=== PATIENT | female | born 1955 | race Caucasian/White ===

== ENCOUNTER → 2017-12-22 12:20 | Outpatient (CLI) | payer BC, SELFPAY ==
--- NOTE | 2017-12-22 12:43 | CT_ITS ---
STUDY: CT BRAIN WITHOUT CONTRAST REASON FOR EXAM: Female, 62 years old. Dizziness. Unsteady gait. RADIATION DOSAGE (If Supplied By Facility): CTDIvol = ( 60.81 ) mGy, DLP = ( 1158.30 ) mGycm TECHNIQUE: Transaxial CT imaging of the brain was performed without administration of intravenous contrast material. Individualized dose optimization techniques were used for this CT. COMPARISON: None. FINDINGS: Normal soft tissue structures. Normal calvarium. Normal size ventricles and extra-axial spaces for the patient's age. There are areas of decreased attenuation within the white matter tracts of the supratentorial brain, consistent with microvascular disease changes. Normal basal ganglia and thalami. Normal brainstem. Normal cerebellum. There is no intracranial hemorrhage. There are no findings of an acute ischemic infarction. Normal visualized paranasal sinuses. CT/Brain/Head without Contrast IMPRESSION: Chronic involutional changes of the brain. Electronically Signed: Nathaniel Bo MD at 13:19 EDT Tel [phone], Service support ,
[2017-12-22 13:57] LABS: Absolute Lymphocyte Count 1.09 X10^3/ul (0.83-4.51); Absolute Neutrophil Count 3.6 X10^3/uL (2.0-7.7); Basophil# 0.02 X10^3/uL; Basophil% 0.4 % (0-1); Eosinophil# 0.08 X10^3/uL; Eosinophils% 1.5 % (0-5); Hematocrit 38.6 % (37-47); Lymphocyte # 1.09 X10^3/ul (4.0); Lymphocyte % 20.8 % (19-41); Mean Corp Hgb Conc 31.1 g/gl (32-36); Mean Corpuscular Hgb 24.7 pg (27.0-32.0); Mean Corpuscular Volume 79.6 fL (81-99); Mean Platelet Vol. 10.3 fl (6.2-12.0); Monocyte# 0.46 X10^3/uL; Monocyte% 8.8 % (0-10); Neutrophil # 3.59 X10^3/uL (2.7-7.7); Neutrophil % 68.5 % (47-70); Platelet Count 356 K/mm3 (150-450); RBC Distribution Width CV 16.8 % (11.6-14.6); RBC Distribution Width SD 48.4 fl (35.1-43.9); Red Blood Count 4.85 M/mm3 (4.2-5.4); White Blood Count 5.2 K/mm3 (4.4-11.0)
[2017-12-22 14:12] LABS: POSITIVE COUNT NO; POSITIVE DIFFERENTIAL NO; POSITIVE MORPHOLOGY NO
[2017-12-22 14:15] LABS: Anion Gap 9 (5-15); BUN 17 mg/dL (7-18); BUN/Creat Ratio 28.9 RATIO (10-20); Calcium,Total 9.7 mg/dL (8.5-10.1); Chloride 102 mmol/L (98-107); Creatinine, Serum 0.59 mg/dL (0.55-1.02); EST Glomerular Filtration Rate 110 mL/min (>60); Est Glom Filt Rate - Afr Amer 133 mL/min (>60); Glucose 90 mg/dL (74-106); Potassium 3.5 mmol/L (3.5-5.1); Sodium Level 139 mmol/L (136-145)
== END ==
PROVIDERS: Family Provider Family Medicine; PCP Family Medicine; Visit Provider Family Medicine
DX: I10 Essential (primary) hypertension (principal); R42 Dizziness and giddiness; R41.82 Altered mental status, unspecified
CPT/HCPCS: 36415; 70450; 80048; 84443; 85025

== ENCOUNTER → 2020-04-06 14:30 | Outpatient (CLI) | payer BC, SELFPAY ==
[2016-03-09 10:44] VITALS: BMI 42.3
[2020-04-06 18:06] LABS: Anion Gap 7 (5-15); BUN 16 mg/dL (7-18); Calcium,Total 9.4 mg/dL (8.5-10.1); Chloride 103 mmol/L (98-107); Creatinine, Serum 0.62 mg/dL (0.55-1.02); EST Glomerular Filtration Rate 104 mL/min (>60); Est Glom Filt Rate - Afr Amer 126 mL/min (>60); Free T3 2.6 pg/mL (2.18-3.98); Glucose 77 mg/dL (74-106); Potassium 4.1 mmol/L (3.5-5.1); Sodium Level 136 mmol/L (136-145); T4 Total, Thyroxin 8.7 ug/dL (4.8-13.9); Thyroid Stim Hormone (TSH) 5.16 uIU/mL (0.358-3.74)
== END ==
PROVIDERS: PCP Family Medicine; Referring Provider Family Medicine; Visit Provider Family Medicine
DX: I10 Essential (primary) hypertension (principal); E03.9 Hypothyroidism, unspecified
CPT/HCPCS: 36415; 80048; 84436; 84443; 84481

== ENCOUNTER → 2020-08-17 07:50 | Outpatient (CLI) | payer BC, SELFPAY ==
[2020-08-17 10:33] LABS: ALB/GLOB Ratio 0.9 RATIO (0.9-2.4); AST(SGOT) 16 U/L (15-37); Alanine Aminotransfer ALT/SGPT 29 U/L (13-56); Albumin, Serum 3.9 g/dL (3.2-5.0); Alkaline Phosphatase 87 U/L (45-117); Anion Gap 8 (5-15); BUN 18 mg/dL (7-18); BUN/Creat Ratio 24.3 RATIO (10-20); Calcium,Total 9.8 mg/dL (8.5-10.1); Chloride 102 mmol/L (98-107); Cholesterol 223 mg/dL (200); Creatinine, Serum 0.74 mg/dL (0.55-1.02); EST Glomerular Filtration Rate 84 mL/min (>60); Est Glom Filt Rate - Afr Amer 101 mL/min (>60); Free T3 2.5 pg/mL (2.18-3.98); Globulin 4.2 g/dL (2.2-4.2); Glucose 102 mg/dL (74-106); High Density Lipoprotein 39 mg/dL; Potassium 3.8 mmol/L (3.5-5.1); Protein, Total 8.1 g/dL (6.4-8.2); Sodium Level 138 mmol/L (136-145); T4 Free Direct 0.97 ng/dL (0.76-1.46); Thyroid Stim Hormone (TSH) 6.27 uIU/mL (0.358-3.74); Triglycerides 156 mg/dL; Very Low Density Lipoprotein 31 mg/dL (5-40)
== END ==
PROVIDERS: PCP Family Medicine; Referring Provider Family Medicine; Visit Provider Family Medicine
DX: E03.9 Hypothyroidism, unspecified (principal); E78.5 Hyperlipidemia, unspecified
CPT/HCPCS: 36415; 80053; 80061; 84439; 84443; 84481

== ENCOUNTER 2020-11-14 14:30 | Outpatient (RCR) | payer BC, SELFPAY ==
[2020-08-17 08:56] VITALS: BMI 47.2
--- NOTE | 2020-08-21 18:43 | HP.PTEVAL ---
Patient's Visit Information TULIO VALERA is a 65 year old F referred to Physical Therapy by Dr. Nolberto Fuentes DO with a diagnosis of L knee DJD and bursitis. Date of Evaluation: 08/21/20 Physical Therapist: Jer Stratton, DPT, OCS, CSCS - Visit Plan Frequency: 3x /Week Duration: 4-6 Weeks Plan: 3x/week for 3-6 weeks starting with aquatic therapy for L knee ext ROm, quad stretchin, itb stretching, L knee adn hip strength adn calorie burning/full body strength. - Subjective Has seen [facility] for R knee f/u(TKA in 2013). Stopped crossfit and never got back to it. Still working for [employer] (29 years) and lifting and servicing 125 meals. Now doesn't trust self lifting at work. Haard to carry even small meals. Can carry grocery in but L knee may act up. 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 L knee hurt and got shot and it really helped last , easeir to sleep adn less intense pain. Still feels pulling pain in L anterior knee. Has to stop speaking for a second at [employer] if tweaks it. Has an instability in L knee and it will give out and caused her to fall once. Is bone on bone in L knee. Feels like this L knee is holding her hostage and keeping her from doing things. Walking 300 feet is often painful. it has been hurting and gradually increasing over the last 9 months and pain for 3 years. Tatment injection and sent for PT. Doctor also wants weigh watchers. Lost 29 # in last 3 months. Sleep is OK if she finds a good position and takes tylenol. - Pain L knee pain. Pain Intensity (Out of 10): 2 Pain Intensity Range: 0, 9 Comment: 7 /10 at rest. - Objective L antalgia in gait avoiding full extension of L knee with every step adn causing slight L trendelenberg. Labored and slow walking today. Trasnfers I with UE. steps reciprocal with railing without increased pain. Patient unable to lie supine with L leg flat due to severe pain in full extension. quads mod tight B, ITB min tight. AROM R knee 0-120, L knee -2 to 120. Strength L knee ext 3+ and pain, flexion 4- R knee 4/5 HS and quad. Hip strength 3+ abd and ext B, flexion 4- B. Ankle strength 4+ B without pain. reflexes 2.3 patella and achilles. Sensation LE WN to gross light touch. unable to patellar grind, unable to bounce home as patient very apinful and will nto relax. - varus, - valgus, - ant drawer. Pt feels OK with knee bent adn mostly painful with end range extension. - Balance Scores Functional Gait Assessment Score: 22 % Disability: 26.6700 - Goals Goal 1:: Patient ambulate without gait deviation and 2/10 pain or better after 500 feet. Goal Time Frame: 4-6 Weeks Goal 2:: I approp management of condition with pool and or land based ex Goal Time Frame: 4-6 Weeks Goal 3:: Pt feel 75% better overall Goal Time Frame: 4-6 Weeks Goal 4:: <10 oswestry pain index Goal Time Frame: 4-6 Weeks Goal 5:: Patient work withou hesitation due to L knee Goal Time Frame: 4-6 Weeks - Rehabilitation Potential Physical Therapy Diagnosis: L knee pain DJD effecting walking. Rehabilitation Potential: Questionable - Anticipated Interventions Patient/Client Instruction: Educate patient on: Condition, Plan of Care For the Purpose of:: To decrease pain, To increase ROM, To improve muscle performance and motor function, To increase tolerance to activity/condition/position, To improve ability of physical actions for home/community/work/leisure, To improve gait and locomotor functions Therapeutic Exercise to Include: Strength training, Flexibilty training, Gait and locomotor training, In an aquatic setting, Passive ROM, Active ROM For the Purpose of:: To decrease pain, To increase ROM, To improve muscle performance and motor function, To increase tolerance to activity/condition/position, To improve ability of physical actions for home/community/work/leisure Thank you for the opportunity to evaluate your patient. For Medicare and Medicare HMO plans, please review the plan of care and approve it. It will need to be FAXED BACK to us at [phone] for Medicare purposes. For Medicare only, by signing this I certify the plan of care. Please let me know if there are questions or concerns regarding this plan of care. Physician Signature: Date:
--- NOTE | 2020-10-10 15:35 | HP.PTREVAL_ITS ---
Dr. Nolberto Fuentes, DO, It has been my pleasure to treat TULIO VALERA over the last 10 visits for L knee DJD and bursitis. Please see the progress note below for an update on the physical therapy plan of care! Subjective: Love the pool therapy. [place] alot about lessening the pressure on the knee. Bending knee better. Walking better adn daughter agrees. Still feels a wobble and can struggle with balance. Wroking and walking with [employer] a little bit for exercise. Stretching more at home. Stationary bike makes her knees hurt especially later in the day. Pain this week in the knee to 5/10 being on feet for full day or sitting too much. o f/u yet with doctor. not been wearing brace. Lost 28# since first of year doing [employer]. Objective/Function: -1 to 133 L knee AROM and R is 0-118. Hop strength 3+ abd and ext adn 4- flexion. walks with B trendelenberg but no antalgia. Hesitant and fearful with balance challenges. Improved gait and appropriate to cotninue to wrok toward land based ex also with fair prognosis to I. Pt motivated to wrok out in gym also but no idea what to do. Plan Plan: 2x/week for 4 weeks to wrok toward I gym program to supplement pool program for gneeral strength, hip abd and ext strength and calorie burning ensuring that knees and hips tolerate adn then give list for I. Pt to work out in pool 2x/week on own now as member here or elsewhere. Goals Goal 1:: Patient ambulate without gait deviation and 2/10 pain or better after 500 feet. Goal Time Frame: 4-6 Weeks Goal Progress: Progressing, 5/10 Goal 2:: I approp management of condition with pool and or land based ex Goal Time Frame: 4-6 Weeks Goal Progress: Goal Met Goal 3:: Pt feel 75% better overall Goal Time Frame: 4-6 Weeks Goal 4:: <10 oswestry pain index Goal Time Frame: 4-6 Weeks Goal Progress: 21(-1) Goal 5:: Patient work withou hesitation due to L knee Goal Time Frame: 4-6 Weeks Goal Progress: Progressing Anticipated Interventions Patient/Client Instruction: Educate patient on: Condition, Plan of Care For the Purpose of:: To decrease pain, To increase ROM, To improve muscle performance and motor function, To increase tolerance to activity/condition/position, To improve ability of physical actions for home/community/work/leisure, To improve gait and locomotor functions Therapeutic Exercise to Include: Strength training, Flexibilty training, Gait and locomotor training, In an aquatic setting, Passive ROM, Active ROM For the Purpose of:: To decrease pain, To increase ROM, To improve muscle performance and motor function, To increase tolerance to activity/conditi on/position, To improve ability of physical actions for home/community/work/leisure Please do not hesitate to contact me at [phone] by phone or if you have questions or concerns regarding this new plan of care! Sincerely, Jer Stratton, DPT, OCS, CSCS
--- NOTE | 2020-11-14 15:29 | HP.PTDCSUM ---
It has been my pleasure to treat TULIO VALERA referred by Dr. Nolberto Fuentes DO, with the diagnosis of L knee DJD and bursitis for a total of 17 visit(s). Discharge Date: 11/14/20 Please see the following information for a summary of their discharge status. Subjective: Doing well! Doing better, lost 8#, joined here at . Leg is more activated. Feels like walking better with legs not as stiff. Pain is still just asintense at times when she is on it alot. Still up to 8/10 but did not stop her from her ex. Still scary that she might pop in an social situation and hurt or casue fall. Feels less fearful overall. Feels better about self overall, knee pain intenisty is slightly better. Has not been in poo for last number of weeks but feels like she could. Feels good about work ot seeing Dr. Joy anytime soon. L knee pain. Pain Intensity (Out of 10): 4 % Improvement: 75 Objective/Function: walks with L knee pain and antalgia and and still trendelenberg. I though and feeling better overall. Pt to continue in gym and water as membership 2-4x/week. Goal 1:: Patient ambulate without gait deviation and 2/10 pain or better after 500 feet. Goal Progress: Progressing, 5/10 Goal 2:: I approp management of condition with pool and or land based ex Goal Progress: Goal Met Goal 3:: Pt feel 75% better overall Goal Progress: Goal Met Goal 4:: <10 oswestry pain index Goal Progress: 15 Goal 5:: Patient work withou hesitation due to L knee Goal Progress: still limited lifting. Plan: d/c to gym program Discharge Comments: Pt to continue via [facility] in gyma dn pool and contact doctor if problems for f/u. If there are questions or concerns regarding this patient's physical therapy, please feel free to call me at [phone]. Thank you for the referral of this patient. Sincerely, Jer Stratton, DPT, OCS, CSCS
== END 2020-11-14 19:00 | disposition home or self-care (01) ==
LOC: PT 14:30
PROVIDERS: PCP Family Medicine; Referring Provider Orthopaedic Surgery; Visit Provider Orthopaedic Surgery
DX: M71.9 Bursopathy, unspecified (principal); M19.90 Unspecified osteoarthritis, unspecified site
CPT/HCPCS: 97110; 97113; 97162; 97164

== ENCOUNTER → 2021-03-01 | Outpatient (CLI) | payer BC, SELFPAY | END | disposition home or self-care (01) | LOC: LABSPEC 03-12 16:36 | PROVIDERS: PCP Family Medicine; Referring Provider Family Medicine; Visit Provider Family Medicine | DX: Z20.822 Contact with and (suspected) exposure to COVID-19 (principal) | CPT/HCPCS: 87635; U0005; U0003 ==

== ENCOUNTER → 2021-05-13 06:32 | Outpatient (CLI) | payer BC, SELFPAY ==
--- NOTE | 2021-05-13 12:42 | STRESSREP ---
Stress Test Report Pharmacologic myocardial perfusion stress test. 65-year-old lady with a history of right chest discomfort. Resting EKG demonstrates normal sinus rhythm with a rate of 81 bpm and a right bundle branch block. Resting blood pressure is 160/96 mmHg. 0.4 mg of regadenoson was infused per usual protocol followed by rapid venous saline flush injection in his EKG monitoring was performed. The maximum heart rate attained was 139 bpm which was 89% of max impact at heart rate the maximum workload was 1 metabolic equivalent. At rest there were no ST or T wave changes noted to suggest abnormal flow reserve and at peak infusion nonspecific ST changes were noted with did not meet the criteria for ischemia. No clinical angina was noted. Myocardial perfusion protocol. 14.8 mCi of technetium 99m sestamibi was injected at rest. 0.4 mg of regadenoson was infused per usual protocol. At peak infusion 44.1 mCi of technetium 99m sestamibi was injected stress images were obtained stress and rest images were reconstructed and compared in the short axis vertical long and horizontal long axis. Gated images were also obtained for Perfusion SPECT analysis: Review of the stress images demonstrate mildly reduced uptake noted in the anterior wall on the stress and resting images to a similar extent the rest of the pascual appear to be well perfused. The above is possibly suggestive of a previous anterior infarct. No obvious reversibility is noted suggest ischemia. Gated SPECT analysis: The gated ejection fraction is 57%. Conclusion: Pharmacologic myocardial perfusion stress test with no obvious ischemia noted. Previous anterior infarct cannot be completely excluded.
== END ==
PROVIDERS: PCP Family Medicine; Referring Provider Family Medicine; Visit Provider Family Medicine
DX: R07.9 Chest pain, unspecified (principal)
CPT/HCPCS: 78452; 93017; A9500; A4216; J2785

== ENCOUNTER → 2021-12-06 | Outpatient (CLI) | payer BC, SELFPAY ==
--- NOTE | 2021-12-06 08:41 | CT_ITS ---
STUDY: CT LEFT LOWER EXTREMITY WITHOUT CONTRAST REASON FOR EXAM: Left knee osteoarthritis, surgical planning. TECHNIQUE: Transaxial CT imaging of the lower extremity was performed. Coronal and sagittal images were reformatted. Individualized dose optimization techniques were used for this CT. COMPARISON: Radiographs 08/17/2020. FINDINGS: Knee: There are marginal osteophytes, mild subchondral eburnation and subchondral cystic change and joint space narrowing of the medial femorotibial compartment (coronal reconstruction 40). There are marginal osteophytes of the lateral femorotibial compartment with preservation of joint space. There are marginal osteophytes of the patellofemoral articulation with joint space narrowing (axial image 316). Hip: There is preservation of joint space of the left hip. Ankle: Normal tibiotalar, posterior subtalar talonavicular and calcaneocuboid articulations. There is an os trigonum. There is a plantar calcaneal enthesophyte. CT/Extremity Lower without Contra IMPRESSION: Left knee osteoarthritis. Electronically Signed: Ralph Foley MD at 14:59 EDT ,
== END | disposition home or self-care (01) ==
PROVIDERS: PCP Family Medicine; Referring Provider Orthopaedic Surgery; Visit Provider Orthopaedic Surgery
DX: M17.12 Unilateral primary osteoarthritis, left knee (principal)
CPT/HCPCS: 73700

== ENCOUNTER 2021-12-30 05:13 | Day surgery (SDC) | payer BC, SELFPAY ==
--- NOTE | 2021-12-03 13:34 | PCM.HP.BLA ---
History and Physical History and Physical [facility] Patient Name: Olena Henderson : 1955 From:? TETO PUCKETT PA-C? DATE OF SURGERY:? 12/30/2021 SCHEDULED PROCEDURE:? left total knee arthroplasty HISTORY OF PRESENT ILLNESS: Preoperative history and physical exam was performed on December 02, 2021.? This is a 66-year-old female who presents today with her with continued pain and progression of pain in the past 3 months.? She has had ongoing pain for several years.? Her pain is sharp and stabbing.? She has increased pain with going up and down steps and walking.? She presents today in a wheelchair.? She normally uses a walker throughout the day.? She does complain of instability in the knee.? She has difficulty with activities of daily living including housework and shopping.? She has fallen and tripped/stumble due to the knee pain.? Patient states she does not feel safe carrying anything while walking.? She has tried rest, ice, heat, elevation with minimal relief.? She has been through physical therapy and home exercises in the past.? Patient has been involved in aquatic therapy.? She has tried previous corticosteroid injections.? She denies previous surgery on the left knee.? However she has had previous right total knee arthroplasty by Dr. Rodrigo Robledo on October 25, 2013.? Patient does have medical history of hypertension, hypercholesterolemia, and thyroid disease.? She currently denies any chest pain, shortness of breath, fevers chills or recent infections.? After failing conservative measures and discussing treatment options with Dr. Donavan Young, the patient does wish to proceed with a left total knee arthroplasty.? We will undergo preoperative lab work.? Patient does report having an? EKG and Stress Test in April 2021. REVIEW OF SYSTEMS: ROS: Const: Reports weight change, but denies anorexia, change in appetite, fever, hard of hearing and vision problems. CV: Denies chest pain, heart murmur, irregular heartbeat and peripheral vascular disease. Resp: Denies asthma, cough, pneumonia, sleep apnea, SOB, tuberculosis and wheezing. GI: Denies constipation, diarrhea, difficulty swallowing, heartburn, nausea, bloody stools and vomiting. : Denies female genital problems. Urinary: denies incontinence. Musculo: Reports leg swelling, limp, trouble walking and weakness. Skin: Denies Raynaud's, history of shingles and tattoo. Neuro: Denies ambulatory dysfunction, dizziness, numbness/tingling and tremor. Psych: Reports depression, but denies anxiety, insomnia, mental illness and stress. Bijan/Lymph: Denies anemia, bleeding/bruising tendency and past transfusion. Reviewed, no changes. PAST MEDICAL HISTORY: PMH: Medical Problems: High Blood Pressure Covid- 19 - (06/19/2021) Hypercholesterolemia, Thyroid Disease Accidents: None Surgical Hx: RT TKR - (10/25/2013) GURPREET @ [facility] Anesthesia Complications: None Assistive Devices: Glasses, Cane Reviewed and updated. SOCIAL HISTORY: SH: Marital: .Occupation: Retired [employer].Work Status: Retired.Hand Dominance: Right-handed. Personal Habits:? Cigarette Use: Never Smoked Cigarettes.Alcohol: Has consumed alcohol in the past.Drug Use: Denies Use.Enjoy Exercising: Never Exercises. Reviewed and updated. VITALS: Ht: 64 Wt: 293lb Wt k.905 BMI: 50.3 BP: 130/82 Pulse: 92 Resp: 16 T: 97.2 T: 36.2C Pain Level: 8 O2SatR: 98 ALLERGIES: No Known Drug Allergy? MEDICATIONS: Oxycodone HCL 5 mg 1-2 by mouth every 4 hours, Zofran 4 mg one by mouth every 8 as needed nausea, Chlorthalidone 25 mg qd, Benazepril HCL 10 mg 1po qday, Levothyroxine Sodium 75 mcg, Atorvastatin Calcium 20 mg, Venlafaxine HCL ER 75 mg, Advil 200 mg 4 tablets 1-2x daily as needed, Aleve 220 mg 2 tablets by mouth 2x/day., Acetaminophen 8 Hour 650 mg prn PRE-OP EXAM:? General appearance:NORMAL? ? ? Other: Eyes: Conjunctivae and lids: NORMAL? Pupils: ERR Ears, Nose, Mouth, and Throat: NORMAL? Other: Inspection of lips, teeth and gums: NORMAL? ?Other: Neck: Examination of neck: no masses noted. Respiratory: Assessment of respiratory effort: NORMAL? ?Other: ?Auscultation of lungs: clear to auscultation no wheezes, rhonchi or rales. Cardiovascular:? Auscultation of heart: regular rate and rhythm, no murmurs, gallops or rubs. PHYSICAL EXAMINATION: On exam patient does present today in a wheelchair.? She reports she normally uses a walker for ambulatory assistance.? Patient's left knee is cool to touch without erythema.? She does have effusion.? She has tenderness to palpation along the medial joint line and lateral joint line.? Range of motion: 0 extension to approximately 100 flexion.? She does get crepitus with range of motion.? Varus alignment with the left knee.? Sensation intact to light touch. IMAGING STUDIES: Previous x-rays of the left knee reveal varus alignment with medial joint space narrowing, subchondral sclerosis, osteophyte formation consistent with severe stage IV osteoarthritis. IMPRESSION: 1.? Severe stage IV left knee osteoarthritis 2.? Morbid obesity with BMI 50.3 3.? Hypertension 4.? Hypercholesterolemia 5.? Thyroid disease PLAN: Dr. Donavan Young did discuss and review with the patient all treatment options including surgical versus nonsurgical options.? Patient does wish to proceed with the above-stated procedure.? Potential risks, benefits, and complications of the procedure were discussed in detail including but not limited to , infection, nerve and blood vessel damage, persistent pain, numbness, tingling, paresthesias, blood clot, pulmonary embolism, and requirement for possible further surgery.? The patient expressed full understanding and has no further questions for the doctor.? Patient does agree to proceed with the above-stated procedure and has signed the surgery consent form. We discussed the current risks associated with COVID 19.? This does include the risk of exposure while in the hospital.? Patient was reassured local hospitals have low infection rates and are taking all necessary precautions to avoid exposure to patients.? In addition, we discussed strategies that can be used to help limit exposure including those that limit the patient's time in the hospital.? Also using strategies to limit the patient's need for continued inpatient services after being discharged from the hospital.? Patient was notified that we will need to comply with any screening or testing the hospital wishes to perform or that surgery may be delayed for any positive results. This dictation was created using voice recognition software. Phonetic and/or grammatical errors may exist. ___? I have re-examined the patient.? There are no clinical changes since date of exam. ___? See progress notes for changes. ___? Dictated on admission Date: ? ? ?Time: Signature:
--- NOTE | 2021-12-06 09:08 | EKG12_ITS ---
Test Reason : PREOP Blood Pressure : / mmHG Vent. Rate : 076 BPM Atrial Rate : 076 BPM P-R Int : 236 ms QRS Dur : 156 ms QT Int : 430 ms P-R-T Axes : 038 069 129 degrees QTc Int : 483 ms Sinus rhythm with 1st degree A-V block with occasional Premature ventricular complexes Right bundle branch block T wave abnormality, consider inferolateral ischemia Abnormal ECG Confirmed by JOSE LICONA, FAZAL ([id number]), associate entertainment editor NICHOLE RUTHERFORD ([id number]) on 12/09/2021 11:39:09 AM Referred By: Donavan Young Confirmed By:FAZAL GARCIA MD
[2021-12-06 09:49] LABS: Absolute Lymphocyte Count 1.27 X10^3/uL (0.83-4.51); Absolute Neutrophil Count 5.1 X10^3/uL (2.0-7.7); Basophil# 0.05 X10^3/uL; Basophil% 0.7 % (0-1); Eosinophil# 0.15 X10^3/uL; Hematocrit 39.7 % (37-47); Hemoglobin 12.3 g/dL (12.0-15.0); Lymphocyte # 1.27 X10^3/ul (0.83-4.51); Lymphocyte % 17.3 % (19-41); Mean Corpuscular Hgb 25.2 pg (27.0-32.0); Mean Corpuscular Volume 81.4 fL (81-99); Monocyte# 0.71 X10^3/uL; Monocyte% 9.7 % (0-10); NRBC Flagged by Analyzer 0 % (0-5); Neutrophil # 5.13 X10^3/uL (2.7-7.7); Platelet Count 391 K/mm3 (150-450); RBC Distribution Width CV 15.9 % (11.6-14.6); RBC Distribution Width SD 47.2 fl (35.1-43.9); Red Blood Count 4.88 M/mm3 (4.2-5.4); White Blood Count 7.3 K/mm3 (4.4-11.0)
[2021-12-06 10:12] LABS: Anion Gap 7 (5-15); BUN 17 mg/dL (7-18); BUN/Creat Ratio 26.6 RATIO (10-20); Calcium,Total 9.8 mg/dL (8.5-10.1); Chloride 103 mmol/L (98-107); Creatinine, Serum 0.64 mg/dL (0.55-1.02); EST Glomerular Filtration Rate 99 mL/min (>60); Est Glom Filt Rate - Afr Amer 120 mL/min (>60); Glucose 115 mg/dL (74-106); Potassium 3.8 mmol/L (3.5-5.1); Sodium Level 136 mmol/L (136-145)
[2021-12-06 10:23] LABS: Magnesium 1.9 mg/dL (1.6-2.6); Thyroid Stim Hormone (TSH) 1.31 uIU/mL (0.358-3.74)
[2021-12-30] VITALS (13 sets, daily range): BP systolic 107–155; BP diastolic 41–93; PULSE 60–76; RESP 14–18; TEMP 36.1–36.6; O2SAT 92–100; BMI 47.1
[2021-12-30] MEDS: Lactated Ringers 1,000 ML 999 ML IV (06:17)
[2021-12-30] MEDS: Celecoxib 200 MG Capsule 400 MG PO (06:18)
[2021-12-30] MEDS: Acetaminophen 500 MG Tablet 1000 MG PO (06:18)
[2021-12-30] MEDS: Gabapentin 600 MG Tablet PO (06:18)
[2021-12-30] MEDS: Magnesium 2 GM IV (06:20)
[2021-12-30] MEDS: Lactated Ringers 1,000 ML 15 ML IV (06:24)
[2021-12-30 07:30] LABS: Bedside Glucose 122 mg/dL (74-106)
--- NOTE | 2021-12-30 07:30 | KNEE_PTH ---
PATIENT: TULIO VALERA [place] [facility] [place][id number] AGE/SX: 66/F ROOM: RE12/30/[address]: Dr. Donavan Young DO : 1955 BED: DIS: 12/30/2021 SPEC #: [id number] RECD: 12/30/21 10:57 STATUS: HERI REQ #: [id number] SULMA: 12/30/21 07:[address]: Donavan Young DEPT: SURGICAL PATHOLOGY RECD BY: Alicia Aopdaca ENTERED: 12/30/21 13:10 SP TYPE: TOTAL KNEE OTHR DR: Dr. Hugo Noriega MD Tissues: Knee, NOS Procedures: Decalcification bone/plaque Surgery Specimen Level IV HEADER OPERATION: ERAS, total knee replacement robotic arm assist PRE-OP DIAGNOSIS: Severe stage IV left knee osteoarthritis TISSUE SUBMITTED: Bone and soft tissue left knee MICROSCOPIC DIAGNOSIS Bone and soft tissue, left knee, total knee replacement/resection: Pieces of bone with degenerative osteoarthritic changes. LIBERTY:rudi 01/02/2022 MICROSCOPIC DESCRIPTION Slides are reviewed. GROSS DESCRIPTION Received is one container designated bone and soft tissue left knee. The specimen consists of multiple fragments of sims-yellow bone measuring in aggregate 10 x 9 x 3 cm. No soft tissue is identified. A number of bony fragments contain articular surfaces consistent with tibial plateau and femoral condyle and displaying prominent osteophyte formation, eburnation, and bone erosion. Music Arranger sections are submitted in one cassette after decalcification. / LIBERTY:rudi 12/30/2021 TC:5 CPT: 65562, 25074
[2021-12-30] MEDS: TXA 1000mg in NS100 100ml (IVPB at Incision) 660 MG IV (07:50)
[2021-12-30] MEDS: dexAMETHasone 10 MG/ML Vial IV (08:20)
[2021-12-30] MEDS: TXA 1000mg in NS100 100ml (IVPB at Closure) 660 MG IV (09:04)
--- NOTE | 2021-12-30 09:10 | PCM.OPRPT ---
Report of Operation Date of Procedure: 12/30/21 Pre-Operative Diagnosis: OA left knee Post-Operative Diagnosis: same Surgery/Procedure Performed:: Left TKR Description of Surgical Findings:: Report of Operation Date of Procedure: 12/30/2021 Preoperative Diagnosis: [ left ] knee primary osteoarthritis Postoperative Diagnosis: [left ] knee primary osteoarthritis Operation: Robotic Assisted Knee Total Arthroplasty, [left ] knee Surgeon: Dr Donavan Young DO Computer Sciences Professor: Jordan Rodriguez PA-C Anesthesia: general Anesthesiologist: Jer Cohn M.D. Findings: Stable knee with good patella tracking Specimen(s): Bony cuts Complications: No intraoperative complications Estimated Blood Loss: 30 cc IV Fluids: 1000 cc crystalloid Implants Used: 1. [employer] press-fit CR size 4 femur 2. [place] [employer] size 5 tibia 3. 35 mm patella 4. 9 mm CS polyethylene Brief History Operative Indications: [ (66 y/o female) ] with history of [ left ] knee osteoarthrosis with radiographic findings with loss of joint space, osteophyte formation and subchondral sclerosis. Failed conservative measures as mentioned in the H&P. Discussion of total knee arthroplasty as well as risk and benefits were discussed with the patient including but not limited to blood loss, DVTs, PEs, neurovascular damage, general risk of anesthesia including loss of life, and stiffness or instability were also discussed with the patient. Patient demonstrated understanding and was able to sign informed consent. Procedure: On the date of procedure, patient's [ left ] lower extremity was marked in the preoperative area. The patient was then taken back to the operating room where that patient was placed on the table in the supine position. All bony prominences were identified and well-padded. Anesthesia assumed control of the C-spine and airway throughout the remainder of the procedure. A tourniquet was placed on the [left ] upper thigh and the leg was prepped in a sterile fashion. The surgeon then scrubbed at this time. Upon reentering the room, the [left ] lower extremity was draped in a standard orthopedic fashion. A timeout was then called and everyone agreed upon the side, the site, the procedure to be performed, patient's identity and antibiotics given. Esmarch bandage was used to exsanguinate the extremity and the tourniquet was placed up to 250 mmHg with the knee in flexion. A midline skin incision was made and a sharp dissection was taken down through skin, subcutaneous tissue and fat. The standard medial parapatellar incision was made and the patella was subluxed laterally. An appropriate deep MCL release was done and the fat pad was resected. Our attention was then directed to the patella. The patella was everted and a flat resection was made. The knee was then flexed up and 2 femoral pins were placed inside the incision and 2 tibial pins were placed outside the incision in the medial tibia bicortically. Once this was completed, the 2 checkpoints in the femur and tibia were placed. Knee was then flexed up and the bony landmarks were registered. Once the was completed, the knee taken through range of motion and manually stressed allowing us to plan for an appropriate tibial cut. The robotic arm was brought into the field sterilely and checkpoint and saw were registered. Based on the patient's deformity, the tibial cut was made in [1 degree varus ]. At this time, the tensioner was then placed in the joint and ligament tension was checked at 90 degrees and full extension. Based on the patient's ligamentous tension, appropriate adjustments were made to the operative plan and ligament releases were done. Once we were happy with our operative plan with balanced flexion and extension gaps, our attention was directed to the femur. The robot was brought into the field sterilely and registered. Posterior condylar cuts, anterior chamfer cuts and anterior cuts were appropriately made for a [size 4 ] femur. When these were completed, the saws were switched out in the distal femoral and posterior chamfer cuts were made. Protecting the soft tissue throughout this time. A [ size 5 ] base plate was selected. The knee was flexed to 90 degrees and soft tissues and posterior osteophytes were removed from the joint. 40 cc of the periarticular injection was injected into the posterior medial corner of the joint. The appropriate trials were then placed on the femur and tibia. A trial polyethylene was trialed to ensure proper balancing and stability of the knee. The appropriate tibial internal rotation was then marked with a bovie. Our attention was then directed to the patella. The lug holes were drilled and the patella trial was placed. Patellar tracking was checked and deemed appropriate. Once we were happy, lug holes were drilled for the femur and trial components were removed. The tibia was subluxed and pinned into place and the keel was punched and drilled appropriately. Final components were verified and opened. The wound was copiously irrigated with normal saline. The components were impacted into place with the tibia, femur and finally the patella. The trial poly component was placed and the knee was placed in full extension. The tracking, alignment and balance were verified and a [ 9 mm CS ] polyethylene component was placed. Once the final components were placed an Irrisept lavage was performed and the wound was copiously irrigated with normal saline solution and the periarticular injection was given. the wound was closed in a layer-lowery fashion using #1 vicryl interrupted sutures for the arthrotomy, 2-0 interrupted vicryl suture for the subcuticular layer and karla for final skin closure. A sterile compressive dressing was then placed. The patient was then awakened from anesthesia, transferred to the [facility] and transferred to the PACU for recovery. My physician assistant teacher was a vital part of this case. He was important in appropriate retraction during the case, and protection of soft tissues during bony cuts. His intimate knowledge of the case and my steps aided in safe and expedient completion of the procedure as well as appropriate position of the leg during the case. He was also vital in assisting with closure under my direct supervision. Due to the complexity of this case, robotic arm was used to assist in the surgery to improve accuracy and clinical outcomes. Post-op Plan: DVT ppx; ASA 81 mg BID, thigh high compression stockings Follow up: in office in 2 weeks for wound check PT: to start POD #0 at hospital, outpatient PT should be arranged. Preoperative antibiotic: Ancef 3 grams IV Donavan Young DO Surgeon: Donavan Young log raft worker: Jordan Rodriguez Type of Anesthesia: General Anesthesiologist: Jer Cohn Specimen's removed: bone Estimated Blood Loss (mL): 30 cc Fluids Replaced: 1000 cc crystalloid Admit VTE Documentation VTE Present on Admission: No VTE Mechan Device Prophylaxis: SCD's and Thigh High RAJESH Hose VTE Pharm Prophylaxis ordered?: Yes
[2021-12-30] MEDS: 0.9% Normal Saline 1,000 ML 125 ML IV (09:30)
--- NOTE | 2021-12-30 10:10 | RAD_ITS ---
STUDY: X-RAY - LEFT KNEE REASON FOR EXAM: Female, 66 years old. post op TKR -- in PACU TECHNIQUE: 2 view(s) of the knee. COMPARISON: 08/17/2020 FINDINGS: Normal visualized distal femur. Normal visualized proximal tibia and fibula. Normal proximal tibiofibular articulation. Interval recent total knee arthroplasty with subcutaneous emphysema and skin karla.. The soft tissue structures are unremarkable. RAD/Knee 1 or 2 Views IMPRESSION: Interval recent total knee arthroplasty. Electronically Signed: Alcides Pink MD at 17:32 EDT ,
== END 2021-12-30 14:56 | disposition home or self-care (01) ==
LOC: SDC 05:13 → AC 05:25
PROVIDERS: Anesthesiology; PCP Family Medicine; Referring Provider Orthopaedic Surgery; Visit Provider Orthopaedic Surgery
PROC: 0SRD0JZ Replacement of Left Knee Joint with Synthetic Substitute, Open Approach (ICD-10-PCS; CPT 27447; principal; 2021-12-30 07:00)
DX: M17.12 Unilateral primary osteoarthritis, left knee (principal); Z68.43 Body mass index [BMI] 50.0-59.9, adult; E66.01 Morbid (severe) obesity due to excess calories; E78.00 Pure hypercholesterolemia, unspecified; E07.9 Disorder of thyroid, unspecified; M25.362 Other instability, left knee; I10 Essential (primary) hypertension
CPT/HCPCS: 27447; S2900; 01402; 64450; 36415; 73560; 80048; 82962; 83735; 84443; 85025; 87077; 87081; 88305; 88311; 93005; 97162; C1776; J7030; J7120; J2405

== ENCOUNTER → 2022-01-17 | Outpatient (CLI) | payer BC, SELFPAY ==
--- NOTE | 2022-01-17 10:49 | VDLE_ITS ---
Reason For Study: Pain Procedure LEFT This is a venous duplex using B-mode, color GSV is normal. flow and spectral Doppler. CFV visualized with color only and appears Exam performed in department. patent. Normal venous flow noted. Pt unable to tolerate compression at the CFV FV prox is compressible with normal venous and FV. flow noted. A preliminary report was called and/or faxed FV mid-distal visualized with color only and to Hannah. appears patent. POP V is compressible, spontaneous, phasic, competent and demonstrates normal augmentation. T/P Trunk is compressible. PTV is compressible. LT PerV is compressible. VL/Venous Duplex US, Unilateral Interpretation Summary Deep veins of the left lower extremity appear patent. There is no evidence of l eft lower extremity deep vein thrombosis. The left great saphenous vein appears patent and compress ible segmentally. Ordering Physician: Donavan Young Referring Physician: Hugo Noriega Performed By: Ayla Mirza RVT
== END | disposition home or self-care (01) ==
LOC: CVS 10:47
PROVIDERS: PCP Family Medicine; Referring Provider Orthopaedic Surgery; Visit Provider Orthopaedic Surgery
DX: M79.605 Pain in left leg (principal)
CPT/HCPCS: 93971

== ENCOUNTER 2022-08-23 11:41 | Emergency (ER) | payer BC, SELFPAY ==
[2022-08-23 11:41] VITALS: BP 148/107; PULSE 134; RESP 16; TEMP 36.7; O2SAT 98; BMI 46.9
--- NOTE | 2022-08-23 11:55 | EDS_ITS ---
HPI <KAYLENE Valentin - Last Filed: 08/23/22 15:07> History of Present Illness Chief Complaint: General Illness Narrative Narrative: Presenting today with flulike symptoms that started yesterday. She has had a fever, headache, nausea, vomiting, body aches, and feels lightheaded. She states she has had several episodes of vomiting since last night but denies any hematemesis. She states that her grandson just tested positive for influenza B on Thursday and she has been around him this week. Reports she has also been around her nephew who tested positive for COVID. She states her is also sick with similar symptoms but is not as severe. She denies any shortness of breath, chest pain, abdominal pain, and diarrhea. PMH includes hypertension and hypothyroidism. PFSH <KAYLENE Valentin - Last Filed: 08/23/22 15:07> [facility] Medical History Anxiety Arthritis Former smoker High cholesterol History of edema History of pain when walking History of stress test Hypertension Leg cramps Thyroid disease Wears glasses Home Medications benazepril 10 mg tablet 10 mg PO DAILY BP 12/31/13 [History Last Taken 12/30/21 04:45] chlorthalidone 25 mg tablet 25 mg PO DAILY 12/31/13 [History Last Taken 12/30/21 04:45] venlafaxine 75 mg capsule,extended release 24 hr 75 mg PO DAILY HOT FLASHES 12/31/13 [History Last Taken 12/29/21] atorvastatin 10 mg tablet 20 mg PO QHS CHOLESTEROL 08/17/20 [History Last Taken 12/29/21] levothyroxine 50 mcg tablet 75 mcg PO DAILY THYROID 08/17/20 [History Last Taken 12/30/21 04:45] ascorbic acid (vitamin C) 500 mg chewable tablet (Vitamin C) 1,000 mg PO DAILY 12/03/21 [History Last Taken 12/29/21] multivitamin,kw-gpqy-[id number]-FA-min 1 tab PO DAILY 12/03/21 [History Last Taken 12/29/21] ondansetron 4 mg disintegrating tablet 4 mg PO Q8H PRN PRN Nausea #14 tabs 08/23/22 [Rx Last Taken Unknown] Allergy/AdvReac Type Severity Reaction Status Date / Time No Known Allergies Allergy Verified 08/23/22 11:43 Surgical History History of total right knee replacement Hx of colonoscopy Social History Smoking Status: Former smoker ROS <KAYLENE Valentin - Last Filed: 08/23/22 15:07> ROS ED Constitutional Constitutional ED: Reports chills and fever(s); Denies sweats Eyes Eyes: Denies blurry vision or diplopia Cardiovascular Cardiovascular: Denies chest pain or palpitations Respiratory/Chest Respiratory/Chest: Reports cough; Denies dyspnea or dyspnea on exertion Gastrointestinal Gastrointestinal: Reports nausea and vomiting; Denies abdominal pain, constipation or diarrhea Genitourinary Genitourinary ED: Denies dysuria or hematuria Musculoskeletal Musculoskeletal: Reports myalgias Integumentary Denies abscess, Abrasions or rash Neurologic Neurologic: Denies confusion, dizziness or paresthesias Psychiatric Psychiatric: Denies anxiety, depression, suicidal ideation or suicidal thoughts EXAM <KAYLENE Valentin - Last Filed: 08/23/22 15:07> Physical Exam Const Vital Signs: 08/23/22 11:41 08/23/22 13:57 Temperature 98.1 F Temperature Source Temporal Pulse Rate 134 H 87 Respiratory Rate 16 16 Blood Pressure 148/107 H Blood Pressure Mean 120 Pulse Ox 98 95 Oxygen Delivery Method Room Air Positive well nourished, well developed and no apparent distress General Appearance ED: well developed HEENT Reports normocephalic, head/scalp atraumatic and TM's clear HEENT Narrative: Posterior pharynx without erythema, no tonsillar exudates, uvula midline, no trismus, no drooling. Tympanic Membrane ED: Yes TM's clear Mouth ED: Yes moist mucous membranes normal Eyes PERRL and EOMs intact bilaterally Neck full ROM and supple Chest Wall inspection of chest normal Resp normal respiratory effort and clear to auscultation bilaterally Cardio regular rate and regular rhythm GI soft to palpation, non-tender, non-distended and no masses Back/Spine normal ROM and normal to inspection Extremity normal to inspection and full ROM Neuro oriented x3, CN's II-XII intact bilaterally, moves all extremities, no focal motor deficits and no sensory deficits noted Sensorium / Orientation: awake and alert Psych mental status grossly normal and thought process normal Skin no rashes or lesions noted and no wounds <Dr. Bharat Cid, - Last Filed: 08/23/22 16:16> Physical Exam Const Vital Signs: 08/23/22 11:41 08/23/22 13:57 Temperature 98.1 F Temperature Source Temporal Pulse Rate 134 H 87 Respiratory Rate 16 16 Blood Pressure 148/107 H Blood Pressure Mean 120 Pulse Ox 98 95 Oxygen Delivery Method Room Air [facility] <KAYLENE Valentin - Last Filed: 08/23/22 15:07> [facility] Narrative Medical decision making narrative: Patient presenting today for flu-like symptoms that started last night. She has had a flu exposure and her is sick with similar symptoms. She is a little tachycardic at 134 bpm, I will give her IV fluids and Zofran. Rapid flu and COVID swabs will be obtained. Patient remained above 95% on room air. She is not having any shortness of breath. She did test positive for COVID. On reexamination she is stating she feels better with the fluids and is no longer nauseous. She has been given supportive care measures. She has been given return precautions. She has been given a prescription for Zofran. She will be discharged home in stable condition and is comfortable with plan. <Dr. Bharat Cid, - Last Filed: 08/23/22 16:16> [facility] Narrative Medical decision making narrative: Patient presenting today for flu-like symptoms that started last night. She has had a flu exposure and her is sick with similar symptoms. She is a little tachycardic at 134 bpm, I will give her IV fluids and Zofran. Rapid flu and COVID swabs will be obtained. Patient remained above 95% on room air. She is not having any shortness of breath. She did test positive for COVID. On reexamination she is stating she feels better with the fluids and is no longer nauseous. She has been given supportive care measures. She has been given return precautions. She has been given a prescription for Zofran. She will be discharged home in stable condition and is comfortable with plan. This patient was seen with a PA/ENGINEERING TEACHER Individually assessed they patient including history and physical. I have reviewed everything on the chart that is available and agree with the documentation provided by the PA/ENGINEERING TEACHER including discussion about the assessment, treatment plan, discussion, and return precautions. Patient with viral symptoms. Otherwise well-appearing. She is tachycardic on arrival. Patient given a liter normal saline and 4 mg of Zofran. Rapid COVID came back positive. On reevaluation she feels better. Recommend Zofran for home. Precautions discussed. Discharge Plan Triage Chief Complaint: General Illness ED Midlevel Provider: Ruthie Doe ED Provider: Bharat Cid Dx/Rx/DC Orders Clinical Impression: COVID-19 Instructions: Coronavirus Disease 2019 (COVID-19): Caring for Yourself or Others Prescriptions: New ondansetron 4 mg tablet,disintegrating 4 mg PO Q8H PRN PRN (Reason: Nausea) Qty: 14 0RF No Action atorvastatin 10 mg tablet 20 mg PO QHS levothyroxine 50 mcg tablet 75 mcg PO DAILY venlafaxine 75 MG capsule,extended release 24hr 75 mg PO DAILY Label Comments: chlorthalidone 25 MG tablet 25 mg PO DAILY Label Comments: benazepril 10 MG tablet 10 mg PO DAILY Label Comments: ascorbic acid (vitamin C) [Vitamin C] 500 mg Tablet,Chewable 1,000 mg PO DAILY Multivitamin And Mineral Tablet 1 tab PO DAILY Primary Care Provider: Hugo Noriega Referrals: Hugo Noriega MD [Primary Care Provider] - 1 Week Activity Restrictions/Additional Instructions: Stay well-hydrated, plenty of rest, please return for any shortness of breath, chest pain or worsening of your symptoms. Disposition Disposition: Home, Self Care Discharge Date/Time: 08/23/22 14:08
[2022-08-23] MEDS: 0.9% Normal Saline 1,000 ML 999 ML IV (12:14)
[2022-08-23] MEDS: Ondansetron 4 MG/2 ML Vial IV (12:14)
[2022-08-23 13:57] VITALS: PULSE 87; RESP 16; O2SAT 95
== END 2022-08-23 14:08 | disposition home or self-care (01) ==
PROVIDERS: Emergency Provider Student in an Organized Health Care Education/Training Program; PCP Family Medicine; Visit Provider Student in an Organized Health Care Education/Training Program
DX: U07.1 COVID-19 (principal); I10 Essential (primary) hypertension; Z20.828 Contact with and (suspected) exposure to other viral communicable diseases; E78.00 Pure hypercholesterolemia, unspecified; Z87.891 Personal history of nicotine dependence; E03.9 Hypothyroidism, unspecified
CPT/HCPCS: 87428; 96361; 96374; 99283; J7030; A4216; J2405

== ENCOUNTER → 2023-10-01 | Outpatient (CLI) | payer MEDICARE, SELFPAY ==
[2023-10-01 18:26] LABS: Anion Gap 7 (5-15); BUN 18 mg/dL (7-18); BUN/Creat Ratio 25.8 RATIO (10-20); Calcium,Total 10.1 mg/dL (8.5-10.1); Chloride 101 mmol/L (98-107); Cholesterol 200 mg/dL (200); EST Glomerular Filtration Rate 89 mL/min (>60); Est Glom Filt Rate - Afr Amer 108 mL/min (>60); Free T3 2.7 pg/mL (2.18-3.98); Glucose 101 mg/dL (74-106); High Density Lipoprotein 39 mg/dL; Potassium 3.9 mmol/L (3.5-5.1); Sodium Level 133 mmol/L (136-145); T4 Free Direct 1.23 ng/dL (0.76-1.46); Thyroid Stim Hormone (TSH) 2.31 uIU/mL (0.358-3.74); Triglycerides 203 mg/dL; Very Low Density Lipoprotein 41 mg/dL (5-40)
== END | disposition home or self-care (01) ==
PROVIDERS: PCP Family Medicine; Visit Provider Family Medicine
DX: I10 Essential (primary) hypertension (principal); E03.9 Hypothyroidism, unspecified
CPT/HCPCS: 36415; 80048; 80061; 84439; 84443; 84481

== ENCOUNTER 2024-07-26 18:37 | Emergency (ER) | payer MEDICARE, SELFPAY ==
[2024-07-26] VITALS (7 sets, daily range): BP systolic 160–184; BP diastolic 85–114; PULSE 111–145; RESP 20–28; TEMP 36.2–37.1; O2SAT 94–100; BMI 53.0
--- NOTE | 2024-07-26 18:46 | EKG12_ITS ---
Test Reason : SOB/CP Blood Pressure : */* mmHG Vent. Rate : 119 BPM Atrial Rate : 119 BPM P-R Int : 170 ms QRS Dur : 146 ms QT Int : 440 ms P-R-T Axes : 43 87 34 degrees QTcB Int : 618 ms Sinus tachycardia with Premature atrial complexes Right bundle branch block Abnormal ECG Confirmed by Donavan Borjas ([id number]), editor sound FRANCISCO HARPER ([id number]) on 07/28/2024 6:55:07 AM Referred By: Confirmed By: Donavan Borjas
--- NOTE | 2024-07-26 18:55 | RAD_ITS ---
PROCEDURE: CHEST PA AND LATERAL REASON FOR EXAM: Chest pain TECHNIQUE: Frontal and lateral views of the chest. COMPARISON: None. FINDINGS: The heart size is normal. The mediastinal contour is unremarkable. The lungs are clear. The bones are unremarkable. RAD/Chest PA and Lateral IMPRESSION: No radiographic evidence of acute cardiopulmonary disease Reading Location: [place]
[2024-07-26 19:19] LABS: Absolute Lymphocyte Count 1.65 X10^3/uL (0.83-4.51); Absolute Neutrophil Count 6.4 X10^3/uL (2.0-7.7); Basophil# 0.05 X10^3/uL; Basophil% 0.6 % (0-1); Eosinophil# 0.14 X10^3/uL; Eosinophils% 1.6 % (0-5); Hematocrit 38.8 % (37-47); Hemoglobin 12.4 g/dL (12.0-15.0); Lymphocyte # 1.65 X10^3/ul (0.83-4.51); Lymphocyte % 18.3 % (19-41); Mean Corpuscular Hgb 25.7 pg (27.0-32.0); Mean Corpuscular Volume 80.5 fL (81-99); Mean Platelet Vol. 9.1 fl (6.2-12.0); Monocyte# 0.81 X10^3/uL; NRBC Flagged by Analyzer 0 % (0-5); Neutrophil # 6.35 X10^3/uL (2.7-7.7); Neutrophil % 70.3 % (47-70); Platelet Count 511 K/mm3 (150-450); RBC Distribution Width CV 16.5 % (11.6-14.6); RBC Distribution Width SD 46.5 fl (35.1-43.9); Red Blood Count 4.82 M/mm3 (4.2-5.4)
[2024-07-26 19:54] LABS: Anion Gap 17 (5-15); BUN 14 mg/dL (4-19); BUN/Creat Ratio 15.5 RATIO (10-20); Calcium,Total 10.2 mg/dL (7.6-11.0); Carbon Dioxide 19.6 mmol/L (21.0-32.0); Chloride 96 mmol/L (98-108); EST Glomerular Filtration Rate 70 (>60); Estimated Creatinine Clearance 88.13 ml/min (50-250); Glucose 125 mg/dL (70-99); Potassium 3.9 mmol/L (3.3-5.1); Sodium Level 133 mmol/L (133-145); Troponin T High Sensitivity 12 ng/L (<=14)
--- NOTE | 2024-07-26 20:30 | ED.VIS.DYS ---
HPI History of Present Illness Chief Complaint: Chest Pain Detail of Chief Complaint: Shortness of breath that started Thursday. Patient denies chest discomfort Informant: patient Onset/Context/Timing Onset: Days (Thursday, July 22) Context: sudden Timing: Continuous and Waxes and wanes Quality: Positive for Dyspnea on exertion; Negative for Orthopnea, PND or Wheezing Current Severity: Mild Maximum Severity: Severe Worsened by: Exertion; Not Worsened By Lying flat or Coughing Relieved by: Nothing Associated Symptoms Negative for cough, rhinorrhea, post nasal drip, ear pain, fever, sore throat, subjective, chills or sweats Chest Pain: Positive for None Narrative Narrative: Patient is a 68-year-old female. She presents with shortness of breath that started abruptly on Thursday. She has no history of VTE. Denies leg pain, swelling discoloration. She denies chest discomfort including pleuritic. She feels she cannot get a complete breath. She has had no recent surgery. She has had no recent immobilization. She has no history of cancer. There is family history of cancer. There is no family history of VTE. Patient denies headache, visual, ocular auditory symptoms. Patient has rhinorrhea, congestion postnasal drainage. Patient has slight coarse voice. She denies cough. She denies leg pain, swelling or discoloration. She denies abdominal pain, nausea, vomiting or diarrhea. She denies frequency, urgency or hematuria. Denies change in the color of her urine. She states she has been drinking a lot of fluids. She may have slight discomfort with urination. She did a COVID test because she feels fatigued because she is not able to walk without becoming short of breath. She states she had this similar symptom when she had COVID. Her home COVID test was negative. PE Risk Factors: Negative for Cancer, OCP + Smoking + > 35, Prior DVT or PE, Recent immobilization, Recent surgery or Recent travel Prior similar symptoms: No Recent Illness/Hospitalization: No PFSH PFSH Medical History Wears glasses Anxiety Thyroid disease Arthritis High cholesterol Former smoker Leg cramps History of pain when walking History of edema History of stress test Hypertension Home Medications ?Medication ?Instructions ?Recorded ?Last Taken ?Type benazepril 10 mg tablet 10 mg PO DAILY BP 12/31/13 12/30/21 04:45 History chlorthalidone 25 mg tablet 25 mg PO DAILY 12/31/13 12/30/21 04:45 History venlafaxine 75 mg capsule,extended 75 mg PO DAILY HOT FLASHES 12/31/13 12/29/21 History release 24 hr levothyroxine 50 mcg tablet 75 mcg PO DAILY THYROID 08/17/20 12/30/21 04:45 History ascorbic acid (vitamin C) 500 mg 1,000 mg PO DAILY 12/03/21 12/29/21 History chewable tablet (Vitamin C) atorvastatin 20 mg tablet 20 mg PO QHS 07/26/24 Unknown History Allergy/AdvReac Type Severity Reaction Status Date / Time No Known Allergies Allergy Verified 07/26/24 18:38 Surgical History Hx of colonoscopy History of total right knee replacement Social History (Updated 07/26/24 @ 20:[address] Miguel Waters MD) household members: spouse Smoking Status: Former smoker ROS ROS ED Constitutional Constitutional ED: Denies chills, fever(s), sweats or weight loss Eyes Eyes: Denies blurry vision or change in vision ENT ENT ED: Denies ear pain, rhinorrhea or sore throat Cardiovascular Cardiovascular: Denies chest pain, orthopnea, palpitations, paroxysmal nocturnal dyspnea or racing heartbeat Respiratory/Chest Respiratory/Chest: Reports dyspnea and dyspnea on exertion; Denies cough, orthopnea or paroxysmal nocturnal dyspnea Gastrointestinal Gastrointestinal: Denies abdominal pain, diarrhea, melena, nausea or vomiting Genitourinary Genitourinary ED: Reports dysuria; Denies hematuria or urinary frequency Musculoskeletal Musculoskeletal: Denies arthralgias, back pain or myalgias Integumentary Denies rash Neurologic Neurologic: Denies headache(s), paresthesias or weakness Psychiatric Psychiatric: Reports anxiety Endocrine Endocrinology: Denies cold intolerance or heat intolerance Hematologic/Lymphatic Hematologic/Lymphatic: Denies easy bleeding or easy bruising EXAM Physical Exam Const Vital Signs: 07/26/24 18:38 07/26/24 20:16 07/26/24 20:16 Temperature 97.2 F L Temperature Source Temporal Pulse Rate 145 H 113 H Respiratory Rate 28 H 20 H Respiratory Effort Respiratory Depth Respiratory Pattern Blood Pressure 184/114 H 184/90 H Blood Pressure Mean 137 121 Pulse Ox 100 95 95 Oxygen Delivery Method Room Air Room Air Room Air 07/26/24 20:16 07/26/24 20:16 07/26/24 20:16 Temperature Temperature Source Pulse Rate Respiratory Rate Respiratory Effort Short of Breath Labored Short of Breath Labored Short of Breath Labored Respiratory Depth Normal Respiratory Pattern Tachypnea Tachypnea Tachypnea Blood Pressure Blood Pressure Mean Pulse Ox Oxygen Delivery Method Room Air 07/26/24 21:00 07/26/24 22:00 07/26/24 23:00 Temperature Temperature Source Pulse Rate 118 H 114 H 116 H Respiratory Rate 20 H 20 H 22 H Respiratory Effort Respiratory Depth Respiratory Pattern Blood Pressure 161/92 H 160/95 H 170/85 H Blood Pressure Mean 115 116 113 Pulse Ox 94 94 96 Oxygen Delivery Method Room Air Room Air Room Air Vital signs are marked for elevated blood pressure, tachycardia, tachypnea. She is not hypoxic or febrile. Positive well nourished and well developed Constitutional Narrative: BMI is 53.0. General Appearance ED: well developed; Negative for pallor HEENT Reports moist mucous membranes HEENT Narrative: Head is atraumatic normocephalic. Ears normal. Nares patent. Posterior pharynx unremarkable. Voice is slightly hoarse. Eyes PERRL and EOMs intact bilaterally General Eye ED: Negative for pale conjunctiva or scleral icterus Neck no lymphadenopathy, supple, no meningeal signs and no JVD Neck Narrative: Trachea is midline. There is no stridor. Resp normal respiratory effort and clear to auscultation bilaterally Cardio regular rhythm, S1 normal heart sound, S2 normal heart sound and no murmurs Rate: tachycardic GI non-tender, non-distended and no masses Palpation: soft Back/Spine no CVA tenderness Extremity normal to inspection Extremity Narrative: There is no asymmetry, swelling, discoloration, leg vein distention, palpable cords or tenderness along the distribution of the deep venous system. Neuro oriented x3 and CN's II-XII intact bilaterally Sensorium / Orientation: alert Speech: speech normal Psych mental status grossly normal Skin no wounds and skin turgor normal General Skin Exam: Negative for jaundice or pallor Rashes: no rashes MDM MDM MDM Narrative Medical decision making narrative: Differential diagnosis would include cardiac ischemia, pulmonary embolus, pneumonia, hypertrophic cardiomyopathy, congestive heart failure anemia. EKG, chest x-ray appropriate blood work was obtained which included CBC, BMP and troponin. D-dimer was added. D-dimer was added to because she is tachypneic tachycardic with clear lungs to auscultation. Furthermore chest x-ray was interpreted by me as negative. Lab Data Attestation: I reviewed the patient's lab results. Lab results narrative: White count and differential are unremarkable. D-dimer is elevated even after corrected for age. BMP reveals slight elevation in glucose with a low CO2 and high anion gap. Troponin is normal. Since D-dimer is elevated with tachycardia tachypnea normal chest x-ray and no abnormalityin the lungs will obtain CTA to rule out PE. Labs: Laboratory Results - last 24 hr 07/26/24 07/26/24 07/26/24 18:50 20:28 21:19 WBC 9.0 RBC 4.82 Hgb 12.4 Hct 38.8 MCV 80.5 L MCH 25.7 L MCHC 32.0 RDW Std Deviation 46.5 H RDW Coeff of Mykel 16.5 H Plt Count 511 H MPV 9.1 Immature Gran % (Auto) 0.200 Neut % (Auto) 70.3 H Lymph % (Auto) 18.3 L [place] % (Auto) 9.0 Eos % (Auto) 1.6 Baso % (Auto) 0.6 Absolute Neuts (auto) 6.4 Absolute Lymphs (auto) 1.65 Nucleated RBC % 0 D-Dimer Quant (PE/DVT) 0.86 H* Sodium 133 Potassium 3.9 Chloride 96 L Carbon Dioxide 19.6 L Anion Gap 17 H BUN 14 Creatinine 0.90 Estim Creat Clear Calc 88.13 Est GFR (MDRD) Non-Af 70 BUN/Creatinine Ratio 15.5 Glucose 125 H Calcium 10.2 Troponin T High Sens 12 Troponin T Hi Sens 2 Hr 14 Troponin T Hi Sens 2Hr Delta 2 Second troponin normal with a delta of 2 which is normal. The CTA was interpreted as negative. Since patient is tachycardic still tachypneic but does not desaturate with walking she will be discharged to home with outpatient follow-up with cardiology for possible echo to evaluate cardiac etiology of her dyspnea. Radiography Chest X-Ray - ED: 2 View and Read by ED Physician (Cardiac silhouette and size normal. Lung parenchyma normal. There is no effusion. Hilum is normal. Osseous structures reveal no acute process. There are some degenerative changes noted in the dorsal spine.) Diagnostic Testing: Clinical Impression(s) from Imaging Studies Chest X-Ray 07/26/24 18:55 IMPRESSION: No radiographic evidence of acute cardiopulmonary disease [facility] Chest CTA 07/26/24 22:01 IMPRESSION: NORMAL CHEST CTA. NO EVIDENCE OF ACUTE PULMONARY EMBOLISM. One or more dose reduction techniques were used (e.g., Automated exposure control, adjustment of the mA and/or kV according to patient size, use of iterative reconstruction technique). [facility] the chest reveals no obvious pulmonary embolus, infiltrate or acute pulmonary pathology. Need to consider cardiac etiology. Will have patient ambulate and await formal read by radiologist. Discharge Plan Triage Chief Complaint: Chest Pain Other Complaint: Hypertension Shortness of Breath ED Provider: Miguel Waters Dx/Rx/DC Orders Clinical Impression: Acute dyspnea, Sinus tachycardia, Elevated blood-pressure reading without diagnosis of hypertension, History of hypercholesterolemia Instructions: ED Dyspnea, ED Hypertension, To Be Confirmed Prescriptions: No Action levothyroxine 50 mcg tablet 75 mcg PO DAILY venlafaxine 75 MG capsule,extended release 24hr 75 mg PO DAILY Patient Comments: chlorthalidone 25 MG tablet 25 mg PO DAILY Patient Comments: benazepril 10 MG tablet 10 mg PO DAILY Patient Comments: ascorbic acid (vitamin C) [Vitamin C] 500 mg Tablet,Chewable 1,000 mg PO DAILY atorvastatin 20 mg tablet 20 mg PO QHS Primary Care Provider: Hugo Noriega Referrals: Donavan Borjas MD [Med Staff - Active Staff] - 5-7 Days (Patient presented with tachycardia, tachypnea and acute dyspnea. PE ruled out. Troponin normal. Patient does become winded with walking. This is new since July 22. Probably will need an echo.) Hugo Noriega MD [Primary Care Provider] - 1-2 Weeks (Elevated blood pressure without history of elevated blood pressure. Needs reassessed and probably started on medication) Activity Restrictions/Additional Instructions: 1. Your blood pressure is elevated. This will need to be reassessed. If it remains elevated Dr. Hugo Noriega can start you on antihypertensive meds. 2. Contact Dr. Borjas office for workup. Print Language: Martiniquais Disposition Disposition: Home, Self Care
[2024-07-26 21:04] LABS: D-Dimer Quantitative (DVT/PE) 0.86 FEU/ug/m (0.27-0.49)
[2024-07-26 21:58] LABS: TROPONIN VARIANCE 2 HR 2; Troponin T High Sens 2 HR 14 ng/L (<=14)
--- NOTE | 2024-07-26 22:01 | CT_ITS ---
PROCEDURE: CTA CHEST W/WO CONTRAST REASON FOR EXAM: Tachycardia TECHNIQUE: CTA imaging of the chest with intravenous contrast. 3D reconstructions. CONTRAST: COMPARISON: None. FINDINGS: Hardware: None. Lymph nodes: No mediastinal hilar or axillary lymphadenopathy. Heart: Normal heart size. No pericardial effusion. RV/LV Diameter Ratio: N/A Thoracic Aorta: No thoracic aortic aneurysm or dissection. Pulmonary Vessels: No evidence of acute pulmonary emboli through the major subsegmental branches. Most Proximal Level of Embolus (if embolus present): N/A Lungs and Airways: The lungs are normally expanded and clear. Pleura: No pleural effusion. No pneumothorax. Upper Abdomen: Visualized portions of the upper abdominal viscera are unremarkable. Bones: Degenerative changes of the thoracic spine. CT/CTA Chest W/WO Contrast IMPRESSION: NORMAL CHEST CTA. NO EVIDENCE OF ACUTE PULMONARY EMBOLISM. One or more dose reduction techniques were used (e.g., Automated exposure contr ol, adjustment of the mA and/or kV according to patient size, use of iterative reconstruction technique). Reading Location: [facility]
--- NOTE | 2024-07-26 23:14 | NURSING ---
Per Dr. Jt MD the 4HR troponin does not need to be drawn.
== END 2024-07-26 23:39 | disposition home or self-care (01) ==
PROVIDERS: Emergency Provider Emergency Medicine; PCP Family Medicine; Visit Provider Emergency Medicine
DX: R06.02 Shortness of breath (principal); R00.0 Tachycardia, unspecified; I10 Essential (primary) hypertension; R09.81 Nasal congestion; Z87.891 Personal history of nicotine dependence; E78.00 Pure hypercholesterolemia, unspecified; Z79.899 Other long term (current) drug therapy; Z79.890 Hormone replacement therapy; E03.9 Hypothyroidism, unspecified; R07.89 Other chest pain
CPT/HCPCS: 99285; 71046; 71275; 80048; 84484; 85025; 85379; 93005; Q9967; A4216

== ENCOUNTER 2024-07-28 16:07 | Inpatient (IN) | payer MEDICARE, SELFPAY ==
[2024-07-28] VITALS (10 sets, daily range): BP systolic 158–197; BP diastolic 50–106; PULSE 96–145; RESP 12–26; TEMP 36.6–36.8; O2SAT 93–100; BMI 52.3; BMI 51.4
[2024-07-28 16:49] LABS: Absolute Lymphocyte Count 1.72 X10^3/uL (0.83-4.51); Absolute Neutrophil Count 8.4 X10^3/uL (2.0-7.7); Basophil# 0.05 X10^3/uL; Basophil% 0.4 % (0-1); Eosinophil# 0.04 X10^3/uL; Eosinophils% 0.4 % (0-5); Hemoglobin 13.2 g/dL (12.0-15.0); Lymphocyte # 1.72 X10^3/ul (0.83-4.51); Lymphocyte % 15.5 % (19-41); Mean Corp Hgb Conc 32.2 g/dL (32-36); Mean Corpuscular Hgb 25.9 pg (27.0-32.0); Mean Corpuscular Volume 80.6 fL (81-99); Mean Platelet Vol. 9.2 fl (6.2-12.0); Monocyte# 0.86 X10^3/uL; Monocyte% 7.7 % (0-10); NRBC Flagged by Analyzer 0 % (0-5); Neutrophil # 8.41 X10^3/uL (2.7-7.7); Neutrophil % 75.6 % (47-70); Platelet Count 560 K/mm3 (150-450); RBC Distribution Width CV 16.8 % (11.6-14.6); RBC Distribution Width SD 46.7 fl (35.1-43.9); Red Blood Count 5.09 M/mm3 (4.2-5.4); White Blood Count 11.1 K/mm3 (4.4-11.0)
--- NOTE | 2024-07-28 16:50 | RAD_ITS ---
PROCEDURE: CHEST PA AND LATERAL REASON FOR EXAM: Palpitations TECHNIQUE: Frontal and lateral views of the chest. COMPARISON: 07/26/2024 FINDINGS: Borderline cardiomegaly. No focal consolidation, pleural effusion or sizable pneumothorax. RAD/Chest PA and Lateral IMPRESSION: No acute airspace abnormality. Reading Location: [facility]
[2024-07-28] MEDS: 0.9% Normal Saline (1000mL) 1,000 ML 999 ML IV ×3 (17:05→21:29)
[2024-07-28 17:07] LABS: AST(SGOT) 32 U/L (<=31); Alanine Aminotransfer ALT/SGPT 39 U/L (<=34); Albumin, Serum 4.5 g/dL (3.4-4.8); Alkaline Phosphatase 107 U/L (35-104); Anion Gap 18 (5-15); BUN 17 mg/dL (4-19); BUN/Creat Ratio 17.8 RATIO (10-20); Calcium,Total 10.3 mg/dL (7.6-11.0); Carbon Dioxide 18.5 mmol/L (21.0-32.0); Chloride 95 mmol/L (98-108); Creatinine, Serum 0.97 mg/dL (0.70-1.20); EST Glomerular Filtration Rate 64 (>60); Globulin 4.3 g/dL (2.2-4.2); Glucose 140 mg/dL (70-99); Potassium 3.9 mmol/L (3.3-5.1); Protein, Total 8.9 g/dL (5.9-8.4); Sodium Level 132 mmol/L (133-145); Total Bilirubin 0.46 mg/dL (0.00-1.30); Troponin T High Sensitivity 17 ng/L (<=14)
[2024-07-28 17:12] LABS: Prothrombin Time (Protime)PT. 13.6 SECONDS (11.7-14.9)
[2024-07-28 17:13] LABS: Partial Thromboplast Time 28.5 Seconds (24.1-36.2)
--- NOTE | 2024-07-28 17:16 | ED.VIS.CHEST ---
HPI History of Present Illness Chief Complaint: Palpitations Narrative Narrative: Patient is a 68-year-old female past medical history of hypothyroidism, hypercholesteremia, hypertension who presents to the emergency department the chief complaint of elevated heart rate from her primary care office. States that she was here in the emergency department recently had a full workup and was ultimately sent home. Patient states that for the past few days she has noted that she has had worsening shortness of breath with exertion. She states that she can barely walk any short amount of distance without becoming very short of breath. Patient states that she was following up with her primary care physician today from a follow-up visit here in the emergency department and they noted that her heart rate was in the 130s a obtain an EKG that read atrial fibrillation therefore they sent her here for the valuation management as she does not have a history of this. [facility] Medical History Wears glasses Anxiety Thyroid disease Arthritis High cholesterol Former smoker Leg cramps History of pain when walking History of edema History of stress test Hypertension Home Medications ?Medication ?Instructions ?Recorded ?Last Taken ?Type benazepril 10 mg tablet 10 mg PO DAILY BP 12/31/13 07/28/24 History chlorthalidone 25 mg tablet 25 mg PO DAILY 12/31/13 07/28/24 History venlafaxine 75 mg capsule,extended 75 mg PO DAILY HOT FLASHES 12/31/13 07/28/24 History release 24 hr atorvastatin 20 mg tablet 20 mg PO QHS 07/26/24 07/27/24 History levothyroxine 75 mcg tablet 75 mcg PO DAILY 07/28/24 07/28/24 History (Synthroid) Allergy/AdvReac Type Severity Reaction Status Date / Time No Known Allergies Allergy Verified 07/28/24 16:07 Surgical History Hx of colonoscopy History of total right knee replacement Social History household members: spouse Smoking Status: Former smoker ROS ROS ED ROS Narrative Constitutional: Denies fevers, chills, headaches Eyes: Denies change in vision double vision blurry vision Cardiovascular: Denies chest pain or palpitations Respiratory: Complains shortness of breath as noted above denies coughing wheezing Abdomen: Denies abdominal pain vomiting diarrhea : Denies any urinary symptoms Neurological: Denies numbness, weakness, tingling Musculoskeletal: Denies back pain Skin: Denies rashes or lesions EXAM Physical Exam Narrative Exam Narrative: General: Patient lying in bed rest comfortably did not appear to be in acute distress Head: Atraumatic, normocephalic Eyes: PERRL bilaterally, EOMI bilaterally, no conjunctival injection noted Neck: Soft, supple, trachea midline Cardiovascular: Patient tachycardic with a regular rhythm no murmurs gallops rubs noted Respiratory: Clear to auscultation bilaterally Abdomen: Soft, nondistended, nontender to palpation Extremities: +5/5 strength noted in the bilateral upper and lower extremities, radial pulses +2/4 in the bilateral extremities, no pedal edema on exam Neurological: Patient follow commands that she was at [facility] there is 2024 Skin: Warm, dry, intact no rashes or lesions noted Const Vital Signs: 07/28/24 16:08 07/28/24 16:09 07/28/24 16:35 Temperature 97.9 F Temperature Source Temporal Pulse Rate 135 H 145 H Respiratory Rate 26 H Respiratory Effort Blood Pressure 197/100 H Blood Pressure Mean 132 Pulse Ox 97 Oxygen Delivery Method Room Air Room Air 07/28/24 16:52 07/28/24 17:09 07/28/24 17:51 Temperature Temperature Source Pulse Rate 116 H Respiratory Rate 21 H Respiratory Effort Labored Blood Pressure 172/106 H Blood Pressure Mean 128 Pulse Ox 95 Oxygen Delivery Method Room Air 07/28/24 18:11 07/28/24 19:03 07/28/24 19:20 Temperature 98.2 F Temperature Source Pulse Rate 104 H 99 110 H Respiratory Rate 17 12 Respiratory Effort Blood Pressure 158/74 H 164/50 H Blood Pressure Mean 102 88 Pulse Ox 93 98 Oxygen Delivery Method 07/28/24 19:22 Temperature 98.2 F Temperature Source Temporal Pulse Rate 106 H Respiratory Rate 21 H Respiratory Effort Blood Pressure 164/90 H Blood Pressure Mean 114 Pulse Ox 98 Oxygen Delivery Method Room Air MDM MDM MDM Narrative Medical decision making narrative: Patient is a 68-year-old female who presents to the emerged part with a chief complaint of elevated heart rate while at her primary care physician concern for new onset atrial fibrillation with rapid ventricular response. On the differential diagnose includes but not limited to CHF, ACS, pneumonia, pneumothorax, upper respiratory infection secondary viral etiology. Once workup is obtained reviewed she will be reevaluated. Patient be given 30 cc/kg bolus of IV fluids which were ordered at 1650 and this is based on ideal body weight as she has a BMI of greater than 30 Patient CBC was reviewed and showed no evidence leukocytosis white blood count normal 11.1, hemoglobin 13.2, plate count was noted to be 560. Patient sodium normal 132, potassium normal 3.9, creatinine normal at 0.97. Patient lactic acid was elevated 2.2, AST and ALT were 32 and 39 respectively. Patient's troponin was noted to be 17. Patient's EKG was reviewed independently interpreted myself showed sinus tachycardia with a rate of 122 bpm. Patient's TSH was elevated at 7.34 however free T4 and T3 normal at 1.20 and 2.6 respectively. Patient's urinalysis showed negative nitrates 500 leukocyte esterase 50-100 white cells with 1+ bacteria this will be sent for culture she will be given a gram Rocephin. Patient's chest x-ray reviewed by myself and by radiology which showed no acute airspace abnormality. Patient CTA of her chest from 07/26/2024 was reviewed and showed no evidence of pulmonary embolism. Patient was ambulated here in the emergency department and her heart rate went to 128. We will discuss case with hospitalist for admission. Discussed case with hospitalist Dr. Tucker who accept patient for admission. Patient was notified is agreeable this plan as well as significant other bedside all question concerns answered. Lab Data Labs: Laboratory Results - last 24 hr 07/28/24 07/28/24 07/28/24 16:22 16:41 18:10 WBC 11.1 H RBC 5.09 Hgb 13.2 Hct 41.0 MCV 80.6 L MCH 25.9 L MCHC 32.2 RDW Std Deviation 46.7 H RDW Coeff of Mykel 16.8 H Plt Count 560 H MPV 9.2 Immature Gran % (Auto) 0.400 Neut % (Auto) 75.6 H Lymph % (Auto) 15.5 L [place] % (Auto) 7.7 Eos % (Auto) 0.4 Baso % (Auto) 0.4 Absolute Neuts (auto) 8.4 H Absolute Lymphs (auto) 1.72 Nucleated RBC % 0 PT 13.6 INR 1.0 APTT 28.5 Sodium 132 L Potassium 3.9 Chloride 95 L Carbon Dioxide 18.5 L Anion Gap 18 H BUN 17 Creatinine 0.97 Estim Creat Clear Calc 81.10 Est GFR (MDRD) Non-Af 64 BUN/Creatinine Ratio 17.8 Glucose 140 H Lactic Acid 2.2 H* Calcium 10.3 Total Bilirubin 0.46 AST 32 ALT 39 H Alkaline Phosphatase 107 H Troponin T High Sens 17 H D Troponin T Hi Sens 2 Hr NT pro BNP II 93 Total Protein 8.9 H Albumin 4.5 Globulin 4.3 H Albumin/Globulin Ratio 1.0 TSH 7.340 H Free T4 1.20 Free T3 pg/dL 2.6 Urine Color Yellow Urine Clarity Sl. Cloudy Urine pH 6.0 Ur Specific [place] 1.020 Urine Protein 30 H Urine Glucose (UA) Normal Urine Ketones 5 H Urine Occult Blood 25 H Urine Nitrite Negative Urine Bilirubin Negative Urine Urobilinogen Normal Ur Leukocyte Esterase 500 H Urine RBC 5-10 SEEN Urine WBC 50-100 SEEN Ur Squamous Epith Cells 0-5 SEEN Amorphous Sediment 2+ URATE Urine Bacteria 1+ Urine Mucus 0 SEEN 07/28/24 18:27 WBC RBC Hgb Hct MCV MCH MCHC RDW Std Deviation RDW Coeff of Mykel Plt Count MPV Immature Gran % (Auto) Neut % (Auto) Lymph % (Auto) Ogle % (Auto) Eos % (Auto) Baso % (Auto) Absolute Neuts (auto) Absolute Lymphs (auto) Nucleated RBC % PT INR APTT Sodium Potassium Chloride Carbon Dioxide Anion Gap BUN Creatinine Estim Creat Clear Calc Est GFR (MDRD) Non-Af BUN/Creatinine Ratio Glucose Lactic Acid Calcium Total Bilirubin AST ALT Alkaline Phosphatase Troponin T High Sens Troponin T Hi Sens 2 Hr 17 H NT pro BNP II Total Protein Albumin Globulin Albumin/Globulin Ratio TSH Free T4 Free T3 pg/dL Urine Color Urine Clarity Urine pH Ur Specific Clements Urine Protein Urine Glucose (UA) Urine Ketones Urine Occult Blood Urine Nitrite Urine Bilirubin Urine Urobilinogen Ur Leukocyte Esterase Urine RBC Urine WBC Ur Squamous Epith Cells Amorphous Sediment Urine Bacteria Urine Mucus Radiography Diagnostic Testing: Clinical Impression(s) from Imaging Studies Chest X-Ray 07/28/24 16:50 IMPRESSION: No acute airspace abnormality. Reading [facility] Discharge Plan Triage Chief Complaint: Palpitations ED Provider: Lion Valentin Dx/Rx/DC Orders Clinical Impression: Sinus tachycardia, Palpitations, Urinary tract infection Prescriptions: No Action venlafaxine 75 MG capsule,extended release 24hr 75 mg PO DAILY Patient Comments: chlorthalidone 25 MG tablet 25 mg PO DAILY Patient Comments: benazepril 10 MG tablet 10 mg PO DAILY Patient Comments: atorvastatin 20 mg tablet 20 mg PO QHS levothyroxine [Synthroid] 75 mcg tablet 75 mcg PO DAILY Primary Care Provider: Hugo Noriega Referrals: Hugo Noriega MD [Primary Care Provider] - Print Language: Japanese Disposition Disposition: Acute Care Hospital [facility]
[2024-07-28 17:32] LABS: Lactic Acid 2.2 mmol/L (0.0-2.0)
[2024-07-28 18:00] LABS: Pro- Brain NATRIURETIC PEPTIDE 93 pg/mL (<=900)
[2024-07-28 18:19] LABS: Mucous, Urine 0 SEEN /hpf (<or=2+)
[2024-07-28 18:21] LABS: Color, Urine Yellow (Yellow); Glucose, Dipstick Normal (Normal); Ketone-Dipstick 5 mg/dl (Negative); Leukocyte Esterase-Dipstick 500 /ul (Negative); Nitrite-Dipstick Negative (Negative); Occult Blood-Urine 25 /ul (Negative); Protein-Dipstick 30 mg/dl (Negative); Urine Bilirubin Dipstick Negative (Negative); Urine Clarity Sl. Cloudy (Clear); Urine Urobilinogen Normal (Normal)
[2024-07-28 18:31] LABS: Bacteria 1+ /hpf (None Seen); Red Blood Cells-Urine 5-10 SEEN /hpf (0-5); Squamous Epithelial Cells - UA 0-5 SEEN /hpf (5-10); White Blood Cells 50-100 SEEN /hpf (0-5)
[2024-07-28 18:32] LABS: Free T3 2.6 pg/mL (2.18-3.98)
[2024-07-28 18:32] LABS: Amorphous Sediment 2+ URATE
[2024-07-28] MEDS: Ceftriaxone 1 GM/50 ML BAG IV (19:00)
[2024-07-28 19:09] LABS: Troponin T High Sens 2 HR 17 ng/L (<=14)
--- NOTE | 2024-07-28 19:23 | PCM.HP.STD ---
HPI - General General Date of Admission: 07/28/24 Date of Service: 07/28/24 Chief Complaint: Palpitations, fatigue, malaise, nausea. HPI Narrative The patient is a 68 y/o F w/ PMHx: Morbid obesity, Anxiety and Depression, HTN, HLD, Hypothyroidism, Former tobacco use who presents to the [facility] ED on 07/28/24 with persistent racing heart sensation, dyspnea, sternal nonradiating chest pressure, fatigue, nausea and diaphoresis with history of recent diagnosis of new onset atrial fibrillation per EKG in the office with concern for recurrence referred to the ED to be cautious per PCP. Patient does report several day history of significant urinary frequency which is abnormal for her. Workup in the ED included T97.9, heart rate 135, BP 197/100, respiratory rate 26, 97% on room air with most recent repeat vitals heart rate 99, BP 158/74, respiratory rate 17, 93% room air, CBC with WBC 11.1, human 13.2, platelet 560 with left shift, unremarkable coags, CMP with sodium 132, chloride 95, carbon oxide 18.5, anion gap 18, BUN/creatinine 17/0.97, GFR 64, glucose 140, lactic acid mildly elevated 2.2, hepatic profile with AST/ALT 32/39, alk phos 107, troponin 17 with repeat delta 17, BNP 93, TSH 7.340 however free T41.20 And free T32.6 For subclinical, urinalysis with cloudy appearing urine with spec gravity 1.020, protein 30, ketone 5, occult blood 25, negative nitrite, leukocyte esterase 500 with urine RBCs 5-10, urine WBCs 50-100 with 1+ urine bacteria, urine culture pending per ED, blood culture x 2 pending per ED, rapid SARS COVID/influenza/RSV PCR negative, chest x-ray with no acute cardiopulmonary findings, EKG more consistent with ST whereas EKG in the office with concern new onset PAF. In the ED patient ministered Rocephin 1 g IV x 1. Upon evaluation of strips some concern for irregularity possibly sinus arrhythmia but wanted to be certain no block therefore reviewed with noise abatement engineer on-call Dr. Sexton who felt that this was more consistent with sinus arrhythmia with frequent PAC. He recommended that patient have at least echocardiogram and follow-up Holter monitor assessment at discharge. No formal consult request was placed. [facility] Medical History Morbid obesity Anxiety and depression Wears glasses Arthritis High cholesterol Former smoker History of stress test Hypertension Home Medications ?Medication ?Instructions ?Recorded ?Last Taken ?Type benazepril 10 mg tablet 10 mg PO DAILY BP 12/31/13 07/28/24 09:30 History 10 mg chlorthalidone 25 mg tablet 25 mg PO DAILY high BP 12/31/13 07/28/24 09:30 History 25 mg venlafaxine 75 mg capsule,extended 75 mg PO DAILY HOT FLASHES 12/31/13 07/28/24 09:30 History release 24 hr 75 mg atorvastatin 20 mg tablet 20 mg PO QHS high cholesterol 07/26/24 07/27/24 21:00 History 20 mg levothyroxine 75 mcg tablet 75 mcg PO DAILY hypothyroid 07/28/24 07/28/24 08:00 History (Synthroid) 75 mcg Allergy/AdvReac Type Severity Reaction Status Date / Time No Known Allergies Allergy Verified 07/28/24 16:07 Family History (Updated 07/28/24 @ 21:[address] Yolanda Tucker MD) Mother Heart disease Hypertension Father , from massive CO at 76 y/o. Heart disease CAD (coronary artery disease) Hypertension Myocardial infarction Sudden cardiac Surgical History Hx of colonoscopy History of total right knee replacement Social History (Updated 07/28/24 @ 21:[address] Yolanda Tucker MD) household members: spouse Smoking Status: Former smoker how long ago did patient quit smoking: Quit 30-35 yrs prior, light smoking only. alcohol intake: never substance use type: does not use ROS ROS Narrative Admission Review of Systems: CONSTITUTIONAL: No weight loss, fever, chills, + weakness or fatigue. HEENT: Eyes: No visual loss, blurred vision, double vision or yellow sclerae. Ears, Nose, Throat: No hearing loss, sneezing, congestion, runny nose or sore throat. SKIN: No rash or itching, lesions, wounds. CARDIOVASCULAR: + Chest pressure, palpitations/racing heart, chronic edema. No orthopnea, syncopal events. RESPIRATORY: + Dyspnea. No cough or sputum, wheezing, hemoptysis. GASTROINTESTINAL: + Decreased appetite, nausea. No vomiting or diarrhea, abdominal pain, melena, BRBPR. GENITOURINARY: + Notable increased urinary frequency. No dysuria, urgency or retention. NEUROLOGICAL: No headache, dizziness, syncope, paralysis, ataxia, numbness or tingling in the extremities, focal weakness, change in bowel or bladder control, seizure. MUSCULOSKELETAL: + muscle, back pain, joint pain or stiffness. HEMATOLOGIC: No anemia. + Easy bleeding/bruising. LYMPHATICS: No enlarged nodes. No history of splenectomy. PSYCHIATRIC: + History of anxiety depression, primarily situational anxiety. ENDOCRINOLOGIC: + Diaphoresis. No cold or heat intolerance. No polyuria or polydipsia. ALLERGIES: No history of asthma, hives, eczema or rhinitis. Vital Signs Vital Signs Vital Signs: 07/28/24 16:08 07/28/24 16:09 07/28/24 16:35 Temperature 97.9 F Temperature Source Temporal Pulse Rate 135 H 145 H Respiratory Rate 26 H Respiratory Effort Blood Pressure 197/100 H Blood Pressure Mean 132 Pulse Ox 97 Oxygen Delivery Method Room Air Room Air 07/28/24 16:52 07/28/24 17:09 07/28/24 17:51 Temperature Temperature Source Pulse Rate 116 H Respiratory Rate 21 H Respiratory Effort Labored Blood Pressure 172/106 H Blood Pressure Mean 128 Pulse Ox 95 Oxygen Delivery Method Room Air 07/28/24 18:11 07/28/24 19:03 07/28/24 19:20 Temperature 98.2 F Temperature Source Pulse Rate 104 H 99 110 H Respiratory Rate 17 12 Respiratory Effort Blood Pressure 158/74 H 164/50 H Blood Pressure Mean 102 88 Pulse Ox 93 98 Oxygen Delivery Method Weight Weight: 314 lb 9.594 oz Body Mass Index (BMI) 52.3 Physical Exam Narrative Physical Examination: General: Awake, alert, oriented x 3 and cooperative, seated upright in ED bed, anxious appearing, no current chest pressure. Skin: Normal color, normal turgor, no icterus, no cyanosis. HEENT: AT/NC, EOMI, PERRLA, mildly dry MM, no carotid bruits, difficult to discern JVD given thickened neck. Lungs: Diminished, greater bases, mildly increased respiratory rate but no distress, no rales, ronchi or wheezing. Heart: Mildly tachycardic with regular rhythm; no gallop, rub audible. Abdomen: Soft, morbidly obese, NTTP, distant BS, difficult to discern distention HSM given habitus. Extremities: No cyanosis, no clubbing, no marked distal edema but does have intermittent edema chronically per her report. Neurological: Patient awake, alert, oriented as noted cognitive function intact; pupils equally reactive to light and accommodation, cranial nerves gross normal, moving all 4 extremities, no focal deficits, strength moderately globally decreased. Psychiatric: Affect appears anxious, does have underlying anxiety/depressive history, situational anxiety. Results Lab / Micro Data 07/28/24 16:22 07/28/24 16:22 Labs: Laboratory Results - last 24 hr 07/28/24 16:22: WBC 11.1 H, RBC 5.09, Hgb 13.2, Hct 41.0, MCV 80.6 L, MCH 25.9 L, MCHC 32.2, RDW Std Deviation 46.7 H, RDW Coeff of Mykel 16.8 H, Plt Count 560 H, MPV 9.2, Immature Gran % (Auto) 0.400, Neut % (Auto) 75.6 H, Lymph % (Auto) 15.5 L, [place] % (Auto) 7.7, Eos % (Auto) 0.4, Baso % (Auto) 0.4, Absolute Neuts (auto) 8.4 H, Absolute Lymphs (auto) 1.72, Nucleated RBC % 0, PT 13.6, INR 1.0, APTT 28.5, Sodium 132 L, Potassium 3.9, Chloride 95 L, Carbon Dioxide 18.5 L, Anion Gap 18 H, BUN 17, Creatinine 0.97, Estim Creat Clear Calc 81.10, Est GFR (MDRD) Non-Af 64, BUN/Creatinine Ratio 17.8, Glucose 140 H, Calcium 10.3, Total Bilirubin 0.46, AST 32, ALT 39 H, Alkaline Phosphatase 107 H, Troponin T High Sens 17 H D, NT pro BNP II 93, Total Protein 8.9 H, Albumin 4.5, Globulin 4.3 H, Albumin/Globulin Ratio 1.0, TSH 7.340 H, Free T4 1.20, Free T3 pg/dL 2.6 07/28/24 16:41: Lactic Acid 2.2 H* 07/28/24 18:10: Urine Color Yellow, Urine Clarity Sl. Cloudy, Urine pH 6.0, Ur Specific [place] 1.020, Urine Protein 30 H, Urine Glucose (UA) Normal, Urine Ketones 5 H, Urine Occult Blood 25 H, Urine Nitrite Negative, Urine Bilirubin Negative, Urine Urobilinogen Normal, Ur Leukocyte Esterase 500 H, Urine RBC 5-10 SEEN, Urine WBC 50-100 SEEN, Ur Squamous Epith Cells 0-5 SEEN, Amorphous Sediment 2+ URATE, Urine Bacteria 1+, Urine Mucus 0 SEEN 07/28/24 18:27: Troponin T Hi Sens 2 Hr 17 H Micro: Microbiology 07/28/24 16:35 Mucosa - Nose SARS-CoV-2, Influenza & RSV (PCR) - Final Imaging Radiology Impression Chest X-Ray 07/28/24 16:50 IMPRESSION: No acute airspace abnormality. Reading Location: [facility] Assessment & Plan Assessment/Plan (1) Urinary tract infection: (2) Palpitations: PLAN: Plan The patient is a 68 y/o F w/ PMHx: Morbid obesity, Anxiety and Depression, HTN, HLD, Hypothyroidism, Former tobacco use who presents to the [facility] ED on 07/28/24 with persistent racing heart sensation, dyspnea, sternal nonradiating chest pressure, fatigue, nausea and diaphoresis with history of recent diagnosis of new onset atrial fibrillation per EKG in the office with concern for recurrence referred to the ED to be cautious per PCP. #1. Acute Complicated Urinary Tract Infection: Will admit to PCU, UA upon ED evaluation remarkable, pending UCx, continue IVFs, monitor I/Os, continue IV Rocephin w/ transition as able pending sensitivities and speciation. Bld cx x 2 obtained in the ED. #2. Possible New Onset PAF with associated chest pressure, diaphoresis: EKG and telemetry in the ED with ST with PAC without acute evidence of ischemia but per PCP office new onset PAF on EKG in their office. Admission presentation in the ED with workup notable for acute complicated urinary tract infection, will continue hydration and treatment of UTI as noted, continue to maintain on telemetry monitoring, TSH mildly elevated with free T4 and T3 normal thus subclinical with recommended follow-up outpatient, magnesium level requested, will continue to cycle cardiac enzymes, will request echocardiogram to be cautious, will initiate on metoprolol therapy in addition to Eliquis. In addition will request cardiac stress testing as still uncertain if new onset PAF of note. Discussed case with Cardiology (no formal consult placed but reviewed telemetry also) with recommendation also at discharge for 24-48 HM to be set-up. #3. Hyperglycemia, possibly stress response: Admission glucose 140, no diabetic history, given other comorbidities and habitus will obtain hemoglobin A1c be cautious. #4. Indeterminate cardiac enzyme: Admission troponin 17, repeat 17, significantly low, to be cautious will maintain on telemetry and cycle cardiac enzymes to be cautious, magnesium level requested. #5. Abnormal TSH with history of hypothyroidism: TSH 7.340, free T4 and free T3 normal range however thus subclinical, will continue levothyroxine and repeat levels recommend outpatient at follow-up's following resolution of acute presentation. #6. Acute hyponatremia, hypochloremia, suspected hypovolemic etiology secondary to acute presentation of the 1: Admission sodium 132, chloride 95, will continue judicious hydration repeat CMP in AM. #7. Hypertension: Continue home regimen including benazepril however will hold diuretic, adding also metoprolol as noted, PRN hydralazine. #8. Hyperlipidemia: We will continue patient on statin therapy. #9. Anxiety and depression: We will continue patient home venlafaxine regimen. #10. Morbid Obesity: Weight loss and lifestyle changes encouraged. #11. Former tobacco use: Encourage continued tobacco cessation. #12. DVT prophylaxis: Given recent PAF diagnosis will initiate on Eliquis therapy. #13. CODE status: Patient HCPOA and living will are not in place but has been would you medical decision-maker if necessary she notes. Discussed CODE status at length including difference between FULL code, DNR-CCA and DNR-CC status. Following discussions about the differences in these status, requested Full Code status. Advanced Care Planning Face to Face Time: 16 minutes. Charges/Coding Visit Charges Inpatient E&M: 19150 Init Hosp L3 Procedures Hospitalists Procedures: 88919 Advncd Care Plan 30 Min
[2024-07-28] MEDS: Metoprolol Tartrate 25 MG Tablet PO (21:24)
[2024-07-28] MEDS: APIXABAN 5 MG TABLET PO (21:24)
[2024-07-28 21:41] LABS: Magnesium 1.9 mg/dL (1.5-2.2); Troponin T High Sens 4 HR 15 ng/L (<=14)
[2024-07-29] VITALS (14 sets, daily range): BP systolic 100–152; BP diastolic 49–81; PULSE 61–87; RESP 16–19; TEMP 36.6–36.8; O2SAT 93–96
[2024-07-29] MEDS: 0.9% Normal Saline (500mL Bag) 500 ML 999 ML IV (03:02)
[2024-07-29 05:21] LABS: Absolute Neutrophil Count 4.5 X10^3/uL (2.0-7.7); Basophil# 0.03 X10^3/uL; Basophil% 0.4 % (0-1); Eosinophil# 0.19 X10^3/uL; Eosinophils% 2.8 % (0-5); Hematocrit 33.3 % (37-47); Hemoglobin 10.9 g/dL (12.0-15.0); Lymphocyte % 21.8 % (19-41); Mean Corp Hgb Conc 32.7 g/dL (32-36); Mean Corpuscular Hgb 26.7 pg (27.0-32.0); Mean Corpuscular Volume 81.6 fL (81-99); Mean Platelet Vol. 9.2 fl (6.2-12.0); Monocyte# 0.65 X10^3/uL; Monocyte% 9.5 % (0-10); NRBC Flagged by Analyzer 0 % (0-5); Neutrophil # 4.47 X10^3/uL (2.7-7.7); Neutrophil % 65.1 % (47-70); Platelet Count 393 K/mm3 (150-450); RBC Distribution Width CV 16.5 % (11.6-14.6); RBC Distribution Width SD 48.2 fl (35.1-43.9); Red Blood Count 4.08 M/mm3 (4.2-5.4); White Blood Count 6.9 K/mm3 (4.4-11.0)
--- NOTE | 2024-07-29 05:55 | ECHOCS_ITS ---
Reason For Study Reason For Study: PAF, SOB Procedure This was a 2D Doppler, Color Flow transthoracic echocardiogram. The study was technically difficult. Exam performed in department. Left Ventricle Normal LV size. Mild concentric left ventricular hypertrophy. Mild posterior and inferior basal hypokinesis. Estimated LVEF 50%. Grade 1 diastolic dysfunction. Right Ventricle Normal right ventricle. Atria The left atrium is severely enlarged. Mitral Valve Trivial mitral valve insufficiency. Tricuspid Valve Normal tricuspid valve. Aortic Valve Trisinus/trileaflet aortic valve. Pulmonic Valve The pulmonic valve is not well visualized. Great Vessels Normal sized aortic root. Pericardium/Pleural No pericardial effusion. Medication Diluted definity 2.5ml given slow IV push to enhance endocardial definition. MMode/2D Measurements & Calculations LVIDd: 5.3 cm IVSd: 1.3 cm Ao root diam: 3.0 cm LVIDs: 3.7 cm LVPWd: 1.4 cm LA dimension: 5.3 cm RVDd: 3.8 cm FS: 30.0 % LAV(MOD-bp): 77.1 ml LVAd ap4: 36.0 cm2 LVAd ap2: 41.5 cm2 LAV(MOD-bp) Indexed: 32.6 ml/m2 LVLd ap4: 8.3 cm LVLd ap2: 8.7 cm LAV(MOD-sp2): 59.3 ml EDV(MOD-sp4): 131.3 ml EDV(MOD-sp2): 163.4 ml LAV(MOD-sp4): 95.2 ml EDV(sp4-el): 133.6 ml EDV(sp2-el): 167.5 ml LVAs ap4: 24.2 cm2 LVAs ap2: 26.5 cm2 LVLs ap4: 7.1 cm LVLs ap2: 7.2 cm ESV(MOD-sp4): 68.6 ml ESV(MOD-sp2): 83.7 ml ESV(sp4-el): 70.3 ml ESV(sp2-el): 82.9 ml EF(MOD-sp4): 47.7 % EF(MOD-sp2): 48.8 % EF(sp4-el): 47.3 % SV(MOD-sp4): 62.6 ml SV(MOD-sp2): 79.7 ml SV(sp4-el): 63.2 ml SI(MOD-sp4): 26.5 ml/m2 SI(MOD-sp2): 33.7 ml/m2 LA A4 area: 27.5 cm2 LA dimension(2D): 4.9 cm RA A4 area: 17.3 cm2 TAPSE: 2.4 cm Doppler Measurements & Calculations MV E max flip: 106.3 cm/sec Lat Peak E' Flip: 8.9 cm/sec Med Peak E' Flip: 5.9 cm/sec MV A max flip: 122.5 cm/sec E/E' lat: 12.0 E/E' med: 18.1 MV E/A: 0.87 Ao V2 max: 166.5 cm/sec LV V1 max: 127.8 cm/sec PA V2 max: 108.8 cm/sec Ao max P.1 mmHg LV V1 max P.5 mmHg Ao V2 mean: 105.5 cm/sec LV V1 mean P.3 mmHg Ao mean P.3 mmHg LV V1 mean: 85.0 cm/sec Ao V2 VTI: 29.2 cm LV V1 VTI: 22.3 cm AV (velocity ratio): 0.76 ECHO/Echo Complete W/ Contrast Interpretation Summary Mild concentric left ventricular hypertrophy. Mild posterior and inferior basal hypokinesis. Estimated LVEF 50%. Grade 1 hernandez tolic dysfunction. The left atrium is severely enlarged. Ordering Physician: Yolanda Tucker Referring Physician: Lion Valentin Performed By: Ana Laura Andujar RDCS
[2024-07-29 05:58] LABS: ALB/GLOB Ratio 1.2 RATIO (0.9-2.4); AST(SGOT) 25 U/L (<=31); Alanine Aminotransfer ALT/SGPT 29 U/L (<=34); Albumin, Serum 3.8 g/dL (3.4-4.8); Alkaline Phosphatase 80 U/L (35-104); Anion Gap 12 (5-15); BUN 13 mg/dL (4-19); BUN/Creat Ratio 19.7 RATIO (10-20); Calcium,Total 9.1 mg/dL (7.6-11.0); Carbon Dioxide 21.5 mmol/L (21.0-32.0); Chloride 102 mmol/L (98-108); Cholesterol 177 mg/dL (<=200); Creatinine, Serum 0.66 mg/dL (0.70-1.20); EST Glomerular Filtration Rate 96 (>60); Estimated Creatinine Clearance 97.21 ml/min (50-250); Globulin 3.2 g/dL (2.2-4.2); Glucose 103 mg/dL (70-99); High Density Lipoprotein 31 mg/dL; Low Density Lipoprotein Calc. 114 mg/dL; Potassium 3.4 mmol/L (3.3-5.1); Sodium Level 135 mmol/L (133-145); Total Bilirubin 0.34 mg/dL (0.00-1.30); Triglycerides 160 mg/dL; Very Low Density Lipoprotein 32 mg/dL (5-40); cholesterol:hdl ratio screen 5.73
[2024-07-29 06:05] LABS: Hemoglobin A1c 6.2 % (<=5.6)
--- NOTE | 2024-07-29 08:04 | PCM.PN.HOSP ---
Reason for Visit Reason for Visit: Diagnoses Urinary tract infection, site not specified (07/28/24) Palpitations (07/28/24) Subjective Subjective Patient seen postprocedure, no pain, feeling grateful about the test. Notes that metoprolol helps her heart rate significantly. Objective Data Objective Data Vital Signs: Vital Signs Temp Pulse Resp BP Pulse Ox O2 Del Method 98.2 F 86 16 126/68 H 96 Room Air 07/29/24 06:00 07/29/24 06:00 07/29/24 06:00 07/29/24 06:00 07/29/24 06:00 07/29/24 06:00 Oxygen Delivery Method Room Air Weight: 308 lb 13.882 oz Body Mass Index (BMI) 51.4 Intake & Output: Intake and Output for Last 24 Hours 07/27/24 07/28/24 07/29/24 23:59 23:59 23:59 Intake Total 2049 1500 / 1500 Balance 2049 1500 / 1500 Lab / Micro Data Attestation: I reviewed the patient's lab results. 07/29/24 04:48 07/29/24 04:48 Labs: Laboratory Results - last 24 hr 07/28/24 16:22: WBC 11.1 H, RBC 5.09, Hgb 13.2, Hct 41.0, MCV 80.6 L, MCH 25.9 L, MCHC 32.2, RDW Std Deviation 46.7 H, RDW Coeff of Mykel 16.8 H, Plt Count 560 H, MPV 9.2, Immature Gran % (Auto) 0.400, Neut % (Auto) 75.6 H, Lymph % (Auto) 15.5 L, [place] % (Auto) 7.7, Eos % (Auto) 0.4, Baso % (Auto) 0.4, Absolute Neuts (auto) 8.4 H, Absolute Lymphs (auto) 1.72, Nucleated RBC % 0, PT 13.6, INR 1.0, APTT 28.5, Sodium 132 L, Potassium 3.9, Chloride 95 L, Carbon Dioxide 18.5 L, Anion Gap 18 H, BUN 17, Creatinine 0.97, Estim Creat Clear Calc 81.10, Est GFR (MDRD) Non-Af 64, BUN/Creatinine Ratio 17.8, Glucose 140 H, Calcium 10.3, Total Bilirubin 0.46, AST 32, ALT 39 H, Alkaline Phosphatase 107 H, Troponin T High Sens 17 H D, NT pro BNP II 93, Total Protein 8.9 H, Albumin 4.5, Globulin 4.3 H, Albumin/Globulin Ratio 1.0, TSH 7.340 H, Free T4 1.20, Free T3 pg/dL 2.6 07/28/24 16:41: Lactic Acid 2.2 H* 07/28/24 18:10: Urine Color Yellow, Urine Clarity Sl. Cloudy, Urine pH 6.0, Ur Specific [place] 1.020, Urine Protein 30 H, Urine Glucose (UA) Normal, Urine Ketones 5 H, Urine Occult Blood 25 H, Urine Nitrite Negative, Urine Bilirubin Negative, Urine Urobilinogen Normal, Ur Leukocyte Esterase 500 H, Urine RBC 5-10 SEEN, Urine WBC 50-100 SEEN, Ur Squamous Epith Cells 0-5 SEEN, Amorphous Sediment 2+ URATE, Urine Bacteria 1+, Urine Mucus 0 SEEN 07/28/24 18:27: Troponin T Hi Sens 2 Hr 17 H 07/28/24 20:49: Magnesium 1.9, Troponin T Hi Sens 4Hr 15 H 07/29/24 04:48: WBC 6.9, RBC 4.08 L, Hgb 10.9 L, Hct 33.3 L, MCV 81.6, MCH 26.7 L, MCHC 32.7, RDW Std Deviation 48.2 H, RDW Coeff of Mykel 16.5 H, Plt Count 393, MPV 9.2, Immature Gran % (Auto) 0.400, Neut % (Auto) 65.1, Lymph % (Auto) 21.8, [place] % (Auto) 9.5, Eos % (Auto) 2.8, Baso % (Auto) 0.4, Absolute Neuts (auto) 4.5, Absolute Lymphs (auto) 1.50, Nucleated RBC % 0, Sodium 135, Potassium 3.4, Chloride 102, Carbon Dioxide 21.5, Anion Gap 12, BUN 13, Creatinine 0.66 L, Estim Creat Clear Calc 97.21, Est GFR (MDRD) Non-Af 96, BUN/Creatinine Ratio 19.7, Glucose 103 H, Hemoglobin A1c 6.2, Calcium 9.1, Total Bilirubin 0.34, AST 25, ALT 29, Alkaline Phosphatase 80, Total Protein 7.0, Albumin 3.8, Globulin 3.2, Albumin/Globulin Ratio 1.2, Triglycerides 160, Cholesterol 177, LDL Cholesterol, Calc 114, VLDL Cholesterol 32, HDL Cholesterol 31 L, Cholesterol/HDL Ratio 5.73 Micro: Microbiology 07/28/24 23:55 Mucosa - Nasopharyngeal Respiratory Panel (PCR) - Final 07/28/24 16:35 Mucosa - Nose SARS-CoV-2, Influenza & RSV (PCR) - Final Radiography Diagnostic Testing: Radiology Impression Chest X-Ray 07/28/24 16:50 IMPRESSION: No acute airspace abnormality. Reading Location: [facility] Physical Exam Const alert, oriented x3 and no apparent distress HEENT head/scalp atraumatic Eyes PERRL Neck no lymphadenopathy Resp normal respiratory effort and no retractions Cardio regular rate and regular rhythm GI normal to inspection, nondistended, normoactive bowel sounds Extremity normal to inspection Neuro oriented x3 and CN's II-XII intact bilaterally Psych affect normal Assessment & Plan Assessment/Plan (1) Abnormal cardiovascular stress test: (2) Dyspnea on exertion: PLAN: Plan 68-year-old female with past medical history of diabetes, morbid obesity [BMI 51.4], recent diagnosis of paroxysmal atrial fibrillation, presented to the ED with concerns of dysuria and palpitations. Initial evaluation suggests uncomplicated urinary tract infection, sinus arrhythmia with multiple PACs. #Coronary artery disease #Dyspnea on exertion -Noted to have reversible ischemia on stress test -Cardiac catheterization showed moderate LAD, mild RCA involvement -Patient will be treated medically for coronary artery disease -Start aspirin 81 mg daily #UTI -Continue IV Rocephin -Follow-up on urine cultures -Hygiene precautions to prevent recurrent UTI were discussed #Paroxysmal atrial fibrillation #CHADVASC of 3 -Continue Eliquis -Will need Holter monitoring for at least 48 hours at the time of discharge -Continue metoprolol for now -Admitted to PCU for telemetry monitoring #Hypertensive urgency -Blood pressure was 197/100 at the time of initial presentation -On chlorthalidone and benazepril at home -Will continue benazepril inpatient and started on metoprolol #Hypothyroidism -Continue home Synthroid 75 mcg daily -Monitor TSH -Outpatient follow-up as free T3-T4 are normal #Hyperglycemia -A1c levels: 6.2% #Hyponatremia -Monitor CMP #Dyslipidemia: Continue statin therapy #Anxiety depression: Continue home venlafaxine therapy #Morbid obesity: Outpatient evaluation for weight loss therapies, lifestyle changes #Prior tobacco use #DVT prophylaxis: Already on Eliquis
[2024-07-29] MEDS: Metoprolol Tartrate 25 MG Tablet PO ×2 (10:27→22:05)
[2024-07-29] MEDS: Lisinopril 10 MG Tablet PO (10:28)
[2024-07-29] MEDS: Nystatin Powder 15gm Bottle 1 APPLIC TOPICAL ×2 (10:28→22:05)
--- NOTE | 2024-07-29 12:04 | CASEMGMT ---
[employer] Assessment: Face to Face with pt for initial transition planning/care coordination assessment. RN GARIMA introduced self and role at [facility], pt voices understanding and consents to assessment. Pt is A&O x4 and answers all questions appropriately at this time. Pt sitting up in bed in no distress, sitting at bedside. Pt agreeable to discussing DC plans with present. Care providers, pharmacy, and demographics verified/updated. Strata: 1 Admitting Dx: UTI PCP: Leann Specialists: KAS[facility] Preferred [facility]acy[facility] Insurance: Betsy YIN Prescription Benefit: yes LNOK: , [place]; son, Des Living Arrangements: Pt lives with in a 2 story home with a ramp to enter. ADLs: Pt I with ADLs and IADLs Transportation: Pt drives self and denies concerns with transportation. DME: Denies HHC/SNF: Denies Hx of. Pt states no concerns with going home at time of dc. Pt states no further concerns/needs. CM to follow. Advised pt to ask CM if any further question/concerns/needs arise, voices understanding. Pt Goal: Home Plan: Home, follow for safe DC. Aislinn HENDERSON CM
--- NOTE | 2024-07-29 12:30 | STRESSREP ---
Stress Test Report Date: 07/29/2024 Procedure: Pharmacologic stress nuclear imaging study Indications: Chest pain Consent: Per the patient Procedure: The patient underwent pharmacologic (Regadenoson 0.4mg ) evaluation with a peak heart rate of 114 beats per minute (74%predicted maximal heart rate) and a peak blood pressure of 124/78 mmHg. The baseline ECG demonstrated sinus rhythm with first-degree AV block and nonspecific intraventricular conduction delay. The peak pharmacologic ECG demonstrated no diagnostic ischemic changes. There were no cardiac dysrhythmias pretest, during pharmacologic infusion, or recovery. There was no complaint of chest discomfort during pharmacologic infusion or recovery. The patient was injected with 15.0 millicuries of technetium 99m Cardiolite and subsequently rest SPECT Cardiolite nuclear imaging was obtained in the horizontal long, vertical long, and short axis views. The patient underwent pharmacologic (Regadenoson) evaluation. The patient was injected with 45.0 millicuries of technetium 99m Cardiolite and subsequently stress SPECT Cardiolite nuclear imaging was obtained in the horizontal long, vertical long, and short axis views. A gated Cardiolite study at peak stress was obtained. The examination was stopped secondary to completion of protocol. Rest and stress SPECT Cardiolite nuclear imaging status post realignment, normalization, and attenuation correction demonstrate mildly reduced perfusion of the anterior wall post pharmacologic stress, this may denote mild ischemia. There is end systolic thickening and brightening. Gated images reveal mild inferior hypokinesis. The reported LVEF is 53%. Impression: 1. Pharmacologic (Regadenoson) evaluation 2. Peak pharmacologic ECG with no diagnostic ischemic changes. 3. There were no cardiac dysrhythmias pretest, during pharmacologic infusion, or recovery. 5. Mildly reduced perfusion of the anterior wall post pharmacological stress, denoting possible mild ischemia. 6. The gated Cardiolite study reports an LVEF of 53%. This note was generated with [employer] software. It may contain incorrect words, spelling, and punctuation that were not noted in checking the note before signing.
--- NOTE | 2024-07-29 12:47 | PCM.CONS.C ---
Assessment & Plan Assessment/Plan (1) Dyspnea on exertion: PLAN: New onset dyspnea on exertion. According to the patient, she gets short of breath on mild exertion. Abnormal Lexiscan stress Myoview with ischemia reported. Dyspnea on exertion possibly her anginal equivalent. Discussed options with the patient. Starting medical therapy versus coronary angiography with possible revascularization discussed. Risks benefits explained. She understand these and wishes to proceed with invasive workup. (2) Abnormal cardiovascular stress test: PLAN: See #1 above. (3) Hypertension: PLAN: Lisinopril and metoprolol. (4) Super obesity: PLAN: Lose weight. HPI Consult Data Date of Consult: 07/29/24 HPI Narrative Reason for Consultation: Dyspnea on exertion, abnormal stress test HPI Narrative: 68-year-old female with past medical history significant for obesity, hypertension and hypothyroidism. She has recently been diagnosed as having paroxysmal atrial fibrillation by her primary care physician. For the past few days, patient has been complaining of shortness of breath. According to the patient, this is a new complaint for her. She presented to the emergency room on 07/26/2024 with these complaints. She had a negative workup done and discharged home. However her dyspnea on exertion persists. She apparently had an ECG done in the primary care physician's office that showed atrial fibrillation with rapid ventricular response. Patient denies chest pains. Denies orthopnea or PND. No ankle edema. No previous history of heart disease. [facility] Medical History (Updated 07/29/24 @ 12:[address] Ralph Sexton MD) Morbid obesity Anxiety and depression Wears glasses Arthritis High cholesterol Former smoker History of stress test Hypertension Home Medications ?Medication ?Instructions ?Recorded ?Last Taken ?Type benazepril 10 mg tablet 10 mg PO DAILY BP 12/31/13 07/28/24 09:30 History 10 mg chlorthalidone 25 mg tablet 25 mg PO DAILY high BP 12/31/13 07/28/24 09:30 History 25 mg venlafaxine 75 mg capsule,extended 75 mg PO DAILY HOT FLASHES 12/31/13 07/28/24 09:30 History release 24 hr 75 mg atorvastatin 20 mg tablet 20 mg PO QHS high cholesterol 07/26/24 07/27/24 21:00 History 20 mg levothyroxine 75 mcg tablet 75 mcg PO DAILY hypothyroid 07/28/24 07/28/24 08:00 History (Synthroid) 75 mcg Allergy/AdvReac Type Severity Reaction Status Date / Time No Known Allergies Allergy Verified 07/28/24 16:07 Family History (Updated 07/28/24 @ 21:[address] Yolanda Tucker MD) Mother Heart disease Hypertension Father , from massive [place] at 76 y/o. Heart disease CAD (coronary artery disease) Hypertension Myocardial infarction Sudden cardiac Surgical History Hx of colonoscopy History of total right knee replacement Social History (Updated 07/28/24 @ 21:[address] Yolanda Tucker MD) household members: spouse Smoking Status: Former smoker how long ago did patient quit smoking: Quit 30-35 yrs prior, light smoking only. alcohol intake: never substance use type: does not use Physical Exam Narrative Morbidly obese. Heart sounds 1 and 2 noted. Chest clear to auscultation bilaterally. Alert oriented x 3. No ankle edema noted. Risk Stratification Risk Stratification Applicable: No Objective Data Vital Signs: Vital Signs Temp Pulse Resp BP Pulse Ox O2 Del Method 97.8 F 87 18 152/77 H 95 Room Air 07/29/24 10:21 07/29/24 10:27 07/29/24 10:21 07/29/24 10:21 07/29/24 10:21 07/29/24 10:40 Oxygen Delivery Method Room Air Weight: 308 lb 13.882 oz Body Mass Index (BMI) 51.4 Intake & Output: Intake and Output for Last 24 Hours 07/27/24 07/28/24 07/29/24 23:59 23:59 23:59 Intake Total 2049 1500 / 1500 Balance 2049 1500 / 1500 Lab / Micro Data 07/29/24 04:48 07/29/24 04:48 Labs: Laboratory Results - last 24 hr 07/28/24 16:22: WBC 11.1 H, RBC 5.09, Hgb 13.2, Hct 41.0, MCV 80.6 L, MCH 25.9 L, MCHC 32.2, RDW Std Deviation 46.7 H, RDW Coeff of [place]kel 16.8 H, Plt Count 560 H, MPV 9.2, Immature Gran % (Auto) 0.400, Neut % (Auto) 75.6 H, Lymph % (Auto) 15.5 L, [place] % (Auto) 7.7, Eos % (Auto) 0.4, Baso % (Auto) 0.4, Absolute Neuts (auto) 8.4 H, Absolute Lymphs (auto) 1.72, Nucleated RBC % 0, PT 13.6, INR 1.0, APTT 28.5, Sodium 132 L, Potassium 3.9, Chloride 95 L, Carbon Dioxide 18.5 L, Anion Gap 18 H, BUN 17, Creatinine 0.97, Estim Creat Clear Calc 81.10, Est GFR (MDRD) Non-Af 64, BUN/Creatinine Ratio 17.8, Glucose 140 H, Calcium 10.3, Total Bilirubin 0.46, AST 32, ALT 39 H, Alkaline Phosphatase 107 H, Troponin T High Sens 17 H D, NT pro BNP II 93, Total Protein 8.9 H, Albumin 4.5, Globulin 4.3 H, Albumin/Globulin Ratio 1.0, TSH 7.340 H, Free T4 1.20, Free T3 pg/dL 2.6 07/28/24 16:41: Lactic Acid 2.2 H* 07/28/24 18:10: Urine Color Yellow, Urine Clarity Sl. Cloudy, Urine pH 6.0, Ur Specific [place] 1.020, Urine Protein 30 H, Urine Glucose (UA) Normal, Urine Ketones 5 H, Urine Occult Blood 25 H, Urine Nitrite Negative, Urine Bilirubin Negative, Urine Urobilinogen Normal, Ur Leukocyte Esterase 500 H, Urine RBC 5-10 SEEN, Urine WBC 50-100 SEEN, Ur Squamous Epith Cells 0-5 SEEN, Amorphous Sediment 2+ URATE, Urine Bacteria 1+, Urine Mucus 0 SEEN 07/28/24 18:27: Troponin T Hi Sens 2 Hr 17 H 07/28/24 20:49: Magnesium 1.9, Troponin T Hi Sens 4Hr 15 H 07/29/24 04:48: WBC 6.9, RBC 4.08 L, Hgb 10.9 L, Hct 33.3 L, MCV 81.6, MCH 26.7 L, MCHC 32.7, RDW Std Deviation 48.2 H, RDW Coeff of [place]kel 16.5 H, Plt Count 393, MPV 9.2, Immature Gran % (Auto) 0.400, Neut % (Auto) 65.1, Lymph % (Auto) 21.8, [place] % (Auto) 9.5, Eos % (Auto) 2.8, Baso % (Auto) 0.4, Absolute Neuts (auto) 4.5, Absolute Lymphs (auto) 1.50, Nucleated RBC % 0, Sodium 135, Potassium 3.4, Chloride 102, Carbon Dioxide 21.5, Anion Gap 12, BUN 13, Creatinine 0.66 L, Estim Creat Clear Calc 97.21, Est GFR (MDRD) Non-Af 96, BUN/Creatinine Ratio 19.7, Glucose 103 H, Hemoglobin A1c 6.2, Calcium 9.1, Total Bilirubin 0.34, AST 25, ALT 29, Alkaline Phosphatase 80, Total Protein 7.0, Albumin 3.8, Globulin 3.2, Albumin/Globulin Ratio 1.2, Triglycerides 160, Cholesterol 177, LDL Cholesterol, Calc 114, VLDL Cholesterol 32, HDL Cholesterol 31 L, Cholesterol/HDL Ratio 5.73 Micro: Microbiology 07/28/24 18:10 Urine, Clean Catch Urine Culture - Preliminary Streptococcus agalactiae (B) 07/28/24 23:55 Mucosa - Nasopharyngeal Respiratory Panel (PCR) - Final 07/28/24 16:35 Mucosa - Nose SARS-CoV-2, Influenza & RSV (PCR) - Final Rhythm Strip Rhythm Strip: Sinus Rhythm Cardiology Labs/Tests 07/28/24 16:22: WBC 11.1 H, RBC 5.09, Hgb 13.2, Hct 41.0, MCV 80.6 L, MCH 25.9 L, MCHC 32.2, Plt Count 560 H, MPV 9.2, Immature Gran % (Auto) 0.400, Neut % (Auto) 75.6 H, Lymph % (Auto) 15.5 L, [place] % (Auto) 7.7, Eos % (Auto) 0.4, Baso % (Auto) 0.4, Absolute Neuts (auto) 8.4 H, Nucleated RBC % 0, PT 13.6, INR 1.0, APTT 28.5, Sodium 132 L, Potassium 3.9, Chloride 95 L, Carbon Dioxide 18.5 L, Anion Gap 18 H, BUN 17, Creatinine 0.97, Est GFR (MDRD) Non-Af 64, BUN/Creatinine Ratio 17.8, Glucose 140 H, Calcium 10.3, Total Bilirubin 0.46 07/28/24 16:41: Lactic Acid 2.2 H* 07/28/24 18:10: Urine Color Yellow, Urine Clarity Sl. Cloudy, Urine pH 6.0, Ur Specific [place] 1.020, Urine Protein 30 H, Urine Glucose (UA) Normal, Urine Ketones 5 H, Urine Occult Blood 25 H, Urine Nitrite Negative, Urine Bilirubin Negative, Urine Urobilinogen Normal, Ur Leukocyte Esterase 500 H, Urine RBC 5-10 SEEN, Urine WBC 50-100 SEEN 07/28/24 20:49: Magnesium 1.9 07/29/24 04:48: WBC 6.9, RBC 4.08 L, Hgb 10.9 L, Hct 33.3 L, MCV 81.6, MCH 26.7 L, MCHC 32.7, Plt Count 393, MPV 9.2, Immature Gran % (Auto) 0.400, Neut % (Auto) 65.1, Lymph % (Auto) 21.8, [place] % (Auto) 9.5, Eos % (Auto) 2.8, Baso % (Auto) 0.4, Absolute Neuts (auto) 4.5, Nucleated RBC % 0, Sodium 135, Potassium 3.4, Chloride 102, Carbon Dioxide 21.5, Anion Gap 12, BUN 13, Creatinine 0.66 L, Est GFR (MDRD) Non-Af 96, BUN/Creatinine Ratio 19.7, Glucose 103 H, Hemoglobin A1c 6.2, Calcium 9.1, Total Bilirubin 0.34, Triglycerides 160, Cholesterol 177, VLDL Cholesterol 32, HDL Cholesterol 31 L, Cholesterol/HDL Ratio 5.73 Rhythm: EKG: ECG shows sinus rhythm with right bundle branch block. First-degree AV block. ECHO: Stress Test: Ischemia reported in LAD territory. Cardiac Cath: PCI: CT Surgery: Holter monitor: EPS: PPM: CXR: Chest CT Scan: Radiography Diagnostic Testing: Radiology Impression Chest X-Ray 07/28/24 16:50 IMPRESSION: No acute airspace abnormality. [facility]
[2024-07-29 14:32] LABS: ACT Activated Clotting Time 187 sec (74-137)
--- NOTE | 2024-07-29 15:44 | CHAPLAIN ---
Type of Pastoral Visit _x__ Initial Visit ___ Follow-up Visit ___ On-call Visit ___ General Patient Visit ___ Spiritual Assessment ___ Family Conference ___ Bereavement ___ Rapid Response ___ Code Blue ___ Other (describe below) Pastoral Care Referral From _x__ Patient ___ Family ___ Nurse ___ Physician ___ Profiling Machine Operator ___ Freelance Makeup Artist ___ Other (describe below) Sacrament/Intervention _x__ Active listening ___ Anointing ___ Pentecostalism ___ Bereavement ___ Communion _x__ Anna exploration ___ ___ Life review _x__ Prayer ___ Reconciliation ___ Sacrament of Sick ___ Supportive presence ___ Wedding ___ Other (describe below) Pastoral Comments patient is welcoming and has two adult children in the room; pt speaks of being thankful because her situation will be treated by medications and not surgery; 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
--- NOTE | 2024-07-29 16:17 | CL.D_ITS ---
Patient Name: TULIO VALERA ISAB Study Date: 07/29/2024 Performing: Ralph Sexton MD Ht: 65 inches 165.1 cm : 1955 Wt: 309.3 lbs 140.1 kg Age: 68 Gender: female BSA: 2.38 PROCEDURE(S) PERFORMED DC02-(94343)LHC/COR IC10-([id number])FFR, CORONARY OR GRAFT, INITIAL VESSEL CLINICAL PROFILE AND INDICATIONS Indications: Suspected CAD Heart Failure: None Stress/Imaging Standard Exercise Stress Test: Yes Result: Positive Intermediate Risk CAD Presentations: Other: Dysnea on exterion CONCLUSIONS 60% Mid LAD (FFR 0.84) 50% Mid LCX 40-50% distal RCA RECOMMENDATIONS Medical therapy Risk factor modification DESCRIPTION OF PROCEDURE The patient arrived to the procedure lab. The risks and benefits of the procedure as well as a full description of our services here and current unavailability of surgical backup were fully explained to the patient and/or their significant other prior to the catheterization. The Timeout was completed, verifying the correct patient and procedure. The patient's procedural site was prepped and draped in the usual fashion. Local anesthetic was given subcutaneously to right radial region with Lidocaine 2%. Using a modified Seldinger technique, arterial access was obtained via the right radial artery, a 6Fr sheath was inserted. Right Coronary Artery selective angiography was then performed in multiple views using a 5 Fr. 4.0 [place] catheter. Left Coronary Artery selective angiography was performed in multiple views using a 5 Fr. JL3 catheter.The arterial sheath was pulled and a TR Band was applied for hemostasis. 18cc air CORONARY ANGIOGRAPHY DOMINANCE: Right Dominant LEFT MAIN: Angiographically normal LEFT ANTERIOR DESCENDING ARTERY: LAD: Tubular 30% Proximal lesion in LAD Tubular 60% Mid lesion in LAD Tubular 50% Distal lesion in LAD RIGHT CORONARY ARTERY: RCA: Tubular 20% Proximal lesion in RCA Tubular 50% Distal lesion in RCA COMPLICATIONS No Complications PROCEDURE MEDICATIONS Fentanyl 50 mcg IV Versed 1 mg IV Oxygen: 2 L/min via nasal cannula Aspirin (325mg) 1 Tabs PO 07/29/2024 13:41:01 Adenosine drip for FFR 32.8 ml IV @ 07/29/2024 14:27:40 Heparin given IA 07/29/2024 13:48:34 Heparin 94998 unit(s) IV 07/29/2024 14:00:19 Potassium Chloride 40 mEq PO 07/29/2024 13:41:11 Verapamil 2.5mg, Ntg 200mcgs, 2000 units of Heparin given IA 07/29/2024 13:48:34 SUMMARY OF HEMODYNAMIC DATA Time AIR REST ECG 13:37:22 AO 119/77 (94) SA 13:52:27 Signed By aRlph Sexton MD On 07/29/2024 16:16:48 Ralph Sexton MD
[2024-07-29] MEDS: 0.9% Normal Saline (1000mL) 1,000 ML 150 ML IV (16:38)
[2024-07-29] MEDS: Atorvastatin Calcium 20 MG Tablet PO (22:05)
[2024-07-29] MEDS: APIXABAN 5 MG TABLET PO (22:05)
[2024-07-30 03:20] VITALS: BP 129/66; PULSE 76; RESP 16; TEMP 36.8; O2SAT 95
[2024-07-30 03:30] VITALS: BMI 51.4
[2024-07-30] MEDS: Levothyroxine 75 MCG Tablet PO (06:05)
[2024-07-30] MEDS: Ceftriaxone 1 GM/50 ML BAG IV (06:54)
[2024-07-30 07:22] VITALS: O2SAT 94
[2024-07-30 09:14] VITALS: PULSE 87
[2024-07-30] MEDS: Metoprolol Tartrate 25 MG Tablet PO (09:14)
[2024-07-30] MEDS: Lisinopril 10 MG Tablet PO (09:14)
[2024-07-30 09:15] VITALS: BP 132/68; PULSE 70; RESP 14; TEMP 36.7; O2SAT 94
[2024-07-30] MEDS: Nystatin Powder 15gm Bottle 1 APPLIC TOPICAL (09:15)
[2024-07-30] MEDS: APIXABAN 5 MG TABLET PO (09:15)
--- NOTE | 2024-07-30 10:00 | DCINST_ITS ---
Discharge Instructions Diet Discharge Diet: 2000 mg Sodium Diet DC O2, CPAP, BIPAP needs Home O2 Discharge instructions: No Dressing / Incision Discharge Activity: Return to Normal Activity Weight Bearing Status: Weight bearing as tolerated Dressing / Incision Call your doctor if you observe: Fever of 101 or Higher, Coldness, Increased Pain, Numbness or Tingling, Change in Color, Inability to urinate, Inability to have a bowel movement, Shortness of breath, Dizziness, Fainting spells, Swelling in the ankles, Chest pain, Prolonged hiccupping, Increased palpitations (irregular heartbeat) and Calf discomfort Follow Up Care When: IN 2 WEEKS Test Results: Test results from this visit will be discussed in further detail at your follow- up appointment, if applicable. Discharge Plan Admission Admit Date/Time: 07/28/24 19:30 Attending Provider: Ernie Ross Primary Care Provider: Hugo Noriega Consulting Providers: Yolanda Tucker; Ralph Sexton; Mane Jhaveri Discharge Orders/Prescriptions Prescriptions: New Eliquis 5 mg Tablet 5 mg PO BID 30 Days Qty: 60 2RF amoxicillin 500 mg tablet 500 mg PO TID 5 Days Qty: 15 0RF metoprolol succinate 50 mg tablet extended release 24 hr 50 mg PO DAILY 30 Days Qty: 30 2RF Rx Instructions: Hold for heart less than 50 or systolic blood pressure less than 100 mmHg. nystatin 100,000 unit/gram ointment 1 applic topical BID 14 Days Qty: 30 1RF Rx Instructions: Under inframamillary fold of the skin Continued venlafaxine 75 MG capsule,extended release 24hr 75 mg PO DAILY Patient Comments: benazepril 10 MG tablet 10 mg PO DAILY Patient Comments: atorvastatin 20 mg tablet 20 mg PO QHS levothyroxine [Synthroid] 75 mcg tablet 75 mcg PO DAILY Held chlorthalidone 25 MG tablet 25 mg PO DAILY Hold Instructions: Hold for SBP less than 130 mmHg. If blood pressure goes high above 140 mmHg, can resume 12.5 mg daily. Patient Comments: Referrals / Follow Up: Donavan Borjas MD [Med Staff - Active Staff] - Within 1 Month Hugo Noriega MD [Primary Care Provider] - Disposition Disposition (needs filled in before D/C Order can be placed): Home, Self Care
--- NOTE | 2024-07-30 10:08 | PCM.DC.SUM ---
Providers Date of Admission: 07/28/24 Date of Discharge: 07/30/24 Primary Care Physician: Dr. Hugo Noriega MD Consultations 07/29/24 13:42 Consult: Cardiology Routine Consulting Provider: Ralph Sexton Reason for Consult: Positive stress test EMERGENT Consult: Yes MD Notified: Yes Date Notified: 07/29/24 Time Notified: 13:42 Method of Notification: Verbal Reason For Visit: UTI, NEW ONSET PAF Diagnosis Discharge Diagnosis (1) Abnormal cardiovascular stress test: Status: Acute Code(s): R94.39 - Abnormal result of other cardiovascular function study (2) Dyspnea on exertion: Status: Acute Code(s): R06.09 - Other forms of dyspnea Plan 68-year-old female with past medical history of diabetes, morbid obesity [BMI 51.4], recent diagnosis of paroxysmal atrial fibrillation, presented to the ED with concerns of dysuria and palpitations. Initial evaluation suggests uncomplicated urinary tract infection, sinus arrhythmia with multiple PACs. # Dyspnea on exertion/unstable angina due to coronary artery disease: -Noted to have reversible ischemia on stress test -Cardiac catheterization showed moderate LAD, mild RCA involvement -Patient will be treated medically for coronary artery disease -Was started aspirin 81 mg daily. 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 Patient had IV ceftriaxone while here. Discharged on 5 more days of amoxicillin to complete the course. -Hygiene precautions to prevent recurrent UTI were discussed #Paroxysmal atrial fibrillation #CHADVASC of 3 -Continue Eliquis -Will need Holter monitoring for at least 48 hours at the time of discharge -Continue metoprolol for now -Prescription given for Eliquis and metoprolol succinate and advised follow-up in [place] [facility] with Dr. Borjas #Hypertensive urgency -Blood pressure was 197/100 at the time of initial presentation -On chlorthalidone and benazepril at home 07/30: Blood pressure was controlled. Continue benazepril. Advised BP monitoring as blood pressure systolic 112 therefore hold chlorthalidone now but if SBP more than 140 mmHg, can resume lower dose 12.5 mg daily #Hypothyroidism -Continue home Synthroid 75 mcg daily -Monitor TSH -Outpatient follow-up as free T3-T4 are normal #Hyperglycemia -A1c levels: 6.2% #Hyponatremia -Monitor CMP #Dyslipidemia: Continue statin therapy #Anxiety depression: Continue home venlafaxine therapy #Morbid obesity: Outpatient evaluation for weight loss therapies, lifestyle changes #Prior tobacco use #DVT prophylaxis: Already on Eliquis. Prescription also given for nystatin for yeast infection in the inframammary region Discharge medication reconciliation done. Discharge follow-up instructions completed. Discharge process discussed with the patient and all questions were answered to patient's satisfaction. Follow with PCP in 1 to 2 weeks Total time spent, exact 35 minutes on discharge meds reconciliation, examination, coordination of care with nurses and ancillary staff, review of imaging and blood test and discussion with the patient on follow-up instructions. Medications at Discharge Home Medications benazepril 10 mg tablet 10 mg PO DAILY BP 12/31/13 chlorthalidone 25 mg tablet 25 mg PO DAILY high BP 12/31/13 Held on 07/30/24. Instructions: Hold for SBP less than 130 mmHg. If blood pressure goes high above 140 mmHg, can resume 12.5 mg daily. venlafaxine 75 mg capsule,extended release 24 hr 75 mg PO DAILY HOT FLASHES 12/31/13 atorvastatin 20 mg tablet 20 mg PO QHS high cholesterol 07/26/24 levothyroxine 75 mcg tablet (Synthroid) 75 mcg PO DAILY hypothyroid 07/28/24 amoxicillin 500 mg tablet 500 mg PO TID 5 days #15 tabs 07/30/24 apixaban 5 mg tablet (Eliquis) 5 mg PO BID 30 days #60 tabs 07/30/24 metoprolol succinate 50 mg tablet,extended release 24 hr 50 mg PO DAILY 1 month #30 tabs 07/30/24 nystatin 100,000 unit/gram topical ointment 1 applic topical BID 2 weeks #30 grams 07/30/24 Physical Exam Narrative Seen and examined. Patient feels much better. Denies chest pain or shortness of breath. Finding discussed with the patient and her and daughter near the bedside. Discharge medications also discussed. Heart rate and blood pressure in normal range. Physical exam General: Alert, Oriented x3, Cooperative. BMI 51.4 kg/m?, morbid obesity HEENT: Atraumatic, PERRLA, EOMI, Normocephalic Oral: No Gingival or Mucosal Lesions/ Ulcerations Neck: Supple, No JVD, Negative Carotid Bruits Chest wall/Lungs: Air entry diminished in bilateral lung bases. No crepitation/rhonchi Cardiovascular: Regular rate, Regular Rhythm, Normal S1, Normal S2, No M/G/R Abdomen: Bowel Sounds Present, Soft, Non Tender, Non-Distended : No dysuria. No renal angle tenderness. No suprapubic tenderness. Extremities: No edema, Capillary Refill Less than 3 Seconds Skin: No rashes, No breakdown Musculoskeletal: No Tenderness to Palpation of Joints or Extremities Neurological: Cranial nerves II-XII grossly intact, DTR 2+/4. No acute focal neurological deficit. Psych/Mental Status: Normal Affect, Appropriate. Weight / BMI Weight Weight: 309 lb 1.409 oz Body Mass Index (BMI) 51.4 ABG / Lab / Microbiology Data 07/29/24 04:48 07/29/24 04:48 Laboratory: Laboratory Results - last 24 hr 07/29/24 14:26: Activated Clotting Time 187 H Microbiology: Microbiology 07/28/24 18:10 Urine, Clean Catch Urine Culture - Final Streptococcus agalactiae (B) 07/28/24 23:55 Mucosa - Nasopharyngeal Respiratory Panel (PCR) - Final 07/28/24 16:35 Mucosa - Nose SARS-CoV-2, Influenza & RSV (PCR) - Final Radiography Diagnostic Testing: Radiology Impression Echocardiogram 07/29/24 05:55 Interpretation Summary Mild concentric left ventricular hypertrophy. Mild posterior and inferior basal hypokinesis. Estimated LVEF 50%. Grade 1 diastolic dysfunction. The left atrium is severely enlarged. Ordering Physician: Yolanda Tucker Referring Physician: Lion Valentin Performed By: Ana Laura Andujar RDCS D/C Instructions Discharge Diet: 2000 mg Sodium Diet Weight Bearing Status: Weight bearing as tolerated Call your doctor if you observe: Fever of 101 or Higher, Coldness, Increased Pain, Numbness or Tingling, Change in Color, Inability to urinate, Inability to have a bowel movement, Shortness of breath, Dizziness, Fainting spells, Swelling in the ankles, Chest pain, Prolonged hiccupping, Increased palpitations (irregular heartbeat) and Calf discomfort DC O2, CPAP, BIPAP Needs Home O2 Discharge instructions: No When: IN 2 WEEKS Meaningful Use Info Meaningful Use Meaningful Use Diagnoses (Choose all that apply): None applicable Ischemic Stroke Statin Dosing Therapy Reference: STATIN DOSE THERAPY REFERENCE: * Patients > 75 years receive moderate or high dose statin therapy. * Patients 75 years or YOUNGER should receive HIGH intensity statin dose unless contraindicated. You will be required to document reason for non-treatment if statin daily dose does not meet guidelines. HIGH DOSE STATIN THERAPY DAILY Atorvastatin > than or = to 40 mg Rosuvastatin > than or = to 20 mg Amlodipine + Atorvastatin > than or = to 2.5/40 mg Ezetimibe + Simvastatin 10/80 mg Simvastatin 80mg Discharge Plan Admission Admit Date/Time: 07/28/24 19:30 Attending Provider: Ernie Ross Primary Care Provider: Hugo Noriega Consulting Providers: Yolanda Tucker; Ralph Sexton; Mane Jhaveri Discharge Orders/Prescriptions Prescriptions: New Eliquis 5 mg Tablet 5 mg PO BID 30 Days Qty: 60 2RF amoxicillin 500 mg tablet 500 mg PO TID 5 Days Qty: 15 0RF metoprolol succinate 50 mg tablet extended release 24 hr 50 mg PO DAILY 30 Days Qty: 30 2RF Rx Instructions: Hold for heart less than 50 or systolic blood pressure less than 100 mmHg. nystatin 100,000 unit/gram ointment 1 applic topical BID 14 Days Qty: 30 1RF Rx Instructions: Under inframamillary fold of the skin Continued venlafaxine 75 MG capsule,extended release 24hr 75 mg PO DAILY Patient Comments: benazepril 10 MG tablet 10 mg PO DAILY Patient Comments: atorvastatin 20 mg tablet 20 mg PO QHS levothyroxine [Synthroid] 75 mcg tablet 75 mcg PO DAILY Held chlorthalidone 25 MG tablet 25 mg PO DAILY Hold Instructions: Hold for SBP less than 130 mmHg. If blood pressure goes high above 140 mmHg, can resume 12.5 mg daily. Patient Comments: Referrals / Follow Up: Donavan Borjas MD [Med Staff - Active Staff] - Within 1 Month Hugo Noriega MD [Primary Care Provider] - Disposition Disposition (needs filled in before D/C Order can be placed): Home, Self Care Charges/Coding Visit Charges Inpatient E&M: 59414 Disch Hosp >30min
--- NOTE | 2024-07-30 10:47 | PCM.PN.CARD ---
Subjective Subjective Sitting up in chair. Comfortable. Denies any complaints today. Reports feeling better. Objective Data Vital Signs: Vital Signs Temp Pulse Resp BP Pulse Ox O2 Del Method 98.0 F 70 14 132/68 H 94 Room Air 07/30/24 09:15 07/30/24 09:15 07/30/24 09:15 07/30/24 09:15 07/30/24 09:15 07/30/24 09:15 Oxygen Delivery Method Room Air Weight: 309 lb 1.409 oz Body Mass Index (BMI) 51.4 Intake & Output: Intake and Output for Last 24 Hours 07/28/24 07/29/24 07/30/24 23:59 23:59 23:59 Intake Total 2049 2500 / 2500 50 / 50 Balance 2049 2500 / 2500 50 / 50 Lab / Micro Data 07/29/24 04:48 07/29/24 04:48 Labs: Laboratory Results - last 24 hr 07/29/24 14:26: Activated Clotting Time 187 H Micro: Microbiology 07/28/24 18:10 Urine, Clean Catch Urine Culture - Final Streptococcus agalactiae (B) Rhythm Strip Rhythm Strip: Sinus Rhythm Cardiology Labs/Tests Rhythm: EKG: ECHO: Stress Test: Cardiac Cath: PCI: CT Surgery: Holter monitor: EPS: PPM: CXR: Chest CT Scan: Radiography Diagnostic Testing: Radiology Impression Echocardiogram 07/29/24 05:55 Interpretation Summary Mild concentric left ventricular hypertrophy. Mild posterior and inferior basal hypokinesis. Estimated LVEF 50%. Grade 1 diastolic dysfunction. The left atrium is severely enlarged. Ordering Physician: Yolanda Tucker Referring Physician: Lion Valentin Performed By: Ana Laura Andujar RDCS Physical Exam Narrative Morbidly obese. Heart sounds 1 and 2 noted. Chest clear to auscultation bilaterally. Alert oriented x 3. No ankle edema noted. Assessment & Plan Assessment/Plan (1) Dyspnea on exertion: PLAN: Resolved. Could have been because of paroxysms of atrial fibrillation with rapid ventricular response. Continue beta-blockers. (2) Coronary artery disease: PLAN: 60% mid LAD disease with FFR of 0.84. Continue to treat medically. On apixaban for atrial fibrillation. Beta-blockers. Atorvastatin. (3) Paroxysmal atrial fibrillation: PLAN: Patient apparently had atrial fibrillation diagnosed in her primary care physician's office. Started on apixaban. (4) Hypertension: PLAN: Lisinopril and metoprolol. (5) Super obesity: PLAN: Lose weight. PLAN: Plan May discharge home from a cardiology standpoint. Follow-up as outpatient.
== END 2024-07-30 11:47 | disposition home or self-care (01) | DRG 287 ==
LOC: ED 19:52 → PCU 20:09
PROVIDERS: Internal Medicine; Admitting Provider Family Medicine; Emergency Provider Emergency Medicine; PCP Family Medicine; Referring Provider Emergency Medicine; Visit Provider Internal Medicine
DX: I16.0 Hypertensive urgency (principal); E87.1 Hypo-osmolality and hyponatremia; Z68.43 Body mass index [BMI] 50.0-59.9, adult; N39.0 Urinary tract infection, site not specified; E03.9 Hypothyroidism, unspecified; F32.A Depression, unspecified; I10 Essential (primary) hypertension; I48.0 Paroxysmal atrial fibrillation; E66.01 Morbid (severe) obesity due to excess calories; E78.00 Pure hypercholesterolemia, unspecified; I25.10 Atherosclerotic heart disease of native coronary artery without angina pectoris; M17.11 Unilateral primary osteoarthritis, right knee; F41.9 Anxiety disorder, unspecified; R73.9 Hyperglycemia, unspecified; Z87.891 Personal history of nicotine dependence; Z79.890 Hormone replacement therapy; R06.09 Other forms of dyspnea; Z79.02 Long term (current) use of antithrombotics/antiplatelets; Z79.899 Other long term (current) drug therapy; B95.1 Streptococcus, group B, as the cause of diseases classified elsewhere; R94.39 Abnormal result of other cardiovascular function study
CPT/HCPCS: 36415; 71046; 71275; 78452; 80048; 80053; 80061; 81001; 83036; 83605; 83735; 83880; 84439; 84443; 84481; 84484; 85025; 85347; 85379; 85610; 85730; 87040; 87086; 87088; 87186; 87631; 87633; 93005; 93017; 93306; 93454; 93571; 94668; 97802; 99152; 99153; 99285; A9500; J0153; Q9957; Q9967; A4216; C1769; C1887; C1894; C8929; J2785

== ENCOUNTER → 2024-08-23 | Outpatient (CLI) | payer MEDICARE, SELFPAY ==
[2024-08-23 12:35] LABS: Hematocrit 39.6 % (37-47); Hemoglobin 12.8 g/dL (12.0-15.0); Mean Corp Hgb Conc 32.3 g/dL (32-36); Mean Corpuscular Hgb 25.9 pg (27.0-32.0); Mean Corpuscular Volume 80.2 fL (81-99); Mean Platelet Vol. 9.4 fl (6.2-12.0); Platelet Count 458 K/mm3 (150-450); RBC Distribution Width CV 16.1 % (11.6-14.6); RBC Distribution Width SD 46.8 fl (35.1-43.9); Red Blood Count 4.94 M/mm3 (4.2-5.4); White Blood Count 8.7 K/mm3 (4.4-11.0)
== END | disposition home or self-care (01) ==
LOC: LAB 12:08
PROVIDERS: PCP Family Medicine; Referring Provider Internal Medicine Cardiovascular Disease; Visit Provider Internal Medicine Cardiovascular Disease
DX: I48.0 Paroxysmal atrial fibrillation (principal)
CPT/HCPCS: 36415; 85027

== ENCOUNTER → 2024-10-06 | Outpatient (CLI) | payer MEDICARE, SELFPAY ==
--- NOTE | 2024-10-06 09:58 | BI_ITS ---
EXAM: SCRN MAMM (CAD)W/CRISTINA BILAT DATE: 10/06/2024 CLINICAL HISTORY: F, Age 69 y/o , ROUTINE SCREENING BREAST CANCER RISK ASSESSMENT: Has not been calculated. TECHNIQUE: Bilateral screening digital breast tomosynthesis with 2D and 3D images. Computer aided detection. COMPARISON: Prior exam(s) dated 03/19/2018. FINDINGS: TISSUE DENSITY: The breast tissue is almost entirely fatty. Bilateral Breast Mammographic Findings: RIGHT: Benign-appearing secretory type calcifications, macrocalcifications and round microcalcifications are seen in the right breast. Radiopaque clip is seen in the superior medial aspect of the right breast. The biopsy was benign. Post biopsy site is stable. There is a stable 4 mm density seen adjacent to the clip on the CC view. No suspicious masses, suspicious clustered microcalcifications, architectural distortion or secondary signs of malignancy is identified in the right breast. LEFT: Well-circumscribed stable isodense masses are seen in the superior outer aspect of the left breast. Benign-appearing secretory type calcifications, macrocalcifications and round microcalcifications are seen in the left breast. BI/SCRN MAMM (CAD)W/CRISTINA BILAT IMPRESSION: OVERALL FINAL ASSESSMENT: BIRADS 2 BENIGN FINDING RECOMMENDATION: Routine annual follow-up in 1 Year A letter with findings and recommendations will be mailed to the patient. Reading Location: [id number]
== END | disposition home or self-care (01) ==
LOC: OPBI 09:57
PROVIDERS: PCP Family Medicine; Referring Provider Family Medicine; Visit Provider Family Medicine
DX: Z12.31 Encounter for screening mammogram for malignant neoplasm of breast (principal)
CPT/HCPCS: 77063; 77067

== ENCOUNTER → 2024-10-24 | Outpatient (CLI) | payer MEDICARE, SELFPAY ==
[2024-10-24 12:30] LABS: Hemoglobin A1c 6.3 % (<=5.6)
[2024-10-24 12:53] LABS: ALB/GLOB Ratio 1.1 RATIO (0.9-2.4); AST(SGOT) 49 U/L (<=31); Alanine Aminotransfer ALT/SGPT 31 U/L (<=34); Albumin, Serum 4.4 g/dL (3.4-4.8); Alkaline Phosphatase 112 U/L (35-104); Anion Gap 15 (5-15); BUN 18 mg/dL (4-19); BUN/Creat Ratio 24.8 RATIO (10-20); Calcium,Total 10.7 mg/dL (7.6-11.0); Carbon Dioxide 21.7 mmol/L (21.0-32.0); Chloride 99 mmol/L (98-108); Cholesterol 169 mg/dL (<=200); Creatinine, Serum 0.73 mg/dL (0.70-1.20); EST Glomerular Filtration Rate 90 (>60); Free T3 3.2 pg/mL (2.18-3.98); Globulin 4.1 g/dL (2.2-4.2); Glucose 120 mg/dL (70-99); High Density Lipoprotein 35 mg/dL; Low Density Lipoprotein Calc. 87 mg/dL; Potassium 4.3 mmol/L (3.3-5.1); Protein, Total 8.5 g/dL (5.9-8.4); Sodium Level 135 mmol/L (133-145); Total Bilirubin 0.32 mg/dL (0.00-1.30); Triglycerides 240 mg/dL; Very Low Density Lipoprotein 48 mg/dL (5-40)
== END | disposition home or self-care (01) ==
LOC: MTLAB 09:54
PROVIDERS: PCP Family Medicine; Referring Provider Family Medicine; Visit Provider Family Medicine
DX: E03.9 Hypothyroidism, unspecified (principal); R73.9 Hyperglycemia, unspecified; I10 Essential (primary) hypertension
CPT/HCPCS: 36415; 80053; 80061; 83036; 84439; 84443; 84481

== ENCOUNTER → 2024-10-25 | Outpatient (CLI) | payer MEDICARE, SELFPAY | END | disposition home or self-care (01) | LOC: LABSPEC 10:57 | PROVIDERS: PCP Family Medicine; Referring Provider Family Medicine; Visit Provider Family Medicine | DX: R30.0 Dysuria (principal) | CPT/HCPCS: 87077; 87086; 87088; 87186 ==

== ENCOUNTER 2025-04-23 11:21 | Observation (INO) | payer MEDICARE, SELFPAY ==
[2025-04-23] VITALS (12 sets, daily range): BP systolic 124–211; BP diastolic 63–112; PULSE 78–133; RESP 17–24; TEMP 35.6–36.8; O2SAT 93–99; BMI 52.7; BMI 53.2
--- NOTE | 2025-04-23 12:00 | RAD_ITS ---
PROCEDURE: CHEST 1 VIEW (PORTABLE) 04/23/2025 REASON FOR EXAM: CHEST PAIN TECHNIQUE: Frontal view of the chest. COMPARISON: 07/28/2024 FINDINGS: Lungs are clear. Cardiomediastinal silhouette is unremarkable. Osseous structures are unremarkable. RAD/Chest 1 View (Portable) IMPRESSION: No acute findings. Reading [facility] [place]
--- NOTE | 2025-04-23 12:00 | EKG12_ITS ---
Test Reason : SYNCOPE Blood Pressure : */* mmHG Vent. Rate : 104 BPM Atrial Rate : * BPM P-R Int : * ms QRS Dur : 166 ms QT Int : 388 ms P-R-T Axes : * 86 8 degrees QTcB Int : 510 ms Sinus tachycardia with PAC's and PVC's Right bundle branch block Abnormal ECG Confirmed by Donavan Borjas ([id number]), assignment desk editor FRANCISCO HARPER ([id number]) on 04/24/2025 8:28:08 AM Referred By: Confirmed By: Donavan Borjas
--- OUTSIDE RECORDS SUMMARY | 2025-04-23 12:05 | XMS RPT_ITS | CCD ---
Author Organization [facility] Care Team Providers Care Citizen Participation Specialist Name Role Phone Dr. Hugo Mora Primary Care Provider Dr. Jeff Buck Attending Provider Dr. Donavan Young Referring Provider Leann LICONA, Hugo Krueger Primary Care Provider HUGO MORA Primary Care Unavailable Leann LICONA, Dr. Arias Primary Care Provider [phone] Dr. Miguel Waters MD Emergency Provider Dr. Lion Valentin DO Referring Provider Dr. Lion Valentin DO Emergency Provider Garrett LICONA, Dr. Yolanda Kiser Admit Provider Garrett LICONA, Dr. Yolanda Kiser Attending Provider Garrett LICONA, Dr. Yolanda Kiser Other Provider Darshan LICONA, Dr. Rosas Other Provider Dr. Ernie Ross MD Attending Provider Dr. Mane Jhaveri MD Other Provider Unavailab jory Jhaveri MD, Dr. Gilliam Attending Provider Amna Sexton MD, Dr. Rosas Attending Provider Dr. Ernie Ross MD Other Provider Dr. Hugo Mora MD Primary Care Provider [phone] Dr. Miguel Waters MD Attending Provider Dr. Miguel Waters MD Emergency Provider Valentin DO, Dr. Seymour Referring Provider Homero GILLIAM, Dr. Seymour Emergency Provider Garrett LICONA, Dr. Yolanda Kiser Admit Provider Garrett LICONA, Dr. Yolanda Kiser Other Provider Darshan LICONA, Dr. Rosas Other Provider Cody LICONA, Dr. Klein Attending Provider Emilio LICONA, Dr. Gilliam Other Provider Unavailab jory Jhaveri MD, Dr. Gilliam Attending Provider Amna Sexton MD, Dr. Rosas Attending Provider Cody LICONA, Dr. Klein Other Provider Leann LICONA, Dr. Arias Referring Provider Indio LICONA, Dr. Go Attending Provider Indio LICONA, Dr. Go Referring Provider Leann LICONA, Dr. Arias Attending Provider Miguel Waters Attending Unavailable Leann, Hugo Primary Care Unavailable Donavan Borjas Referring Unavailable Donavan Borjas Attending Unavailable Mora, Hugo Primary Care Unavailable Mora, Hugo Attending Unavailable Mora, Hugo Primary Care Unavailable Mora, Hugo Referring Unavailable Mora, Hugo Attending Unavailable Mora, Hugo Primary Care Unavailable Mora, Hugo Referring Unavailable Valentin, Lion Referring Unavailable Yolanda Tucker Admitting Unavailable Mora, Hugo Primary Care Unavailable Cody, Ernie Attending Unavailable Yolanda Tucker Consulting Unavailable Darshan, Ralph Consulting Unavailable Jhaveri, Achintya Consulting Unavailable Mora, Hugo Attending Unavailable Mora, Hugo Primary Care Unavailable Mora, Hugo Referring Unavailable Donavan Borjas Attending Unavailable Leann, Hugo Primary Care Unavailable Mora, Hugo Referring Unavailable White, Yolanda L Consulting Unavailable Valentin, Lion Referring Unavailable Mora, Hugo Primary Care Unavailable Cody, Ernie Attending Unavailable White, Yolanda L Admitting Unavailable Darshan, Ralph Consulting Unavailable Jhaveri, Achintya Consulting Unavailable Cody, Ernie Consulting Unavailable Darshan, Ralph Attending Unavailable Jhaveri, Achintya Attending Unavailable Yolanda Tucker Attending Unavailable DR. HUGO MCKAY Primary Care Physician GIORGIO HARVEY Attending Unavailable NELY, DR. HUGO AYOUB Primary Care DR. HUGO Murcia Primary Care GIORGIO Clarke Attending Unavailable Medications Current Medications Medication Drug Class(es) Dates Sig (Normalized) Sig (Original) apixaban 5 mg oral tablet (10 sources) Factor Xa Inhibitor Start: 11-18-2024 Eliquis 5 mg oral tablet 0 Refill(s) Start Date: 11/18/24 Status: Ordered Repeat number: 1 Start: 07-30-2024 End: 08-23-2024 take 1 tablet by mouth twice daily Apixaban (Eliquis) 5 mg tablet Active 5 mg PO TWICE A DAY 180 90 August 23, 2024 11:52am atorvastatin 20 mg oral tablet (17 sources) HMG-CoA Reductase Inhibitor Start: 11-18-2024 atorvastatin 20 mg oral tablet Dose : 20 mg = 1 tab(s), Oral, Daily, 0 Refill(s) Start Date: 11/18/24 Status: Ordered Repeat number: 1 Start: 07-26-2024 take 1 tablet by mannie th at bedtime Atorvastatin 20 mg tablet Active 20 mg PO AT BEDTIME July 26, 2024 1:00am Start: 08-17-2020 End: 07-26-2024 take 2 tablets by mouth at bedtime Atorvastatin 10 mg tablet Discontinued 20 mg PO AT BEDTIME August 17, 2020 12:00am July 26, 2024 9:13pm Start: 08-17-2020 take 20 mg by mouth at bedtime Atorvastatin Active 20 MG PO AT BEDTIME August 17, 2020 12:00am benazepril hydrochloride 10 mg oral tablet (12 sources) Angiotensin Converting Enzyme Inhibitor Start: 11-18-2024 benazepril 10 mg oral tablet Dose : 10 mg = 1 tab(s), Oral, qDay, # 90 tab(s), 0 Refill(s) Start Date: 11/18/24 Status: Ordered Quantity: 90.0 Unit: tab(s) Repeat number: 1 Start: 08-23-2008 take 1 tablet by mannie th once daily Benazepril 10 MG tablet Active 10 mg PO DAILY December 31, 2013 12:00am betamethasone 0.5 mg/ml / clotrimazole 10 mg/ml topical lotion (1 source) Azole Antifungal, Corticosteroid Start: 03-19-2018 clotrimazole-betamethasone (LOTRISONE) lotion Apply 1 application to affected area twice daily. 30 mL 1 03/19/2018 Active calcium carbonate 600 mg / cholecalciferol 125 unt oral tablet (1 source) Vitamin D Start: 12-31-2006 take 1 tablet by mouth twice daily Calcium-Cholecalciferol (D3) (CALCIUM 600 + D) 600-125 mg-unit ORAL Tab Take one(1) tablet twice daily. 0 12/31/2006 Active chlorthalidone 25 mg oral tablet (16 sources) Thiazide-like Diuretic Start: 11-18-2024 chlorthalidone 25 mg oral tablet Dose : 25 mg = 1 tab(s), Oral, qDay, # 30 tab(s), 0 Refill(s) Start Date: 11/18/24 Status: Ordered Quantity: 30.0 Unit: tab(s) Repeat number: 1 Start: 12-31-2013 End: 08-23-2024 Chlorthalidone 25 mg tablet Active 12.5 mg PO daily August 23, 2024 12:00am Start: 12-31-2013 take 1 tablet by mannie once daily Chlorthalidone 25 MG tablet Active 25 mg PO DAILY December 30, 2013 11:00pm clobetasol propionate 0.0005 mg/mg topical ointment (1 source) Corticosteroid Start: 08-13-2011 clobetasol 0.05 % TOPICAL ointment Apply 1 application to affected area twice daily. TO AFFECTED AREA. 15 g 6 08/13/2011 Active clopidogrel 75 mg oral tablet (1 source) P2Y12 Platelet Inhibitor take 1 tablet by mouth once daily clopidogrel (PLAVIX) 75 mg tablet Take 75 mg by mouth once daily. Active ERGOCALCIFEROL, VITAMIN D2, (VITAMIN D ORAL) (1 source) take 1 tablet by mouth once daily ERGOCALCIFEROL, VITAMIN D2, (VITAMIN D ORAL) Take 1 tablet by mouth once daily. Active levothyroxine sodium 0.075 mg oral tablet (18 sources) l-Thyroxine Start: 11-18-2024 Synthroid 75 mcg (0.075 mg) oral tablet Dose : 75 mcg = 1 tab(s), Oral, qDayAC, 0 Refill(s) Start Date: 11/18/24 Status: Ordered Repeat number: 1 Start: 07-28-2024 take 1 tablet by mannie th once daily Levothyroxine (Synthroid) 75 mcg tablet Active 75 ug PO DAILY July 28, 2024 1:00am Start: 08-17-2020 End: 07-28-2024 Levothyroxine 50 mcg tablet Discontinued 75 ug PO DAILY August 17, 2020 12:00am July 28, 2024 7:19pm Start: 08-17-2020 take 75 ug by mouth once daily Levothyroxine Active 75 MCG PO DAILY August 17, 2020 12:00am take 1 tablet by mannie once daily before breakfast levothyroxine (LEVOXYL) 50 mcg tablet Take 50 mcg by mouth daily before breakfast. Active metoprolol tartrate 50 mg oral tablet (10 sources) beta-Adrenergic Mani Start: 11-18-2024 Metopr olol Succinate ER 50 mg oral TABLET extended release Dose : 50 mg = 1 tab(s), Oral, qDay, # 30 tab(s), 0 Refill(s) Start Date: 11/18/24 Status: Ordered Quantity: 30.0 Unit: tab(s) Repeat number: 1 Start: 07-30-2024 End: 08-23-2024 Metoprolol Succinate 50 mg t ablet extended release 24 hr Active 50 mg PO DAILY August 23, 2024 11:55am Hold for heart less than 50 or systolic blood pressure less than 100 mmHg. nystatin 100 unt/mg topical ointment (5 sources) Polyene Antifungal Start: 07-30-2024 Nystatin 10 0,000 unit/gram ointment Active 1 NMA TOPICAL TWICE A DAY July 30, 2024 1:00am Under inframamillary fold of the skin 24 hr venlafaxine 75 mg extended release oral capsule (12 sources) Serotonin and Norepinephrine Reuptake Inhibitor Start: 11-18-2024 venlafaxine 75 mg or al capsule, extended release Dose : 75 mg = 1 cap(s), Oral, qDay, Take with food, 0 Refill(s) Start Date: 11/18/24 Status: Ordered Repeat number: 1 Start: 01-21-2013 take 1 capsule by mo [facility] once daily Venlafaxine 75 MG capsule,extended release 24hr Active 75 mg PO DAILY December 31, 2013 12:00am Completed/Discontinued Medications Medication Drug Class(es) Dates Sig (Normalized) Sig (Original) amoxicillin 500 mg oral tablet (5 sources) Penicillin-class Antibacterial Start: 07-30-2024 End: 08-23-2024 take 1 tablet by mouth three times daily Amoxicillin 500 mg tablet Discontinued 500 mg PO THREE TIMES A DAY 15 5 July 30, 2024 1:00am August 23, 2024 11:13am ascorbic acid 500 mg chewable tablet (10 sources) Vitamin C Start: 12-03-2021 End: 07-28-2024 take 2 tablets by mouth once daily Ascorbic Acid (Vitamin C) (Vitamin C) 500 mg Tablet,Chewable Discontinued 1000 mg PO DAILY December 03, 2021 12:00am July 28, 2024 6:07pm etodolac 200 mg oral capsule (10 sources) Nonsteroidal Anti-inflammatory Drug Start: 10-25-2013 End: 10-27-2013 take 1 capsule by mouth twice daily Etodolac 200 MG capsule Discontinued 400 mg PO TWICE A DAY October 25, 2013 12:00am October 27, 2013 3:13pm Start: 10-25-2013 End: 10-27-2013 take 400 mg by mouth twice daily Etodolac Discontinued 400 MG PO TWICE A DAY October 25, 2013 12:00am October 27, 2013 3:13pm Multivitamin,Fa-Vbip-Rb-Fa-M in (Multivitamin And Mineral) Tablet (10 sources) Start: 12-03-2021 End: 07-26-2024 Multivitamin,Nx-Cilf-Lu-Fa-M in (Multivitamin And Mineral) Tablet Discontinued 1 {tbl} PO DAILY December 03, 2021 12:00am July 26, 2024 9:14pm Start: 12-03-2021 End: 07-26-2024 Multivitamin,Lw-Joth-Xo-Fa-M in (Multivitamin And Mineral) Tablet Discontinued 1 {tbl} PO DAILY December 02, 2021 11:00pm July 26, 2024 8:14pm Start: 12-03-2021 take 1 tablet by mannie th once daily Multivitamin,Pe-Lkyk-Pt-Fa-Min (Multivit cruz And Mineral) Tablet Active 1 TABLET PO DAILY December 03, 2021 12:00am ondansetron 4 mg disintegrating oral tablet (7 sources) Serotonin-3 Receptor Antagonist Start: 08-23-2022 End: 07-26-2024 take 1 tablet by mouth every eight hours as needed for nausea Ondansetron 4 mg tablet,disintegrating Discontinued 4 mg PO EVERY 8 HOURS NEEDED as needed for Nausea August 23, 2022 12:00am July 26, 2024 9:14pm traMADol hydrochloride 50 mg oral tablet (10 sources) Opioid Agonist Start: 10-20-2013 End: 10-27-2013 take 2 tablets by mouth every four hours as needed for pain Tramadol 50 MG tablet Discontinued 100 mg PO EVERY 4 HOURS NEEDED as needed for Pain October 20, 2013 12:00am October 27, 2013 3:13pm Start: 10-20-2013 End: 10-27-2013 take 100 mg by mouth every four hours as needed Tramadol Discontinued 100 MG PO EVERY 4 HOURS NEEDED October 20, 2013 12:00am October 27, 2013 3:13pm Problems Active Problems Problem Classification Problem Date Documented Da te Episodic/Chronic Cardiac dysrhythmias (16 sources) Paroxysmal atrial fibrillation; Translations: [Paroxysmal atrial fibrillation] Onset: 08-09-2024 07-30-2024 Chronic Cardiac dysrhythmias (20 sources) Tachycardia; Translations: [Tachycardia, unspecified] Onset: 08-10-2024 07-26-2024 Episodic Coronary atherosclerosis and other heart disease (15 sources) Coronary arteriosclerosis; Translations: [Atherosclerotic heart disease of [place] coronary artery without angina pectoris] Onset: 08-09-2024 07-30-2024 Chronic Deficiency and other anemia (8 sources) Anemia; Translations: [Anemia, unspecified] 08-23-2024 Episodic Essential hypertension (16 sources) Hypertensive disorder; Translations: [Essential (primary) hypertension] Onset: 08-09-2024 08-13-2011 Chronic Genitourinary symptoms and ill-defined conditions (1 source) Dysuria; Translations: [Dysuria] Onset: 10-27-2024 Episodic Joint disorders and dislocations; trauma-related (10 sources) Dislocation of digit of hand; Translations: [Unspecified dislocation of unspecified finger, initial encounter] 01-01-2014 Episodic Menopausal disorders (1 source) Menopausal syndrome; Translations: [Menopausal and female climacteric states] Onset: 08-13-2011 08-13-2011 Chronic Nonspecific chest pain (1 source) Other chest pain; Translations: [Other chest pain] Onset: 08-05-2024 Episodic Osteoarthritis (10 sources) Arthritis of knee; Translations: [Unilateral primary osteoarthritis, left knee] 08-17-2020 Chronic Other circulatory disease (1 source) Elevated blood pressure; Translations: [Elevated blood-pressure reading, without diagnosis of hypertension] 07-26-2024 Episodic Other circulatory disease (6 sources) Elevated blood-pressure reading without diagnosis of hypertension; Translations: [Elevated blood-pressure reading, without diagnosis of hypertension] 07-26-2024 Episodic Other lower respiratory disease (7 sources) Dyspnea; Translations: [Shortness of breath] 07-26-2024 Episodic Other lower respiratory disease (14 sources) Dyspnea on exertion; Translations: [Other forms of dyspnea] 07-29-2024 Episodic Other lower respiratory disease (1 source) Other forms of dyspnea; Translations: [Other forms of dyspnea] Onset: 08-09-2024 Episodic Other nutritional; endocrine; and metabolic disorders (10 sources) Morbid obesity; Translations: [Obesity, unspecified] 07-29-2024 Chronic Other nutritional; endocrine; and metabolic disorders (1 source) Obesity, unspecified; Translations: [Obesity, unspecified] Onset: 08-09-2024 Chronic Other nutritional; endocrine; and metabolic disorders (6 sources) History of hypercholesterolemi a; Translations: [Personal history of other endocrine, nutritional and metabolic disease] 07-26-2024 Episodic Other screening for suspected conditions (not mental disorders or infectious disease) (13 sources) Mammography abnormal; Translations: [Other abnormal and inconclusive findings on diagnostic imaging of breast] Onset: 09-03-2010 Resolved: 08-13-2011 08-13-2011 Episodic Thyroid disorders (1 source) Hypothyroidism, unspecified; Translations: [Hypothyroidism, unspecified] Onset: 10-27-2024 Chronic Unclassified (6 sources) Patient presented with tachycardia, tachypnea and acute dyspnea. PE ruled out. Troponin normal. Patient does become winded with walking. This is new since July 22. Probably will need an echo. Unclassified (6 sources) Elevated blood pressure without history of elevated blood pressure. Needs reassessed and probably started on medication Urinary tract infections (12 sources) Urinary tract infectious disease; Translations: [Urinary tract infection, site not specified] Onset: 08-10-2024 07-28-2024 Episodic Viral infection (7 sources) Disease caused by 2019-nCoV; Translations: [COVID-19] 08-23-2022 Episodic Past or Other Problems Problem Classification Problem Date Documented Da te Episodic/Chronic Other female genital disorders (1 source) Leukoplakia of vulva; Translations: [Circumscribed scleroderma] Onset: 08-13-2011 08-13-2011 Episodic Ovarian cyst (1 source) Cyst of ovary; Translations: [Unspecified ovarian cyst, unspecified side] Onset: 01-06-2007 Resolved: 08-13-2011 08-13-2011 Episodic Results Test Name Value Interpretation Reference Range Facility Final Surgical Pathology Rep shashank 11-23-2024 Final Surgical Pathology Report . Pathology Reports Accession: Collected Date/Time: Received Date/Time: Pathologist: [id number] 11/21/2024 10:57 EDT 11/22/2024 09:13 EDT MD KAREN BARBER Final Surgical Pathology Report DIAGNOSIS: COLON, BIOPSY: - SLIGHTLY POLYPOID FRAGMENTS OF COLONIC MUC[place] WITH INCREASED INTRAEPITHELIAL LYMPHOCYTES SUGGESTIVE BUT NOT DIAGNOSTIC OF LYMPHOCYTIC COLITIS Comment: Case discussed with Dr. Harvey. CLINICAL INFORMATION: Procedure: COLONOSCOPY Preoperative diagnosis: SCREENING Postoperative diagnosis: SCREENING SPECIMEN: A COLON POLYP GROSS DESCRIPTION: All parts labelled with patient name and [id number] Received in formalin labeled colon polyp are 2 sims-brown tissue fragments measuring 0.3 x 0.2 and 0.5 x 0.3 cm greatest dimension. TS-1 Luz Elena Lazaro, Grossing Unit Manager/ Dr. Sukhdev Champagne, Pathologist Performed by Luz Elena Lazaro MICROSCOPIC DESCRIPTION: The microscopic examination is performed, except in the case of Gross Only. Verified by Pathology Report verified by [facility] KAREN BARBER MD Sign out Date: 11/23/2024 16:04 Performing Lab: [facility], [address] [place] [address] Pathology Dept Disclaimer If ancillary studies were utilized, the following Laboratory Developed Test (LDT) disclaimer will apply: Under CLIA requirements, [facility] is qualified to perform high complexity testing. For all ancillary stains, positive and negative controls stain appropriately. Performance characteristics of immunohistochemical and chromogenic in-situ hybridization tests have been determined by [facility]. These tests are used for clinical purposes, They should not be regarded as investigational or for research. Normal [facility] Urine Cultureon 10-27-2024 [facility] Escherichia coli [place] Count >100,000 Escherichia coli: REACTION Ampicillin Islt LUIS ALFREDO >=32 Ampicillin+Sulbac Islt LUIS ALFREDO 4 S Cefepime Islt LUIS ALFREDO <=0.12 S cefTRIAXone Islt LUIS ALFREDO <=0.25 S Ciprofloxacin Islt LUIS ALFREDO <=0.06 S B-Lactamase Extended Susc Islt NEG Gentamicin Islt LUIS ALFREDO <=1 S levoFLOXacin Islt LUIS ALFREDO <=0.12 S Meropenem Islt LUIS ALFREDO <=0.25 S Nitrofurantoin Islt LUIS ALFREDO <=16 S Pip+Tazo Islt LUIS ALFREDO <=4 S TMP SMX Islt LUIS ALFREDO <=20 S Normal [facility] Comment on above: Performed By: #### L [id number], L500.4050, L501.00902, L500.4100, L506.0400, L501.9985 #### [facility] [place], [address] Urine cultureOrdered By: Leesa Mora on 10-25-2024 Bacteria identified Cx Nom (U) Escherichia coli Abnormal [facility] Anion gap in Serum or Plasma Ordered By: Hugo Mora on 10-24-2024 Anion gap [Moles/Vol] 15 mmol/L 5-15 [facility] BUN/creatinine ratioOrdered By: Hugo Mora on 10-24-2024 Urea nitrogen/Creatinine [Mass ratio] 24.8 mg/mg High 10-20 [facility] Bilirubin, totalOrdered By: Hugo Mora on 10-24-2024 Bilirubin [Mass/Vol] 0.32 mg/dL 0.00-1.30 [facility] Calculated very low density lipoprotein (VLDL) cholesterol measurementOrdered By: Hugo Mora on 10-24-2024 Calculated very low density lipoprotein (VLDL) cholesterol measurement 48 mg/dL High 5-40 [facility] Carbon dioxide, total [Moles /volume] in Central venous bloodOrdered By: Hugo Mora on 10-24-2024 CO2 [Moles/Vol] 21.7 mmol/L 21.0-32.0 [facility] Chloride assayOrdered By: Kaleb Mora on 10-24-2024 Chloride [Moles/Vol] 99 mmol/L 98-108 [facility] Comprehensive Metabolic Prof ilon 10-24-2024 Albumin [Mass/Vol] 4.4 g/dL Normal 3.4-4.8 [facility] Comment on above: Performed By: #### L [id number], [id number], L501.36506, L500.4100, L506.0400, L501.9985 #### [facility] [address] [place], [address] Albumin/Globulin [Mass ratio] 1.1 {ratio} Normal 0.9-2.4 [facility] Comment on above: Performed By: #### L [id number], [id number], L501.74609, L500.4100, L506.0400, L501.9985 #### [facility] [address] [place], [address] ALK PHOS 112 U/L High 35-104 [facility] Comment on above: Performed By: #### L [id number], L500.4050, L501.46200, L500.4100, L506.0400, L501.9985 #### [facility] [address] [place], [address] ALT [Catalytic activity/Vol] 31 U/L Normal <=34 [facility] Comment on above: Performed By: #### L [id number], L500.4050, L501.17613, L500.4100, L506.0400, L501.9985 #### [facility] [address] [place], [address] AST [Catalytic activity/Vol] 49 U/L High <=31 [facility] Comment on above: Performed By: #### L [id number], L500.4050, L501.36979, L500.4100, L506.0400, L501.9985 #### [facility] [address] [place], [address] Bilirubin [Mass/Vol] 0.32 mg/dL Normal 0.00-1.30 [facility] Comment on above: Performed By: #### L [id number], [id number], L501.09447, L500.4100, L506.0400, L501.9985 #### [facility] [address] [place], [address] BUN/CRE 24.8 RATIO High 10-20 [facility] Comment on above: Performed By: #### L [id number], [id number], L501.63326, L500.4100, L506.0400, L501.9985 #### [facility] [address] [place], [address] Calcium [Mass/Vol] 10.7 mg/dL Normal 7.6-11.0 [facility] Comment on above: Performed By: #### L [id number], [id number], L501.45162, L500.4100, L506.0400, L501.9985 #### [facility] [address] [place], [address] Chloride [Moles/Vol] 99 mmol/L Normal 98-108 [facility] Comment on above: Performed By: #### L [id number], L500.4050, L501.90881, L500.4100, L506.0400, L501.9985 #### [facility] [address] [place], [address] CO2 [Moles/Vol] 21.7 mmol/L Normal 21.0-32.0 [facility] Comment on above: Performed By: #### L [id number], [id number], L501.24366, L500.4100, L506.0400, L501.9985 #### [facility] [address] [place], [address] Creatinine [Mass/Vol] 0.73 mg/dL Normal 0.70-1.20 [facility] Comment on above: Performed By: #### L [id number], [id number], L501.45992, L500.4100, L506.0400, L501.9985 #### [facility] [address] [place], [address] GAP 15 Normal 5-15 [facility] Comment on above: Performed By: #### L [id number], [id number], L501.81660, L500.4100, L506.0400, L501.9985 #### [facility] [address] [place], [address] GFR/1.73 sq M.predicted among non-blacks MDRD (S/P/Bld) [Vol rate/Area] 90 mL/min/{1.73_m2} Normal >60 [facility] Comment on above: Result Comment: mL/m in/1.73m2 CKD-EPI Creatinine Equation (2020) Performed By: #### L [id number], L500.4050, L501.99909, L500.4100, L506.0400, L501.9985 #### [facility] [address] [place], [address] Globulin (S) [Mass/Vol] 4.1 g/dL Normal 2.2-4.2 [facility] Comment on above: Performed By: #### L [id number], L500.4050, L501.68522, L500.4100, L506.0400, L501.9985 #### [facility] [address] [place], [address] Glucose [Mass/Vol] 120 mg/dL High 70-99 [facility] Comment on above: Performed By: #### L [id number], L500.4050, L501.93781, L500.4100, L506.0400, L501.9985 #### [facility] [address] [place], [address] Potassium [Moles/Vol] 4.3 mmol/L Normal 3.3-5.1 [facility] Comment on above: Performed By: #### L [id number], L500.4050, L501.48852, L500.4100, L506.0400, L501.9985 #### [facility] [address] [place], [address] Sodium [Moles/Vol] 135 mmol/L Normal 133-145 [facility] Comment on above: Performed By: #### L [id number], L500.4050, L501.93913, L500.4100, L506.0400, L501.9985 #### [facility] [address] [place], [address] T PROT 8.5 g/dL High 5.9-8.4 [facility] Comment on above: Performed By: #### L [id number], L500.4050, L501.34891, L500.4100, L506.0400, L501.9985 #### [facility] [address] [place], [address] Urea nitrogen [Mass/Vol] 18 mg/dL Normal 4-19 [facility] [facility] Comment on above: Performed By: #### L 501.9520, L500.4050, L501.70757, L500.4100, L506.0400, L501.9985 #### [facility] [address] [place], [address] Free T3on 10-24-2024 Free T3 [Mass/Vol] 3.2 pg/mL Normal 2.18-3.98 [facility] Comment on above: Performed By: #### L 501.9520, L500.4050, L501.67290, L500.4100, L506.0400, L501.9985 #### [facility] [address] [place], [place], [id number] Free [id number] By: Hugo núñez on 10-24-2024 Free T3 [Mass/Vol] 3.2 pg/mL 2.18-3.98 [facility] Glomerular filtration rate ( GFR) estimation/1.73 sq m using serum, plasma, or whole bOrdered By: Hugo Mora on 10-24-2024 GFR/1.73 sq M.predicted among non-blacks MDRD (S/P/Bld) [Vol rate/Area] 90 mL/min/{1.73_m2} >60 [facility] Comment on above: mL/min/1.73m2 CKD-EP I Creatinine Equation (2020) Hemoglobin A1con 10-24-2024 HbA1c (Bld) [Mass fraction] 6.3 % High <=5.6 [facility] Comment on above: Result Comment: Norm al < 5.7 % Prediabetic 5.7 - 6.4 % Diabetic >or= 6.5 % Please note range changes. Performed By: #### L 501.9520, L500.4050, L501.41382, L500.4100, L506.0400, L501.9985 #### [facility] [address] [place], [place], [id number] Hemoglobin A1c percentageOrd ered By: Hugo Mora on 10-24-2024 HbA1c (Bld) [Mass fraction] 6.3 % High <5.7 [facility] Comment on above: Normal < 5.7 % Predi abetic 5.7 - 6.4 % Diabetic >or= 6.5 % Please note range changes. LDL calc ser/plasOrdered By: Hugo Mora on 10-24-2024 Cholesterol in LDL [Mass/Vol] 87 mg/dL [facility] Comment on above: Oghbvgahmn=416-104 m g/dL & Higher Hnyc=457 mg/dL or greater Laboratory - Chemistry and C hemistry - challengeOrdered By: Hugo Mora on 10-24-2024 AST [Catalytic activity/Vol] 49 U/L High <32 [facility] Lipid Profileon 10-24-2024 CHOL:HDL 4.90 Normal [facility] Comment on above: Performed By: #### L 501.9520, L500.4050, L501.01581, L500.4100, L506.0400, L501.9985 #### [facility] [address] [place], [address] Cholesterol [Mass/Vol] 169 mg/dL Normal <=200 [facility] Comment on above: Result Comment: Chol esterol level, Desirable <200 mg/dL Borderline high cholesterol 200-239 mg/dL High cholesterol >=240 mg/dL Recommendations of the NCEP Adult Treatment Panel for the following risk-cutoff thresholds for the [place] population. Performed By: #### L 501.9520, L500.4050, L501.75986, L500.4100, L506.0400, L501.9985 #### [facility] [address] [place], [address] Cholesterol in HDL [Mass/Vol] 35 mg/dL Low [facility] Comment on above: Result Comment: Siomara onal Cholesterol Education Program (NCEP) guidelines: <40 mg/dL: Low HDL-cholesterol (major risk factor for CHD) >= 60 mg/dL: High HDL-cholesterol (negative risk factor for CHD) HDL-cholesterol is affected by a number of factors, e.g. smoking, exercise, hormones, sex and age. Performed By: #### L 501.9520, L500.4050, L501.46784, L500.4100, L506.0400, L501.9985 #### [facility] [address] [place], [address] Cholesterol in LDL [Mass/Vol] 87 mg/dL Normal [facility] Comment on above: Result Comment: Bord kdnyeo=702-895 mg/dL Higher Nfzs=596 mg/dL or greater Performed By: #### L 501.9520, L500.4050, L501.79450, L500.4100, L506.0400, L501.9985 #### [facility] [address] [place], [address] Cholesterol in VLDL [Mass/Vol] 48 mg/dL High 5-40 [facility] Comment on above: Performed By: #### L 501.9520, L500.4050, L501.69923, L500.4100, L506.0400, L501.9985 #### [facility] [address] [place], [address] Triglyceride [Mass/Vol] 240 mg/dL High [facility] Comment on above: Result Comment: The drugs N-Acetylcysteine and Metamizole may falsely depress this assay. Normal range: <150 mg/dL Borderline High: 150-199 mg/dL High: 200-499 mg/dL Very High: >500 mg/dL Performed By: #### L 501.9520, L500.4050, L501.31734, L500.4100, L506.0400, L501.9985 #### [facility] [address] [place], [address] Potassium measurement (mass/ volume)Ordered By: Hugo Mora on 10-24-2024 Potassium (Unsp spec) [Mass/Vol] 4.3 mmol/L 3.3-5.1 [facility] Screening total cholesterol/ high density lipoprotein (HDL) cholesterol ratioOrdered By: Hugo Mora on 10-24-2024 Cholesterol.total/Odalis sterol in HDL [Mass ratio] 4.90 {ratio} [facility] Serum creatinine measurement (mass/volume)Ordered By: Hugo Mora on 10-24-2024 Creatinine [Mass/Vol] 0.73 mg/dL 0.70-1.20 [facility] Serum globulin measurementOr dered By: Hugo Mora on 10-24-2024 Globulin (S) [Mass/Vol] 4.1 g/dL 2.2-4.2 [facility] Serum glucose measurement (m ass/volume)Ordered By: Hugo Mora on 10-24-2024 Glucose [Mass/Vol] 120 mg/dL High 70-99 [facility] Serum or plasma alanine cruz otransferase (ALT) measurementOrdered By: Hugo Mora on 10-24-2024 ALT [Catalytic activity/Vol] 31 U/L <35 [facility] Serum or plasma albumin nicole urement (mass/volume)Ordered By: Hugo Mora on 10-24-2024 Albumin [Mass/Vol] 4.4 g/dL 3.4-4.8 [facility] Serum or plasma albumin/glob ulin mass ratioOrdered By: Hugo Mora on 10-24-2024 Albumin/Globulin [Mass ratio] 1.1 {ratio} 0.9-2.4 [facility] Serum or plasma alkaline adrián sphatase measurementOrdered By: Hugo Mora on 10-24-2024 ALP [Catalytic activity/Vol] 112 U/L High 35-104 [facility] Serum or plasma calcium nicole urement (mass/volume)Ordered By: Hugo Mora on 10-24-2024 Calcium [Mass/Vol] 10.7 mg/dL 7.6-11.0 [facility] Serum or plasma cholesterol in HDL measurement (mass/volume)Ordered By: Hugo Mora on 10-24-2024 Cholesterol in HDL [Mass/Vol] 35 mg/dL Low >40 [facility] Comment on above: National Cholesterol Education Program (NCEP) guidelines:<40 mg/dL: Low HDL-cholesterol (major risk factor for CHD)>= 60 mg/dL: High HDL-cholesterol (negative risk factor for CHD)HDL-cholesterol is affected by a number of factors, e.g. smoking, exercise, hormones, sex and age. Serum or plasma cholesterol measurement (mass/volume)Ordered By: Hugo Mora on 10-24-2024 Cholesterol [Mass/Vol] 169 mg/dL <201 [facility] Comment on above: Cholesterol level, D esirable <200 mg/dLBorderline high cholesterol 200-239 mg/dLHigh cholesterol >=240 mg/dLRecommendations of the NCEP Adult Treatment Panel for the following risk-cutoff thresholds for the [place] population. Serum or plasma urea nitroge n measurement (mass/volume)Ordered By: Hugo Mora on 10-24-2024 Urea nitrogen [Mass/Vol] 18 mg/dL 4-19 [facility] Sodium levelOrdered By: Hugo Mora on 10-24-2024 Sodium [Moles/Vol] 135 mmol/L 133-145 [facility] T4 Free Directon 10-24-2024 T4 FREE DIRECT 1.10 ng/dL Normal 0.76-1.46 [facility] Comment on above: Performed By: #### L 501.9520, L500.4050, L501.91458, L500.4100, L506.0400, L501.9985 #### [facility] [address] [place], [address] T4 freeOrdered By: Hugo núñez on 10-24-2024 Free T4 [Mass/Vol] 1.10 ng/dL 0.76-1.46 [facility] TSH DL <= 0.005 mIU/L QnOrde red By: Hugo Mora on 10-24-2024 TSH Qn 3.930 uIU/mL 0.300-4.200 [facility] Thyroid Stim Hormone (TSH)on 10-24-2024 TSH 3.930 uIU/mL Normal 0.300-4.200 [facility] Comment on above: Performed By: #### L 501.9520, L500.4050, L501.13199, L500.4100, L506.0400, L501.9985 #### [facility] [address] [place], [address] Total proteinOrdered By: Leesa Mora on 10-24-2024 Protein [Mass/Vol] 8.5 g/dL High 5.9-8.4 [facility] Triglycerides measurementOrd ered By: Hugo Mora on 10-24-2024 Triglyceride [Mass/Vol] 240 mg/dL High <199 [facility] Comment on above: The drugs N-Acetylcy steine and Metamizole may falsely depress this assay. Normal range: <150 mg/dLBorderline High: 150-199 mg/dLHigh: 200-499 mg/dLVery High: >500 mg/dL SCRN MAMM (CAD)W/CRISTINA BILATo n 10-06-2024 SCRN MAMM (CAD)W/CRISTINA BILAT [facility] Imaging Services [address] [place], [place] [address] SCRN MAMM (CAD)W/CRISTINA BILAT MR#: [id number] Acct: [id number] Name: OLENA VALERA Rep #: [id number] : 1955 F 69 From: Neva Laura PCP: Dr. Hugo Mora MD Status: [facility] Study: SCRN MAMM (CAD)W/CRISTINA BILAT Date of Exam: 09/22 10/16 Exam# [id number] Ordering Dr: uHgo Mora MD EXAM: SCRN MAMM (CAD)W/CRISTINA BILAT DATE: 10/06/2024 CLINICAL HISTORY: F, Age 69 y/o , ROUTINE SCREENING BREAST CANCER RISK ASSESSMENT: Has not been calculated. TECHNIQUE: Bilateral screening digital breast tomosynthesis with 2D and 3D images. Computer aided detection. COMPARISON: Prior exam(s) dated 03/19/2018. FINDINGS: TISSUE DENSITY: The breast tissue is almost entirely fatty. Bilateral Breast Mammographic Findings: RIGHT: Benign-appearing secretory type calcifications, macrocalcifications and round microcalcifications are seen in the right breast. Radiopaque clip is seen in the superior medial aspect of the right breast. The biopsy was benign. Post biopsy site is stable. There is a stable 4 mm density seen adjacent to the clip on the CC view. No suspicious masses, suspicious clustered microcalcifications, architectural distortion or secondary signs of malignancy is identified in the right breast. LEFT: Well-circumscribed stable isodense masses are seen in the superior outer aspect of the left breast. Benign-appearing secretory type calcifications, macrocalcifications and round microcalcifications are seen in the left breast. BI/SCRN MAMM (CAD)W/CRISTINA BILAT IMPRESSION: OVERALL FINAL ASSESSMENT: BIRADS 2 BENIGN FINDING RECOMMENDATION: Routine annual follow-up in 1 Year A letter with findings and recommendations will be mailed to the patient. Reading Location: [id number] CC: Dr. Hugo Mora MD Brand Engineer: Signed Normal [facility] 12 Lead EKG performed by [facility] [place] 08-23-2024 12 Lead EKG performed by [facility] [address] [place] [address] 12 Lead EKG performed by [facility] 08/23/24 1528 MR#: [id number] Acct: [id number] Name: OLENA VALERA Rep #: [id number] : 1955 69 From: Donavan Borjas MD Attending Dr: Dr. Donavan Borjas MD Status: DE P AMB Ordering Dr: Donavan Borjas MD Date: 08/23/24 [place] [facility] Sex: F C Admitted: [facility]12 Lead EKG performed by [facility] ECG Report Interpretation ----Sinus Rhythm -First degree A-V block - frequent multiform ectopic ventricular beats -Right bundle branch block. ABNORMAL Electronically signed on 08/23/2024 at 12:[address] Donavan Borjas [employer] Version 8610 08/23/24 1216 Date Donavan Borjas MD CC: Dr. Hugo Mora MD Date Dictated: 08/23/24 1528 Date Transcribed: 08/23/241527 Brand Engineer: Signed Normal [facility] CBC-Complete Blood Cnt No Di ffon 08-23-2024 Erythrocyte distribution width (RBC) [Ratio] 16.1 % High 11.6-14.6 [facility] Comment on above: Performed By: #### L 501.9520, L500.4050, L501.29135, L500.4100, L506.0400, L501.9985 #### [facility] [address] [place], [address] Hematocrit (Bld) [Volume fraction] 39.6 % Normal 37-47 [facility] Comment on above: Performed By: #### L 501.9520, L500.4050, L501.81339, L500.4100, L506.0400, L501.9985 #### [facility] [address] [place], [address] Hemoglobin (Bld) [Mass/Vol] 12.8 g/dL Normal 12.0-15.0 [facility] Comment on above: Performed By: #### L 501.9520, L500.4050, L501.55673, L500.4100, L506.0400, L501.9985 #### [facility] [address] [place], [address] MCH (RBC) [Entitic mass] 25.9 pg Low 27.0-32.0 [facility] Comment on above: Performed By: #### L 501.9520, L500.4050, L501.62377, L500.4100, L506.0400, L501.9985 #### [facility] [address] [place], [address] MCHC (RBC) [Mass/Vol] 32.3 g/dL Normal 32-36 [facility] Comment on above: Performed By: #### L 501.9520, L500.4050, L501.98357, L500.4100, L506.0400, L501.9985 #### [facility] [address] [place], [address] MCV (RBC) [Entitic vol] 80.2 fL Low 81-99 [facility] Comment on above: Performed By: #### L 501.9520, L500.4050, L501.16777, L500.4100, L506.0400, L501.9985 #### [facility] [address] [place], [address] Platelet mean volume (Bld) [Entitic vol] 9.4 fL Normal 6.2-12.0 [facility] Comment on above: Performed By: #### L 501.9520, L500.4050, L501.80281, L500.4100, L506.0400, L501.9985 #### [facility] [address] [place], [address] Platelets (Bld) [#/Vol] 458 10*3/uL High 150-450 [facility] Comment on above: Performed By: #### L 501.9520, L500.4050, L501.05362, L500.4100, L506.0400, L501.9985 #### [facility] [address] [place], [address] RBC (Bld) [#/Vol] 4.94 10*6/uL Normal 4.2-5.4 [facility] Comment on above: Performed By: #### L 501.9520, L500.4050, L501.81941, L500.4100, L506.0400, L501.9985 #### [facility] [address] [place], [address] RDW SD 46.8 fl High 35.1-43.9 [facility] Comment on above: Performed By: #### L 501.9520, L500.4050, L501.61490, L500.4100, L506.0400, L501.9985 #### [facility] [address] [place], [address] WBC (Bld) [#/Vol] 8.7 10*3/uL Normal 4.4-11.0 [facility] Comment on above: Performed By: #### L 501.9520, L500.4050, L501.57959, L500.4100, L506.0400, L501.9985 #### [facility] [address] [place], [address] Cardiology Visit Reporton Cardiology Visit Report [facility] [address] [place] [address] OFFICE VISIT Date of Service: 08/23/24 MR#: [id number] Acct: [id number] Name: OLENA VALERA Rep #: [id number] : 1955 Provider: Dr. Donavan arrington MD Age/Sex: 69/F Location[place] [facility] Status: Signed HPI HPI History of Present Illness Details: Patient is a pleasant 69-year-old white female that comes in with her today for posthospital visit. Patient was hospitalized July 26 through July 30, 2024 due to dyspnea on exertion. She presented to the emergency department had a negative CTA and negative chest x-ray. She was in sinus tachycardia in the emergency department but did have paroxysmal atrial fibrillation during that hospitalization. She was simply placed on beta-mani therapy and the left heart catheterization was done July 29, 2024. That showed an LAD of 60% with a negative FFR 50% circumflex and right coronary artery and she was treated medically. This was done after she had an abnormal stress test on July 29, 2024 due to anterior ischemic changes that in retrospect were probably body habitus related. The patient does have morbid obesity she continues to have dyspnea on exertion but it is much improved. She also has a history of hyperlipidemia and hypertension. Blood pressure actually is low when she was hospitalized today in the office is 103/63. Patient was also anemic hemoglobin of 10.9 on July 29, 2024 she has been on Eliquis since that point in time and we will obtain a CBC today for monitoring due to her oral anticoagulation therapy. Patient was also instructed to be evaluated for sleep apnea while she was hospitalized she is to follow-up with the primary service. The patient is also noted to have a hemoglobin A1c of 6.2 and given her morbid obesity and heart failure with preserved ejection fraction of 50% this is a class I indication for Jardiance or SGLT2 inhibitors. I have asked her to follow-up with the primary service for long-term management she is not on any oral hypoglycemics at the time. Intake Vital Signs 07/29/24 12:30 08/23/24 11:11 Height 5 ft 5 in 5 ft 5 in Weight: 304 lb BMI 50.5 BP 103/63 Blood Pressure Location Lt brachial Position Sitting Respiration 18 Pulse 95 Pulse Source Monitor Pulse Oximetry (%) 95 Oxygen Delivery Method room air Intake Visit Reasons: S/P [facility] Cath 07/29 Mixer Helper Required: No Accompanied by: Is patient in pain?: No Allergies No Known Allergies Allergy (Verified 08/23/24 11:11) Medications ???Medication ???Instructions ???Recorded ???Confirmed ???Type benazepril 10 mg tablet 10 mg PO DAILY BP 12/31/13 5 History venlafaxine 75 mg capsule,extended 75 mg PO DAILY HOT FLASHES 12/3108/23/24 History release 24 hr atorvastatin 20 mg tablet 20 mg PO QHS high cholesterol 09/1608/23/24 History levothyroxine 75 mcg tablet 75 mcg PO DAILY hypothyroid 08/23/24 History (Synthroid) nystatin 100,000 unit/gram topical 1 applic topical BID 2 weeks #30 07/30/24 08/23/24 Rx ointment grams apixaban 5 mg tablet (Eliquis) 5 mg PO BID 90 days #180 tabs 06/1808/23/24 Rx chlorthalidone 25 mg tablet 12.5 mg (1/2 x 25 mg) PO QDAY #30 08/23/24 08/23/24 Rx tabs metoprolol succinate 50 mg 50 mg PO DAILY 3 months #90 tabs 0 08/23/24 08/23/24 Rx tablet,extended release 24 hr Ejection fraction %: 50 Have you fallen in the past year?: [facility] History Super obesity Urinary tract infection History of left heart catheterization Sinus tachycardia Palpitations Abnormal cardiovascular stress test Dyspnea on exertion Coronary artery disease Paroxysmal atrial fibrillation Morbid obesity Anxiety and depression Wears glasses Arthritis High cholesterol Former smoker History of stress test Hypertension Surgical History Hx of colonoscopy History of total right knee replacement Family History Mother Heart disease Hypertension Father , from massive [place] at 76 y/o. Heart disease CAD (coronary artery disease) Hypertension Myocardial infarction Sudden cardiac Social History household members: spouse Smoking Status: Former smoker how long ago did patient quit smoking: Quit 30-35 yrs prior, light smoking only. alcohol intake: never substance use type: does not use caffeine: Yes ROS Const Const: Positive for fatigue; Negative for weakness ENT ENT: Negative for dizziness or balance problems Cardio Chest Pain: No Palpit (more content not included)... Normal [facility] Erythrocyte distribution wid th (RBC) [Ratio]Ordered By: Donavan Borjas on 08-23-2024 Erythrocyte distribution width (RBC) [Entitic vol] 46.8 fL High 35.1-43.9 [facility] Erythrocyte distribution wid th ratioOrdered By: Donavan Borjas on 08-23-2024 Erythrocyte distribution width (RBC) [Ratio] 16.1 % High 11.6-14.6 [facility] Erythrocyte distribution wid th standard deviationOrdered By: Donavan Borjas on 08-23-2024 Erythrocyte distribution width (RBC) [Ratio] 46.8 fl High 35.1-43.9 [facility] Hematocrit Auto (Bld) [Volum e fraction]Ordered By: Donavan Borjas on 08-23-2024 Hematocrit (Bld) [Volume fraction] 39.6 % 37-47 [facility] Hemoglobin measurementOrdere d By: Donavan Borjas on 08-23-2024 Hemoglobin (Bld) [Mass/Vol] 12.8 g/dL 12.0-15.0 [facility] MCV (mean corpuscular volume ) determinationOrdered By: Donavan Borjas on 08-23-2024 MCV (RBC) [Entitic vol] 80.2 fL Low 81-99 [facility] Mean corpuscular hemoglobin (MCH) determinationOrdered By: Donavan Borjas on 08-23-2024 MCH (RBC) [Entitic mass] 25.9 pg Low 27.0-32.0 [facility] Mean corpuscular hemoglobin concentration (MCHC) determinationOrdered By: Donavan Borjas on 08-23-2024 MCHC (RBC) [Mass/Vol] 32.3 g/dL 32-36 [facility] Mean platelet volume determi nationOrdered By: Donavan Borjas on 08-23-2024 Platelet mean volume (Bld) [Entitic vol] 9.4 fL 6.2-12.0 [facility] Platelet countOrdered By: Kathy Borjas on 08-23-2024 Platelets (Bld) [#/Vol] 458 10*3/uL High 150-450 [facility] RBC Auto (Bld) [#/Vol]Ordere d By: Donavan Borjas on 08-23-2024 RBC (Bld) [#/Vol] 4.94 10*6/uL 4.2-5.4 [facility] White blood cell (WBC) count Ordered By: Donavan Borjas on 08-23-2024 WBC (Bld) [#/Vol] 8.7 10*3/uL 4.4-11.0 [facility] Culture, Blood (WB)on 2024 CUB Blood cultures x2, from two different sites No growth in 5 days. Normal [facility] Comment on above: Performed By: #### L 501.9520, L500.4050, L501.63526, L500.4100, L506.0400, L501.9985 #### [facility] [address] [place], [address] Discharge Instructionon Discharge Instruction [facility] Medical Records Department [address] [place] [address] Instructions for Home/Discharge Instructions 07/30/24 1000 MR#: [id number] Acct: [id number] Name: OLENA VALERA Rep #: [id number] : 1955 68 From: Ernie Ross MD PCP: Dr. Hugo Mora MD Status:ADM IN Discharge Instructions Diet Discharge Diet: 2000 mg Sodium Diet DC O2, CPAP, BIPAP needs Home O2 Discharge instructions: No Dressing / Incision Discharge Activity: Return to Normal Activity Weight Bearing Status: Weight bearing as tolerated Dressing / Incision Call your doctor if you observe: Fever of 101 or Higher, Coldness, Increased Pain, Numbness or Tingling, Change in Color, Inability to urinate, Inability to have a bowel movement, Shortness of b reath, Dizziness, Fainting spells, Swelling in the ankles, Chest pain, Prolonged hiccupping, Increased palpitations (irregular heartbeat) and Calf discomfort Follow Up Care When: IN 2 WEEKS Test Results: Test results from this visit will be discussed in further detail at your follow-up appointment, if applicable. Discharge Plan Admission Admit Date/Time: 07/28/24 19:30 Attending Provider: Ernie Ross Primary Care Provider: Hugo Mora Consulting Providers: Yolanda Tucker; Ralph Sexton; Mane Jhaveri Discharge Orders/Prescriptions Prescriptions: New Eliquis 5 mg Tablet 5 mg PO BID 30 Days Qty: 60 2RF amoxicillin 500 mg tablet 500 mg PO TID 5 Days Qty: 15 0RF metoprolol succinate 50 mg tablet extended release 24 hr 50 mg PO DAILY 30 Days Qty: 30 2RF Rx Instructions: Hold for heart less than 50 or systolic blood pressure less than 100 mmHg. nystatin 100,000 unit/gram ointment 1 applic topical BID 14 Days Qty: 30 1RF Rx Instructions: Under inframamillary fold of the skin Continued venlafaxine 75 MG capsule,extended release 24hr 75 mg PO DAILY Patient Comments: benazepril 10 MG tablet 10 mg PO DAILY Patient Comments: atorvastatin 20 mg tablet 20 mg PO QHS levothyroxine [Synthroid] 75 mcg tablet 75 mcg PO DAILY Held chlorthalidone 25 MG tablet 25 mg PO DAILY Hold Instructions: Hold for SBP less than 130 mmHg. If blood pressure goes high above 140 mmHg, can resume 12.5 mg daily. Patient Comments: Referrals / Follow Up: Donavan Borjas MD [Med Staff - Active Staff] - Within 1 Month Hugo Mora MD [Primary Care Provider] - Disposition Disposition (needs filled in before D/C Order can be placed): Home, Self Care 07/30/24 1033 Ernie Ross MD CC: Dr. Mane Jhaveri MD; Dr. Ralph Sexton MD; Dr. Yolanda Tucker MD; Dr. Hugo Mora MD Signed Normal [facility] Urine Cultureon 07-30-2024 URC Streptococcus agalactiae (B) [place] Count >100,000 Streptococcus agalactiae (B): REACTION Ampicillin Islt LUIS ALFREDO <=0.25 cefTRIAXone Islt LUIS ALFREDO 0.25 S Clindamycin.induced Susc Islt NEG Linezolid Islt LUIS ALFREDO <=2 S Vancomycin Islt LUIS ALFREDO 0.5 S Normal [facility] Comment on above: Performed By: #### L 501.9520, L500.4050, L501.10538, L500.4100, L506.0400, L501.9985 #### [facility] Laboratory [address] [place], [place], [address] ACT Activated Clotting Timeo n 07-29-2024 ACTk CLOT TIME 187 sec High 74-137 [facility] Comment on above: Performed By: #### L 501.9520, L500.4050, L501.27688, L500.4100, L506.0400, L501.9985 #### [facility] Laboratory [address] [place], [place], [address] Absolute lymphocyte countOrd ered By: Yolanda Tucker on 07-29-2024 Lymphocytes Auto (Unsp spec) [#/Vol] 1.50 10*3/uL 0.83-4.51 [facility] Absolute neutrophil countOrd ered By: Garrett on 07-29-2024 Neutrophils (Bld) [#/Vol] 4.5 10*3/uL 2.0-7.7 [facility] Activated clotting timeOrder ed By: Mane Jhaveri on 07-29-2024 Activated Clotting Time 187 sec High 74-137 [facility] Anion gap in Serum or Plasma Ordered By: Yolanda Tucker on 07-29-2024 Anion gap [Moles/Vol] 12 mmol/L 5-15 [facility] Automated lymphocyte count a s percentage of total leukocytesOrdered By: Yolanda Tucker on 07-29-2024 Lymphocytes/100 WBC Auto (Unsp spec) 21.8 % 19-41 [facility] BUN/creatinine ratioOrdered By: Yolanda Tucker on 07-29-2024 Urea nitrogen/Creatinine [Mass ratio] 19.7 mg/mg 10-20 [facility] Basophil percentageOrdered B y: Yolanda Tucker on 07-29-2024 Basophils/100 WBC (Bld) 0.4 % 0-1 [facility] Bilirubin, totalOrdered By: Yolanda Tucker on 07-29-2024 Bilirubin [Mass/Vol] 0.34 mg/dL 0.00-1.30 [facility] CBC W/Diff, Automatedon Absolute Lymph 1.50 X10 3/uL Normal 0.83-4.51 [facility] Comment on above: Performed By: #### L 501.9520, L500.4050, L501.25233, L500.4100, L506.0400, L501.9985 #### [facility] Laboratory [address] [place], [address] Absolute Neut 4.5 X10 3/uL Normal 2.0-7.7 [facility] Comment on above: Performed By: #### L 501.9520, L500.4050, L501.04346, L500.4100, L506.0400, L501.9985 #### [facility] Laboratory [address] [place], [address] Basophils/100 WBC (Bld) 0.4 % Normal 0-1 [facility] Comment on above: Performed By: #### L 501.9520, L500.4050, L501.61003, L500.4100, L506.0400, L501.9985 #### [facility] Laboratory [address] [place], [address] Eosinophils/100 WBC (Bld) 2.8 % Normal 0-5 [facility] Comment on above: Performed By: #### L 501.9520, L500.4050, L501.93516, L500.4100, L506.0400, L501.9985 #### [facility] Laboratory [address] [place], [address] Erythrocyte distribution width (RBC) [Ratio] 16.5 % High 11.6-14.6 [facility] Comment on above: Performed By: #### L 501.9520, L500.4050, L501.96789, L500.4100, L506.0400, L501.9985 #### [facility] Laboratory [address] [place], [address] Hematocrit (Bld) [Volume fraction] 33.3 % Low 37-47 [facility] Comment on above: Performed By: #### L 501.9520, L500.4050, L501.07959, L500.4100, L506.0400, L501.9985 #### [facility] Laboratory [address] [place], [address] Hemoglobin (Bld) [Mass/Vol] 10.9 g/dL Low 12.0-15.0 [facility] Comment on above: Performed By: #### L 501.9520, L500.4050, L501.90771, L500.4100, L506.0400, L501.9985 #### [facility] Laboratory [address] [place], [address] IG% 0.400 Normal 0.0-0.9 [facility] Comment on above: Result Comment: IG% - Immature Granulocytes (promyelocytes, myelocytes and metamyelocytes) > 1% indicates that a LEFT SHIFT is Present. Performed By: #### L 501.9520, L500.4050, L501.68600, L500.4100, L506.0400, L501.9985 #### [facility] Laboratory [address] [place], [address] Lymphocytes/100 WBC (Bld) 21.8 % Normal 19-41 [facility] Comment on above: Performed By: #### L 501.9520, L500.4050, L501.03678, L500.4100, L506.0400, L501.9985 #### [facility] Laboratory [address] [place], [address] MCH (RBC) [Entitic mass] 26.7 pg Low 27.0-32.0 [facility] Comment on above: Performed By: #### L 501.9520, L500.4050, L501.00413, L500.4100, L506.0400, L501.9985 #### [facility] Laboratory [address] [place], [address] MCHC (RBC) [Mass/Vol] 32.7 g/dL Normal 32-36 [facility] Comment on above: Performed By: #### L 501.9520, L500.4050, L501.10308, L500.4100, L506.0400, L501.9985 #### [facility] Laboratory [address] [place], [address] MCV (RBC) [Entitic vol] 81.6 fL Normal 81-99 [facility] Comment on above: Performed By: #### L 501.9520, L500.4050, L501.31961, L500.4100, L506.0400, L501.9985 #### [facility] Laboratory [address] [place], [address] Monocytes/100 WBC (Bld) 9.5 % Normal 0-10 [facility] Comment on above: Performed By: #### L 501.9520, L500.4050, L501.70147, L500.4100, L506.0400, L501.9985 #### [facility] Laboratory [address] [place], [address] Neutrophils/100 WBC (Bld) 65.1 % Normal 47-70 [facility] Comment on above: Performed By: #### L 501.9520, L500.4050, L501.23880, L500.4100, L506.0400, L501.9985 #### [facility] Laboratory [address] [place], [address] Nucleated RBC (Bld) [#/Vol] 0 10*3/uL Normal 0-5 [facility] Comment on above: Performed By: #### L 501.9520, L500.4050, L501.55115, L500.4100, L506.0400, L501.9985 #### [facility] Laboratory [address] [place], [address] Platelet mean volume (Bld) [Entitic vol] 9.2 fL Normal 6.2-12.0 [facility] Comment on above: Performed By: #### L 501.9520, L500.4050, L501.37407, L500.4100, L506.0400, L501.9985 #### [facility] Laboratory [address] [place], [address] Platelets (Bld) [#/Vol] 393 10*3/uL Normal 150-450 [facility] Comment on above: Performed By: #### L 501.9520, L500.4050, L501.26752, L500.4100, L506.0400, L501.9985 #### [facility] Laboratory [address] [place], [address] RBC (Bld) [#/Vol] 4.08 10*6/uL Low 4.2-5.4 [facility] Comment on above: Performed By: #### L 501.9520, L500.4050, L501.26537, L500.4100, L506.0400, L501.9985 #### [facility] Laboratory [address] [place], [address] RDW SD 48.2 fl High 35.1-43.9 [facility] Comment on above: Performed By: #### L 501.9520, L500.4050, L501.83968, L500.4100, L506.0400, L501.9985 #### [facility] Laboratory [address] [place], [address] WBC (Bld) [#/Vol] 6.9 10*3/uL Normal 4.4-11.0 [facility] Comment on above: Performed By: #### L 501.9520, L500.4050, L501.64638, L500.4100, L506.0400, L501.9985 #### [facility] Laboratory [address] [place], [address] Calculated very low density lipoprotein (VLDL) cholesterol measurementOrdered By: Yolanda Tucker on 07-29-2024 Calculated very low density lipoprotein (VLDL) cholesterol measurement 32 mg/dL 5-40 [facility] VLDL Cholesterol 32 mg/dL 5-40 [facility] Carbon dioxide, total [Moles /volume] in Central venous bloodOrdered By: Yolanda Tucker on 07-29-2024 CO2 [Moles/Vol] 21.5 mmol/L 21.0-32.0 [facility] Cardiac Cath Diagnosticon Cardiac Cath Diagnostic [facility] Imaging Services [address] [place] [address] Cardiac Cath Diagnostic MR#: [id number] Acct: [id number] Name: OLENA VALERA Rep #: [id number] : 1955 68 From: Ralph Sexton MD PCP: Dr. Hugo Mora MD Status:ADM IN Patient Name: OLENA VALERA Study Date: 07/29/2024 Performing: Ralph Sexton MD Ht: 65 inches 165.1 cm : 1955 Wt: 309.3 lbs 140.1 kg Age: 68 Gender: female BSA: 2.38 PROCEDURE(S) PERFORMED DC02-(18442)LHC/COR IC10-(26706)FFR, CORONARY OR GRAFT, INITIAL VESSEL CLINICAL PROFILE AND INDICATIONS Indications: Suspected CAD Heart Failure: None Stress/Imaging Standard Exercise Stress Test: Yes Result: Positive Intermediate Risk CAD Presentations: Other: Dysnea on exterion CONCLUSIONS 60% Mid LAD (FFR 0.84) 50% Mid LCX 40-50% distal RCA RECOMMENDATIONS Medical therapy Risk factor modification DESCRIPTION OF PROCEDURE The patient arrived to the procedure lab. The risks and benefits of the procedure as well as a full description of our services here and current unavailability of surgical backup were fully explained to the patient and/or their significant other prior to the catheterization. The Timeout was completed, verifying the correct patient and procedure. The patient's procedural site was prepped and draped in the usual fashion. Local anesthetic was given subcutaneously to right radial region with Lidocaine 2%. Using a modified Seldinger technique, arterial access was obtained via the right radial artery, a 6Fr sheath was inserted. Right Coronary Artery selective angiography was then performed in multiple views using a 5 Fr. 4.0 Stratford catheter. Left Coronary Artery selective angiography was performed in multiple views using a 5 Fr. JL3 catheter.The arterial sheath was pulled and a TR Band was applied for hemostasis. 18cc air CORONARY ANGIOGRAPHY DOMINANCE: Right Dominant LEFT MAIN: Angiographically normal LEFT ANTERIOR DESCENDING ARTERY: LAD: Tubular 30% Proximal lesion in LAD Tubular 60% Mid lesion in LAD Tubular 50% Distal lesion in LAD RIGHT CORONARY ARTERY: RCA: Tubular 20% Proximal lesion in RCA Tubular 50% Distal lesion in RCA COMPLICATIONS No Complications PROCEDURE MEDICATIONS Fentanyl 50 mcg IV Versed 1 mg IV Oxygen: 2 L/min via nasal cannula Aspirin (325mg) 1 Tabs PO 07/29/2024 13:41:01 Adenosine drip for FFR 32.8 ml IV @ 07/29/2024 14:27:40 Heparin given IA 07/29/2024 13:48:34 Heparin 56718 unit(s) IV 07/29/2024 14:00:19 Potassium Chloride 40 mEq PO 07/29/2024 13:41:11 Verapamil 2.5mg, Ntg 200mcgs, 2000 units of Heparin given IA 07/29/2024 13:48:34 SUMMARY OF HEMODYNAMIC DATA Time AIR REST ECG 13:37:22 AO 119/77 (94) SA 13:52:27 Signed By Ralph Sexton MD On 07/29/2024 16:16:48 Ralph Sexton MD 07/29/24 1617 Date Ralph Sexton MD Cosigner Signature: Date (if indicated) CC: Dr. Mane Jhaveri MD; Dr. Ralph Sexton MD; Dr. Hugo Mora MD; Dr. Lion Valentin DO Date Dictated: 07/29/24 1345 Date Transcribed: 07/29/24 1616 Brand Engineer: NAREN Cason [facility] Cardiac catheterization repo rtOrdered By: Ralph Sexton on 07-29-2024 Cardiac catheterization study [facility] Imaging Services [address] [place] [address] Cardiac Cath Diagnostic MR#: [id number] Acct: [id number] Name: OLENA VALERA Rep #:[id number] : 1955 68 From: Ralph Sexton MD PCP: Dr. Hugo Mora MD Status:ADM I N Patient Name: OLENA VALERA Study Date: 07/29/2024 Performing: Ralph Sexton MD Ht: 65 inches 165.1 cm : 1955 Wt: 309.3 lbs 140.1 kg Age: 68 Gender: female BSA: 2.38 PROCEDURE(S) PERFORMED DC02-(86817)LHC/COR IC10-(09466)FFR, CORONARY OR GRAFT, INITIAL VESSEL CLINICAL PROFILE AND INDICATIONS Indications: Suspected CAD Heart Failure: None Stress/Imaging Standard Exercise Stress Test: Yes Result: Positive Intermediate Risk CAD Presentations: Other: Dysnea on exterion CONCLUSIONS 60% Mid LAD (FFR 0.84) 50% Mid LCX 40-50% distal RCA RECOMMENDATIONS Medical therapy Risk factor modification DESCRIPTION OF PROCEDURE The patient arrived to the procedure lab. The risks and benefits of the procedure as well as a full description of our services here and current unavailability of surgical backup were fully explained to the patient and/or their significant other prior to the catheterization. The Timeout was completed, verifying the correct patient and procedure. The patient's procedural site was prepped and draped in the usual fashion. Local anesthetic was given subcutaneously to right radial region with Lidocaine 2%. Using a modified Seldinger technique, arterial access was obtained via the right radial artery, a 6Fr sheath was inserted. Right Coronary Artery selective angiography was then performed in multiple views using a 5 Fr. 4.0 Stratford catheter. Left Coronary Artery selective angiography was performed in multiple views using a 5 Fr. JL3 catheter.The arterial sheath was pulled and a TR Band was applied for hemostasis. 18cc air CORONARY ANGIOGRAPHY DOMINANCE: Right Dominant LEFT MAIN: Angiographically normal LEFT ANTERIOR DESCENDING ARTERY: LAD: Tubular 30% Proximal lesion in LAD Tubular 60% Mid lesion in LAD Tubular 50% Distal lesion in LAD RIGHT CORONARY ARTERY: RCA: Tubular 20% Proximal lesion in RCA Tubular 50% Distal lesion in RCA COMPLICATIONS No Complications PROCEDURE MEDICATIONS Fentanyl 50 mcg IV Versed 1 mg IV Oxygen: 2 L/min via nasal cannula Aspirin (325mg) 1 Tabs PO 07/29/2024 13:41:01 Adenosine drip for FFR 32.8 ml IV @ 07/29/2024 14:27:40 Heparin given IA 07/29/2024 13:48:34 Heparin 10684 unit(s) IV 07/29/2024 14:00:19 Potassium Chloride 40 mEq PO 07/29/2024 13:41:11 Verapamil 2.5mg, Ntg 200mcgs, 2000 units of Heparin given IA 07/29/2024 13:48:34 SUMMARY OF HEMODYNAMIC DATA Time AIR REST ECG 13:37:22 AO 119/77 (94) SA 13:52:27 Signed By Ralph Sexton MD On 07/29/2024 16:16:48 Ralph Sexton MD 07/29/24 1617 Date _ Ralph Sexton MD [facility] Signature: Date (if indicated) CC: Dr. Mane Jhaveri MD; Dr. Ralph Sexton MD; Dr. Hugo Mora MD; Dr. Lion Valentin DO ~ Date Dictated: 07/29/24 1345 Date Transcribed: 07/29/24 1616 Brand Engineer: NAREN Goldsmith [facility] Work Phone: Cardiovascular stress test r eportOrdered By: Ralph Sexton on 07-29-2024 Study report [facility] Cardiovascular Services [address] [place] [address] MR#: [id number] Acct: [id number] Name: OLENA VALERA Rep #: [id number] : 1955 68 From: Ralph Sexton MD Primary Care: Dr. Hugo Mora MD Status : ADM IN Referring Dr: Lion Valentin DO Sex: F C Stress Test Report Date: 07/29/2024 Procedure: Pharmacologic stress nuclear imaging study Indications: Chest pain Consent: Per the patient Procedure: The patient underwent pharmacologic (Regadenoson 0.4mg ) evaluation with a peak heart rate of 114 beats per minute (74%predicted maximal heart rate) and a peak blood pressure of 124/78 mmHg. The baseline ECG demonstrated sinus rhythm with first-degree AV block and nonspecific intraventricular conduction delay. The peak pharmacologic ECG demonstrated no diagnostic ischemic changes. There were no cardiac dysrhythmias pretest, during pharmacologic infusion, or recovery. There was no complaint of chest discomfort during pharmacologic infusion or recovery. The patient was injected with 15.0 millicuries of technetium 99m Cardiolite and subsequently rest SPECT Cardiolite nuclear imaging was obtained in the horizontal long, vertical long, and short axis views. The patient underwent pharmacologic (Regadenoson) evaluation. The patient was injected with 45.0 millicuries of technetium 99m Cardiolite and subsequently stress SPECT Cardiolite nuclear imaging was obtained in the horizontal long, vertical long, and short axis views. A gated Cardiolite study at peak stress was obtained. The examination was stopped secondary to completion of protocol. Rest and stress SPECT Cardiolite nuclear imaging status post realignment, normalization, and attenuation correction demonstrate mildly reduced perfusion of the anterior wall post pharmacologic stress, this may denote mild ischemia. There is end systolic thickening and brightening. Gated images reveal mild inferior hypokinesis. The reported LVEF is 53%. Impression: 1. Pharmacologic (Regadenoson) evaluation 2. Peak pharmacologic ECG with no diagnostic ischemic changes. 3. There were no cardiac dysrhythmias pretest, during pharmacologic infusion, or recovery. 5. Mildly reduced perfusion of the anterior wall post pharmacological stress, denoting possible mild ischemia. 6. The gated Cardiolite study reports an LVEF of 53%. This note was generated with [employer] software. It may contain incorrectwords, spelling, and punctuation that were not noted in checking the note beforesigning. 07/29/24 1233 Date _ Ralph Sexton MD CC: Dr. Mane Jhaveri MD; Dr. Yolanda Tucker MD; Dr. Hugo Mora MD; Dr. Lion Valentin DO ~ Date Dictated: 07/29/24 1230 Date Transcribed: 07/29/24 1230 Brand Engineer: NAREN Signed [facility] Work Phone: Chloride assayOrdered By: Karina Tucker on 07-29-2024 Chloride [Moles/Vol] 102 mmol/L 98-108 [facility] Comprehensive Metabolic Prof ilon 07-29-2024 Albumin [Mass/Vol] 3.8 g/dL Normal 3.4-4.8 [facility] Comment on above: Order Comment: Comme nts: Fasting Lipid Profile Performed By: #### L 501.9520, L500.4050, L501.80422, L500.4100, L506.0400, L501.9900 #### [facility] Laboratory [address] [place], [address] Albumin/Globulin [Mass ratio] 1.2 {ratio} Normal 0.9-2.4 [facility] Comment on above: Order Comment: Comme nts: Fasting Lipid Profile Performed By: #### L 501.9520, L500.4050, L501.76137, L500.4100, L506.0400, L501.9985 #### [facility] Laboratory [address] [place], [address] ALK PHOS 80 U/L Normal 35-104 [facility] Comment on above: Order Comment: Comme nts: Fasting Lipid Profile Performed By: #### L 501.9520, L500.4050, L501.23957, L500.4100, L506.0400, L501.9985 #### [facility] Laboratory [address] [place], [address] ALT [Catalytic activity/Vol] 29 U/L Normal <=34 [facility] Comment on above: Order Comment: Comme nts: Fasting Lipid Profile Performed By: #### L 501.9520, L500.4050, L501.89451, L500.4100, L506.0400, L501.9985 #### [facility] Laboratory [address] [place], [address] AST [Catalytic activity/Vol] 25 U/L Normal <=31 [facility] Comment on above: Order Comment: Comme nts: Fasting Lipid Profile Performed By: #### L 501.9520, L500.4050, L501.95476, L500.4100, L506.0400, L501.9985 #### [facility] Laboratory [address] [place], [address] Bilirubin [Mass/Vol] 0.34 mg/dL Normal 0.00-1.30 [facility] Comment on above: Order Comment: Comme nts: Fasting Lipid Profile Performed By: #### L 501.9520, L500.4050, L501.21922, L500.4100, L506.0400, L501.9985 #### [facility] Laboratory [address] [place], [address] BUN/CRE 19.7 RATIO Normal 10-20 [facility] Comment on above: Order Comment: Comme nts: Fasting Lipid Profile Performed By: #### L 501.9520, L500.4050, L501.18151, L500.4100, L506.0400, L501.9985 #### [facility] Laboratory [address] [place], [address] Calcium [Mass/Vol] 9.1 mg/dL Normal 7.6-11.0 [facility] Comment on above: Order Comment: Comme nts: Fasting Lipid Profile Performed By: #### L 501.9520, L500.4050, L501.48939, L500.4100, L506.0400, L501.9985 #### [facility] Laboratory [address] [place], [address] Chloride [Moles/Vol] 102 mmol/L Normal 98-108 [facility] Comment on above: Order Comment: Comme nts: Fasting Lipid Profile Performed By: #### L 501.9520, L500.4050, L501.27390, L500.4100, L506.0400, L501.9985 #### [facility] Laboratory [address] [place], [address] CO2 [Moles/Vol] 21.5 mmol/L Normal 21.0-32.0 [facility] Comment on above: Order Comment: Comme nts: Fasting Lipid Profile Performed By: #### L 501.9520, L500.4050, L501.13821, L500.4100, L506.0400, L501.9985 #### [facility] Laboratory [address] [place], [address] Creatinine [Mass/Vol] 0.66 mg/dL Low 0.70-1.20 [facility] Comment on above: Order Comment: [facility]: Fasting Lipid Profile Performed By: #### L 501.9520, L500.4050, L501.54868, L500.4100, L506.0400, L501.9985 #### [facility] Laboratory [address] [place], [address] ECRCL 97.21 ml/min Normal 50-250 [facility] Comment on above: Order Comment: [facility]: Fasting Lipid Profile Performed By: #### L 501.9520, L500.4050, L501.54623, L500.4100, L506.0400, L501.9985 #### [facility] Laboratory [address] [place], [address] GAP 12 Normal 5-15 [facility] Comment on above: Order Comment: [facility] Fasting Lipid Profile Performed By: #### L 501.9520, L500.4050, L501.52974, L500.4100, L506.0400, L501.9985 #### [facility] Laboratory [address] [place], [address] GFR/1.73 sq M.predicted among non-blacks MDRD (S/P/Bld) [Vol rate/Area] 96 mL/min/{1.73_m2} Normal >60 [facility] Comment on above: Order Comment: [facility]: Fasting Lipid Profile Result Comment: mL/m in/1.73m2 CKD-EPI Creatinine Equation (2020) Performed By: #### L 501.9520, L500.4050, L501.90612, L500.4100, L506.0400, L501.9985 #### [facility] Laboratory [address] [place], [address] Globulin (S) [Mass/Vol] 3.2 g/dL Normal 2.2-4.2 [facility] Comment on above: Order Comment: Comme nts: Fasting Lipid Profile Performed By: #### L 501.9520, L500.4050, L501.83199, L500.4100, L506.0400, L501.9985 #### [facility] Laboratory [address] [place], [address] Glucose [Mass/Vol] 103 mg/dL High 70-99 [facility] Comment on above: Order Comment: Comm nts: Fasting Lipid Profile Performed By: #### L 501.9520, L500.4050, L501.73543, L500.4100, L506.0400, L501.9985 #### [facility] [facility] [address] [place], [address] Potassium [Moles/Vol] 3.4 mmol/L Normal 3.3-5.1 [facility] Comment on above: Order Comment: [facility] nts: Fasting Lipid Profile Performed By: #### L 501.9520, L500.4050, L501.39578, L500.4100, L506.0400, L501.9985 #### [facility] [address] [place], [address] Sodium [Moles/Vol] 135 mmol/L Normal 133-145 [facility] Comment on above: Order Comment: Comm nts: Fasting Lipid Profile Performed By: #### L [id number], L500.4050, L501.48594, L500.4100, L506.0400, L501.9985 #### [facility] [address] [place], [address] T PROT 7.0 g/dL Normal 5.9-8.4 [facility] Comment on above: Order Comment: [facility] nts: Fasting Lipid Profile Performed By: #### L 501.9520, L500.4050, L501.67498, L500.4100, L506.0400, L501.9985 #### [facility] [address] [place], [address] Urea nitrogen [Mass/Vol] 13 mg/dL Normal 4-19 [facility] Comment on above: Order Comment: Comme nts: Fasting Lipid Profile Performed By: #### L [id number], L500.4050, L501.54459, L500.4100, L506.0400, L501.9985 #### [facility] [address] [place], [address] Consultation - Cardiologyon 07-29-2024 Consultation - Cardiology [facility] Medical Records Department [address] [facility] [place] [address] Consultation - Cardiology 07/29/24 1247 MR#: [id number] Acct: [id number] Name: OLENA VALERA Rep #: [id number] : 1955 68 From: Ralph Sexton MD PCP: Dr. Hugo Mora MD Status:ADM IN Location: [place] [address] Assessment Plan Assessment/Plan (1) Dyspnea on exertion: PLAN: New onset dyspnea on exertion. According to the patient, she gets short of breath on mild exertion. Abnormal Lexiscan stress Myoview with ischemia reported. Dyspnea on exertion possibly her anginal equivalent. Discussed options with the patient. Starting medical therapy versus coronary angiography with possible revascularization discussed. Risks benefits explained. She understand these and wishes to proceed with invasive workup. (2) Abnormal cardiovascular stress test: PLAN: See #1 above. (3) Hypertension: PLAN: Lisinopril and metoprolol. (4) Super obesity: PLAN: Lose weight. HPI Consult Data Date of Consult: 07/29/24 HPI Narrative Reason for Consultation: Dyspnea on exertion, abnormal stress test HPI Narrative: 68-year-old female with past medical history significant for obesity, hypertension and hypothyroidism. She has recently been diagnosed as having paroxysmal atrial fibrillation by her primary care physician. For the past few days, patient has been complaining of shortness of breath. According to the patient, this is a new complaint for her. She presented to the emergency room on 07/26/2024 with these complaints. She had a negative workup done and discharged home. However her dyspnea on exertion persists. She apparently had an ECG done in the primary care physician's office that showed atrial fibrillation with rapid ventricular response. Patient denies chest pains. Denies orthopnea or PND. No ankle edema. No previous history of heart disease. [facility] Medical History (Updated 07/29/24 @ 12:[address] Ralph Sexton MD) Morbid obesity Anxiety and depression Wears glasses Arthritis High cholesterol Former smoker History of stress test Hypertension Home Medications ???Medication ???Instructions ???Recorded ???Last Taken ???Type benazepril 10 mg tablet 10 mg PO DAILY BP 12/31/13 5 09:30 History 10 mg chlorthalidone 25 mg tablet 25 mg PO DAILY high BP 12/31/13 09:30 History 25 mg venlafaxine 75 mg capsule,extended 75 mg PO DAILY HOT FLASHES 12/3107/28/24 09:30 History release 24 hr 75 mg atorvastatin 20 mg tablet 20 mg PO QHS high cholesterol 09/1607/27/24 21:00 History 20 mg levothyroxine 75 mcg tablet 75 mcg PO DAILY hypothyroid 07/28/24 08:00 History (Synthroid) 75 mcg Allergy/AdvReac Type Severity Reaction Status Date / Time No Known Allergies Allergy Verified 07/28/24 16:07 Family History (Updated 07/28/24 @ 21:[address] Yolanda Tucker MD) Mother Heart disease Hypertension Father , from massive [place] at 76 y/o. Heart disease CAD (coronary artery disease) Hypertension Myocardial infarction Sudden cardiac Surgical History Hx of colonoscopy History of total right knee replacement Social History (Updated 07/28/24 @ 21:[address] Yolanda Tucker MD) household members: spouse Smoking Status: Former smoker how long ago did patient quit smoking: Quit 30-35 yrs prior, light smoking only. alcohol intake: never substance use type: does not use Physical Exam Narrative Morbidly obese. Heart sounds 1 and 2 noted. Chest clear to auscultation bilaterally. Alert oriented x 3. No ankle edema noted. Risk Stratification Risk Stratification Applicable: No Objective Data Vital Signs: Vital Signs Temp Pulse Resp BP Pulse Ox O2 Del Method 97.8 F 87 18 152/77 H 95 Room Air 07/29/24 10:21 07/29/24 10:27 07/29/24 10:21 07/29/24 10:21 07/29/24 10:21 07/29/24 10:40 Oxygen Delivery Method Room Air Weight: 308 lb 13.882 oz Body Mass Index (BMI) 51.4 Intake Output: Intake and Output for Last 24 Hours 07/27/24 07/28/24 07/29/24 23:59 23:59 23:59 Intake Total 2049 1500 / 1500 Balance 2049 1500 / 1500 Lab / Micro Data 07/29/24 04:48 07/29/24 04:48 Labs: Laboratory Results - last 24 hr 07/28/24 16:22: WBC 11.1 H, RBC 5.09, Hgb 13.2, Hct 41.0, MCV 80.6 L, MCH 25.9 L, MCHC 32.2, RDW Std Deviation 46.7 H, RDW Coeff of Mykel 16.8 H, Plt Count 560 H, MPV 9.2, Immature Gran % (Auto) 0.400, N eut % (Auto) 75.6 H, Lymph % (Auto) 15.5 L, [place] % (Auto) 7.7, Eos % (Auto) 0.4, Baso % (Auto) 0.4, Absolute Neuts (auto) 8.4 H, Absolute Lymphs (auto) 1.72, Nucleated RBC % 0, PT 13.6, INR 1.0, APTT 28.5, Sodium 132 L, Potassium 3.9, Chloride 95 L, Carbon Dioxide 18.5 L, Anion Gap 18 H, BUN 17, Cr (more content not included)... Normal [facility] Echo Complete W/ Contraston 07-29-2024 Echo Complete W/ Contrast [facility] [address] [place] [address] Echo Complete W/ Contrast 07/29/24 0911 MR#: [id number] Acct: [id number] Name: OLENA VALERA Rep #: [id number] : 1955 68 From: Ralph Sexton MD Attending Dr: Dr. Mane Jhaveri MD Status: AD M IN Ordering Dr: Yolanda Tucker MD Date: 07/29/24 Location: [facility] Sex: F C Admitted: 07/28/24 Reason For Study Reason For Study: PAF, SOB Procedure This was a 2D Doppler, Color Flow transthoracic echocardiogram. The study was technically difficult. Exam performed in department. Left Ventricle Normal LV size. Mild concentric left ventricular hypertrophy. Mild posterior and inferior basal hypokinesis. Estimated LVEF 50%. Grade 1 diastolic dysfunction. Right Ventricle Normal right ventricle. Atria The left atrium is severely enlarged. Mitral Valve Trivial mitral valve insufficiency. Tricuspid Valve Normal tricuspid valve. Aortic Valve Trisinus/trileaflet aortic valve. Pulmonic Valve The pulmonic valve is not well visualized. Great Vessels Normal sized aortic root. Pericardium/Pleural No pericardial effusion. Medication Diluted definity 2.5ml given slow IV push to enhance endocardial definition. MMode/2D Measurements Calculations LVIDd: 5.3 cm IVSd: 1.3 cm Ao root diam: 3.0 cm LVIDs: 3.7 cm LVPWd: 1.4 cm LA dimension: 5.3 cm RVDd: 3.8 cm FS: 30.0 % LAV(MOD-bp): 77.1 ml LVAd ap4: 36.0 cm2 LVAd ap2: 41.5 cm2 LAV(MOD-bp) Indexed: 32.6 ml/m2 LVLd ap4: 8.3 cm LVLd ap2: 8.7 cm LAV(MOD-sp2): 59.3 ml EDV(MOD-sp4): 131.3 ml EDV(MOD-sp2): 163.4 ml LAV(MOD-sp4): 95.2 ml EDV(sp4-el): 133.6 ml EDV(sp2-el): 167.5 ml LVAs ap4: 24.2 cm2 LVAs ap2: 26.5 cm2 LVLs ap4: 7.1 cm LVLs ap2: 7.2 cm ESV(MOD-sp4): 68.6 ml ESV(MOD-sp2): 83.7 ml ESV(sp4-el): 70.3 ml ESV(sp2-el): 82.9 ml EF(MOD-sp4): 47.7 % EF(MOD-sp2): 48.8 % EF(sp4-el): 47.3 % SV(MOD-sp4): 62.6 ml SV(MOD-sp2): 79.7 ml SV(sp4-el): 63.2 ml SI(MOD-sp4): 26.5 ml/m2 SI(MOD-sp2): 33.7 ml/m2 LA A4 area: 27.5 cm2 LA dimension(2D): 4.9 cm RA A4 area: 17.3 cm2 TAPSE: 2.4 cm Doppler Measurements Calculations MV E max seda: 106.3 cm/sec Lat Peak E' Seda: 8.9 cm/sec Med Peak E' Seda: 5.9 cm/sec MV A max seda: 122.5 cm/sec E/E' lat: 12.0 E/E' med: 18.1 MV E/A: 0.87 Ao V2 max: 166.5 cm/sec LV V1 max: 127.8 cm/sec PA V2 max: 108.8 cm/sec Ao max P.1 mmHg LV V1 max P.5 mmHg Ao V2 mean: 105.5 cm/sec LV V1 mean P.3 mmHg Ao mean P.3 mmHg LV V1 mean: 85.0 cm/sec Ao V2 VTI: 29.2 cm LV V1 VTI: 22.3 cm AV (velocity ratio): 0.76 ECHO/Echo Complete W/ Contrast Interpretation Summary Mild concentric left ventricular hypertrophy. Mild posterior and inferior basal hypokinesis. Estimated LVEF 50%. Grade 1 diastolic dysfunction. The left atrium is severely enlarged. Ordering Physician: Yolanda Tucker Referring Physician: Lion Valentin Performed By: Ana Laura Andujar RDCS 07/29/24 1259 Date Ralph Sexton MD CC: Dr. Mane Jhaveri MD; Dr. Yolanda Tucker MD; Dr. Hugo Mora MD; Dr. Lion Valentin DO Date Dictated: 07/29/24910 Date Transcribed: 07/29/24 1259 Brand Engineer: Signed Normal [facility] Echocardiogram study reportO rdered By: Ralph Sexton on 07-29-2024 Study report [facility] Cardi[facility] Services [address] [place] [address] Echo Complete W/ Contrast 07/29/24910 MR#: [id number] Acct: [id number] Name: OLENA VALERA Rep #:[id number] : 1955 68 From: Ralph Sexton MD Attending Dr: Dr. Mane Jhaveri MD Status: ADM IN Ordering Dr: Yolanda Tucker MD Date: 07/29/24 Location: [facility] Sex: F C Admitted: 07/28/24 Reason For Study Reason For Study: PAF, SOB Procedure This was a 2D Doppler, Color Flow transthoracic echocardiogram. The study was technically difficult. Exam performed in department. Left Ventricle Normal LV size. Mild concentric left ventricular hypertrophy. Mild posterior andinferior basal hypokinesis. Estimated LVEF 50%. Grade 1 diastolic dysfunction. Right Ventricle Normal right ventricle. Atria The left atrium is severely enlarged. Mitral Valve Trivial mitral valve insufficiency. Tricuspid Valve Normal tricuspid valve. Aortic Valve Trisinus/trileaflet aortic valve. Pulmonic Valve The pulmonic valve is not well visualized. Great Vessels Normal sized aortic root. Pericardium/Pleural No pericardial effusion. Medication Diluted definity 2.5ml given slow IV push to enhance endocardial definition. MMode/2D Measurements & Calculations LVIDd: 5.3 cm IVSd: 1.3 cm Ao root diam: 3.0 cm LVIDs: 3.7 cm LVPWd: 1.4 cm LA dimension: 5.3 cm RVDd: 3.8 cm FS: 30.0 % LAV(MOD-bp): 77.1 ml LVAd ap4: 36.0 cm2 LVAd ap2: 41.5 cm2 LAV(MOD-bp) Indexed: 32.6 ml/m2 LVLd ap4: 8.3 cm LVLd ap2: 8.7 cm LAV(MOD-sp2): 59.3 ml EDV(MOD-sp4): 131.3 ml EDV(MOD-sp2): 163.4 ml LAV(MOD-sp4): 95.2 ml EDV(sp4-el): 133.6 ml EDV(sp2-el): 167.5 ml LVAs ap4: 24.2 cm2 LVAs ap2: 26.5 cm2 LVLs ap4: 7.1 cm LVLs ap2: 7.2 cm ESV(MOD-sp4): 68.6 ml ESV(MOD-sp2): 83.7 ml ESV(sp4-el): 70.3 ml ESV(sp2-el): 82.9 ml EF(MOD-sp4): 47.7 % EF(MOD-sp2): 48.8 % EF(sp4-el): 47.3 % SV(MOD-sp4): 62.6 ml SV(MOD-sp2): 79.7 ml SV(sp4-el): 63.2 ml SI(MOD-sp4): 26.5 ml/m2 SI(MOD-sp2): 33.7 ml/m2 LA A4 area: 27.5 cm2 LA dimension(2D): 4.9 cm RA A4 area: 17.3 cm2 TAPSE: 2.4 cm Doppler Measurements & Calculations MV E max seda: 106.3 cm/sec Lat Peak E' Seda: 8.9 cm/sec Med Peak E' Seda: 5.9 cm/sec MV A max seda: 122.5 cm/sec E/E' lat: 12.0 E/E' med: 18.1 MV E/A: 0.87 Ao V2 max: 166.5 cm/sec LV V1 max: 127.8 cm/sec PA V2 max: 108.8 cm/sec Ao max P.1 mmHg LV V1 max P.5 mmHg Ao V2 mean: 105.5 cm/sec LV V1 mean P.3 mmHg Ao mean P.3 mmHg LV V1 mean: 85.0 cm/sec Ao V2 VTI: 29.2 cm LV V1 VTI: 22.3 cm AV (velocity ratio): 0.76 ECHO/Echo Complete W/ Contrast Interpretation Summary Mild concentric left ventricular hypertrophy. Mild posterior and inferior basal hypokinesis. Estimated LVEF 50%. Grade 1 diastolic dysfunction. The left atrium is severely enlarged. Ordering Physician: Yolanda Tucker Referring Physician: Lion Valentin Performed By: Ana Laura Andujar RDCS 07/29/24 1259 Date _ Ralph Sexton MD CC: Dr. Mane Jhaveri MD; Dr. Yolanda Tucker MD; Dr. Hugo Mora MD; Dr. Lion Valentin, DO ~ Date Dictated: 07/29/24910 Date Transcribed: 07/29/24 125 Brand Engineer: Signed [facility] Work Phone: Eosinophil percentageOrdered By: Yolanda Tucker on 07-29-2024 Eosinophils/100 WBC (Bld) 2.8 % 0-5 [facility] Erythrocyte distribution wid th ratioOrdered By: Yolanda Tucker on 07-29-2024 Erythrocyte distribution width (RBC) [Ratio] 16.5 % High 11.6-14.6 [facility] Erythrocyte distribution wid th standard deviationOrdered By: Yolanda Tucker on 07-29-2024 Erythrocyte distribution width (RBC) [Entitic vol] 48.2 fL High 35.1-43.9 [facility] Erythrocyte distribution width (RBC) [Ratio] 48.2 fl High 35.1-43.9 [facility] Estimation of creatinine lissy aranceOrdered By: Yolanda Tucker on 07-29-2024 Estimated Creatinine Clearance Calc 97.21 ml/min 50-250 [facility] GFR/1.73 sq M.predicted tae g non-blacks MDRD (S/P/Bld) [Vol rate/Area]Ordered By: Yolanda Tucker on 07-29-2024 Estimated GFR (MDRD) Non-Af Amer 96 >60 [facility] Comment on above: mL/min/1.73m2 CKD-EP I Creatinine Equation (2020) Glomerular filtration rate ( GFR) estimation/1.73 sq m using serum, plasma, or whole bOrdered By: Yolanda Tucker on 07-29-2024 GFR/1.73 sq M.predicted among non-blacks MDRD (S/P/Bld) [Vol rate/Area] 96 mL/min/{1.73_m2} >60 [facility] Comment on above: mL/min/1.73m2 CKD-EP I Creatinine Equation (2020) Hematocrit Auto (Bld) [Volum e fraction]Ordered By: Yolanda Tucker on 07-29-2024 Hematocrit (Bld) [Volume fraction] 33.3 % Low 37-47 [facility] Hemoglobin A1con 07-29-2024 HbA1c (Bld) [Mass fraction] 6.2 % Normal <=5.6 [facility] Comment on above: Performed By: #### L 501.9520, L500.4050, L501.41202, L500.4100, L506.0400, L501.9985 #### [facility] [place], [address] Hemoglobin A1c percentageOrd ered By: Yolanda Tucker on 07-29-2024 HbA1c (Bld) [Mass fraction] 6.2 % >5.7 [facility] Hemoglobin measurementOrdere d By: Yolanda Tucker on 07-29-2024 Hemoglobin (Bld) [Mass/Vol] 10.9 g/dL Low 12.0-15.0 [facility] Immature granulocytes/100 WB C Auto (Bld)Ordered By: Yolanda Tucker on 07-29-2024 Immature granulocytes/100 WBC (Bld) 0.400 % 0.0-0.9 [facility] Comment on above: IG% - Immature Granu locytes (promyelocytes, myelocytes and metamyelocytes) > 1% indicates that a LEFT SHIFT is Present. LDL calc ser/plasOrdered By: Yolanda Tucker on 07-29-2024 Cholesterol in LDL [Mass/Vol] 114 mg/dL [facility] Comment on above: Saxkunidjn=959-618 m g/dL & Higher Vbje=951 mg/dL or greater LDL Cholesterol, Calculated 114 mg/dL [facility] Comment on above: Glywuszjqk=315-726 m g/dL & Higher Mlfz=383 mg/dL or greater Laboratory - Chemistry and C hemistry - challengeOrdered By: Yolanda Tucker on 07-29-2024 AST [Catalytic activity/Vol] 25 U/L <32 [facility] Lipid Profileon 07-29-2024 CHOL:HDL 5.73 Normal [facility] Comment on above: Order Comment: Comme nts: Fasting Lipid Profile Performed By: #### L 501.9520, L500.4050, L501.19717, L500.4100, L506.0400, L501.9985 #### [facility] [address] [place], [address] Cholesterol [Mass/Vol] 177 mg/dL Normal <=200 [facility] Comment on above: Order Comment: Comme nts: Fasting Lipid Profile Result Comment: Chol esterol level, Desirable <200 mg/dL Borderline high cholesterol 200-239 mg/dL High cholesterol >=240 mg/dL Recommendations of the NCEP Adult Treatment Panel for the following risk-cutoff thresholds for the [place] population. Performed By: #### L 501.9520, L500.4050, L501.46897, L500.4100, L506.0400, L501.9985 #### [facility] [address] [place], [address] Cholesterol in HDL [Mass/Vol] 31 mg/dL Low [facility] Comment on above: Order Comment: Comme nts: Fasting Lipid Profile Result Comment: [place] onal Cholesterol Education Program (NCEP) guidelines: <40 mg/dL: Low HDL-cholesterol (major risk factor for CHD) >= 60 mg/dL: High HDL-cholesterol (negative risk factor for CHD) HDL-cholesterol is affected by a number of factors, e.g. smoking, exercise, hormones, sex and age. Performed By: #### L 501.9520, L500.4050, L501.11338, L500.4100, L506.0400, L501.9985 #### [facility] [address] [place], [address] Cholesterol in LDL [Mass/Vol] 114 mg/dL Normal [facility] Comment on above: Order Comment: Comme nts: Fasting Lipid Profile Result Comment: Bord tgzvep=616-104 mg/dL Higher Cqgi=833 mg/dL or greater Performed By: #### L 501.9520, L500.4050, L501.85746, L500.4100, L506.0400, L501.9985 #### [facility] [address] [place], [address] Cholesterol in VLDL [Mass/Vol] 32 mg/dL Normal 5-40 [facility] Comment on above: Order Comment: Comme nts: Fasting Lipid Profile Performed By: #### L 501.9520, L500.4050, L501.71182, L500.4100, L506.0400, L501.9985 #### [facility] [address] [place], [address] Triglyceride [Mass/Vol] 160 mg/dL Normal [facility] Comment on above: Order Comment: Comme nts: Fasting Lipid Profile Result Comment: The drugs N-Acetylcysteine and Metamizole may falsely depress this assay. Normal range: <150 mg/dL Borderline High: 150-199 mg/dL High: 200-499 mg/dL Very High: >500 mg/dL Performed By: #### L 501.9520, L500.4050, L501.33239, L500.4100, L506.0400, L501.9985 #### [facility] [address] [place], [address] Lymphocytes Auto (Unsp spec) [#/Vol]Ordered By: Yolanda Tucker on 07-29-2024 Lymphocytes (Bld) [#/Vol] 1.50 10*3/uL 0.83-4.51 [facility] Lymphocytes/100 WBC Auto (Un sp spec)Ordered By: Yolanda Tucker on 07-29-2024 Lymphocytes/100 WBC (Bld) 21.8 % 19-41 [facility] MCV (mean corpuscular volume ) determinationOrdered By: Yolanda White on 07-29-2024 MCV (RBC) [Entitic vol] 81.6 fL 81-99 [facility] Mean corpuscular hemoglobin (MCH) determinationOrdered By: Garrett on 07-29-2024 MCH (RBC) [Entitic mass] 26.7 pg Low 27.0-32.0 [facility] Mean corpuscular hemoglobin concentration (MCHC) determinationOrdered By: Garrett on 07-29-2024 MCHC (RBC) [Mass/Vol] 32.7 g/dL 32-36 [facility] Mean platelet volume determi nationOrdered By: Yolanda White on 07-29-2024 Platelet mean volume (Bld) [Entitic vol] 9.2 fL 6.2-12.0 [facility] Monocyte percentageOrdered B y: Yolanda White on 07-29-2024 Monocytes/100 WBC (Bld) 9.5 % 0-10 [facility] Neutrophil percentageOrdered By: White on 07-29-2024 Neutrophils/100 WBC (Bld) 65.1 % 47-70 [facility] Nucleated red blood cell per centageOrdered By: White on 07-29-2024 Nucleated RBC/100 WBC (Bld) [Ratio] 0 % 0-5 [facility] Platelet countOrdered By: Karina triana Garrett on 07-29-2024 Platelets (Bld) [#/Vol] 393 10*3/uL 150-450 [facility] Potassium (Unsp spec) [Mass/ Vol]Ordered By: Yolanda Garrett on 07-29-2024 Potassium [Moles/Vol] 3.4 mmol/L 3.3-5.1 [facility] Potassium measurement (mass/ volume)Ordered By: Yolanda Tucker on 07-29-2024 Potassium (Unsp spec) [Mass/Vol] 3.4 mmol/L 3.3-5.1 [facility] RBC Auto (Bld) [#/Vol]Ordere d By: Yolanda Tucker on 07-29-2024 RBC (Bld) [#/Vol] 4.08 10*6/uL Low 4.2-5.4 [facility] RESPIRATORY PANEL MOLECULARo n 07-29-2024 RP PANEL ADENOVIRUS Not Detected INFLUENZA A Not Detected INFLUENZA A (SUBTYPE H1) Not Detected INFLUENZA A (SUBTYPE H3) Not Detected INFLUENZA B Not Detected HUMAN METAPHNEUMO Not Detected PARAINFLUENZA 1 Not Detected PARAINFLUENZA 2 Not Detected PARAINFLUENZA 3 Not Detected PARAINFLUENZA 4 Not Detected RHINOVIRUS Not Detected RSV A Not Detected RSV B Not Detected Normal [facility] Comment on above: Performed By: #### L 501.9520, L500.4050, L501.06119, L500.4100, L506.0400, L501.9948 #### [facility] [address] [place], [address] Screening total cholesterol/ high density lipoprotein (HDL) cholesterol ratioOrdered By: Yolanda Tucker on 07-29-2024 Cholesterol.total/Odalis sterol in HDL [Mass ratio] 5.73 {ratio} [facility] Serum creatinine measurement (mass/volume)Ordered By: Yolanda Tucker on 07-29-2024 Creatinine [Mass/Vol] 0.66 mg/dL Low 0.70-1.20 [facility] Serum globulin measurementOr dered By: Yolanda Tucker on 07-29-2024 Globulin (S) [Mass/Vol] 3.2 g/dL 2.2-4.2 [facility] Serum glucose measurement (m ass/volume)Ordered By: Yolanda Tucker on 07-29-2024 Glucose [Mass/Vol] 103 mg/dL High 70-99 [facility] Serum or plasma alanine cruz otransferase (ALT) measurementOrdered By: Yolanda Tucker on 07-29-2024 ALT [Catalytic activity/Vol] 29 U/L <35 [facility] Serum or plasma albumin nicole urement (mass/volume)Ordered By: Yolanda Tucker on 07-29-2024 Albumin [Mass/Vol] 3.8 g/dL 3.4-4.8 [facility] Serum or plasma albumin/glob ulin mass ratioOrdered By: Yolanda Tucker on 07-29-2024 Albumin/Globulin [Mass ratio] 1.2 {ratio} 0.9-2.4 [facility] Serum or plasma alkaline adrián sphatase measurementOrdered By: [facility] Garrett on 07-29-2024 ALP [Catalytic activity/Vol] 80 U/L 35-104 [facility] Serum or plasma calcium nicole urement (mass/volume)Ordered By: Yolanda Tucker on 07-29-2024 Calcium [Mass/Vol] 9.1 mg/dL 7.6-11.0 [facility] Serum or plasma cholesterol in HDL measurement (mass/volume)Ordered By: Yolanda Tucker on 07-29-2024 Cholesterol in HDL [Mass/Vol] 31 mg/dL Low >40 [facility] Comment on above: National Cholesterol Education Program (NCEP) guidelines:<40 mg/dL: Low HDL-cholesterol (major risk factor for CHD)>= 60 mg/dL: High HDL-cholesterol (negative risk factor for CHD)HDL-cholesterol is affected by a number of factors, e.g. smoking, exercise, hormones, sex and age. Serum or plasma cholesterol measurement (mass/volume)Ordered By: Yolanda Tucker on 07-29-2024 Cholesterol [Mass/Vol] 177 mg/dL <201 [facility] Comment on above: Cholesterol level, D esirable <200 mg/dLBorderline high cholesterol 200-239 mg/dLHigh cholesterol >=240 mg/dLRecommendations of the NCEP Adult Treatment Panel for the following risk-cutoff thresholds for the [place] population. Serum or plasma urea nitroge n measurement (mass/volume)Ordered By: Yolanda Tucker on 07-29-2024 Urea nitrogen [Mass/Vol] 13 mg/dL 4-19 [facility] Sodium levelOrdered By: Gale Tucker on 07-29-2024 Sodium [Moles/Vol] 135 mmol/L 133-145 [facility] Stress Reporton 07-29-2024 Stress Report [facility] [address] [place] [address] MR#: [id number] Acct: [id number] Name: OLENA VALERA Rep #: [id number] : 1955 [id number] From: Ralph Sexton MD Primary Care: Dr. Hugo Mora MD Status: ADM IN Referring Dr: Lion Valentin DO Sex: F C Stress Test Report Date: 07/29/2024 Procedure: Pharmacologic stress nuclear imaging study Indications: Chest pain Consent: Per the patient Procedure: The patient underwent pharmacologic (Regadenoson 0.4mg ) evaluation with a peak heart rate of 114 beats per minute (74%predicted maximal heart rate) and a peak blood pressure of 124/78 mmHg. The baseline ECG demonstrated sinus rhythm with first-degree AV block and nonspecific intraventricular conduction delay. The peak pharmacologic ECG demonstrated no diagnostic ischemic changes. There were no cardiac dysrhythmias pretest, during pharmacologic infusion, or recovery. There was no complaint of chest discomfort during pharmacologic infusion or recovery. The patient was injected with 15.0 millicuries of technetium 99m Cardiolite and subsequently rest SPECT Cardiolite nuclear imaging was obtained in the horizontal long, vertical long, and short axis views. The patient underwent pharmacologic (Regadenoson) evaluation. The patient was injected with 45.0 millicuries of technetium 99m Cardiolite and subsequently stress SPECT Cardiolite nuclear imaging was obtained in the horizontal long, vertical long, and short axis views. A gated Cardiolite study at peak stress was obtained. The examination was stopped secondary to completion of protocol. Rest and stress SPECT Cardiolite nuclear imaging status post realignment, normalization, and attenuation correction demonstrate mildly reduced perfusion of the anterior wall post pharmacologic stress, this may denote mild ischemia. There is end systolic thickening and brightening. Gated images reveal mild inferior hypokinesis. The reported LVEF is 53%. Impression: 1. Pharmacologic (Regadenoson) evaluation 2. Peak pharmacologic ECG with no diagnostic ischemic changes. 3. There were no cardiac dysrhythmias pretest, during pharmacologic infusion, or recovery. 5. Mildly reduced perfusion of the anterior wall post pharmacological stress, denoting possible mild ischemia. 6. The gated Cardiolite study reports an LVEF of 53%. This note was generated with [employer] software. It may contain incorrect words, spelling, and punctuation that were not noted in checking the note before signing. 07/29/24 1233 Date Ralph Sexton MD CC: Dr. Mane Jhaveri MD; Dr. Yolanda Tucker MD; Dr. Hugo Mora MD; Dr. Lion Valentin, DO Date Dictated: 07/29/24 1230 Date Transcribed: 07/29/241229 Brand Engineer: NAREN Signed Normal [facility] Total proteinOrdered By: Rocio Tucker on 07-29-2024 Protein [Mass/Vol] 7.0 g/dL 5.9-8.4 [facility] Triglycerides measurementOrd ered By: Yolanda Tucker on 07-29-2024 Triglyceride [Mass/Vol] 160 mg/dL <199 [facility] Comment on above: The drugs N-Acetylcy steine and Metamizole may falsely depress this assay. Normal range: <150 mg/dLBorderline High: 150-199 mg/dLHigh: 200-499 mg/dLVery High: >500 mg/dL White blood cell (WBC) count Ordered By: Yolanda Tucker on 07-29-2024 WBC (Bld) [#/Vol] 6.9 10*3/uL 4.4-11.0 [facility] Absolute neutrophil countOrd ered By: Lion Valentin on 07-28-2024 Neutrophils (Bld) [#/Vol] 8.4 10*3/uL High 2.0-7.7 [facility] Activated partial thrombopla stin time (aPTT) in platelet poor plasma by coagulation aOrdered By: Lion Valentin on 07-28-2024 aPTT Coag (PPP) [Time] 28.5 s 24.1-36.2 [facility] Amorphous sediment detection in urine sediment by light microscopyOrdered By: Lion Valentin on 07-28-2024 Amorphous sediment LM Ql (Urine sed) 2+ URATE [facility] Anion gap in Serum or Plasma Ordered By: Lion Valentin on 07-28-2024 Anion gap [Moles/Vol] 18 mmol/L High 5-15 [facility] BUN/creatinine ratioOrdered By: Lion Valentin on 07-28-2024 Urea nitrogen/Creatinine [Mass ratio] 17.8 mg/mg 10-20 [facility] Basophil percentageOrdered B y: Lion Valentin on 07-28-2024 Basophils/100 WBC (Bld) 0.4 % 0-1 [facility] Bilirubin Test strip Ql (U)O rdered By: Lion Valentin on 07-28-2024 Bilirubin Ql (U) Negative Negative [facility] Bilirubin, totalOrdered By: Lion Valentin on 07-28-2024 Bilirubin [Mass/Vol] 0.46 mg/dL 0.00-1.30 [facility] Blood cultureOrdered By: Anastasiya Valentin on 07-28-2024 Bacteria identified Cx Nom (Bld) No growth in 5 days. [facility] CBC W/Diff, Automatedon Absolute Lymph 1.72 X10 3/uL Normal 0.83-4.51 [facility] Comment on above: Performed By: #### L 501.9520, L500.4050, L501.60938, L500.4100, L506.0400, L501.9985 #### [facility] Laboratory [address] [place], [address] Absolute Neut 8.4 X10 3/uL High 2.0-7.7 [facility] Comment on above: Performed By: #### L 501.9520, L500.4050, L501.83590, L500.4100, L506.0400, L501.9985 #### [facility] [address] [place], [address] Basophils/100 WBC (Bld) 0.4 % Normal 0-1 [facility] Comment on above: Performed By: #### L 501.9520, L500.4050, L501.61339, L500.4100, L506.0400, L501.9985 #### [facility] [address] [place], [address] Eosinophils/100 WBC (Bld) 0.4 % Normal 0-5 [facility] Comment on above: Performed By: #### L 501.9520, L500.4050, L501.33529, L500.4100, L506.0400, L501.9985 #### [facility] [address] [place], [address] Erythrocyte distribution width (RBC) [Ratio] 16.8 % High 11.6-14.6 [facility] Comment on above: Performed By: #### L 501.9520, L500.4050, L501.15634, L500.4100, L506.0400, L501.9985 #### [facility] [address] [place], [address] Hematocrit (Bld) [Volume fraction] 41.0 % Normal 37-47 [facility] Comment on above: Performed By: #### L 501.9520, L500.4050, L501.63241, L500.4100, L506.0400, L501.9985 #### [facility] [address] [place], [address] Hemoglobin (Bld) [Mass/Vol] 13.2 g/dL Normal 12.0-15.0 [facility] Comment on above: Performed By: #### L 501.9520, L500.4050, L501.80983, L500.4100, L506.0400, L501.9985 #### [facility] [address] [place], [address] IG% 0.400 Normal 0.0-0.9 [facility] Comment on above: Result Comment: IG% - Immature Granulocytes (promyelocytes, myelocytes and metamyelocytes) > 1% indicates that a LEFT SHIFT is Present. Performed By: #### L 501.9520, L500.4050, L501.79976, L500.4100, L506.0400, L501.9985 #### [facility] Laboratory [address] [place], [address] Lymphocytes/100 WBC (Bld) 15.5 % Low 19-41 [facility] Comment on above: Performed By: #### L 501.9520, L500.4050, L501.89034, L500.4100, L506.0400, L501.9985 #### [facility] [address] [place], [address] MCH (RBC) [Entitic mass] 25.9 pg Low 27.0-32.0 [facility] Comment on above: Performed By: #### L 501.9520, L500.4050, L501.56889, L500.4100, L506.0400, L501.9985 #### [facility] [address] [place], [address] MCHC (RBC) [Mass/Vol] 32.2 g/dL Normal 32-36 [facility] Comment on above: Performed By: #### L 501.9520, L500.4050, L501.44734, L500.4100, L506.0400, L501.9985 #### [facility] [address] [place], [address] MCV (RBC) [Entitic vol] 80.6 fL Low 81-99 [facility] Comment on above: Performed By: #### L 501.9520, L500.4050, L501.95756, L500.4100, L506.0400, L501.9985 #### [facility] [address] [place], [address] Monocytes/100 WBC (Bld) 7.7 % Normal 0-10 [facility] Comment on above: Performed By: #### L 501.9520, L500.4050, L501.16695, L500.4100, L506.0400, L501.9985 #### [facility] [address] [place], [address] Neutrophils/100 WBC (Bld) 75.6 % High 47-70 [facility] Comment on above: Performed By: #### L 501.9520, L500.4050, L501.96073, L500.4100, L506.0400, L501.9985 #### [facility] [address] [place], [address] Nucleated RBC (Bld) [#/Vol] 0 10*3/uL Normal 0-5 [facility] Comment on above: Performed By: #### L 501.9520, L500.4050, L501.51865, L500.4100, L506.0400, L501.9985 #### [facility] [address] [place], [address] Platelet mean volume (Bld) [Entitic vol] 9.2 fL Normal 6.2-12.0 [facility] Comment on above: Performed By: #### L 501.9520, L500.4050, L501.70890, L500.4100, L506.0400, L501.9985 #### [facility] [address] [place], [address] Platelets (Bld) [#/Vol] 560 10*3/uL High 150-450 [facility] Comment on above: Performed By: #### L 501.9520, L500.4050, L501.58454, L500.4100, L506.0400, L501.9985 #### [facility] [address] [place], [address] RBC (Bld) [#/Vol] 5.09 10*6/uL Normal 4.2-5.4 [facility] Comment on above: Performed By: #### L 501.9520, L500.4050, L501.30025, L500.4100, L506.0400, L501.9985 #### [facility] [address] [place], [address] RDW SD 46.7 fl High 35.1-43.9 [facility] Comment on above: Performed By: #### L 501.9520, L500.4050, L501.18064, L500.4100, L506.0400, L501.9985 #### [facility] [address] [place], [address] WBC (Bld) [#/Vol] 11.1 10*3/uL High 4.4-11.0 [facility] Comment on above: Performed By: #### L 501.9520, L500.4050, L501.39722, L500.4100, L506.0400, L501.9985 #### [facility] [address] [place], [address] Carbon dioxide, total [Moles /volume] in Central venous bloodOrdered By: Lion Valentin on 07-28-2024 CO2 [Moles/Vol] 18.5 mmol/L Low 21.0-32.0 [facility] Chest PA and Lateralon 07-28 Chest PA and Lateral [facility] Imaging Services [address] [place] [address] Chest PA and Lateral MR#: [id number] Acct: [id number] Name: OLENA VALERA Rep #: [id number] : 1955 F 68 From: Teja Laura PCP: Dr. Hugo Mora MD Status: PRE ER Study: Chest PA and Lateral Date of Exam: 07/28/24 Exam# [id number] Ordering Dr: Lion Valentin DO PROCEDURE: CHEST PA AND LATERAL REASON FOR EXAM: Palpitations TECHNIQUE: Frontal and lateral views of the chest. COMPARISON: 07/26/2024 FINDINGS: Borderline cardiomegaly. No focal consolidation, pleural effusion or sizable pneumothorax. RAD/Chest PA and Lateral IMPRESSION: No acute airspace abnormality. Reading Location: [facility] CC: Dr. Hugo Mora MD; Dr. Lion Valentin DO Brand Engineer: Signed Normal [facility] Chloride assayOrdered By: Jerardo Valentin on 07-28-2024 Chloride [Moles/Vol] 95 mmol/L Low 98-108 [facility] Comprehensive Metabolic Prof ilon 07-28-2024 Albumin [Mass/Vol] 4.5 g/dL Normal 3.4-4.8 [facility] Comment on above: Performed By: #### L 501.9520, L500.4050, L501.12049, L500.4100, L506.0400, L501.9985 #### [facility] [address] [place], [address] Albumin/Globulin [Mass ratio] 1.0 {ratio} Normal 0.9-2.4 [facility] Comment on above: Performed By: #### L 501.9520, L500.4050, L501.95497, L500.4100, L506.0400, L501.9985 #### [facility] [address] [place], [address] ALK PHOS 107 U/L High 35-104 [facility] Comment on above: Performed By: #### L 501.9520, L500.4050, L501.06233, L500.4100, L506.0400, L501.9985 #### [facility] [address] [place], [address] ALT [Catalytic activity/Vol] 39 U/L High <=34 [facility] Comment on above: Performed By: #### L 501.9520, L500.4050, L501.28736, L500.4100, L506.0400, L501.9985 #### [facility] [address] [place], [address] AST [Catalytic activity/Vol] 32 U/L Normal <=31 [facility] Comment on above: Performed By: #### L 501.9520, L500.4050, L501.99969, L500.4100, L506.0400, L501.9985 #### [facility] [address] [place], [address] Bilirubin [Mass/Vol] 0.46 mg/dL Normal 0.00-1.30 [facility] Comment on above: Performed By: #### L 501.9520, L500.4050, L501.23559, L500.4100, L506.0400, L501.9985 #### [facility] [address] [place], [address] BUN/CRE 17.8 RATIO Normal 10-20 [facility] Comment on above: Performed By: #### L 501.9520, L500.4050, L501.00740, L500.4100, L506.0400, L501.9985 #### [facility] [address] [place], [address] Calcium [Mass/Vol] 10.3 mg/dL Normal 7.6-11.0 [facility] Comment on above: Performed By: #### L 501.9520, L500.4050, L501.18602, L500.4100, L506.0400, L501.9985 #### [facility] [address] [place], [address] Chloride [Moles/Vol] 95 mmol/L Low 98-108 [facility] Comment on above: Performed By: #### L 501.9520, L500.4050, L501.98500, L500.4100, L506.0400, L501.9985 #### [facility] [address] [place], [address] CO2 [Moles/Vol] 18.5 mmol/L Low 21.0-32.0 [facility] Comment on above: Performed By: #### L 501.9520, L500.4050, L501.67771, L500.4100, L506.0400, L501.9985 #### [facility] [address] [place], [address] Creatinine [Mass/Vol] 0.97 mg/dL Normal 0.70-1.20 [facility] Comment on above: Performed By: #### L 501.9520, L500.4050, L501.58411, L500.4100, L506.0400, L501.9985 #### [facility] [address] [place], [address] ECRCL 81.10 ml/min Normal 50-250 [facility] Comment on above: Performed By: #### L 501.9520, L500.4050, L501.24385, L500.4100, L506.0400, L501.9985 #### [facility] [address] [place], [address] GAP 18 High 5-15 [facility] Comment on above: Performed By: #### L 501.9520, L500.4050, L501.12810, L500.4100, L506.0400, L501.9985 #### [facility] [address] [place], [address] GFR/1.73 sq M.predicted among non-blacks MDRD (S/P/Bld) [Vol rate/Area] 64 mL/min/{1.73_m2} Normal >60 [facility] Comment on above: Result Comment: mL/m in/1.73m2 CKD-EPI Creatinine Equation (2020) Performed By: #### L 501.9520, L500.4050, L501.22963, L500.4100, L506.0400, L501.9985 #### [facility] [address] [place], [address] Globulin (S) [Mass/Vol] 4.3 g/dL High 2.2-4.2 [facility] Comment on above: Performed By: #### L 501.9520, L500.4050, L501.67486, L500.4100, L506.0400, L501.9985 #### [facility] [address] [place], [address] Glucose [Mass/Vol] 140 mg/dL High 70-99 [facility] Comment on above: Performed By: #### L 501.9520, L500.4050, L501.67242, L500.4100, L506.0400, L501.9985 #### [facility] [address] [place], [address] Potassium [Moles/Vol] 3.9 mmol/L Normal 3.3-5.1 [facility] Comment on above: Performed By: #### L 501.9520, L500.4050, L501.01362, L500.4100, L506.0400, L501.9985 #### [facility] [address] [place], [address] Sodium [Moles/Vol] 132 mmol/L Low 133-145 [facility] Comment on above: Performed By: #### L 501.9520, L500.4050, L501.70957, L500.4100, L506.0400, L501.9985 #### [facility] [address] [place], [address] T PROT 8.9 g/dL High 5.9-8.4 [facility] Comment on above: Performed By: #### L 501.9520, L500.4050, L501.72917, L500.4100, L506.0400, L501.9985 #### [facility] [address] [place], [address] Urea nitrogen [Mass/Vol] 17 mg/dL Normal 4-19 [facility] Comment on above: Performed By: #### L 501.9520, L500.4050, L501.77237, L500.4100, L506.0400, L501.9985 #### [facility] [address] [place], [address] Emergency Department Summary on 07-28-2024 Emergency Department Summary [facility] Medical Records Department [address] [place] [address] Emergency Department Summary 07/28/24 MR#: [id number] Acct: [id number] Name: OLENA VALERA Rep #: [id number] : 1955 68 From: Lion Valentin DO PCP: Dr. Hugo Mora MD Status:REG ER Location: ED HPI History of Present Illness Chief Complaint: Palpitations Narrative Narrative: Patient is a 68-year-old female past medical history of hypothyroidism, hypercholesteremia, hypertension who presents to the emergency department the chief complaint of elevated heart rate from her primary care office. States that she was here in the emergency department recently had a full workup and was ultimately sent home. Patient states that for the past few days she has noted that she has had worsening shortness of breath with exertion. She states that she can barely walk any short amount of distance without becoming very short of breath. Patient states that she was following up with her primary care physician today from a follow-up visit here in the emergency department and they noted that her heart rate was in the 130s a obtain an EKG that read atrial fibrillation therefore they sent her here for the valuation management as she does not have a history of this. [facility] Medical History Wears glasses Anxiety Thyroid disease Arthritis High cholesterol Former smoker Leg cramps History of pain when walking History of edema History of stress test Hypertension Home Medications ???Medication ???Instructions ???Recorded ???Last Taken ???Type benazepril 10 mg tablet 10 mg PO DAILY BP 12/31/13 5 History chlorthalidone 25 mg tablet 25 mg PO DAILY 12/31/13 07/28/24 H istory venlafaxine 75 mg capsule,extended 75 mg PO DAILY HOT FLASHES 12/3107/28/24 History release 24 hr atorvastatin 20 mg tablet 20 mg PO QHS 07/26/24 07/27/24 His tory levothyroxine 75 mcg tablet 75 mcg PO DAILY 07/28/24 07/28/24 History (Synthroid) Allergy/AdvReac Type Severity Reaction Status Date / Time No Known Allergies Allergy Verified 07/28/24 16:07 Surgical History Hx of colonoscopy History of total right knee replacement Social History household members: spouse Smoking Status: Former smoker ROS ROS ED ROS Narrative Constitutional: Denies fevers, chills, headaches Eyes: Denies change in vision double vision blurry vision Cardiovascular: Denies chest pain or palpitations Respiratory: Complains shortness of breath as noted above denies coughing wheezing Abdomen: Denies abdominal pain vomiting diarrhea : Denies any urinary symptoms Neurological: Denies numbness, weakness, tingling Musculoskeletal: Denies back pain Skin: Denies rashes or lesions EXAM Physical Exam Narrative Exam Narrative: General: Patient lying in bed rest comfortably did not appear to be in acute distress Head: Atraumatic, normocephalic Eyes: PERRL bilaterally, EOMI bilaterally, no conjunctival injection noted Neck: Soft, supple, trachea midline Cardiovascular: Patient tachycardic with a regular rhythm no murmurs gallops rubs noted Respiratory: Clear to auscultation bilaterally Abdomen: Soft, nondistended, nontender to palpation Extremities: +5/5 strength noted in the bilateral upper and lower extremities, radial pulses +2/4 in the bilateral extremities, no pedal edema on exam Neurological: Patient follow commands that she was at [facility] there is 2024 Skin: Warm, dry, intact no rashes or lesions noted Const Vital Signs: 07/28/24 16:08 07/28/24 16:09 07/28/24 16:35 Temperature 97.9 F Temperature Source Temporal Pulse Rate 135 H 145 H Respiratory Rate 26 H Respiratory Effort Blood Pressure 197/100 H Blood Pressure Mean 132 Pulse Ox 97 Oxygen Delivery Method Room Air Room Air 07/28/24 16:52 07/28/24 17:09 07/28/24 17:51 Temperature Temperature Source Pulse Rate 116 H Respiratory Rate 21 H Respiratory Effort Labored Blood Pressure 172/106 H Blood Pressure Mean 128 Pulse Ox 95 Oxygen Delivery Method Room Air 07/28/24 18:11 07/28/24 19:03 07/28/24 19:20 Temperature 98.2 F Temperature Source Pulse Rate 104 H 99 110 H Respiratory Rate 17 12 Respiratory Effort Blood Pressure 158/74 H 164/50 H Blood Pressure Mean 102 88 Pulse Ox 93 98 Oxygen Delivery Method 07/28/24 19:22 Temperature 98.2 F Temperature Source Temporal Pulse Rate 106 H Respiratory Rate 21 H Respiratory Effort Blood Pressure 164/90 H Blood Pressure Mean 114 Pulse Ox 98 Oxygen Delivery Method Room Air (more content not included)... Normal [facility] Eosinophil percentageOrdered By: Lion Valentin on 07-28-2024 Eosinophils/100 WBC (Bld) 0.4 % 0-5 [facility] Epithelial cells.squamous LM Ql (Urine sed)Ordered By: Lion Valentin on 07-28-2024 Epithelial cells.squamous LM.HPF (Urine sed) [#/Area] 0 /[HPF] 5-10 [facility] Erythrocyte distribution wid th ratioOrdered By: Lion Valentin on 07-28-2024 Erythrocyte distribution width (RBC) [Ratio] 16.8 % High 11.6-14.6 [facility] Erythrocyte distribution wid th standard deviationOrdered By: Liongagan Valentin on 07-28-2024 Erythrocyte distribution width (RBC) [Entitic vol] 46.7 fL High 35.1-43.9 [facility] Estimation of creatinine lissy aranceOrdered By: Lion Valentin on 07-28-2024 Estimated Creatinine Clearance Calc 81.10 ml/min 50-250 [facility] Free T3on 07-28-2024 Free T3 [Mass/Vol] 2.6 pg/mL Normal 2.18-3.98 [facility] Comment on above: Performed By: #### L 501.9552, L500.4050, L501.68357, L500.4100, L506.0400, L501.9985 #### [facility] Laboratory [facility] [place], [address] Free O3Hizuozd By: Lion aguilar on 07-28-2024 Free T3 [Mass/Vol] 2.6 pg/mL 2.18-3.98 [facility] Free Triiodothyronine (T3) pg/dL 2.6 pg/mL 2.18-3.98 [facility] GFR/1.73 sq M.predicted tae g non-blacks MDRD (S/P/Bld) [Vol rate/Area]Ordered By: Lion Valentin on 07-28-2024 Estimated GFR (MDRD) Non-Af Amer 64 >60 [facility] Comment on above: mL/min/1.73m2 CKD-EP I Creatinine Equation (2020) Glucose Ql (U)Ordered By: Jerardo Valentin on 07-28-2024 Urine Glucose (UA) Normal mg/dl Normal [facility] H AND P Exam - [place] 07-28-2024 H&P Exam - Hospitalist [facility] Medical Records Department [address] [place] [address] H P Exam - Hospitalist 07/28/241922 MR#: [id number] Acct: [id number] Name: OLENA VALERA Rep #: [id number] : 1955 68 From: Yolanda Tucker MD PCP: Dr. Hugo Mora MD Status:ADM IN Location: [place] [address] HPI - General General Date of Admission: 07/28/24 Date of Service: 07/28/24 Chief Complaint: Palpitations, fatigue, malaise, nausea. HPI Narrative The patient is a 68 y/o F w/ PMHx: Morbid obesity, Anxiety and Depression, HTN, HLD, Hypothyroidism, Former tobacco use who presents to the [facility] ED on 07/28/24 with persistent racing heart sensation, dyspnea, sternal nonradiating chest pressure, fatigue, nausea and diaphoresis with history of recent diagnosis of new onset atrial fibrillation per EKG in the office with concern for recurrence referred to the ED to be cautious per PCP. Patient does report several day history of significant urinary frequency which is abnormal for her. Workup in the ED included T97.9, heart rate 135, BP 197/100, respiratory rate 26, 97% on room air with most recent repeat vitals heart rate 99, BP 158/74, respiratory rate 17, 93% room air, CBC with WBC 11.1, human 13.2, platelet 560 with left shift, unremarkable coags, CMP with sodium 132, chloride 95, carbon oxide 18.5, anion gap 18, BUN/creatinine 17/0.97, GFR 64, glucose 140, lactic acid mildly elevated 2.2, hepatic profile with AST/ALT 32/39, alk phos 107, troponin 17 with repeat delta 17, BNP 93, TSH 7.340 however free T41.20 And free T32.6 For subclinical, urinalysis with cloudy appearing urine with spec gravity 1.020, protein 30, ketone 5, occult blood 25, negative nitrite, leukocyte esterase 500 with urine RBCs 5- 10, urine WBCs 50-100 with 1+ urine bacteria, urine culture pending per ED, blood culture x 2 pending per ED, rapid SARS COVID/influenza/RSV PCR negative, chest x-ray with no acute cardiopulmonary findings, EKG more consistent with ST whereas EKG in the office with concern new onset PAF. In the ED patient ministered Rocephin 1 g IV x 1. Upon evaluation of strips some concern for irregularity possibly sinus arrhythmia but wanted to be certain no block therefore reviewed with honing machine set up operator on-call Dr. Sexton who felt that this was more consistent with sinus arrhythmia with frequent PAC. He recommended that patient have at least echocardiogram and follow- up Holter monitor assessment at discharge. No formal consult request was placed. [facility] Medical History Morbid obesity Anxiety and depression Wears glasses Arthritis High cholesterol Former smoker History of stress test Hypertension Home Medications ???Medication ???Instructions ???Recorded ???Last Taken ???Type benazepril 10 mg tablet 10 mg PO DAILY BP 12/31/13 5 09:30 History 10 mg chlorthalidone 25 mg tablet 25 mg PO DAILY high BP 12/31/13 09:30 History 25 mg venlafaxine 75 mg capsule,extended 75 mg PO DAILY HOT FLASHES 12/3107/28/24 09:30 History release 24 hr 75 mg atorvastatin 20 mg tablet 20 mg PO QHS high cholesterol 09/1607/27/24 21:00 History 20 mg levothyroxine 75 mcg tablet 75 mcg PO DAILY hypothyroid 07/28/24 08:00 History (Synthroid) 75 mcg Allergy/AdvReac Type Severity Reaction Status Date / Time No Known Allergies Allergy Verified 07/28/24 16:07 Family History (Updated 07/28/24 @ 21:[address] Yolanda Tucker MD) Mother Heart disease Hypertension Father , from massive [place] at 76 y/o. Heart disease CAD (coronary artery disease) Hypertension Myocardial infarction Sudden cardiac Surgical History Hx of colonoscopy History of total right knee replacement Social History (Updated 07/28/24 @ 21:[address] Yolanda Tucker MD) household members: spouse Smoking Status: Former smoker how long ago did patient quit smoking: Quit 30-35 yrs prior, light smoking only. alcohol intake: never substance use type: does not use ROS ROS Narrative Admission Review of Systems: CONSTITUTIONAL: No weight loss, fever, chills, + weakness or fatigue. HEENT: Eyes: No visual loss, blurred vision, double vision or yellow sclerae. Ears, Nose, Throat: No hearing loss, sneezing, congestion, runny nose or sore throat. SKIN: No rash or itching, lesions, wounds. CARDIOVASCULAR: + Chest pressure, palpitations/racing heart, chronic edema. No orthopnea, syncopal events. RESPIRATORY: + Dyspnea. No cough or sputum, wheezing, hemoptysis. GASTROINTESTINAL: + Decreased appetite, nausea. No vomiting or diarrhea, abdominal pain, melena, BRBPR. GENITOURINARY: + Notable increased urinary frequency. No dysuria, urgency or retention. NEUROLOGICAL: No headache, diz (more content not included)... Normal [facility] Hematocrit Auto (Bld) [Volum e fraction]Ordered By: Lion Valentin on 07-28-2024 Hematocrit (Bld) [Volume fraction] 41.0 % 37-47 [facility] Hemoglobin measurementOrdere d By: Lion Valentin on 07-28-2024 Hemoglobin (Bld) [Mass/Vol] 13.2 g/dL 12.0-15.0 [facility] Immature granulocytes/100 WB C Auto (Bld)Ordered By: Lion Valentin on 07-28-2024 Immature granulocytes/100 WBC (Bld) 0.400 % 0.0-0.9 [facility] Comment on above: IG% - Immature Granu locytes (promyelocytes, myelocytes and metamyelocytes) > 1% indicates that a LEFT SHIFT is Present. Influenza virus A and B and SARS-CoV-2 (COVID-19) and Respiratory syncytial virus RNAOrdered By: Lion Valentin on 07-28-2024 SARS-CoV-2 (COVID-19) RNA MICAELA+probe Ql (Unsp spec) [facility] SARS-CoV-2 (COVID-19) RNA MICAELA+probe Ql (Unsp spec) [facility] International normalized rat io (INR) calculationOrdered By: Lion Valentin on 07-28-2024 INR Coag (Bld) [Relative time] 1.0 {INR} [facility] Ketones Test strip Ql (U)Ord ered By: Lion Valentin on 07-28-2024 Ketones Ql (U) 5 mg/dl High Negative [facility] L499.0042on 07-28-2024 Trop T High Sen 17 ng/L High <=14 [facility] Comment on above: Performed By: #### L 501.9520, L500.4050, L501.89578, L500.4100, L506.0400, L501.9985 #### [facility] Laboratory [address] [place], [place], [id number] L499.0043on 07-28-2024 Trop T High Sen 15 ng/L High <=14 [facility] Comment on above: Order Comment: Comme nts: may add to ED labs Performed By: #### L 501.5200, L499.0043 #### [facility] Laboratory [address] [place], [address] L501.4021on 07-28-2024 Trop T High Sen 17 ng/L High <=14 [facility] Comment on above: Performed By: #### L 501.9520, L500.4050, L501.87826, L500.4100, L506.0400, L501.9985 #### [facility] Laboratory [address] [place], [place], [id number] L503.7505Ordered By: Lion caicedo on 07-28-2024 Natriuretic peptide B (Bld) [Mass/Vol] 93 pg/mL Normal <=900 [facility] Comment on above: Heart Failure Unlike ly: < 300 pg/mLHeart Failure Likely< 50 Years: > 450 pg/mL50-75 Years: > 900 pg/mL>75 Years: > 1800 pg/mL Result Comment: Hear t Failure Unlikely: < 300 pg/mL Heart Failure Likely < 50 Years: > 450 pg/mL 50-75 Years: > 900 pg/mL >75 Years: > 1800 pg/mL Performed By: #### L 501.9520, L500.4050, L501.26750, L500.4100, L506.0400, L501.9985 #### [facility] Laboratory [address] [place], [address] Laboratory - Chemistry and C hemistry - challengeOrdered By: Lion Valentin on 07-28-2024 AST [Catalytic activity/Vol] 32 U/L <32 [facility] Lactic Acidon 07-28-2024 Lactate [Moles/Vol] 2.2 mmol/L Invalid Interpretation Code 0.0-2.0 [facility] Comment on above: Order Comment: Y Result Comment: Crit ical Result(s) Called ESMART at: 1730 by: BRAULIO??Results read back by same. Performed By: #### L 501.9520, L500.4050, L501.42484, L500.4100, L506.0400, L501.9985 #### [facility] Laboratory [address] [place], [address] Lactic acid measurementOrder ed By: Lion Valentin on 07-28-2024 Lactate [Moles/Vol] 2.2 mmol/L High 0.0-2.0 [facility] Comment on above: Critical Result(s) C alled ESMART at: 1730 by: BRAULIO Results read back by same. Lymphocytes Auto (Unsp spec) [#/Vol]Ordered By: Lion Valentin on 07-28-2024 Lymphocytes (Bld) [#/Vol] 1.72 10*3/uL 0.83-4.51 [facility] Lymphocytes/100 WBC Auto (Un sp spec)Ordered By: Lion Valentin on 07-28-2024 Lymphocytes/100 WBC (Bld) 15.5 % Low 19-41 [facility] M100.678on 07-28-2024 M100.678 Pending SARS-CoV-2 (COVID 19) Negative INFLUENZA A Negative INFLUENZA B Negative RSV PCR Negative Normal [facility] Comment on above: Performed By: #### L 501.9520, L500.4050, L501.58213, L500.4100, L506.0400, L501.9985 #### [facility] Laboratory [address] [place], [address] MCV (mean corpuscular volume ) determinationOrdered By: Lion Valentin on 07-28-2024 MCV (RBC) [Entitic vol] 80.6 fL Low 81-99 [facility] Magnesiumon 07-28-2024 Magnesium [Mass/Vol] 1.9 mg/dL Normal 1.5-2.2 [facility] Comment on above: Order Comment: Comme nts: may add to ED labs Performed By: #### L 501.5200, L499.0043 #### [facility] Laboratory [address] [place], [address] Magnesium (Unsp spec) [Mass/ Vol]Ordered By: Yolanda Tucker on 07-28-2024 Magnesium [Mass/Vol] 1.9 mg/dL 1.5-2.2 [facility] Magnesium measurement (mass/ volume)Ordered By: Yolanda Tucker on 07-28-2024 Magnesium (Unsp spec) [Mass/Vol] 1.9 mg/dL 1.5-2.2 [facility] Mean corpuscular hemoglobin (MCH) determinationOrdered By: Lion Valentin on 07-28-2024 MCH (RBC) [Entitic mass] 25.9 pg Low 27.0-32.0 [facility] Mean corpuscular hemoglobin concentration (MCHC) determinationOrdered By: Lion Valentin on 07-28-2024 MCHC (RBC) [Mass/Vol] 32.2 g/dL 32-36 [facility] Mean platelet volume determi nationOrdered By: Lion Valentin on 07-28-2024 Platelet mean volume (Bld) [Entitic vol] 9.2 fL 6.2-12.0 [facility] Microscopic analysis of urin e for red blood cells (RBC)Ordered By: Lion Valentin on 07-28-2024 Microscopic analysis of urine for red blood cells (RBC) 5-10 SEEN /hpf 0-5 [facility] Urine RBC 5-10 SEEN /hpf 0-5 [facility] Monocyte percentageOrdered B y: Lion Valentin on 07-28-2024 Monocytes/100 WBC (Bld) 7.7 % 0-10 [facility] Mucus LM Ql (Urine sed)Order ed By: Lion Valentin on 07-28-2024 Mucus Ql (Urine sed) 0 SEEN /hpf [facility] Neutrophil percentageOrdered By: Lion Valentin on 07-28-2024 Neutrophils/100 WBC (Bld) 75.6 % High 47-70 [facility] Nitrite Test strip Ql (U)Ord ered By: Lion Valentin on 07-28-2024 Nitrite Ql (U) Negative Negative [facility] No Panel InformationOrdered By: Lion Valentin on 07-28-2024 Troponin T High Sensitivity 17 ng/L High <14 [facility] Comment on above: Delta: 12 on 5-1850 Nucleated red blood cell per centageOrdered By: Lion Valentin on 07-28-2024 Nucleated RBC/100 WBC (Bld) [Ratio] 0 % 0-5 [facility] Partial Thromboplast Timeon 07-28-2024 aPTT Coag (Bld) [Time] 28.5 s Normal 24.1-36.2 [facility] Comment on above: Performed By: #### L 501.9520, L500.4050, L501.69262, L500.4100, L506.0400, L501.9985 #### [facility] Laboratory [address] [place], [address] Platelet countOrdered By: Jerardo Valentin on 07-28-2024 Platelets (Bld) [#/Vol] 560 10*3/uL High 150-450 [facility] Potassium (Unsp spec) [Mass/ Vol]Ordered By: Lion Valentin on 07-28-2024 Potassium [Moles/Vol] 3.9 mmol/L 3.3-5.1 [facility] Protein Test strip Ql (U)Ord ered By: Lion Valentin on 07-28-2024 Protein Ql (U) 30 mg/dl High Negative [facility] Prothrombin Time w/INRon INR Coag (PPP) [Relative time] 1.0 {INR} Normal [facility] Comment on above: Performed By: #### L 501.9520, L500.4050, L501.60969, L500.4100, L506.0400, L501.9985 #### [facility] Laboratory [address] [place], [address] PT Coag (PPP) [Time] 13.6 s Normal 11.7-14.9 [facility] Comment on above: Performed By: #### L 501.9520, L500.4050, L501.70377, L500.4100, L506.0400, L501.9985 #### [facility] Laboratory [address] [place], [address] Prothrombin timeOrdered By: Lion Valentin on 07-28-2024 PT Coag (PPP) [Time] 13.6 s 11.7-14.9 [facility] RBC Auto (Bld) [#/Vol]Ordere d By: Lion Valentin on 07-28-2024 RBC (Bld) [#/Vol] 5.09 10*6/uL 4.2-5.4 [facility] Respiratory pathogens DNA an d RNA panel MICAELA+probe (Resp)Ordered By: Yolanda Tucker on 07-28-2024 Respiratory Panel (PCR) [facility] Respiratory Panel (PCR) [facility] Respiratory pathogens detect ion panel by molecular detection methodOrdered By: Yolanda Tucker on 07-28-2024 Respiratory pathogens DNA and RNA panel MICAELA+probe (Resp) [facility] Serum creatinine measurement (mass/volume)Ordered By: Lion Valentin on 07-28-2024 Creatinine [Mass/Vol] 0.97 mg/dL 0.70-1.20 [facility] Serum globulin measurementOr dered By: Lion Valentin on 07-28-2024 Globulin (S) [Mass/Vol] 4.3 g/dL High 2.2-4.2 [facility] Serum glucose measurement (m ass/volume)Ordered By: Lion Valentin on 07-28-2024 Glucose [Mass/Vol] 140 mg/dL High 70-99 [facility] Serum or plasma alanine cruz otransferase (ALT) measurementOrdered By: Lion Valentin on 07-28-2024 ALT [Catalytic activity/Vol] 39 U/L High <35 [facility] Serum or plasma albumin nicole urement (mass/volume)Ordered By: Lion Valentin on 07-28-2024 Albumin [Mass/Vol] 4.5 g/dL 3.4-4.8 [facility] Serum or plasma albumin/glob ulin mass ratioOrdered By: Lion Valentin on 07-28-2024 Albumin/Globulin [Mass ratio] 1.0 {ratio} 0.9-2.4 [facility] Serum or plasma alkaline adrián sphatase measurementOrdered By: Lion Valentin on 07-28-2024 ALP [Catalytic activity/Vol] 107 U/L High 35-104 [facility] Serum or plasma calcium nicole urement (mass/volume)Ordered By: Lion Valentin on 07-28-2024 Calcium [Mass/Vol] 10.3 mg/dL 7.6-11.0 [facility] Serum or plasma urea nitroge n measurement (mass/volume)Ordered By: Lion Valentin on 07-28-2024 Urea nitrogen [Mass/Vol] 17 mg/dL 4-19 [facility] Sodium levelOrdered By: Tyler Valentin on 07-28-2024 Sodium [Moles/Vol] 132 mmol/L Low 133-145 [facility] Squamous epithelial cells de tection in urine sediment by light microscopyOrdered By: Lion Valentin on 07-28-2024 Epithelial cells.squamous LM Ql (Urine sed) 0-5 SEEN /hpf 5-10 [facility] T4 Free Directon 07-28-2024 T4 FREE DIRECT 1.20 ng/dL Normal 0.76-1.46 [facility] Comment on above: Performed By: #### L 501.9520, L500.4050, L501.41692, L500.4100, L506.0400, L501.9985 #### [facility] Laboratory [address] [place], [address] T4 freeOrdered By: Lion aguilar on 07-28-2024 Free T4 [Mass/Vol] 1.20 ng/dL 0.76-1.46 [facility] TSH DL <= 0.005 mIU/L QnOrde red By: Lion Valentin on 07-28-2024 Thyroid Stimulating Hormone (TSH) 7.340 uIU/mL High 0.300-4.200 [facility] TSH Qn 7.340 uIU/mL High 0.300-4.200 [facility] Thyroid Stim Hormone (TSH)on 07-28-2024 TSH 7.340 uIU/mL High 0.300-4.200 [facility] Comment on above: Performed By: #### L 501.9520, L500.4050, L501.21090, L500.4100, L506.0400, L501.9985 #### [facility] Laboratory [address] [place], [address] Total proteinOrdered By: Anastasiya Valentin on 07-28-2024 Protein [Mass/Vol] 8.9 g/dL High 5.9-8.4 [facility] Troponin T.cardiac High sens itivity method [Mass/Vol]Ordered By: Lion Valentin on 07-28-2024 Troponin T High Sensitivity 4 Hour 15 ng/L High <14 [facility] Troponin T High Sensitivity 2 Hour 17 ng/L High <14 [facility] Troponin T.cardiac [Mass/vol ume] in Serum or Plasma by High sensitivity methodOrdered By: Lion Valentin on 07-28-2024 Troponin T.cardiac High sensitivity method [Mass/Vol] 15 ng/L High <14 [facility] Troponin T.cardiac High sensitivity method [Mass/Vol] 17 ng/L High <14 [facility] Urinalysis, Completeon 07-28 AMORPHOUS 2+ URATE Normal [facility] Comment on above: Order Comment: CLEAN CATCH Performed By: #### L 501.9520, L500.4050, L501.90853, L500.4100, L506.0400, L501.9985 #### [facility] Laboratory [address] [place], [address] BACTERIA 1+ /hpf Normal None Seen [facility] Comment on above: Order Comment: CLEAN CATCH Performed By: #### L 501.9520, L500.4050, L501.72597, L500.4100, L506.0400, L501.9985 #### [facility] Laboratory [address] [place], [address] EPI,SQUAMOUS 0-5 SEEN Normal 5-10 [facility] Comment on above: Order Comment: CLEAN CATCH Performed By: #### L 501.9520, L500.4050, L501.20630, L500.4100, L506.0400, L501.9985 #### [facility] Laboratory [address] [place], [address] RBC 5-10 SEEN Normal 0-5 [facility] Comment on above: Order Comment: CLEAN CATCH Performed By: #### L 501.9520, L500.4050, L501.30208, L500.4100, L506.0400, L501.9985 #### [facility] Laboratory [address] [place], [address] WBC 50-100 SEEN Normal 0-5 [facility] Comment on above: Order Comment: CLEAN CATCH Performed By: #### L 501.9520, L500.4050, L501.01966, L500.4100, L506.0400, L501.9985 #### [facility] Laboratory [address] [place], [address] Mucus Ql (Urine sed) 0 SEEN Normal [facility] Comment on above: Order Comment: CLEAN CATCH Performed By: #### L 501.9520, L500.4050, L501.86612, L500.4100, L506.0400, L501.9985 #### [facility] Laboratory [address] [place], [place], [id number] Urine blood detectionOrdered By: Lion Valentin on 07-28-2024 Urine Occult Blood 25 /ul High Negative [facility] Urine clarityOrdered By: Anastasiya Valentin on 07-28-2024 Clarity (U) Sl. Cloudy Clear [facility] Urine color determinationOrd ered By: Lion Valentin on 07-28-2024 Color (U) Yellow Yellow [facility] Urine cultureOrdered By: Anastasiya Valentin on 07-28-2024 Bacteria identified Cx Nom (U) Streptococcus agalactiae (B) Abnormal [facility] Bacteria identified Cx Nom (U) Streptococcus agalactiae (B) Abnormal [facility] Urine glucose detectionOrder ed By: Lion Valetnin on 07-28-2024 Glucose Ql (U) Normal mg/dl Normal [facility] Urine leukocyte esterase det ection by dipstickOrdered By: Lion Valentin on 07-28-2024 Leukocyte esterase Test strip Ql (U) 500 /ul High Negative [facility] Urine pHOrdered By: Lion amaro on 07-28-2024 pH (U) 6.0 [pH] 5.0 - 8.0 [facility] Urine sediment bacteria coun t by microscopy (number/high power field)Ordered By: Lion Valentin on 07-28-2024 Bacteria LM.HPF (Urine sed) [#/Area] 1 /[HPF] None Seen [facility] Urine specific gravity measu rementOrdered By: Lion Valentin on 07-28-2024 Specific gravity (U) [Rel density] 1.020 1.002-1.030 [facility] Urine urobilinogen measureme ntOrdered By: Lion Valentin on 07-28-2024 Urobilinogen Ql (U) Normal mg/dl Normal [facility] Urobilinogen Ql (U)Ordered B y: Lion Valentin on 07-28-2024 Urine Urobilinogen Normal mg/dl Normal [facility] White blood cell (WBC) count Ordered By: Lion Valentin on 07-28-2024 WBC (Bld) [#/Vol] 11.1 10*3/uL High 4.4-11.0 [facility] White blood cell countOrdere d By: Lion Valentin on 07-28-2024 Urine WBC 50-100 SEEN /hpf 0-5 [facility] White blood cell count 50-100 SEEN /hpf 0-5 [facility] aPTT Coag (PPP) [Time]Ordere d By: Lion Valentin on 07-28-2024 aPTT Coag (Bld) [Time] 28.5 s 24.1-36.2 [facility] 12 Lead EKGon 07-26-2024 12 Lead EKG [facility] Cardiovascular Services [address] [place] [address] 12 Lead EKG 07/26/24 1843 MR#: [id number] Acct: [id number] Name: OLENA VALERA Rep #: [id number] : [id number] From: Donavan Borjas MD Attending Dr: Status: DEP ER Ordering Dr: Miguel Waters MD Date: 07/26/24 Location: ED Sex: F C Admitted: Test Reason : SOB/CP Blood Pressure : */* mmHG Vent. Rate : 119 BPM Atrial Rate : 119 BPM P-R Int : 170 ms QRS Dur : 146 ms QT Int : 440 ms P-R-T Axes : 43 87 34 degrees QTcB Int : 618 ms Sinus tachycardia with Premature atrial complexes Right bundle branch block Abnormal ECG Confirmed by Donavan Borjas ([id number]), copy editor FRANCISCO HARPER ([id number]) on 07/28/2024 6:55:07 AM Referred By: Confirmed By: Donavan Borjas 07/28/2455 Date Donavan Borjas MD CC: Dr. Hugo Mora MD; Dr. Miguel Waters MD Signed Normal [facility] Absolute lymphocyte countOrd ered By: ED PROVIDER on 07-26-2024 Lymphocytes Auto (Unsp spec) [#/Vol] 1.65 10*3/uL 0.83-4.51 [facility] Absolute neutrophil countOrd ered By: ED PROVIDER on 07-26-2024 Neutrophils (Bld) [#/Vol] 6.4 10*3/uL 2.0-7.7 [facility] Anion gap in Serum or Plasma Ordered By: ED PROVIDER on 07-26-2024 Anion gap [Moles/Vol] 17 mmol/L High 5-15 [facility] Automated lymphocyte count a s percentage of total leukocytesOrdered By: ED PROVIDER on 07-26-2024 Lymphocytes/100 WBC Auto (Unsp spec) 18.3 % Low 19-41 [facility] BUN/creatinine ratioOrdered By: ED PROVIDER on 07-26-2024 Urea nitrogen/Creatinine [Mass ratio] 15.5 mg/mg 10-20 [facility] Basic Metabolic Profile (BMP )on 07-26-2024 BUN/CRE 15.5 RATIO Normal -20 [facility] Comment on above: Performed By: #### L 501.9520, L500.4050, L501.92235, L500.4100, L506.0400, L501.9985 #### [facility] Laboratory [address] [place], [place], [address] Calcium [Mass/Vol] 10.2 mg/dL Normal 7.6-11.0 [facility] Comment on above: Performed By: #### L 501.9520, L500.4050, L501.42370, L500.4100, L506.0400, L501.9985 #### [facility] [facility] [address] [place], [address] Chloride [Moles/Vol] 96 mmol/L Low 98-108 [facility] Comment on above: Performed By: #### L 501.9520, L500.4050, L501.27961, L500.4100, L506.0400, L501.9985 #### [facility] [address] [place], [address] CO2 [Moles/Vol] 19.6 mmol/L Low 21.0-32.0 [facility] Comment on above: Performed By: #### L 501.9520, L500.4050, L501.45239, L500.4100, L506.0400, L501.9985 #### [facility] [address] [place], [address] Creatinine [Mass/Vol] 0.90 mg/dL Normal 0.70-1.20 [facility] Comment on above: Performed By: #### L 501.9520, L500.4050, L501.96502, L500.4100, L506.0400, L501.9985 #### [facility] [address] [place], [address] ECRCL 88.13 ml/min Normal 50-250 [facility] Comment on above: Performed By: #### L 501.9520, L500.4050, L501.99756, L500.4100, L506.0400, L501.9985 #### [facility] [address] [place], [address] GAP 17 High 5-15 [facility] Comment on above: Performed By: #### L 501.9520, L500.4050, L501.42718, L500.4100, L506.0400, L501.9985 #### [facility] [address] [place], [address] GFR/1.73 sq M.predicted among non-blacks MDRD (S/P/Bld) [Vol rate/Area] 70 mL/min/{1.73_m2} Normal >60 [facility] Comment on above: Result Comment: mL/m in/1.73m2 CKD-EPI Creatinine Equation (2020) Performed By: #### L 501.9520, L500.4050, L501.29997, L500.4100, L506.0400, L501.9985 #### [facility] [address] [place], [address] Glucose [Mass/Vol] 125 mg/dL High 70-99 [facility] Comment on above: Performed By: #### L 501.9520, L500.4050, L501.85842, L500.4100, L506.0400, L501.9985 #### [facility] [address] [place], [address] Potassium [Moles/Vol] 3.9 mmol/L Normal 3.3-5.1 [facility] Comment on above: Performed By: #### L 501.9520, L500.4050, L501.87372, L500.4100, L506.0400, L501.9985 #### [facility] [address] [place], [address] Sodium [Moles/Vol] 133 mmol/L Normal 133-145 [facility] Comment on above: Performed By: #### L 501.9520, L500.4050, L501.07071, L500.4100, L506.0400, L501.9985 #### [facility] [address] [place], [address] Urea nitrogen [Mass/Vol] 14 mg/dL Normal 4-19 [facility] Comment on above: Performed By: #### L 501.9520, L500.4050, L501.61015, L500.4100, L506.0400, L501.9985 #### [facility] [address] [place], [address] Basophil percentageOrdered B y: ED PROVIDER on 07-26-2024 Basophils/100 WBC (Bld) 0.6 % 0-1 [facility] CBC W/Diff, Automatedon Absolute Lymph 1.65 X10 3/uL Normal 0.83-4.51 [facility] Comment on above: Performed By: #### L 501.9520, L500.4050, L501.57228, L500.4100, L506.0400, L501.9985 #### [facility] [address] [place], [address] Absolute Neut 6.4 X10 3/uL Normal 2.0-7.7 [facility] Comment on above: Performed By: #### L 501.9520, L500.4050, L501.70162, L500.4100, L506.0400, L501.9985 #### [facility] [address] [place], [address] Basophils/100 WBC (Bld) 0.6 % Normal 0-1 [facility] Comment on above: Performed By: #### L 501.9520, L500.4050, L501.77909, L500.4100, L506.0400, L501.9985 #### [facility] [address] [place], [address] Eosinophils/100 WBC (Bld) 1.6 % Normal 0-5 [facility] Comment on above: Performed By: #### L 501.9520, L500.4050, L501.16561, L500.4100, L506.0400, L501.9985 #### [facility] [address] [place], [address] Erythrocyte distribution width (RBC) [Ratio] 16.5 % High 11.6-14.6 [facility] Comment on above: Performed By: #### L 501.9520, L500.4050, L501.40456, L500.4100, L506.0400, L501.9985 #### [facility] [address] [place], [address] Hematocrit (Bld) [Volume fraction] 38.8 % Normal 37-47 [facility] Comment on above: Performed By: #### L 501.9520, L500.4050, L501.56478, L500.4100, L506.0400, L501.9985 #### [facility] [address] [place], [address] Hemoglobin (Bld) [Mass/Vol] 12.4 g/dL Normal 12.0-15.0 [facility] Comment on above: Performed By: #### L 501.9520, L500.4050, L501.60043, L500.4100, L506.0400, L501.9985 #### [facility] [address] [place], [address] IG% 0.200 Normal 0.0-0.9 [facility] Comment on above: Result Comment: IG% - Immature Granulocytes (promyelocytes, myelocytes and metamyelocytes) > 1% indicates that a LEFT SHIFT is Present. Performed By: #### L 501.9520, L500.4050, L501.76289, L500.4100, L506.0400, L501.9985 #### [facility] [address] [place], [address] Lymphocytes/100 WBC (Bld) 18.3 % Low 19-41 [facility] Comment on above: Performed By: #### L 501.9520, L500.4050, L501.27995, L500.4100, L506.0400, L501.9985 #### [facility] [address] [place], [address] MCH (RBC) [Entitic mass] 25.7 pg Low 27.0-32.0 [facility] Comment on above: Performed By: #### L 501.9520, L500.4050, L501.86215, L500.4100, L506.0400, L501.9985 #### [facility] [address] [place], [address] MCHC (RBC) [Mass/Vol] 32.0 g/dL Normal 32-36 [facility] Comment on above: Performed By: #### L 501.9520, L500.4050, L501.62819, L500.4100, L506.0400, L501.9985 #### [facility] [address] [place], [address] MCV (RBC) [Entitic vol] 80.5 fL Low 81-99 [facility] Comment on above: Performed By: #### L 501.9520, L500.4050, L501.11026, L500.4100, L506.0400, L501.9985 #### [facility] [address] [place], [address] Monocytes/100 WBC (Bld) 9.0 % Normal 0-10 [facility] Comment on above: Performed By: #### L 501.9520, L500.4050, L501.98763, L500.4100, L506.0400, L501.9985 #### [facility] [address] [place], [address] Neutrophils/100 WBC (Bld) 70.3 % High 47-70 [facility] Comment on above: Performed By: #### L 501.9520, L500.4050, L501.75270, L500.4100, L506.0400, L501.9985 #### [facility] [address] [place], [address] Nucleated RBC (Bld) [#/Vol] 0 10*3/uL Normal 0-5 [facility] Comment on above: Performed By: #### L 501.9520, L500.4050, L501.54614, L500.4100, L506.0400, L501.9985 #### [facility] [address] [place], [address] Platelet mean volume (Bld) [Entitic vol] 9.1 fL Normal 6.2-12.0 [facility] Comment on above: Performed By: #### L 501.9520, L500.4050, L501.25146, L500.4100, L506.0400, L501.9985 #### [facility] [address] [place], [address] Platelets (Bld) [#/Vol] 511 10*3/uL High 150-450 [facility] Comment on above: Performed By: #### L 501.9520, L500.4050, L501.02481, L500.4100, L506.0400, L501.9985 #### [facility] [address] [place], [address] RBC (Bld) [#/Vol] 4.82 10*6/uL Normal 4.2-5.4 [facility] Comment on above: Performed By: #### L 501.9520, L500.4050, L501.78132, L500.4100, L506.0400, L501.9985 #### [facility] [address] [place], [address] RDW SD 46.5 fl High 35.1-43.9 [facility] Comment on above: Performed By: #### L 501.9520, L500.4050, L501.95209, L500.4100, L506.0400, L501.9985 #### [facility] [address] [place], [place], [address] WBC (Bld) [#/Vol] 9.0 10*3/uL Normal 4.4-11.0 [facility] Comment on above: Performed By: #### L 501.9520, L500.4050, L501.63949, L500.4100, L506.0400, L501.9985 #### [facility] [address] [place], [place], [address] CNOVon 07-26-2024 CNOV Office Visit (UCWSTR ) OLENA VALERA ([id number]) 1955 F Date Time Provider Department 07/26/24 6:15 PM CHANTEL HOPKINS [facility] During your visit today, we recorded the following information about you: Temperature Pulse Respiration Blood pressure 98 degrees 122/minute 20/minute 230/110 Weight 144.7 kg Chantel Hopkins APRN.DESIGNATED BROKER 07/26/2024 6:34 PM Signed This note was created using NoteWriter. Subjective Olena Valera is a 68 year old female. 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 MEDICATIONS clopidogrel (PLAVIX) 75 mg tablet Take 75 mg by mouth once daily. clotrimazole-betametha sone (LOTRISONE) lotion Apply 1 application to affected area twice daily. levothyroxine (LEVOXYL) 50 mcg tablet Take 50 mcg by mouth daily before breakfast. venlafaxine XR (EFFEXOR XR) 75 mg 24 hr capsule Take 1 capsule by mouth once daily. ERGOCALCIFEROL, VITAMIN D2, (VITAMIN D ORAL) Take 1 tablet by mouth once daily. clobetasol 0.05 % TOPICAL ointment Apply 1 application to affected area twice daily. TO AFFECTED AREA. (Patient not taking: Reported on 03/19/2018 ) chlorthalidone 25 mg ORAL tablet Take 25 mg by mouth once daily. benazepril hcl(LOTENSIN 10 MG TAB) Take one(1) tablet daily. Calcium-Cholecalcifero l (D3) (CALCIUM 600 + D) 600-125 mg-unit ORAL Tab Take one(1) tablet twice daily. FAMILY HISTORY Problem Relation Age of Onset Heart Mother CHF Heart Father [place]- Hypertension Brother Hypertension Brother Breast Cancer Maternal Aunt from this Breast Cancer Paternal Aunt Coronary Artery Disease Brother Social History Tobacco Use Smoking status: Former Current packs/day: 0.00 Types: Cigarettes Quit date: 08/02/2010 Years since quittin.9 Smokeless tobacco: Never Tobacco comments: 1 pack per week Substance Use Topics Alcohol use: No Drug use: No Review of Systems Respiratory: Positive for shortness of breath. Objective BP (!) 230/110 Pulse (!) 122 Temp 36.7 ?C (98 ?F) (Tympanic) Resp 20 Wt (!) 144.7 kg (319 lb 0.1 oz) LMP 08/09/2010 SpO2 99% BMI 54.33 kg/m? Physical Exam Constitutional: Appearance: She is obese. Comments: Appears uncomfortable Cardiovascular: Rate and Rhythm: Tachycardia present. Pulmonary: Comments: Tachypnic Assessment and Plan ASSESSMENT/PLAN: 1. Tachycardia - ICD9: 785.0, ICD10: R00.0 (primary diagnosis) Apical 122 here in clinic Discussed limitation of express care Referred to ED Declines EMS to drive 2. Elevated blood pressure reading - ICD9: 796.2, ICD10: R03.0 - 230-110 Tachycardic Short of breath 3. SOB (shortness of breath) - ICD9: 786.05, ICD10: R06.02 See above Chantel Hopkins APRN.DESIGNATED BROKER Allergies As of Date: 07/26/2024 (No Known Allergies) Date Reviewed: 03/19/2018 Reviewed by: Whitney Ramirez (Sergey) - Fully Assessed Reason for Visit: Shortness of Breath [227] Cmt: SOB, chest congestion, and feels like blood pressure is elevated x 4 days Primary Visit Diagnosis:Tachycardia [R00.0] Other Visit Diagnoses:Elevated blood pressure reading [R03.0] SOB (shortness of breath) [R06.02] Prescriptions as of 07/26/2024 - clopidogrel (PLAVIX) 75 mg tablet Take 75 mg by mouth once daily. - clotrimazole-betametha sone (LOTRISONE) lotion Apply 1 application to affected area twice daily. - levothyroxine (LEVOXYL) 50 mcg tablet Take 50 mcg by mouth daily before breakfast. - venlafaxine XR (EFFEXOR XR) 75 mg 24 hr capsule Take 1 capsule by mouth once daily. - ERGOCALCIFEROL, VITAMIN D2, (VITAMIN D ORAL) Take 1 tablet by mouth once daily. - clobetasol 0.05 % TOPICAL ointment Apply 1 application to affected area twice daily. TO AFFECTED AREA. - chlorthalidone 25 mg ORAL tablet Take 25 mg by mouth once daily. - benazepril hcl(LOTENSIN 10 MG TAB) Take one(1) tablet daily. - Calcium-Cholecalcifero l (D3) (CALCIUM 600 + D) 600-125 mg-unit ORAL Tab Take one(1) tablet twice daily. Problem List As Of Date 07/26/2024 Noted Resolved Other and unspecified ovarian cyst [N83.209] 01/06/2007 08/13/2011 Abnormal mammogram, unspecified [R92.8] (more content not included)... Normal [facility] CTA Chest W/WO Contraston CTA Chest W/WO Contrast [facility] Imaging Services [address] [place] [address] CTA Chest W/WO Contrast MR#: [id number] Acct: [id number] Name: OLENA VALERA Rep #: [id number] : 1955 F 68 From: Carmen Martin DO PCP: Dr. Hugo Mora MD Status: REG ER Study: CTA Chest W/WO Contrast Date of Exam: 07/26/24 Exam# [id number] Ordering Dr: Miguel Waters MD PROCEDURE: CTA CHEST W/WO CONTRAST REASON FOR EXAM: Tachycardia TECHNIQUE: CTA imaging of the chest with intravenous contrast. 3D reconstructions. CONTRAST: COMPARISON: None. FINDINGS: Hardware: None. Lymph nodes: No mediastinal hilar or axillary lymphadenopathy. Heart: Normal heart size. No pericardial effusion. RV/LV Diameter Ratio: N/A Thoracic Aorta: No thoracic aortic aneurysm or dissection. Pulmonary Vessels: No evidence of acute pulmonary emboli through the major subsegmental branches. Most Proximal Level of Embolus (if embolus present): N/A Lungs and Airways: The lungs are normally expanded and clear. Pleura: No pleural effusion. No pneumothorax. Upper Abdomen: Visualized portions of the upper abdominal viscera are unremarkable. Bones: Degenerative changes of the thoracic spine. CT/CTA Chest W/WO Contrast IMPRESSION: NORMAL CHEST CTA. NO EVIDENCE OF ACUTE PULMONARY EMBOLISM. One or more dose reduction techniques were used (e.g., Automated exposure control, adjustment of the mA and/or kV according to patient size, use of iterative reconstruction technique). Reading Location: [facility] CC: Dr. Hugo Mora MD; Dr. Miguel Waters MD Brand Engineer: Signed Normal [facility] Carbon dioxide, total [Moles /volume] in Central venous bloodOrdered By: ED PROVIDER on 07-26-2024 CO2 [Moles/Vol] 19.6 mmol/L Low 21.0-32.0 [facility] Chest PA and Lateralon 07-26 Chest PA and Lateral [facility] Imaging Services [address] [place] [address] Chest PA and Lateral MR#: [id number] Acct: [id number] Name: OLENA VALERA Rep #: [id number] : 1955 F 68 From: Hugo Akhtar MD PCP: Dr. Hugo Mora MD Status: PRE ER Study: Chest PA and Lateral Date of Exam: 07/26/24 Exam# [id number] Ordering Dr: Provider,Ed P. PROCEDURE: CHEST PA AND LATERAL REASON FOR EXAM: Chest pain TECHNIQUE: Frontal and lateral views of the chest. COMPARISON: None. FINDINGS: The heart size is normal. The mediastinal contour is unremarkable. The lungs are clear. The bones are unremarkable. RAD/Chest PA and Lateral IMPRESSION: No radiographic evidence of acute cardiopulmonary disease Reading Location: [place] CC: Dr. Hugo Mora MD; ED PHYSICIAN PROVIDER Brand Engineer: Signed Normal [facility] Chloride assayOrdered By: ED PROVIDER on 07-26-2024 Chloride [Moles/Vol] 96 mmol/L Low 98-108 [facility] D-Dimer Quantitative (DVT/PE )on 07-26-2024 D-DIMER QUANT 0.86 FEU/ug/m Invalid Interpretation Code 0.27-0.49 [facility] Comment on above: Order Comment: CRITI BOYD VALUE CALLED TO JOANN LEVIN 07/26/24 2104 Mouna Yolandesudheercourtney. RESULTS READ BACK BY SAME. Result Comment: D-Di chaya ELEVATED (>0.49): Additional studies and clinical assessments are indicated to conclude diagnosis of: Deep Vein Thrombosis (DVT) or Pulmonary Embolism (PE) Performed By: #### L 300.8000 #### [facility] [address] [place], [place], [id number] D-dimer measurement for deep venous thrombosisOrdered By: Miguel Waters on 07-26-2024 D-Dimer Quantitative (PE/DVT) 0.86 FEU/ug/m High 0.27-0.49 [facility] Comment on above: D-Dimer ELEVATED (>0 .49): Additional studies and clinicalassessments are indicated to conclude diagnosis of:Deep Vein Thrombosis (DVT) or Pulmonary Embolism (PE) Emergency Department Summary on 07-26-2024 Emergency Department Summary [facility] Medical Records Department [address] [place] [address] Emergency Department Summary 07/26/24 MR#: [id number] Acct: [id number] Name: OLENA VALERA Rep #: [id number] : 1955 68 From: Miguel Waters MD PCP: Dr. Hugo Mora MD Status:REG ER Location: ED HPI History of Present Illness Chief Complaint: Chest Pain Detail of Chief Complaint: Shortness of breath that started Thursday. Patient denies chest discomfort Informant: patient Onset/Context/Timing Onset: Days (Thursday, July 22) Context: sudden Timing: Continuous and Waxes and wanes Quality: Positive for Dyspnea on exertion; Negative for Orthopnea, PND or Wheezing Current Severity: Mild Maximum Severity: Severe Worsened by: Exertion; Not Worsened By Lying flat or Coughing Relieved by: Nothing Associated Symptoms Negative for cough, rhinorrhea, post nasal drip, ear pain, fever, sore throat, subjective, chills or sweats Chest Pain: Positive for None Narrative Narrative: Patient is a 68-year-old female. She presents with shortness of breath that started abruptly on Thursday. She has no history of VTE. Denies leg pain, swelling discoloration. She denies chest discomfort including pleuritic. She feels she cannot get a complete breath. She has had no recent surgery. She has had no recent immobilization. She has no history of cancer. There is family history of cancer. There is no family history of VTE. Patient denies headache, visual, ocular auditory symptoms. Patient has rhinorrhea, congestion postnasal drainage. Patient has slight coarse voice. She denies cough. She denies leg pain, swelling or discoloration. She denies abdominal pain, nausea, vomiting or diarrhea. She denies frequency, urgency or hematuria. Denies change in the color of her urine. She states she has been drinking a lot of fluids. She may have slight discomfort with urination. She did a COVID test because she feels fatigued because she is not able to walk without becoming short of breath. She states she had this similar symptom when she had COVID. Her home COVID test was negative. PE Risk Factors: Negative for Cancer, OCP + Smoking + > 35, Prior DVT or PE, Recent immobilization, Recent surgery or Recent travel Prior similar symptoms: No Recent Illness/Hospitalizatio n: No PFSH PFSH Medical History Wears glasses Anxiety Thyroid disease Arthritis High cholesterol Former smoker Leg cramps History of pain when walking History of edema History of stress test Hypertension Home Medications ???Medication ???Instructions ???Recorded ???Last Taken ???Type benazepril 10 mg tablet 10 mg PO DAILY BP 12/31/13 2 04:45 History chlorthalidone 25 mg tablet 25 mg PO DAILY 12/31/13 12/30/21 0 4:45 History venlafaxine 75 mg capsule,extended 75 mg PO DAILY HOT FLASHES 12/3112/29/21 History release 24 hr levothyroxine 50 mcg tablet 75 mcg PO DAILY THYROID 08/17/20 0 12/30/21 04:45 History ascorbic acid (vitamin C) 500 mg 1,000 mg PO DAILY 12/03/21 2 History chewable tablet (Vitamin C) atorvastatin 20 mg tablet 20 mg PO QHS 07/26/24 Unknown Hist ory Allergy/AdvReac Type Severity Reaction Status Date / Time No Known Allergies Allergy Verified 07/26/24 18:38 Surgical History Hx of colonoscopy History of total right knee replacement Social History (Updated 07/26/24 @ 20:[address] Miguel Waters MD) household members: spouse Smoking Status: Former smoker ROS ROS ED Constitutional Constitutional ED: Denies chills, fever(s), sweats or weight loss Eyes Eyes: Denies blurry vision or change in vision ENT ENT ED: Denies ear pain, rhinorrhea or sore throat Cardiovascular Cardiovascular: Denies chest pain, orthopnea, palpitations, paroxysmal nocturnal dyspnea or racing heartbeat Respiratory/Chest Respiratory/Chest: Reports dyspnea and dyspnea on exertion; Denies cough, orthopnea or paroxysmal nocturnal dyspnea Gastrointestinal Gastrointestinal: Denies abdominal pain, diarrhea, melena, nausea or vomiting Genitourinary Genitourinary ED: Reports dysuria; Denies hematuria or urinary frequency Musculoskeletal Musculoskeletal: Denies arthralgias, back pain or myalgias Integumentary Denies rash Neurologic Neurologic: Denies headache(s), paresthesias or weakness Psychiatric Psychiatric: Reports anxiety Endocrine Endocrinology: Denies cold intolerance or heat intolerance Hematologic/Lymphatic Hematologic/Lymphatic: Denies easy bleeding or easy bruising EXAM Physical Exam Const Vital Signs: 07/26/24 18:38 07/26/24 20:16 07/26/24 20:16 Temperature 97.2 F L Temperature Source Temporal Pulse Rate 145 H 113 H Respiratory Rate 28 (more content not included)... Normal [facility] Eosinophil percentageOrdered By: ED PROVIDER on 07-26-2024 Eosinophils/100 WBC (Bld) 1.6 % 0-5 [facility] Erythrocyte distribution wid th ratioOrdered By: ED PROVIDER on 07-26-2024 Erythrocyte distribution width (RBC) [Ratio] 16.5 % High 11.6-14.6 [facility] Erythrocyte distribution wid th standard deviationOrdered By: ED PROVIDER on 07-26-2024 Erythrocyte distribution width (RBC) [Entitic vol] 46.5 fL High 35.1-43.9 [facility] Erythrocyte distribution width (RBC) [Ratio] 46.5 fl High 35.1-43.9 [facility] Estimation of creatinine lissy aranceOrdered By: ED PROVIDER on 07-26-2024 Estimated Creatinine Clearance Calc 88.13 ml/min 50-250 [facility] GFR/1.73 sq M.predicted tae g non-blacks MDRD (S/P/Bld) [Vol rate/Area]Ordered By: ED PROVIDER on 07-26-2024 Estimated GFR (MDRD) Non-Af Amer 70 >60 [facility] Comment on above: mL/min/1.73m2 CKD-EP I Creatinine Equation (2020) Glomerular filtration rate ( GFR) estimation/1.73 sq m using serum, plasma, or whole bOrdered By: ED PROVIDER on 07-26-2024 GFR/1.73 sq M.predicted among non-blacks MDRD (S/P/Bld) [Vol rate/Area] 70 mL/min/{1.73_m2} >60 [facility] Comment on above: mL/min/1.73m2 CKD-EP I Creatinine Equation (2020) Hematocrit Auto (Bld) [Volum e fraction]Ordered By: ED PROVIDER on 07-26-2024 Hematocrit (Bld) [Volume fraction] 38.8 % 37-47 [facility] [place] Hemoglobin measurementOrdere d By: ED PROVIDER on 07-26-2024 Hemoglobin (Bld) [Mass/Vol] 12.4 g/dL 12.0-15.0 [facility] [place] Immature granulocytes/100 WB C Auto (Bld)Ordered By: ED PROVIDER on 07-26-2024 Immature granulocytes/100 WBC (Bld) 0.200 % 0.0-0.9 [facility] [place] Comment on above: IG% - Immature Granu locytes (promyelocytes, myelocytes and metamyelocytes) > 1% indicates that a LEFT SHIFT is Present. L499.0042on 07-26-2024 Trop T Delta 2 Normal [facility] [place] Comment on above: Result Comment: If c linical suspicion for ACS is high, suggest getting a third troponin. Otherwise, stress test or CTCA. Performed By: #### L 499.0042 #### [facility] [place] [facility] [address] [place], [place], [id number] Trop T High Sen 14 ng/L Normal <=14 [facility] [place] Comment on above: Performed By: #### L 499.0042 #### [facility] [place] [facility] [address] [place], [address] L499.0043on 07-26-2024 Trop T Delta Normal [facility] [place] Comment on above: Result Comment: PT D ISCHARGED Performed By: #### L 501.9520, L500.4050, L501.85589, L500.4100, L506.0400, L501.9985 #### [facility] [place] [facility] [address] [place], [address] Trop T High Sen Normal <=14 [facility] [place] Comment on above: Result Comment: PT D ISCHARGED Performed By: #### L 501.9520, L500.4050, L501.50024, L500.4100, L506.0400, L501.9985 #### [facility] [place] [facility] [address] [place], [address] L501.4021on 07-26-2024 Trop T High Sen 12 ng/L Normal <=14 [facility] [place] Comment on above: Performed By: #### L 501.9520, L500.4050, L501.54893, L500.4100, L506.0400, L501.9985 #### [facility] [place] [facility] [address] [place], [address] Lymphocytes Auto (Unsp spec) [#/Vol]Ordered By: ED PROVIDER on 07-26-2024 Lymphocytes (Bld) [#/Vol] 1.65 10*3/uL 0.83-4.51 [facility] [place] Lymphocytes/100 WBC Auto (Un sp spec)Ordered By: ED PROVIDER on 07-26-2024 Lymphocytes/100 WBC (Bld) 18.3 % Low 19-41 [facility] [place] MCV (mean corpuscular volume ) determinationOrdered By: ED PROVIDER on 07-26-2024 MCV (RBC) [Entitic vol] 80.5 fL Low 81-99 [facility] Mean corpuscular hemoglobin (MCH) determinationOrdered By: ED PROVIDER on 07-26-2024 MCH (RBC) [Entitic mass] 25.7 pg Low 27.0-32.0 [facility] [place] Mean corpuscular hemoglobin concentration (MCHC) determinationOrdered By: ED PROVIDER on 07-26-2024 MCHC (RBC) [Mass/Vol] 32.0 g/dL 32-36 [facility] Mean platelet volume determi nationOrdered By: ED PROVIDER on 07-26-2024 Platelet mean volume (Bld) [Entitic vol] 9.1 fL 6.2-12.0 [facility] [place] Monocyte percentageOrdered B y: ED PROVIDER on 07-26-2024 Monocytes/100 WBC (Bld) 9.0 % 0-10 [facility] Neutrophil percentageOrdered By: ED PROVIDER on 07-26-2024 Neutrophils/100 WBC (Bld) 70.3 % High 47-70 [facility] No Panel InformationOrdered By: Miguel Waters on 07-26-2024 Troponin T Hi Sensitivity 2Hr Delta 2 [facility] [place] Comment on above: If clinical suspicio n for ACS is high, suggest getting a third troponin. Otherwise, stress test or CTCA. No Panel InformationOrdered By: ED PROVIDER on 07-26-2024 Troponin T High Sensitivity 12 ng/L <14 [facility] [place] Nucleated red blood cell per centageOrdered By: ED PROVIDER on 07-26-2024 Nucleated RBC/100 WBC (Bld) [Ratio] 0 % 0-5 [facility] [place] Platelet countOrdered By: ED PROVIDER on 07-26-2024 Platelets (Bld) [#/Vol] 511 10*3/uL High 150-450 [facility] [place] Potassium (Unsp spec) [Mass/ Vol]Ordered By: ED PROVIDER on 07-26-2024 Potassium [Moles/Vol] 3.9 mmol/L 3.3-5.1 [facility] Potassium measurement (mass/ volume)Ordered By: ED PROVIDER on 07-26-2024 Potassium (Unsp spec) [Mass/Vol] 3.9 mmol/L 3.3-5.1 [facility] [place] RBC Auto (Bld) [#/Vol]Ordere d By: ED PROVIDER on 07-26-2024 RBC (Bld) [#/Vol] 4.82 10*6/uL 4.2-5.4 [facility] Serum creatinine measurement (mass/volume)Ordered By: ED PROVIDER on 07-26-2024 Creatinine [Mass/Vol] 0.90 mg/dL 0.70-1.20 [facility] Serum glucose measurement (m ass/volume)Ordered By: ED PROVIDER on 07-26-2024 Glucose [Mass/Vol] 125 mg/dL High 70-99 [facility] Serum or plasma calcium nicole urement (mass/volume)Ordered By: ED PROVIDER on 07-26-2024 Calcium [Mass/Vol] 10.2 mg/dL 7.6-11.0 [facility] Serum or plasma urea nitroge n measurement (mass/volume)Ordered By: ED PROVIDER on 07-26-2024 Urea nitrogen [Mass/Vol] 14 mg/dL 4-19 [facility] [place] Sodium levelOrdered By: ELIZABETH AGUERO on 07-26-2024 Sodium [Moles/Vol] 133 mmol/L 133-145 [facility] Troponin T.cardiac High sens itivity method [Mass/Vol]Ordered By: Miguel Waters on 07-26-2024 Troponin T High Sensitivity 2 Hour 14 ng/L <14 [facility] [place] Troponin T.cardiac [Mass/vol ume] in Serum or Plasma by High sensitivity methodOrdered By: Miguel Waters on 07-26-2024 Troponin T.cardiac High sensitivity method [Mass/Vol] 14 ng/L <14 [facility] [place] White blood cell (WBC) count Ordered By: ED PROVIDER on 07-26-2024 WBC (Bld) [#/Vol] 9.0 10*3/uL 4.4-11.0 [facility] Influenza virus A and B and SARS-CoV-2 (COVID-19) Ag panel - Upper respiratory specimOrdered By: Ruthie Doe on 08-23-2022 SARS-CoV-2 & FLU Antigen (Rapid) SARS-CoV-2 (COVID 19) [facility] [place] Glucose Glucometer (BldC) [M ass/Vol]on 12-30-2021 Glucose [Mass/Vol] 122 mg/dL 74-106 [facility] Work Phone: Comment on above: MANAGEMENT OF PATIEN T CARE PER NURSING PROTOCOL Absolute lymphocyte counton 12-06-2021 Lymphocytes Auto (Unsp spec) [#/Vol] 1.27 10*3/uL 0.83-4.51 [facility] [place] Work Phone: Basophil percentageon 2021 Basophils/100 WBC (Bld) 0.7 % 0-1 [facility] Work Phone: Chloride [Moles/Vol] 103 mmol/L 98-107 [facility] Work Phone: Eosinophils/100 WBC (Bld) 2.0 % 0-5 [facility] [place] Work Phone: Glucose [Mass/Vol] 115 mg/dL 74-106 [facility] Work Phone: Comment on above: Fasting Glucose resu lt from 100 to 125 mg/dL suggests IMPAIRED HOMEOSTASIS per A.D.A. criteria. Neutrophils (Bld) [#/Vol] 5.1 10*3/uL 2.0-7.7 [facility] [place] Work Phone: Neutrophils/100 WBC (Bld) 70.0 % 47-70 [facility] Work Phone: Potassium [Moles/Vol] 3.8 mmol/L 3.5-5.1 [facility] Work Phone: Sodium [Moles/Vol] 136 mmol/L 136-145 [facility] Work Phone: WBC (Bld) [#/Vol] 7.3 10*3/uL 4.4-11.0 [facility] Work Phone: Blood erythrocytes count (nu mber/volume)on 12-06-2021 RBC (Bld) [#/Vol] 4.88 10*6/uL 4.2-5.4 [facility] Work Phone: Blood hemoglobin measurement (mass/volume)on 12-06-2021 Hemoglobin (Bld) [Mass/Vol] 12.3 g/dL 12.0-15.0 [facility] [place] Work Phone: Blood lymphocytes/100 leukoc yteson 12-06-2021 Lymphocytes/100 WBC (Bld) 17.3 % 19-41 [facility] [place] Work Phone: Blood monocytes/100 leukocyt eson 12-06-2021 Monocytes/100 WBC (Bld) 9.7 % 0-10 [facility] Work Phone: Blood platelet mean volumeon 12-06-2021 Platelet mean volume (Bld) [Entitic vol] 10.0 fL 6.2-12.0 [facility] Work Phone: Determination of erythrocyte mean corpuscular volume (MCV)on 12-06-2021 MCV (RBC) [Entitic vol] 81.4 fL 81-99 [facility] Work Phone: Hematocrit Auto (Bld) [Volum e fraction]on 12-06-2021 Hematocrit (Bld) [Volume fraction] 39.7 % 37-47 [facility] [place] Work Phone: Laboratory - Chemistry and C hemistry - challengeon 12-06-2021 CO2 [Moles/Vol] 26.0 mmol/L 21.0-32.0 [facility] [place] Work Phone: Urea nitrogen/Creatinine [Mass ratio] 26.6 mg/mg 10-20 [facility] [place] Work Phone: Magnesium [Mass/Vol] 1.9 mg/dL 1.6-2.6 [facility] Work Phone: Laboratory - Hematology and Cell countson 12-06-2021 Erythrocyte distribution width (RBC) [Entitic vol] 47.2 fL 35.1-43.9 [facility] [place] Work Phone: Erythrocyte distribution width (RBC) [Ratio] 15.9 % 11.6-14.6 [facility] [place] Work Phone: Immature granulocytes/100 WBC (Bld) 0.300 % 0.0-0.9 [facility] [place] Work Phone: Comment on above: IG% - Immature Granu locytes (promyelocytes, myelocytes and metamyelocytes) > 1% indicates that a LEFT SHIFT is Present. MCH (RBC) [Entitic mass] 25.2 pg 27.0-32.0 [facility] [place] Work Phone: Nucleated RBC/100 WBC (Bld) [Ratio] 0 % 0-5 [facility] [place] Work Phone: MCHC Auto (RBC) [Mass/Vol]on 12-06-2021 MCHC (RBC) [Mass/Vol] 31.0 g/dL 32-36 [facility] Work Phone: No Panel Informationon 12-06 Estimated GFR (MDRD) Amer 120 mL/min >60 [facility] [place] Work Phone: Comment on above: GFR Calc Estimated GFR (MDRD) Non-Af Amer 99 mL/min >60 [facility] [place] Work Phone: Comment on above: Non- GFR Calc Thyroid Stimulating Hormone (TSH) 1.31 uIU/mL 0.358-3.74 [facility] [place] Work Phone: Platelets bldon 12-06-2021 Platelets (Bld) [#/Vol] 391 10*3/uL 150-450 [facility] Work Phone: Serum or plasma calcium nicole urement (mass/volume)on 12-06-2021 Calcium [Mass/Vol] 9.8 mg/dL 8.5-10.1 [facility] Work Phone: Serum or plasma creatinine m easurement (mass/volume)on 12-06-2021 Creatinine [Mass/Vol] 0.64 mg/dL 0.55-1.02 [facility] ster [facility] Work Phone: Comment on above: The validity of the calculated GFR & GFRAA in patients over 70 years has not been determined. Clinical correlation is essential. Serum or plasma urea nitroge n measurement (mass/volume)on 12-06-2021 Urea nitrogen [Mass/Vol] 17 mg/dL 12-09 [facility] Work Phone: Thin prep Papanicolaou smear with manual screeningon 12-06-2021 Thin prep Papanicolaou smear with manual screening 10-06 [facility] [place] Work Phone: CULTURE URINEon 05-03-[address] [facility] Comment on above: Result Comment: S = Susceptible; I = Intermediate; R = Resistant P = Positive; N = Negative MICS are expressed in micrograms per mL Antibiotic RSLT#1 RSLT#2 RSLT#3 RSLT#4 Amoxicillin/Clavulanic Acid S =4 Ampicillin S =4 Cefepime S<=0.12 Ceftriaxone S<=0.25 Cefuroxime S =4 Ciprofloxacin S<=0.25 Ertapenem S<=0.12 Gentamicin S<=1 Imipenem S<=0.25 Levofloxacin S<=0.12 Meropenem S<=0.25 Nitrofurantoin S<=16 Piperacillin/Tazobactam S<=4 Tetracycline S<=1 Tobramycin S<=1 Trimethoprim/Sulfa S<=20 Performed By: #### C JACKTMARIVEL #### [facility] [address] [place] [address] CINDY De La O MD Bacteria identified Cx Nom (U) Final report Invalid Interpretation Code [facility] Comment on above: Performed By: #### C JACKTMARIVEL #### [facility] [address] [place] [address] CINDY De La O MD Result 1 Escherichia coli Invalid Interpretation Code [facility] Comment on above: Result Comment: Grea ter than 100,000 colony forming units per mL Cefazolin <=4 ug/mL Cefazolin with an LUIS ALFREDO <=16 predicts susceptibility to the oral agents cefaclor, cefdinir, cefpodoxime, cefprozil, cefuroxime, cephalexin, and loracarbef when used for therapy of uncomplicated urinary tract infections due to E. coli, Klebsiella pneumoniae, and Proteus mirabilis. Performed By: #### C JACKTMARIVEL #### [facility] [address] [place] [address] CINDY De La O MD BNPon 04-29-2021 Natriuretic peptide B (Bld) [Mass/Vol] 37 pg/mL Normal <=100 [facility] Comment on above: Performed By: #### B DEMURRAGE WORKER #### [facility] [address] [place] [address] CINDY De La O MD CBC PLT DIFFon 04-29-2021 BASO # 0.04 10 3/uL Normal 0.00-0.10 [facility] Comment on above: Performed By: #### T ROP2HR #### [facility] [address] [place] [address] CINDY De La O MD Basophils/100 WBC (Bld) 0.4 % Normal 0.2-1.0 [facility] Comment on above: Performed By: #### T MARTITA2 #### [facility] [address] [place] [address] CINDY De La O MD EOS# 0.14 10 3/uL Normal 0.00-0.20 [facility] Comment on above: Performed By: #### T ROP2HR #### [facility] [address] [place] [address] CINDY De La O MD Eosinophils/100 WBC (Bld) 1.6 % Normal 0.9-2.9 [facility] Comment on above: Performed By: #### T ROP2HR #### [facility] [address] [place] [address] CINDY De La O MD Erythrocyte distribution width (RBC) [Ratio] 16.5 % High 11.5-15.5 [facility] Comment on above: Performed By: #### T ROP2HR #### [facility] [address] [place] [address] CINDY De La O MD Hematocrit (Bld) [Volume fraction] 39.4 % Normal 37.0-47.0 [facility] Comment on above: Performed By: #### T ROP2HR #### [facility] [address] [place] [address] CINDY De La O MD Hemoglobin (Bld) [Mass/Vol] 12.6 g/dL Normal 12.0-16.0 [facility] Comment on above: Performed By: #### T ROP2HR #### [facility] [address] [place] [address] CINDY De La O MD IG# 0.04 10 3/uL Normal [facility] Comment on above: Performed By: #### T ROP2HR #### [facility] [address] [place] [address] CINDY De La O MD IG% 0.4 % Normal [facility] Comment on above: Performed By: #### T ROP2HR #### [facility] [address] [place] [address] CINDY De La O MD LYMPH# 1.46 10 3/uL Normal 1.30-2.90 [facility] Comment on above: Performed By: #### T ROP2HR #### [facility] [address] [place] [address] CINDY De La O MD Lymphocytes/100 WBC (Bld) 16.2 % Low 20.5-45.5 [facility] Comment on above: Performed By: #### T ROP2HR #### [facility] [address] [place] [address] CINDY De La O MD MCH (RBC) [Entitic mass] 25.8 pg Low 27.0-31.0 [facility] Comment on above: Performed By: #### T ROP2HR #### [facility] [address] [place], [place] [id number] CINDY De La O MD MCHC (RBC) [Mass/Vol] 32.0 g/dL Normal 32.0-36.0 [facility] Comment on above: Performed By: #### T ROP2HR #### [facility] [address] [place] [address] CINDY De La O MD MCV (RBC) [Entitic vol] 80.7 fL Low 81.0-99.[address] [facility] Comment on above: Performed By: #### T ROP2HR #### [facility] [address] [place] [address] CINDY De La O MD MONO# 0.79 10 3/uL Normal 0.30-0.80 [facility] Comment on above: Performed By: #### T ROP2HR #### [facility] [address] [place] [address] CINDY De La O MD Monocytes/100 WBC (Bld) 8.7 % Normal 5.5-11.[address] [facility] Comment on above: Performed By: #### T ROP2HR #### [facility] [address] [place], [place] [id number] CINDY De La O MD Morphology [place] (Bld) [Interp] Normal [facility] Comment on above: Performed By: #### T ROP2HR #### [facility] [address] [place] [address] CINDY De La O MD NEUT# 6.56 10 3/uL High 2.20-4.80 [facility] Comment on above: Performed By: #### T ROP2HR #### [facility] [address] [place], [place] [id number] CINDY De La O MD Neutrophils/100 WBC (Bld) 72.7 % High 43.0-65.0 [facility] Comment on above: Performed By: #### T ROP2HR #### [facility] [address] [place], [place] [id number] CINDY De La O MD NRBC# 0.00 10 3/uL Normal [facility] Comment on above: Performed By: #### T ROP2HR #### [facility] [address] [place], [place] [id number] CINDY De La O MD Nucleated RBC/100 WBC (Bld) [Ratio] 0.0 % Normal [facility] Comment on above: Performed By: #### T ROP2HR #### [facility] [address] [place], [place] [id number] CINDY De La O MD Platelet mean volume (Bld) [Entitic vol] 9.6 fL Normal 7.4-10.4 [facility] Comment on above: Performed By: #### T ROP2HR #### [facility] [address] [place] [address] CINDY De La O MD PLT 392 10 3/uL Normal 130-400 [facility] Comment on above: Performed By: #### T ROP2HR #### [facility] [address] [place], [place] [id number] CINDY De La O MD RBC 4.88 10 6/uL Normal 4.20-5.40 [facility] Comment on above: Performed By: #### T ROP2HR #### [facility] [address] [place], [place] [id number] CINDY De La O MD WBC 9.03 10 3/uL Normal 4.70-10.80 [facility] Comment on above: Performed By: #### T ROP2HR #### [facility] [address] [place], [place] [id number] CINDY De La O MD CHEST SINGLE VIEWon 04-29-20 21 CHEST SINGLE VIEW PORTABLE AP CHEST SINGLE VIEW HISTORY: Chest pain. TECHNIQUE: AP portable view of the chest was performed. COMPARISON: No previous exam is available for comparison. FINDINGS: The heart is normal in size. There is no consolidation, pleural effusion, or pneumothorax. IMPRESSION: NO ACUTE PULMONARY DISEASE. WH Electronically signed by: ASHLEY BRIGGS MD Approved By: ASHLEY BRIGGS MD Date: 04/30/2021 7:44 AM Normal [facility] CKon 04-29-2021 CK [Catalytic activity/Vol] 147 U/L High 30-135 [facility] Comment on above: Performed By: #### T ROP2HR #### [facility] [address] [place], [place] [id number] CINDY De La O MD CMPon 04-29-2021 Albumin [Mass/Vol] 4.5 g/dL Normal 3.5-5.0 [facility] Comment on above: Performed By: #### C MP #### [facility] [address] [place] [address] CINDY De La O MD ALP [Catalytic activity/Vol] 103 U/L Normal 38-126 [facility] Comment on above: Performed By: #### C MP #### [facility] [address] [place] [address] CINDY De La O MD ALT [Catalytic activity/Vol] 31 U/L Normal 9-52 [facility] Comment on above: Performed By: #### C MP #### [facility] [address] [place] [address] CINDY De La O MD AST [Catalytic activity/Vol] 33 U/L Normal 14-36 [facility] Comment on above: Performed By: #### C MP #### [facility] [address] [place], [place] [id number] CINDY De La O MD Bilirubin [Mass/Vol] 0.4 mg/dL Normal 0.2-1.3 [facility] Comment on above: Performed By: #### C MP #### [facility] [address] [place], [place] [id number] CINDY De La O MD Calcium [Mass/Vol] 10.2 mg/dL Normal 8.4-10.2 [facility] Comment on above: Performed By: #### C MP #### [facility] [address] [place] [address] CINDY De La O MD Chloride [Moles/Vol] 101 mmol/L Normal 98-107 [facility] Comment on above: Performed By: #### C MP #### [facility] [address] [place] [address] CINDY De La O MD Creatinine [Mass/Vol] 0.7 mg/dL Normal 0.5-1.0 [facility] Comment on above: Performed By: #### C MP #### [facility] [address] [place] [address] CINDY De La O MD ECO2 27 mmol/L Normal 22-30 [facility] Comment on above: Performed By: #### C MP #### [facility] [address] [place] [address] CINDY De La O MD EGFR-AF ENGLISH 102 mL/min/1.73m 2 Normal >=60 [facility] Comment on above: Performed By: #### C MP #### [facility] [address] [place] [address] CINDY De La O MD EGFR-NON AF ENGLISH 84 mL/min/1.73 m 2 Normal >=60 [facility] Comment on above: Performed By: #### C MP #### [facility] [address] [place] [address] CINDY De La O MD Glucose [Mass/Vol] 132 mg/dL High 70-99 [facility] Comment on above: Performed By: #### C MP #### [facility] [address] [place], [place] [id number] CINDY De La O MD Potassium [Moles/Vol] 3.3 mmol/L Low 3.5-5.0 [facility] Comment on above: Performed By: #### C MP #### [facility] [address] [place] [address] CINDY De La O MD Protein [Mass/Vol] 8.1 g/dL Normal 6.3-8.2 [facility] Comment on above: Performed By: #### C MP #### [facility] [address] [place] [address] CINDY De La O MD Sodium [Moles/Vol] 139 mmol/L Normal 137-145 [facility] Comment on above: Performed By: #### C MP #### [facility] [address] [place] [address] CINDY De La O MD Urea nitrogen [Mass/Vol] 19 mg/dL High 7-17 [facility] Comment on above: Performed By: #### C MP #### [facility] [address] [place] [address] CINDY De La O MD COVID +FLU A/B+RSVon 021 FLU A MOLECULAR Negative Normal [facility] Comment on above: Performed By: #### C 19 COLON #### [facility] [address] [place] [address] CINDY De La O MD FLU B MOLECULAR Negative Normal [facility] Comment on above: Performed By: #### C 19 COLON #### [facility] [address] [place] [address] CINDY De La O MD RSV MOLECULAR Negative Normal [facility] Comment on above: Performed By: #### C 19 COLON #### [facility] [address] [place] [address] CINDY De La O MD SARS-CoV-2 (COVID-19) RNA MICAELA+probe Ql (Unsp spec) Not detected Normal NOT DETECTED - NEG [facility] Comment on above: Performed By: #### C 19 OCLON #### [facility] [address] [place] [address] CINDY De La O MD D DIMERon 04-29-2021 D-DIMER 321 ug/mL Normal 251-500 [facility] Comment on above: Performed By: #### T ROP2HR #### [facility] [address] [place] [address] CINDY De La O MD Adrián 04-29-2021 ER EMERGENCY ROOM NOTE CHIEF COMPLAINT: Chest pain. HISTORY OF PRESENT ILLNESS: This is a 65-year-old female who presents to the emergency department via EMS. She resides out of town but has been here because her brother is on home hospice. She has been helping and essentially at his bedside for several days. She tried to help move her brother today, and in response has midsternal chest pain that radiates through to her back, to her right shoulder, and down her right arm. It is associated with dyspnea and diaphoresis. She has never had chest pain before. She was brought in via squad. She does have a history of anxiety. She has had no prodromal illness. No sick contacts. ALLERGIES: NKDA. MEDICATIONS: Effexor, benazepril, and hydrochlorothiazide. PAST MEDICAL HISTORY: Hypertension and anxiety. FAMILY HISTORY: Significant for coronary artery disease. SOCIAL HISTORY: Patient is . Denies illicit drug use. Is a nonsmoker and nondrinker. REVIEW OF SYSTEMS: CONSTITUTIONAL: No fever, sweats, or chills. SKIN: No jaundice, no rash. EYES: No blindness. ENT: No sore throat. No nasal congestion. PULMONARY: See HPI and PE. CARDIAC: See HPI and PE. GI: No nausea, vomiting, or diarrhea. : No dysuria, pyuria, or hematuria. NEUROLOGIC: See HPI and PE. MUSCULOSKELETAL: See HPI and PE. INFECTIOUS DISEASE: No recurrent infections. No known immunosuppression. HEMATOLOGIC/ONCOLOGIC: No excessive bruising, bleeding, or clotting. PHYSICAL EXAMINATION: VITAL SIGNS: Blood pressure 174/84, pulse 112, respirations 18, pulse oximetry 97%, temperature 97.1. GENERAL APPEARANCE: Patient is obese and is visibly in significant discomfort. HEENT: Normocephalic, atraumatic. Oropharynx clear with moist mucosa. NECK: Supple. No tracheal deviation. No nuchal rigidity. No jugular venous distention. HEART: Regular rate and rhythm without murmur, rub, or gallop. LUNGS: Clear to auscultation. ABDOMEN: Positive bowel sounds. Soft and nontender. No rebound, no guarding. : No CVA tenderness. No suprapubic tenderness. BACK: No thoracic nor lumbar spinous midline process tenderness. No stepoff. EXTREMITIES: No cyanosis, clubbing, or edema. SKIN: No jaundice, no mottling, no rash. PERIPHERAL PERFUSION: 2+ radial and dorsalis pedis pulses. Normal capillary refill. NEUROLOGIC: GCS 15. Cranial nerves are intact. Cognition, mentation, and speech are clear. Strength is 5/5. DIAGNOSTIC TESTING: EKG is reviewed by the ED MD at the time of completion at the point of care. There is no prior EKG for comparison. There is clearly a right bundle-branch block. Sinus tachycardia 111 beats per minute. First-degree AV block. There are some nonspecific T wave changes. Initial complete chemistry panel is significant for mild hypokalemia at 3.3; otherwise normal. Initial troponin 0.024. BNP is negative. Initial CK is elevated at 147. D-dimer is negative at 321. PT, PTT, and INR are normal. CBC is normal. RSV, flu, strep, and SARS-COVID are negative. Chest x-ray is read out by the radiologist as no acute findings. UA is negative. ER COURSE: Patient remained hemodynamically stable and neurologically intact, though she did vomit immediately upon arrival after triage. That was treated with Zofran. She later required one other dose of Zofran. She also was given a dose of Ativan which helped her. Nitrates did not make a material difference in her symptoms, but morphine did help. Her symptoms resolved. Patient remained hemodynamically stable and neurologically intact. Her repeat troponin was negative, and in fact has come down to 0.018. SARS-COVID is negative. Flu A is negative. Flu B is negative. RSV is negative. Patient is tolerating oral intake and has had no further chest pain. She feels markedly better. She understands the need to return immediately to the ER if she is worse. She will follow up with her PMD at home. IMPRESSION: 1. Chest pain. 2. Abnormal EKG. 3. Vomiting, resolved. PLAN: Discharge home. Follow up with PMD in 2-3 days' time. Return to ED if worse. Normal [facility] MAGNESIUMon 04-29-2021 Magnesium [Mass/Vol] 1.90 mg/dL Normal 1.60-2.30 [facility] Comment on above: Performed By: #### M G #### [facility] [address] [place] [id number] CINDY De La O MD PROTHROMBINon 04-29-2021 COMMENT Preformatted Comment s: Normal Range (Patient NOT on Coumadin): Protime: 10.8 - 12.2 Seconds INR: 0.94 - 1.06 Normal Range (Patient ON Coumadin) Protime: 22.8 - 34.1 INR: 2.00 - 3.00 [facility] Comment on above: Performed By: #### P T #### [facility] [address] [place] [address] CINDY De La O MD INR Coag (PPP) [Relative time] 0.87 {INR} Low 2.00-3.00 [facility] Comment on above: Performed By: #### P T #### [facility] [address] [place] [address] CINDY De La O MD PT Coag (PPP) [Time] 10.0 s [facility] Comment on above: Performed By: #### P T #### [facility] [address] [place] [address] CINDY De La O MD PTTon 04-29-2021 aPTT Coag (Bld) [Time] 23.7 s [facility] Comment on above: Performed By: #### P TT #### [facility] [address] [place] [address] CINDY De La O MD COMMENT Normal Range (Patien t NOT on Heparin) PTT: 24.7 - 29.7 Normal Range (Patient ON Heparin) PTT: 51.1 - 88.6 [facility] Comment on above: Performed By: #### P TT #### [facility] [address] [place] [address] CINDY De La O MD TROPONIN Ion 04-29-2021 COMMENT Reference Range: 0.0-0.034 ng/mL Borderline: 0.035 - 0.119 ng/mL AMI Cutoff Range: >/= 0.120 ng/mL [facility] Comment on above: Performed By: #### T ROP #### [facility] [address] [place] [address] CINDY De La O MD Troponin I.cardiac [Mass/Vol] 0.024 ng/mL Normal <=0.034 [facility] Comment on above: Performed By: #### T ROP #### [facility] [address] [place] [address] CINDY De La O MD TROPONIN - 2 HRon 04-29-2021 COMMENT Reference Range: 0.0-0.034 ng/mL Borderline: 0.035 - 0.119 ng/mL AMI Cutoff Range: >/= 0.120 ng/mL Normal [facility] Comment on above: Performed By: #### T [id number] #### [facility] [address] [place] [address] CINDY De La O MD Troponin I.cardiac [Mass/Vol] 0.018 ng/mL Normal <=0.034 [facility] Comment on above: Performed By: #### T ROP2HR #### [facility] [address] [place] [address] CINDY De La O MD URINALYSIS W/ MICRO REFLEX C ULTon 04-29-2021 AMORPHOUS Negative Normal NEGATIVE [facility] Comment on above: Performed By: #### U AAUTMI #### [facility] [address] [place] [address] CINDY De La O MD BACTERIA MANY Normal NEGATIVE [facility] Comment on above: Performed By: #### U AAUTMI #### [facility] [address] [place] [address] CINDY De La O MD Bilirubin Ql (U) Negative Normal NEGATIVE [facility] Comment on above: Performed By: #### U AAUTMI #### [facility] [address] [place], [place] [id number] CINDY De La O MD CASTS NONE SEEN Normal NONE SEEN [facility] Comment on above: Performed By: #### U AAUTMI #### [facility] [address] [place], [place] [id number] CINDY De La O MD Clarity (U) HAZY Normal CLEAR [facility] Comment on above: Performed By: #### U AAUTMI #### [facility] [address] [place] [address] CINDY De La O MD Color (U) YELLOW Normal YELLOW [facility] Comment on above: Performed By: #### U AAUTMI #### [facility] [address] [place] [address] CINDY De La O MD COMMENT PLEASE NOTE: Specime n integrity may be affected if more than 4 hours have passed between the collection time and time testing was performed. Normal [facility] Comment on above: Performed By: #### U AAUTMI #### [facility] [address] [place] [address] CINDY De La O MD Crystals LM Nom (Urine sed) NONE SEEN Normal NEGATIVE [facility] Comment on above: Performed By: #### U AAUTMI #### [facility] [address] [place] [address] CINDY De La O MD EPITHELIAL FEW Normal NEGATIVE [facility] Comment on above: Performed By: #### U AAUTMI #### [facility] [address] [place] [address] CINDY De La O MD GLITTER CELLS Normal ABSENT [facility] Comment on above: Performed By: #### U AAUTMI #### [facility] [address] [place] [address] CINDY De La O MD Glucose Ql (U) Negative Normal NEGATIVE [facility] Comment on above: Performed By: #### U AAUTMI #### [facility] [address] [place] [address] CINDY De La O MD Hemoglobin Ql (U) Negative Normal NEGATIVE [facility] Comment on above: Performed By: #### U AAUTMI #### [facility] [address] [place], [place] [id number] CINDY De La O MD Ketones Ql (U) Negative Normal NEGATIVE [facility] Comment on above: Performed By: #### U AAUTMI #### [facility] [address] [place] [address] CINDY De La O MD Leukocyte esterase Test strip Ql (U) SMALL Normal NEGATIVE [facility] Comment on above: Performed By: #### U AAUTMI #### [facility] [address] [place] [address] CINDY De La O MD MUCOUS FEW Normal NONE SEEN [facility] Comment on above: Performed By: #### U AAUTMI #### [facility] [address] [place] [address] CINDY De La O MD Nitrite Ql (U) Positive Normal NEGATIVE [facility] Comment on above: Performed By: #### U AAUTMI #### [facility] [address] [place], [place] [id number] CINDY De La O MD pH (U) 6.0 [pH] Normal 5.0-9.0 [facility] Comment on above: Performed By: #### U BRITTMI #### [facility] [address] [place] [address] CINDY De La O MD Protein Ql (U) Negative Normal NEGATIVE [facility] Comment on above: Performed By: #### U AAUTMI #### [facility] [address] [place], [place] [id number] CINDY De La O MD RBC RARE Normal NONE SEEN [facility] Comment on above: Performed By: #### U AASVENMI #### [facility] [address] [place], [place] [id number] CINDY De La O MD SP GRAVITY 1.025 Normal 1.010-1.030 [facility] Comment on above: Performed By: #### U BRITTMI #### [facility] [address] [place], [place] [id number] CINDY De La O MD SPERMATAZOA Normal NEGATIVE [facility] Comment on above: Performed By: #### U PRITIUTMI #### [facility] [address] [place], [place] [id number] CINDY De La O MD TRICHOMONAS Normal NONE [facility] Comment on above: Performed By: #### U BRITTMI #### [facility] [address] [place] [address] CINDY De La O MD URINE CULTURE SENT YES Normal NO [facility] Comment on above: Performed By: #### U AAUTMI #### [facility] [address] [place], [place] [address] CINDY De La O MD Urobilinogen Qn (U) 0.20 {Rosy'U}/dL Normal 0.20-8. 00 [facility] Comment on above: Performed By: #### U AAUTMI #### [facility] [address] [place] [address] CINDY De La O MD WBC 20-30 Normal NONE SEEN [facility] Comment on above: Performed By: #### U AAUTMI #### [facility] [address] [place], [place] [id number] CINDY De La O MD YEAST Normal NEGATIVE [facility] Comment on above: Performed By: #### U AAUTMI #### [facility] [address] [place], [place] [id number] CINDY De La O MD No Panel Information Nasal Screen MRSA/MSSA [facility] Work Phone: Vital Signs Date Time Vital Sign Value Performing Clinician Facility 08-23-2024 11:11-0400 Body height 165.[address] Hugo Mora MD Work Phone: [facility] 08-23-2024 11:11-0400 Body mass index (BMI) [Ratio] 50.5 kg/m2 Dr. Hugo Mora MD Work Phone: [facility] 08-23-2024 11:11-0400 Body weight 137.[address] Hugo Mora MD Work Phone: [facility] 08-23-2024 11:11-0400 Diastolic blood pressure 63 mm[Hg] Dr. Hugo Mora MD Work Phone: [facility] 08-23-2024 11:11-0400 Heart rate 95 /min Dr. Hugo Mora MD Work Phone: [facility] 08-23-2024 11:11-0400 Respiratory rate 18 /min Dr. Hugo Mora MD Work Phone: [facility] 08-23-2024 11:11-0400 SaO2% (BldA) [Mass fraction] 95 % Dr. Hugo Mora MD Work Phone: 8(223)649-267056 [place] [address] 08-23-2024 11:11-0400 Systolic blood pressure 103 mm[Hg] Dr. Hugo Mora MD Work Phone: 1(488)259-575256 [place] [address] 07-30-2024 09:15-0500 Body temperature 98 [degF] Dr. Hugo Mora MD Work Phone: 1(093)215-268656 [place] [address] 07-30-2024 09:15-0500 Diastolic blood pressure 68 mm[Hg] Dr. Hugo Mora MD Work Phone: 9(859)869-283256 [place] [address] 07-30-2024 09:15-0500 Heart rate 70 /min Dr. Hugo Mora MD Work Phone: 0(891)354-593956 [place] [address] 07-30-2024 09:15-0500 Respiratory rate 14 /min Dr. Hugo Mora MD Work Phone: 9(570)809-127656 [place] [address] 07-30-2024 09:15-0500 SaO2% (BldA) [Mass fraction] 94 % Dr. Hugo Mora MD Work Phone: 4(104)810-028956 [place] [address] 07-30-2024 09:15-0500 Systolic blood pressure 132 mm[Hg] Dr. Hugo Mora MD Work Phone: 9(581)924-110556 [place] [address] 07-30-2024 03:30-0500 Body mass index (BMI) [Ratio] 51.4 kg/m2 Dr. Hugo Mora MD Work Phone: 9(978)130-969756 [place] [address] 07-30-2024 03:30-0500 Body weight 140.[address] Hugo Mora MD Work Phone: 6(551)742-410556 [place] [address] 07-29-2024 12:30-0500 Body height 165.[address] Hugo Mora MD Work Phone: 0(503)625-104156 [place] [address] 07-28-2024 19:22-0500 Body temperature 98.2 [degF] Dr. Hugo Mora MD Work Phone: 4(274)499-656456 [place] [address] 07-28-2024 19:22-0500 Diastolic blood pressure 90 mm[Hg] Dr. Hugo Mora MD Work Phone: [facility] 07-28-2024 19:22-0500 Heart rate 106 /min Dr. Hugo Mora MD Work Phone: [facility] 07-28-2024 19:22-0500 Respiratory rate 21 /min Dr. Hugo Mora MD Work Phone: 4(839)780-289081 [place] [address] 07-28-2024 19:22-0500 SaO2% (BldA) [Mass fraction] 98 % Dr. Hugo Mora MD Work Phone: 0(213)836-104481 [place] [address] 07-28-2024 19:22-0500 Systolic blood pressure 164 mm[Hg] Dr. Hugo Mora MD Work Phone: 8(781)236-311206 [address] 07-28-2024 16:31-0500 Body mass index (BMI) [Ratio] 52.3 kg/m2 Dr. Hugo Mora MD Work Phone: 5(256)665-951606 [address] 07-28-2024 16:31-0500 Body weight 142.[address] Hugo Mora MD Work Phone: 1(667)005-134056 [place] [address] 07-28-2024 16:08-0500 Body height 165.[address] Hugo Mora MD Work Phone: 6(916)970-063056 [place] [address] 07-26-2024 23:30-0500 Body temperature 98.7 [degF] Dr. Hugo Mora MD Work Phone: 3(023)986-254281 [place] [address] 07-26-2024 23:30-0500 Diastolic blood pressure 85 mm[Hg] Dr. Hugo Mora MD Work Phone: 5(005)638-814506 [address] 07-26-2024 23:30-0500 Heart rate 111 /min Dr. Hugo Mora MD Work Phone: [facility] 07-26-2024 23:30-0500 Respiratory rate 20 /min Dr. Hugo Mora MD Work Phone: 5(692)457-740181 [place] [address] 07-26-2024 23:30-0500 SaO2% (BldA) [Mass fraction] 98 % Dr. Hugo Mora MD Work Phone: [facility] 07-26-2024 23:30-0500 Systolic blood pressure 170 mm[Hg] Dr. Hugo Mora MD Work Phone: [facility] 07-26-2024 18:38-0500 Body mass index (BMI) [Ratio] 53 kg/m2 Dr. Hugo Mora MD Work Phone: [facility] 07-26-2024 18:38-0500 Body weight 144.[address] Hugo Mora MD Work Phone: [facility] 07-26-2024 18:25-0500 Body mass index (BMI) [Ratio] 54.33 kg/m2 Chantel Hopkins F[employer] SERVICE SUPERVISOR.DESIGNATED BROKER Work Phone: [facility] 07-26-2024 18:25-0500 Body temperature 98.01 [degF] Chantel Hopkins FULL SERVICE SUPERVISOR.DESIGNATED BROKER Work Phone: [facility] 07-26-2024 18:25-0500 Body weight 144.7 kg Chantel Hopkins FULL SERVICE SUPERVISOR.DESIGNATED BROKER Work Phone: [facility] 07-26-2024 18:25-0500 Diastolic blood pressure 110 mm[Hg] Chantel Hopkins FULL SERVICE SUPERVISOR.DESIGNATED BROKER Work Phone: [facility] 07-26-2024 18:25-0500 Heart rate 122 /min Chantel Hopkins FULL SERVICE SUPERVISOR.DESIGNATED BROKER Work Phone: [facility] 07-26-2024 18:25-0500 Respiratory rate 20 /min Chantel Hopkins FULL SERVICE SUPERVISOR.DESIGNATED BROKER Work Phone: [facility] 07-26-2024 18:25-0500 SaO2% (BldA) [Mass fraction] 99 % Chantel Hopkins FULL SERVICE SUPERVISOR.DESIGNATED BROKER Work Phone: [facility] 07-26-2024 18:25-0500 Systolic blood pressure 230 mm[Hg] Chantel Hopkins FULL SERVICE SUPERVISOR.DESIGNATED BROKER Work Phone: [facility] 08-23-2022 13:57-0400 Heart rate 87 /min [facility] 08-23-2022 13:57-0400 Respiratory rate 16 /min [facility] 08-23-2022 13:57-0400 SaO2% (BldA) [Mass fraction] 95 % [facility] 08-23-2022 11:41-0400 Body height 165.1 cm [facility] 08-23-2022 11:41-0400 Body mass index (BMI) [Ratio] 46.9 kg/m2 [facility] 08-23-2022 11:41-0400 Body temperature 98.1 [degF] [facility] 08-23-2022 11:41-0400 Body weight 127.91 kg [facility] 08-23-2022 11:41-0400 Diastolic blood pressure 107 mm[Hg] [facility] 08-23-2022 11:41-0400 Systolic blood pressure 148 mm[Hg] [facility] 12-30-2021 14:45-0400 Body temperature 96.9 [degF] Dr. Hugo Mora Work Phone: [facility] Work Phone: 12-30-2021 14:45-0400 Diastolic blood pressure 67 mm[Hg] Dr. Hugo Mora Work Phone: [facility] Work Phone: 12-30-2021 14:45-0400 Heart rate 76 /min Dr. Hugo Mora Work Phone: [facility] Work Phone: 12-30-2021 14:45-0400 Respiratory rate 16 /min Dr. Hugo Mora Work Phone: [facility] Work Phone: 12-30-2021 14:45-0400 SaO2% (BldA) [Mass fraction] 98 % Dr. Hugo Mora Work Phone: [facility] Work Phone: 08-08-2022 14:45-0400 Systolic blood pressure 155 mm[Hg] Dr. Hugo Mora Work Phone: [facility] Work Phone: 12-30-2021 11:54-0400 Inhaled oxygen flow rate 4 L/min Dr. Hugo Mora Work Phone: [facility] Work Phone: 12-30-2021 06:08-0400 Body height 165.[address] Hugo Mora Work Phone: [facility] Work Phone: 12-30-2021 06:08-0400 Body mass index (BMI) [Ratio] 47.1 kg/m2 Dr. Hugo Mora Work Phone: [facility] Work Phone: 12-30-2021 06:08-0400 Body weight 128.[address] Hugo Mora Work Phone: [facility] Work Phone: Encounters Encounter Date Encounter Type Care Provider Facility Start: 11-21-2024 End: 11-21-2024 ambulatory GIORGIO HARVEY Facility:[facility] Start: 11-21-2024 End: 11-21-[address] GIORGIO HARVEY MD [facility] Start: 11-09-[address] HUGO MCKAY Facility:[facility] Start: 10-25-2024 End: 10-25-[address] Hugo Mora MD Work Phone: [facility] Work Phone: Start: 10-25-2024 End: 10-25-[address] Hugo Mora MD -Laboratory Spec[facility] Work Phone: Start: 10-24-2024 End: 10-25-[address] Hugo Mora MD Work Phone: [facility] Work Phone: Start: 10-24-2024 End: 10-24-[address] Hugo Mora MD -Laboratory [place] Work Phone: Start: 10-24-2024 End: 10-24-2024 ambulatory Hugo Mora Facility:[facility] Start: 10-06-2024 End: 10-06-[address] Hugo Mora MD Work Phone: [facility] Work Phone: Start: 10-06-2024 End: 10-06-[address] Hugo Mora MD -Outpatient Breast Imaging Work Phone: Start: 10-06-2024 End: 10-06-2024 ambulatory Hugo Mora Facility:[facility] Start: 08-23-2024 End: 08-23-[address] Hugo Mora MD Work Phone: [facility] Work Phone: Start: 08-23-2024 End: 08-23-[address] Donavan Borjas MD -Laboratory Work Phone: Start: 08-23-2024 End: 08-23-[address] Donavan Borjas MD -[facility] Work Phone: Start: 08-23-2024 End: 08-23-2024 ambulatory Donavan Borjas [place] Start: 08-23-2024 End: 08-23-2024 ambulatory Donavan Borjas Facility:[facility] Start: 07-30-2024 Non-patient / Non-visit Dr. Ralph sheikh MD -[facility] Start: 07-29-2024 Non-patient / Non-visit Dr. Ralph sheikh MD -[facility] Start: 07-29-2024 Non-patient / Non-visit Dr. Mane Jhaveri MD -[facility] Work Phone: Start: 07-28-2024 ambulatory Yolanda Tucker [place] [facility] Start: 07-28-2024 End: 07-30-2024 Evaluation and management of inpatient Dr. Yolanda Tucker MD -Progressive Care Unit Work Phone: Start: 07-26-2024 End: 07-26-2024 Emergency department patient visit Dr. Hugo Mora MD Work Phone: -Emergency Department Work Phone: Start: 07-26-2024 End: 07-26-2024 ambulatory HUGO MORA Facility:[facility] Start: 07-26-2024 End: 07-26-2024 Patient encounter procedure Chantel Hopkins FULL SERVICE SUPERVISOR.DESIGNATED BROKER Work Phone: [facility] Comment on above: Tachycardia (Primary Dx); Elevated blood pressure reading; SOB (shortness of breath) Start: 08-23-2022 End: 08-23-2022 Emergency department patient visit [facility]Emergency [facility] Start: 01-17-2022 End: 01-17-[address] Hugo Mora Work Phone: [facility] Work Phone: Start: 01-17-2022 End: 01-17-[address] Hugo Mora Work Phone: [facility]Cardiov[facility] Services Start: 12-30-2021 End: 12-30-2021 Admission to same day surgery center Dr. Hugo Mora Work Phone: [facility]Surgical Day [facility] Start: 12-06-2021 End: 12-06-2021 Patient encounter procedure [facility] Start: 12-05-2021 Non-patient / Non-visit Dr. Kaleb Mora Work Phone: [facility] Procedures Date Procedure Procedure Detail Performing Clinician Start: 11-21-[address] GIORGIO HARVEY MD Start: 10-25-[address] Hugo Mora MD Work Phone: Start: 10-06-2024 Screening mammography Derek Mora MD Work Phone: Start: 08-23-2024 Evaluation of diagno stic study results Dr. Hugo Mora MD Work Phone: Start: 07-29-2024 Coagulation time, activated Dr. Hugo Mora MD Work Phone: Start: 07-29-2024 Cardiovascular stres s test using pharmacologic stress agent Dr. Hugo Mora MD Work Phone: Start: 07-29-[address] Hugo Mora MD Work Phone: Start: 07-28-2024 Urnls dip stick/tabl et reagent auto microscopy Dr. Hugo Mora MD Work Phone: Start: 07-28-2024 X-ray of chest, PA a nd lateral views Dr. Hugo Mora MD Work Phone: Start: 07-28-[address] Hugo Mora MD Work Phone: Start: 07-28-[address] Hugo Mora MD Work Phone: Start: 07-28-2024 SARS-CoV-2, Influenz a & RSV (PCR) Dr. Hugo Mora MD Work Phone: Start: 07-28-[address] Hugo Mora MD Work Phone: Start: 07-26-2024 CT angiography of ch est with contrast Dr. Hugo Mora MD Work Phone: Start: 07-26-2024 D-dimer assay, quantitative Dr. Hugo Mora MD Work Phone: Comment on above: D-Dimer ELEVATED (>0 .49): Additional studies and clinicalassessments are indicated to conclude diagnosis of:Deep Vein Thrombosis (DVT) or Pulmonary Embolism (PE) Start: 07-26-2024 X-ray of chest, PA a nd lateral views Dr. Hugo Mora MD Work Phone: Start: 07-26-[address] Hugo Mora MD Work Phone: Start: 12-30-2021 Radiologic examination of knee Dr. Hugo Mora Work Phone: Start: 12-30-2021 Total Knee Replaceme nt Robotic Arm [place] (Left) Dr. Hugo Mora Work Phone: Start: 12-06-2021 MRI of lower extremity Start: 08-23-2013 Colonoscopy Chantel flores FULL SERVICE SUPERVISOR.DESIGNATED BROKER Work Phone: Start: 05-25-2009 Lipid 1996 panel - S kala or Plasma Chantel Hopkins FULL SERVICE SUPERVISOR.DESIGNATED BROKER Work Phone: Nasal Screen MRSA/MSSA Dr. Oralia Mora Work Phone: SARS-CoV-2 & FLU Ant igen (Rapid) Total prosthetic rep lacement of knee joint using cement DR GIORGIO HARVEY MD Comment on above: bilateral Plan of Treatment Date Care Activity Detail Author Start: 02-27-2026 Urine microalbumin profile DTaP,Tdap,Td Vaccine (3 - Td or Tdap) [facility] Start: 10-06-2024 Screening mammography SCRN MAMM (CAD)W/CRISTINA BILAT [facility] Start: 10-02-2024 Covid-19 Vaccine () Covid-19 Vaccine () [facility] Start: 07-30-2024 Patient discharge [facility] Start: 07-29-2024 Notification of physician [facility] Start: 07-29-2024 Patient education [facility] Start: 07-29-2024 Provision of activity privileges [facility] Start: 07-29-2024 Pulse taking [facility] Start: 07-29-2024 Taking patient vital signs [facility] Start: 07-29-2024 Wound care [facility] Start: 07-29-2024 [facility] Start: 07-29-2024 Referral to honing machine set up operator [facility] Start: 07-28-2024 Assessment of risk of venous thromboembolism [facility] Start: 07-28-2024 Incentive spirometry [facility] Start: 07-28-2024 Insertion of catheter into peripheral vein [facility] Start: 07-28-2024 Introduction of urinary catheter [facility] Start: 07-28-2024 Measuring intake and output [facility] Start: 07-28-2024 Oxygen therapy [facility] Start: 07-28-2024 Providing care according to standard [facility] Start: 07-28-2024 Provision of activity privileges [facility] Start: 07-28-2024 Referral to service [facility] Start: 07-28-2024 [facility] Start: 07-28-2024 Respiratory pathogens DNA and RNA panel - Respiratory specimen by MICAELA with probe detection [facility] Start: 07-28-2024 Verification routine [facility] Start: 07-28-2024 Admission procedure [facility] Start: 07-28-2024 Hospital admission, emergency, from emergency room, medical nature [facility] Start: 07-28-2024 [facility] Start: 07-28-2024 End: 07-28-2024 [facility] Start: 07-28-2024 Bacteria identified in Blood by Culture Blood Culture [facility] Start: 07-28-2024 Bacteria identified in Urine by Culture Urine Culture [facility] Start: 07-26-2024 End: 07-26-2024 [facility] Start: 07-26-2024 Emergency dept visit high severity&threat funcj EMERGENCY DEPT VISIT HI MDM [facility] Start: 05-25-2024 Advance Directive Discussion Advance Directive Discussion [facility] Start: 12-09-2023 Shingrix Vaccine (3 of 3) Shingrix Vaccine (3 of 3) [facility] Start: 08-24-2023 Screening for malignant neoplasm of colon [facility] Start: 12-30-2021 Anesth open/surg arthrs total knee arthroplasty ANESTH KNEE ARTHROPLASTY [facility] Work Phone: Start: 12-30-2021 Arthrp kne condyle&platu medial&lat compartments TOTAL KNEE ARTHROPLASTY [facility] Work Phone: Start: 12-30-2021 Injection aa&/strd other peripheral nerve/branch NJX AA&/STRD OTHER PN/BRANCH [facility] Work Phone: Start: 12-30-2021 Radiologic examination of knee Knee 1 or 2 Views [facility] Work Phone: Start: 12-30-2021 XR Knee 1 or 2 Views [facility] Work Phone: Start: 12-30-2021 Application of ice collar, cap or bag [facility] Work Phone: Start: 12-30-2021 Exercises [facility] Work Phone: Start: 12-30-2021 Incentive spirometry [facility] Work Phone: Start: 12-30-2021 Neurovascular assessment [facility] Work Phone: Start: 12-30-2021 Patient discharge [facility] Work Phone: Start: 12-30-2021 Patient education [facility] Work Phone: Start: 12-30-2021 Provision of activity privileges [facility] Work Phone: Start: 12-30-2021 Referral to service [facility] Work Phone: Start: 12-30-2021 Vital signs measurements [facility] Work Phone: Start: 12-30-2021 Wound care [facility] Work Phone: Start: 12-30-2021 [facility] Work Phone: Start: 2021 Screening for osteoporosis Bone Density Screening [facility] Start: 03-19-2019 Screening for malignant neoplasm of breast Mammogram Screening [facility] Start: 05-25-2014 Lipid panel Lipid Screening [facility] Start: 12-31-2009 Diabetes Screening Diabetes Screening [facility] Start: 2001 Screening for malignant neoplasm of colon [facility] Start: 1974 Anxiety Screening Anxiety Screening [facility] Start: 1974 Depression Screening Depression Screening [facility] Start: 1974 Hepatitis C screening Hepatitis C Screening [facility] Magnesium measurement [facility] Patient Education [facility] Work Phone: Patient referral [facility] Work Phone: Troponin T.cardiac [Mass/volume] in Serum or Plasma by High sensitivity method [facility] Urine culture [facility] Immunizations Immunization Date Immunization Notes Care Provider Rimma whitaker 12-30-2013 tetanus toxoid, redu tony diphtheria toxoid, and acellular pertussis vaccine, adsorbed [facility] 10-27-2013 Pneumococcal Vaccine [facility] Work Phone: 10-27-2013 pneumococcal vaccine , unspecified formulation [facility] 04-18-2013 Influenza virus vaccine [facility] Payers Date Payer Category Payer Private Health Insurance [id number] 2024 Unknown [id number] 2024 Self-pay [id number] 2024 Medicare (Managed Care) [facility] [employer] O [id number] 2024 Medicare [id number] 2004 Unknown [id number] 1955 Unknown [id number] 1955 Unknown [id number]. [id number] Medicare [id number] Medicare ANTHEM MEDICARE PPO [id number] Unknown [id number] Unknown [id number]. 2.462 Unknown [id number]. 2.462 Unknown [id number]. 2.462 Unknown [id number]. 2.462 Unknown [id number]. 2.462 Unknown [id number]. 2.462 Unknown [id number]. 2.462 Unknown [id number]. 2.462 Unknown [id number]. 2.462 Unknown [id number] 2.462 Unknown [id number]. 2.462 Social History Date Type Detail Facility Start: 12-03-2021 End: 08-23-2022 Tobacco smoking status [facility] Unknown if ever smoked [facility] Start: 1955 Sex Assigned At Female [facility] Start: 08-13-2011 End: 11-18-2024 Tobacco smoking status NYIS Ex-smoker [facility] End: 08-02-2010 History of tobacco use Current smoker [facility] End: 08-02-2010 History of tobacco use Cigarette Smoker [facility] Start: 08-13-2011 Tobacco use and exposure Smoke less tobacco non-user [facility] Start: 03-19-2018 Alcoholic beverage intake Current non-drinker of alcohol (finding) [facility] Start: 03-19-2018 End: 04-29-2020 History of Social function [facility] Start: 03-19-2018 End: 04-29-2020 Tobacco use panel [facility] National Score (1-10 0), lower number is lower risk Not on file [facility] Start: 1955 Sex assigned at Not on file [facility] Start: 07-28-2024 End: 11-09-2024 Sex Female (finding) [facility] Sexual Orientation Cassandra Galicia Medical Equipment Procedure Code Equipment Code Equipment Origin al Text Equipment Identifier Dates ([id number]) Metal-backed pat steven prosthesis [id number] FDA Start: 12-30-2021 ([id number]) Coated knee femu r prosthesis ()[id number] FDA Start: 12-30-2021 ([id number]) Coated knee tibi a prosthesis [id number] FDA Start: 12-30-2021 ([id number]) Tibial insert [id number] FDA Start: 12-30-2021 Goals Date Patient Goal Desired Activity /State Functional Status Date Assessment Result Facility 07-30-2024 Functional status Chair [facility] Work Phone: 02-13-2014 Are you deaf, or do you have serious difficulty hearing No 02/13/2014 1:52 PM Dania Loera Ma No [facility] 02-13-2014 Are you blind, or do you have serious difficulty seeing, even when wearing glasses No 02/13/2014 1:52 PM Dania Loera Ma No [facility] 02-13-2014 Do you have serious difficulty walking or climbing stairs No 02/13/2014 1:52 PM Dania Loera Ma [facility] 02-13-2014 Do you have difficul ty dressing or bathing No 02/13/2014 1:52 PM Dania Loera Ma [facility] 02-13-2014 Because of a physica l, mental, or emotional condition, do you have difficulty doing errands alone such as visiting a physician's office or shopping No 02/13/2014 1:52 PM EDT Dania Israel Ma No [facility] Mental Status Date Assessment Result Facility 07-30-2024 Cognitive function Voice/Name [facility] Work Phone: 07-28-2024 Cognitive function Level Of Cons ciousness Awake;Alert;Appropriate;Fol lows Commands [facility] Work Phone: 07-26-2024 Cognitive function Voice/Name [facility] Work Phone: 08-23-2022 Cognitive function Level Of Cons ciousness Awake;Alert;Appropriate;Fol lows Commands [facility] Work Phone: 12-30-2021 Cognitive function Voice/Name [facility] Work Phone: 02-13-2014 Because of a physica l, mental, or emotional condition, do you have serious difficulty concentrating, remembering, or making decisions No 02/13/2014 1:52 PM EDT Dania Israel Ma No [facility] Clinical Notes 07-26-2024 to 11-21-2024 Note Date & Type Note Facility 11-21-2024 Evaluation + Plan note Extrac larry from: Title:Clinical Document Author:GIORGIO HARVEY Date:11/21/24 [place] ADMISSION HISTORY AN D PHYSICIAL CHIEF COMPLAINT: HISTORY OF PRESENT ILLNESS: REVIEW OF SYSTEMS: ACTIVE PROBLEMS: (2) Atrial fibrillation (59080469) Hypothyroidism (93026757) MEDICATIONS: Active Inpt Meds: None Active PRN Meds: None One Time Meds: None Active IV Meds: Lactated Ringers Infusion 1,000 mL (LR 1,000 mL) Start: 11/21/24 10:03:00 EDT, Rate: 50 mL/hr, 11/21/24 10:03:00 EDT ALLERGIES: (1) NKA FAMILY HISTORY: SOCIAL HISTORY: PHYSICAL EXAM: VITALS: VyflcsZyigCIXqgkeAWKyB1WXL0KpwaBs(kg) 11/21 10:1036.1--187918--32/88989.0 24 Hr Tmax: 36.1 at 11/21 10:10 36 Hr Tmax: 36.1 at 11/21 10:10 Vital Signs are the last 5 in the past 48 hours. Weights display the last 5 within 7 days. Initial Wt: 11/21 138.0 kg 304 lb Current Wt: 11/21 138.0 kg 304 lb GENERAL: HEENT: CARDIOVASCULAR: RESPIRATORY: ABDOMEN: EXREMETIES: NEUROLOGICAL: PSYCHIATRIC: LABS: No 36hr Lab Data DIAGNOSTICS: IMPRESSION: PLAN: History and Physical Update I have examined the patient; reviewed the H&P and there are no changes to the H&P unless noted below. [facility] 06-30-2025 Hospital Discharge instructions Patient Education 11/21/2024 11:00:11 Nausea and Vomiting, Adult Nausea and Vomiting, Adult Nausea is the feeling that you have an upset stomach or that you are about to vomit. Vomiting is when stomach contents are thrown up and out of the mouth as a result of nausea. Vomiting can make you feel weak and cause you to become dehydrated. Dehydration can make you feel tired and thirsty, cause you to have a dry mouth, and decrease how often you urinate. Older adults and people with other diseases or a weak disease-fighting system (immune system) are at higher risk for dehydration. It is important to treat your nausea and vomiting as told by your health care provider. Follow these instructions at home: Watch your symptoms for any changes. Tell your health care provider about them. Follow these instructions to care for yourself at home. Eating and drinking Take an oral rehydration solution (ORS). This is a drink that is sold at pharmacies and retail stores. Drink clear fluids slowly and in small amounts as you are able. Clear fluids include water, ice chips, low-calorie sports drinks, and fruit juice that has water added (diluted fruit juice). Eat bland, mkzy-pk-byaqym foods in small amounts as you are able. These foods include bananas, applesauce, rice, lean meats, toast, and crackers. Avoid fluids that contain a lot of sugar or caffeine, such as energy drinks, sports drinks, and soda. Avoid alcohol. Avoid spicy or fatty foods. General instructions Take lmve-qvk-hdghfak and prescription medicines only as told by your health care provider. Drink enough fluid to keep your urine pale yellow. Wash your hands often using soap and water. If soap and water are not available, use hand office engineer. Make sure that all people in your household wash their hands well and often. Rest at home while you recover. Watch your condition for any changes. Breathe slowly and deeply when you feel nauseated. Keep all follow-up visits as told by your health care provider. This is important. Contact a health care provider if: Your symptoms get worse. You have new symptoms. You have a fever. You cannot drink fluids without vomiting. Your nausea does not go away after 2 days. You feel light-headed or dizzy. You have a headache. You have muscle cramps. You have a rash. You have pain while urinating. Get help right away if: You have pain in your chest, neck, arm, or jaw. You feel extremely weak or you faint. You have persistent vomiting. You have vomit that is bright red or looks like black coffee grounds. You have bloody or black stools or stools that look like tar. You have a severe headache, a stiff neck, or both. You have severe pain, cramping, or bloating in your abdomen. You have difficulty breathing, or you are breathing very quickly. Your heart is beating very quickly. Your skin feels cold and clammy. You feel confused. You have signs of dehydration, such as: ?Dark urine, very little urine, or no urine. ?Cracked lips. ?Dry mouth. ?Sunken eyes. ?Sleepiness. ?Weakness. These symptoms may represent a serious problem that is an emergency. Do not wait to see if the symptoms will go away. Get medical help right away. Call your local emergency services (911 in the [place] Do not drive yourself to the hospital. Summary Nausea is the feeling that you have an upset stomach or that you are about to vomit. As nausea getsworse, it can lead to vomiting. Vomiting can make you feel weak and cause you to become dehydrated. Follow instructions from your health care provider about eating and drinking to prevent dehydration. Take owgc-aba-eiozvdo and prescription medicines only as told by your health care provider. Contact your health care provider if your symptoms get worse, or you have new symptoms. Keep all follow-up visits as told by your health care provider. This is important. This information is not intended to replace advice given to you by your health care provider. Make sure you discuss any questions you have with your health care provider. Document Released: 05/11/2006 Document Revised: 09/02/2019 Document Reviewed: 10/19/2018 [employer] Patient Education 2020 [employer]. 11/21/2024 11:00:05 Moderate Conscious Sedation, Adult, Care After Moderate Conscious Sedation, Adult, Care After These instructions provide you with information about caring for yourself after your procedure. Your health care provider may also give you more specific instructions. Your treatment has been plannedaccording to current medical practices, but problems sometimes occur. Call your health care provider if you have any problems or questions after your procedure. What can I expect after the procedure? After your procedure, it is common: To feel sleepy for several hours. To feel clumsy and have poor balance for several hours. To have poor judgment for several hours. To vomit if you eat too soon. Follow these instructions at home: For at least 24 hours after the procedure: Do not: ?Participate in activities where you could fall or become injured. ?Drive. ?Use heavy machinery. ?Drink alcohol. ?Take sleeping pills or medicines that cause drowsiness. ?Make important decisions or sign legal documents. ?Take care of children on your own. Rest. Eating and drinking Follow the diet recommended by your health care provider. If you vomit: ?Drink water, juice, or soup when you can drink without vomiting. ?Make sure you have little or no nausea before eating solid foods. General instructions Have a responsible adult stay with you until you are awake and alert. Take miuc-ffn-msxwzuc and prescription medicines only as told by your health care provider. If you smoke, do not smoke without supervision. Keep all follow-up visits as told by your health care provider. This is important. Contact a health care provider if: You keep feeling nauseous or you keep vomiting. You feel light-headed. You develop a rash. You have a fever. Get help right away if: You have trouble breathing. This information is not intended to replace advice given to you by your health care provider. Make sure you discuss any questions you have with your health care provider. Document Released: 03/01/2014 Document Revised: 04/23/2018 Document Reviewed: 08/30/2016 [employer] Patient Education 2020 [employer]. 11/21/2024 10:59:59 Colonoscopy, Adult, Care After Colonoscopy, Adult, Care After This sheet gives you information about how to care for yourself after your procedure. Your health care provider may also give you more specific instructions. If you have problems or questions, contact your health care provider. What can I expect after the procedure? After the procedure, it is common to have: A small amount of blood in your stool for 24 hours after the procedure. Some gas. Mild abdominal cramping or bloating. Follow these instructions at home: General instructions For the first 24 hours after the procedure: ?Do not drive or use machinery. ?Do not sign important documents. ?Do not drink alcohol. ?Do your regular daily activities at a slower pace than normal. ?Eat soft, prmb-ql-cpofse foods. Take nofz-ckf-tuvbnkw or prescription medicines only as told by your health care provider. Relieving cramping and bloating Try walking around when you have cramps or feel bloated. Apply heat to your abdomen as told by your health care provider. Use a heat source that your healthcare provider recommends, such as a moist heat pack or a heating pad. ?Place a towel between your skin and the heat source. ?Leave the heat on for 20 30 minutes. ?Remove the heat if your skin turns bright red. This is especially important if you are unable to feel pain, heat, or cold. You may have a greater risk of getting burned. Eating and drinking Drink enough fluid to keep your urine pale yellow. Resume your normal diet as instructed by your health care provider. Avoid heavy or fried foods thatare hard to digest. Avoid drinking alcohol for as long as instructed by your health care provider. Contact a health care provider if: You have blood in your stool 2 3 days after the procedure. Get help right away if: You have more than a small spotting of blood in your stool. You pass large blood clots in your stool. Your abdomen is swollen. You have nausea or vomiting. You have a fever. You have increasing abdominal pain that is not relieved with medicine. Summary After the procedure, it is common to have a small amount of blood in your stool. You may also have mild abdominal cramping and bloating. For the first 24 hours after the procedure, do not drive or use machinery, sign important documents, or drink alcohol. Contact your health care provider if you have a lot of blood in your stool, nausea or vomiting, a fever, or increased abdominal pain. This information is not intended to replace advice given to you by your health care provider. Make sure you discuss any questions you have with your health care provider. Document Released: 12/23/2004 Document Revised: 03/03/2018 Document Reviewed: 07/22/2016 [employer] Patient Education 2020 [employer]. Follow Up Care 11/09/2024 08:20:08 With:GIORGIO HARVEY MD Address: [address] [facility] [address] [place] [address] [phone] When: Unknown Comments:Follow-up as needed [facility] 06-30-2025 Note Discharge Instructions Thank you for allowing [facility] to assist you with your healthcare needs. The following is importantdischarge information regarding your hospital visit. Your Care Team HUGO MCKAY What to do next Follow Up Appointments Follow Up with GIORGIO HARVEY MD Where:[address] [facility] [address] [place] [address] [phone] Additional Information: Follow-up as needed The Following Activity and Diet Have Been Ordered for You Discharge Activity - Ordered -- NO activity restrictions, 11/21/24 10:56:00 EDT Discharge Diet - Ordered -- Follow the post-operative/post-procedure diet instructions provided by your physician's office.,11/21/24 10:56:00 EDT The Following Equipment Has Been Ordered for You Discharge Home Equipment Discharge Wound Care - Ordered -- Follow the post-operative/post-procedure wound care instructions provided by your physician's office., 11/21/24 10:56:00 EDT Medications Please ask your primary doctor or pharmacist before taking any other medication not listed, including over the counter drugs, herbal medications, vitamins and or supplements as they may interact withyour home medications. What How Much When Instructions Last Dose Unchanged apixaban (Eliquis 5 mg oral tablet) Unchanged atorvastatin (atorvastatin 20 mg oral tablet) 1 tab(s) by mouth Every day Unchanged benazepril (benazepril 10 mg oral tablet) 1 tab(s) by mouth Once a day Unchanged chlorthalidone (chlorthalidone 25 mg oral tablet) 1 tab(s) by mouth Once a day Unchanged levothyroxine (Synthroid 75 mcg (0.075 mg) oral tablet) 1 tab(s) by mouth Once a day before a meal Unchanged metoprolol (Metoprolol Succinate ER 50 mg oral TABLET extended release) 1 tab(s) by mouth Once a day Unchanged venlafaxine (venlafaxine 75 mg oral capsule, extended release) 1 cap by mouth Once a day Take with food Please take this list to your next doctor s visit. Bring all medications you take, including over the counter medications, herbals and other supplements with you to your doctor s visit. Patients and families are reminded to discard old lists and to update any records with all medication providers or retail pharmacies. Education Materials Nausea and Vomiting, Adult Nausea is the feeling that you have an upset stomach or that you are about to vomit. Vomiting is when stomach contents are thrown up and out of the mouth as a result of nausea. Vomiting can make you feel weak and cause you to become dehydrated. Dehydration can make you feel tired and thirsty, cause you to have a dry mouth, and decrease how often you urinate. Older adults and people with other diseases or a weak disease-fighting system (immune system) are at higher risk for dehydration. It is important to treat your nausea and vomiting as told by your health care provider. Follow these instructions at home: Watch your symptoms for any changes. Tell your health care provider about them. Follow these instructions to care for yourself at home. Eating and drinking Take an oral rehydration solution (ORS). This is a drink that is sold at pharmacies and retail stores. Drink clear fluids slowly and in small amounts as you are able. Clear fluids include water, ice chips, low-calorie sports drinks, and fruit juice that has water added (diluted fruit juice). Eat bland, euhi-lh-bewwjp foods in small amounts as you are able. These foods include bananas, applesauce, rice, lean meats, toast, and crackers. Avoid fluids that contain a lot of sugar or caffeine, such as energy drinks, sports drinks, and soda. Avoid alcohol. Avoid spicy or fatty foods. General instructions Take jqbj-ppy-rqmtinw and prescription medicines only as told by your health care provider. Drink enough fluid to keep your urine pale yellow. Wash your hands often using soap and water. If soap and water are not available, use hand office engineer. Make sure that all people in your household wash their hands well and often. Rest at home while you recover. Watch your condition for any changes. Breathe slowly and deeply when you feel nauseated. Keep all follow-up visits as told by your health care provider. This is important. Contact a health care provider if: Your symptoms get worse. You have new symptoms. You have a fever. You cannot drink fluids without vomiting. Your nausea does not go away after 2 days. You feel light-headed or dizzy. You have a headache. You have muscle cramps. You have a rash. You have pain while urinating. Get help right away if: You have pain in your chest, neck, arm, or jaw. You feel extremely weak or you faint. You have persistent vomiting. You have vomit that is bright red or looks like black coffee grounds. You have bloody or black stools or stools that look like tar. You have a severe headache, a stiff neck, or both. You have severe pain, cramping, or bloating in your abdomen. You have difficulty breathing, or you are breathing very quickly. Your heart is beating very quickly. Your skin feels cold and clammy. You feel confused. You have signs of dehydration, such as: ? Dark urine, very little urine, or no urine. ? Cracked lips. ? Dry mouth. ? Sunken eyes. ? Sleepiness. ? Weakness. These symptoms may represent a serious problem that is an emergency. Do not wait to see if the symptoms will go away. Get medical help right away. Call your local emergency services (911 in the [place] Do not drive yourself to the hospital. Summary Nausea is the feeling that you have an upset stomach or that you are about to vomit. As nausea getsworse, it can lead to vomiting. Vomiting can make you feel weak and cause you to become dehydrated. Follow instructions from your health care provider about eating and drinking to prevent dehydration. Take fyyh-zip-szqhawh and prescription medicines only as told by your health care provider. Contact your health care provider if your symptoms get worse, or you have new symptoms. Keep all follow-up visits as told by your health care provider. This is important. This information is not intended to replace advice given to you by your health care provider. Make sure you discuss any questions you have with your health care provider. Document Released: 05/11/2006 Document Revised: 09/02/2019 Document Reviewed: 10/19/2018 [employer] Patient Education DataPop Moderate Conscious Sedation, Adult, Care After These instructions provide you with information about caring for yourself after your procedure. Your health care provider may also give you more specific instructions. Your treatment has been plannedaccording to current medical practices, but problems sometimes occur. Call your health care provider if you have any problems or questions after your procedure. What can I expect after the procedure? After your procedure, it is common: To feel sleepy for several hours. To feel clumsy and have poor balance for several hours. To have poor judgment for several hours. To vomit if you eat too soon. Follow these instructions at home: For at least 24 hours after the procedure: Do not: ? Participate in activities where you could fall or become injured. ? Drive. ? Use heavy machinery. ? Drink alcohol. ? Take sleeping pills or medicines that cause drowsiness. ? Make important decisions or sign legal documents. ? Take care of children on your own. Rest. Eating and drinking Follow the diet recommended by your health care provider. If you vomit: ? Drink water, juice, or soup when you can drink without vomiting. ? Make sure you have little or no nausea before eating solid foods. General instructions Have a responsible adult stay with you until you are awake and alert. Take vkqk-npj-orkynfh and prescription medicines only as told by your health care provider. If you smoke, do not smoke without supervision. Keep all follow-up visits as told by your health care provider. This is important. Contact a health care provider if: You keep feeling nauseous or you keep vomiting. You feel light-headed. You develop a rash. You have a fever. Get help right away if: You have trouble breathing. This information is not intended to replace advice given to you by your health care provider. Make sure you discuss any questions you have with your health care provider. Document Released: 03/01/2014 Document Revised: 04/23/2018 Document Reviewed: 08/30/2016 [employer] Patient Education DataPop Colonoscopy, Adult, Care After This sheet gives you information about how to care for yourself after your procedure. Your health care provider may also give you more specific instructions. If you have problems or questions, contact your health care provider. What can I expect after the procedure? After the procedure, it is common to have: A small amount of blood in your stool for 24 hours after the procedure. Some gas. Mild abdominal cramping or bloating. Follow these instructions at home: General instructions For the first 24 hours after the procedure: ? Do not drive or use machinery. ? Do not sign important documents. ? Do not drink alcohol. ? Do your regular daily activities at a slower pace than normal. ? Eat soft, fyij-xr-zksbmj foods. Take bfrs-oqw-uitdxkb or prescription medicines only as told by your health care provider. Relieving cramping and bloating Try walking around when you have cramps or feel bloated. Apply heat to your abdomen as told by your health care provider. Use a heat source that your healthcare provider recommends, such as a moist heat pack or a heating pad. ? Place a towel between your skin and the heat source. ? Leave the heat on for 20 30 minutes. ? Remove the heat if your skin turns bright red. This is especially important if you are unable to feel pain, heat, or cold. You may have a greater risk of getting burned. Eating and drinking Drink enough fluid to keep your urine pale yellow. Resume your normal diet as instructed by your health care provider. Avoid heavy or fried foods thatare hard to digest. Avoid drinking alcohol for as long as instructed by your health care provider. Contact a health care provider if: You have blood in your stool 2 3 days after the procedure. Get help right away if: You have more than a small spotting of blood in your stool. You pass large blood clots in your stool. Your abdomen is swollen. You have nausea or vomiting. You have a fever. You have increasing abdominal pain that is not relieved with medicine. Summary After the procedure, it is common to have a small amount of blood in your stool. You may also have mild abdominal cramping and bloating. For the first 24 hours after the procedure, do not drive or use machinery, sign important documents, or drink alcohol. Contact your health care provider if you have a lot of blood in your stool, nausea or vomiting, a fever, or increased abdominal pain. This information is not intended to replace advice given to you by your health care provider. Make sure you discuss any questions you have with your health care provider. Document Released: 12/23/2004 Document Revised: 03/03/2018 Document Reviewed: 07/22/2016 Elsevier Patient Education 2020 [employer] Additional Information VACCINATE! IT SAVES LIVES! Members of the community who have not yet received the COVID-19 vaccine and would like to receive it can visit one of [facility] vaccine clinics. There are many vaccine clinic locations within the [facility]. For locations and available times, please visit https://gettheshot.coronavirus.[place].gov/. It is important to note that some COVID mobile vaccine clinics are held outdoors and may be canceled in rainy or stormy conditions. To learn more about pediatric vaccinations (ages 5-11), we invite you to visit the [employer] webpage. https://www.[employer].org/pages/5446-Slgxx-Wtywrrcshzo-Jaduozovhh-Ftlhu-Dee stions.htmlTo learn more about the COVID-19 vaccine, we invite you to visit the CDC website for a list of frequently asked questions.https://www.cdc.gov/coronavirus/2019-ncov/vaccines/faq.html [employer] Patient Portal Access Instructions: Stay connected with your healthcare team and access your personal medical information anytime with the [employer] Patient Portal. Please follow the directions below to create your [employer] account: 1.Access the email account you provided upon registration to the hospital/physician office.2.Look for an invitation email from [facility].3.Open the email and access the invitation link: AcceptInvitation to [employer].4.Fill in the required velázquez to create your account. To access your account, visit [email or web address]. Click the blue button labeled Access Patient Portal and then log in with the username and password that you created in the steps above. You will be able to view your test results, lab results, a summary of your visits, upcoming appointments and more. There is also a convenient messaging option where you can send secure messages to your p rovider. In addition, you will have the ability to download any documents or summaries to your computer and/or send the information securely to a physician. Remember that your healthcare information is confidential, so carefully consider who you will allowto register on the [facility] Patient Portal for access to your information. You can also access the [facility] on the [facility] wis[facility]. Simply click on Patient Portal and then log into your account. If you would like to receive a full copy of your medical records, please contact the [facility] Medical Records Department by calling [phone], Thursday through Thursday between 8 a.m. and 4:30 p.m. HOW TO SAFELY DISPOSE OF PRESCRIPTION MEDICATIONS Please use one of the following methods to safely dispose of your unused medications. 1.Use a drug disposal kit: the drug disposal pouch allows you to safely discard your old and unuseddrugs. Ask your nurse to give you one when you are discharged.2.Visit a local take-back location: Many local pharmacies and police departments have programs that collect old and unwanted prescriptiondrugs. Call your local pharmacy or go to http://Viddsee/4P8Fl9g to find one close to you.3.Make use of household items: Use cat litter or old coffee grounds to dispose medications if other options arenot available. Mix your drugs with these household products, seal them in an airtight container andthrow it into the garbage. Call [facility]: [phone] to be sure your drugs can be disposed of in this way. Some medicines may require a different approach.4.Never flush your medications down the toilet. IF YOU HAVE BEEN PRESCRIBED AN OPIOID FOR PAIN If you have been prescribed an opioid (such as hydrocodone, oxycodone or morphine), it is critical to understand the possible side effects and risks of opioid pain medications. Even when taken as directed, opioids can have several side effects including: Tolerance, meaning you might need to take more of a medication for the same pain relief. Nausea, vomiting and/or constipation. Sleepiness, dizziness, dry mouth, confusion, depression or itching. Physical dependence, meaning you have withdrawal symptoms when a medication is stopped, can develop within a few days. KNOW YOUR RESPONSIBILITIES It is important to know exactly how much and how often to take the opioid pain medications you are prescribed. Never take opioids in higher amounts or more often than prescribed. Do not combine opioids with alcohol or other drugs that cause drowsiness, such as benzodiazepines, also known as benzos, including diazepam and alprazolam, muscle relaxants or sleep aids. Never sell or share prescription opioids. This is illegal. Store opioids in a secure place and out of reach of others (including children, family, friends and visitors). The last page of this document has been signed and retained as a CHART COPY. Signatures Patient Education Materials Nausea and Vomiting, Adult Moderate Conscious Sedation, Adult, Care After Colonoscopy, Adult, Care After Medication Leaflets My discharge plan and instructions have been reviewed and explained to me and I,OLENA VALERA understand my current condition and have read and understand these discharge instructions. I have receiveda written copy of the plan/instructions. If I have questions, I am aware that I should contact my do ctor. Patient/Outpatient Scheduler Signature: Date/Time: Relationship to Patient: Witness Name/Signature: Date/Time: [facility]06-[facility]-2025 Note Date of Service November 21, 2024 Procedure Name Colonoscopy to the cecum with biopsy of a small polyp Consent Taken before procedure Indication Screening colonoscopy Location [facility] Pre-Procedure Exam Screening colonoscopy Procedural Sedation Anesthesia provided a MAC Technique The patient was brought to the Endo suite and placed left shoulder down. Colonoscope was passed into the rectum advanced up to the left colon there was a redundant left colon. Scope was advanced to the cecum and just above the cecum ileocecal valve was noted there was difficult to advance the scopepast the ileocecal valve due to the redundancy of the left colon. Back up the right colon there wasa small sessile polyp 2 mm or so this was removed with a cold biopsy forcep. In the transverse colon there were no obvious large polyps seen. Below the splenic flexure there were no large polyps noted. Retroflexion performed in the rectum revealed internal hemorrhoids the colon was decompressed thepatient tolerated the procedure. Post-Procedure Exam Colonoscopy with biopsy Findings Small polyp in the right colon Complications None apparent Total Time Approximately 25 minutes Assessment/Plan Orders: Lactated Ringers Infusion 1,000 mL(LR 1,000 mL), 1000 mL, Intravenous Bedrest, 11/21/24 10:56:00 EDT, Strict, continuous, Constant order, Lying on side until alert or asordered Bedrest, 11/21/24 10:56:00 EDT, Strict, continuous, Constant order, Lying on side until alert or asordered Call Parameters, 11/21/24 10:56:00 EDT, Notify for vomiting, severe pain, signs of bleeding, severeabdominal pain, distention or rigidity, Constant order Communication Order (scheduled), 11/21/24 10:03:00 EDT, Once, 11/21/24 10:03:00 EDT, Pathology Tissue Request Communication Order (scheduled), 11/21/24 10:03:00 EDT, Once, 11/21/24 10:03:00 EDT, Urine Test or waiver for women of child bearing age Communication Order (scheduled), 11/21/24 10:03:00 EDT, Once, 11/21/24 10:03:00 EDT, Fasting Blood Sugar priot to procedure of patient is diabetic Diet Order, 11/21/24 10:56:00 EDT, Start Meal: Next meal, Clear Liquid Diet, Post exam or after gagreflex returns if EGD, Constant Order, : No, per patient, : No Discharge, 11/21/24 10:03:00 EDT, Discharged to: Home, when able to ambulate and after being seen by physician Discharge Activity, NO activity restrictions, 11/21/24 10:56:00 EDT Discharge Diet, Follow the post-operative/post-procedure diet instructions provided by your physician's office., 11/21/24 10:56:00 EDT Discharge Wound Care, Follow the post-operative/post-procedure wound care instructions provided by your physician's office., 11/21/24 10:56:00 EDT Pathology Tissue Request, 11/21/24 10:49:00 EDT, Collected, Routine, Nurse Collect, AP Specimen, TISSUE, SEE CJART, GASTROESOPHAGEAL REFLUX DISEASE, SCREENING, SCREENING, [id number] Post Procedure Assessment, 11/21/24 10:56:00 EDT, Stop Date 11/21/24 10:56:00 EDT, [facility] in [facility] until Hernan Score of 12 or Preprocedure Sign Consent, 11/21/24 10:03:00 EDT, Once, For Colonoscopy Vital Signs, 11/21/24 10:56:00 EDT, q15min, 1 hour(s), 11/21/24 11:45:00 EDT Vital Signs, 11/21/24 10:56:00 EDT, q30min, 1 hour(s), 11/21/24 11:30:00 EDT Vital Signs PRN, 11/21/24 10:56:00 EDT, PRN order Follow Up/Recommendation Follow-up the biopsy of the polyp consider repeat colonoscopy in 7 years Digitally Signed by GIORGIO HARVEY MD on 11/21/2024 10:59 AM [facility]06-30-2025 Anesthesiology Consult note Patient: OLENA VALERA Age: 69 years Sex: Female : 1955 Associated Diagnoses: None Author: CHRIS BUENO APRN-CUSTOMER QUALITY ENGINEER Assessment Postanesthesia assessment Vitals: Vital signs from flowsheet : Vital Signs 11/21/2024 10:50 EDT Heart Rate Monitored 94 bpm bpm Respiratory Rate - Anes 30 br/min br/min Systolic Blood Pressure Non-Invasive 96 mmHg mmHg Diastolic Blood Pressure Non-Invasive 60 mmHg mmHg 11/21/2024 10:45 EDT Heart Rate Monitored 94 bpm bpm Respiratory Rate - Anes 37 br/min br/min Systolic Blood Pressure Non-Invasive 111 mmHg mmHg Diastolic Blood Pressure Non-Invasive 72 mmHg mmHg 11/21/2024 10:40 EDT Heart Rate Monitored 96 bpm bpm Respiratory Rate - Anes 33 br/min br/min Systolic Blood Pressure Non-Invasive 90 mmHg mmHg Diastolic Blood Pressure Non-Invasive 62 mmHg mmHg 11/21/2024 10:35 EDT Heart Rate Monitored 93 bpm bpm Respiratory Rate - Anes 24 br/min br/min Systolic Blood Pressure Non-Invasive 109 mmHg mmHg Diastolic Blood Pressure Non-Invasive 61 mmHg mmHg 11/21/2024 10:32 EDT Systolic Blood Pressure Non-Invasive 143 mmHg mmHg Diastolic Blood Pressure Non-Invasive 72 mmHg mmHg 11/21/2024 10:30 EDT Respiratory Rate - Anes 3 br/min br/min 11/21/2024 10:10 EDT Temperature Temporal Artery 36.1 DegC Peripheral Pulse Rate 98 bpm Respiratory Rate 16 br/min Systolic Blood Pressure Non-Invasive 145 mmHg HI Diastolic Blood Pressure Non-Invasive 87 mmHg , Measurements from flowsheet . Mental status: alert & oriented x 4. Respiratory function: respirations are non-labored. Respiratory support: none. CV function: Normal rate. Cardiovascular support: none. Pain. Nausea status: see nursing documentation of medications. Postoperative hydration status: within normal limits. Digitally Signed by CHRIS BUENO on 11/21/2024 10:53 AM [facility]06-30-2025 Anesthesiology Consult note Patient: OLENA VALERA Age: 69 years Sex: Female : 1955 Associated Diagnoses: None Author: CHRIS BUENO Preoperative Information Time of last solid food intake: 11/21/2024 00:00:00 Time of last clear liquid intake: 11/21/2024 08:30:00 Anesthesia history Patient's history: negative. Family's history: negative. Health Status Allergies: Allergic Reactions (Selected) NKA, Allergies (1) ActiveSeverityReaction NKANone Documented Current medications: (Selected) Inpatient Medications Ordered LR 1,000 mL: 50 mL/hr, Intravenous Documented Medications Documented Eliquis 5 mg oral tablet: 0 Refill(s) Metoprolol Succinate ER 50 mg oral TABLET extended release: 50 mg, 1 tab(s), Oral, qDay, 30 tab(s),0 Refill(s) Synthroid 75 mcg (0.075 mg) oral tablet: 75 mcg, 1 tab(s), Oral, qDayAC, 0 Refill(s) atorvastatin 20 mg oral tablet: 20 mg, 1 tab(s), Oral, Daily, 0 Refill(s) benazepril 10 mg oral tablet: 10 mg, 1 tab(s), Oral, qDay, 90 tab(s), 0 Refill(s) chlorthalidone 25 mg oral tablet: 25 mg, 1 tab(s), Oral, qDay, 30 tab(s), 0 Refill(s) venlafaxine 75 mg oral capsule, extended release: 75 mg, 1 cap(s), Oral, qDay, Take with food, 0 Refill(s), Medications (1) Active Scheduled: (0) Continuous: (1) Lactated Ringers Infusion 1,000 mL 1,000 mL, Intravenous, 50 mL/hr PRN: (0) Problem list: Active Problems (2) Atrial fibrillation Hypothyroidism Histories Past Medical History: No active or resolved past medical history items have been selected or recorded. Family History: Hypertension Sister Brother Cancer of colon Grandparent Procedure history: TKR (total knee replacement) using cement ([id number]). Comments: 11/18/2024 9:14 EDT - Olivia Dong RN bilateral Social History: Social & Psychosocial Habits Alcohol 11/21/2024 Use: Past Tobacco 11/21/2024 Tobacco Use: Former smoker, quit more Type: Cigarettes Stopped at age: 55 Years Physical Examination Vital Signs 11/21/2024 10:10 EDT Temperature Temporal Artery 36.1 DegC Peripheral Pulse Rate 98 bpm Respiratory Rate 16 br/min Systolic Blood Pressure Non-Invasive 145 mmHg HI Diastolic Blood Pressure Non-Invasive 87 mmHg Vital Signs (last 24 hrs) Last Charted Temp Wvwghyld65.1 DegC (NOV 21 10:10) SBPH 145 mmHg (NOV 21 10:10) DBP87 mmHg (NOV 21 10:10) BMI52.2 (NOV 21 10:10) Measurements from flowsheet : Measurements 11/21/2024 10:10 EDT Height 162.6 cm Admission Weight 138 kg Weight Method Stated [place] Body Weight 54.74 kg BSA Admission 2.34 Body Mass Index 52.2 kg/m2 Pain assessment: Pain Assessment 11/21/2024 10:10 EDT Primary Pain Intensity 0 Pain Scale Type 0-10 Pain scale . General: Alert and oriented. Airway: Normal temporomandibular joint mobility, Normal mouth, Normal neck range of motion. Mallampati classification: II (soft palate, fauces, uvula visible). Dentition Evaluation: Denies loose/chipped teeth. Respiratory: Respirations are non-labored. Cardiovascular: Normal rate. Neurologic: Alert, Oriented. Review / Management Results review: No qualifying data available , Lab results 11/21/2024 10:31 EDT SN - GCD - ASA Class 3 11/21/2024 10:31 EDT Ute History and Physical 11/21/2024 10:28 EDT SN - Proc - Anesthesia Type MAC SN - Proc - EBL 0 mL 11/21/2024 10:28 EDT SN - Proc - Actual Procedure COLONOSCOPY 11/21/2024 10:28 EDT SN - PP - Body Position Lateral Right Side-up Standard Intra-op 11/21/2024 10:28 EDT SN - GCD - Post-operative Diagnosis SCREENING SN - GCD - Case Level OPD Level 3 11/21/2024 10:27 EDT SN - Cul - Culture Type Tissue in Formalin SN - Cul - Kind Specimen 11/21/2024 10:27 EDT SN - CAt - Case Attendee SN - CAt - Case Attendee SN - CAt - Case Attendee SN - CAt - Case Attendee SN - CAt - Case Attendee SN - CAt - Case Attendee SN - CAt - Case Attendee SN - CAt - Case Attendee SN - CAt - Role Performed Primary Surgeon SN - CAt - Role Performed Equities Analyst 1 SN - CAt - Role Performed First Crusher SN - CAt - Role Performed CUSTOMER QUALITY ENGINEER 11/21/2024 10:17 EDT Allergies Yes Consent Form Signed Yes Patient Dressed In Hospital gown History & Physical On Chart Yes NPO Status Maintained Patient ID Band on and Verified Yes Implants Verified Yes Pacemaker/AICD Verified Yes Site Verified by Patient/Family Yes Last Fluid Intake 11/21/2024 8:30 Last Food Intake 11/19/2024 12:00 11/21/2024 10:16 EDT Hand Right 11/21/2024 22 gauge Peripheral IV Activity: Insert new site Peripheral IV Dressing Condition: Clean, Dry, Intact Peripheral IV Dressing Activity: Applied Peripheral IV Line Status/Patency: Flushes easily Peripheral IV Site Condition: No complications Peripheral IV Equipment: Extension set Peripheral IV Number of Attempts: 1 11/21/2024 10:10 EDT Designated Person #1 We May Share AMIE VALERA [phone] Designated Person #1 Relationship Spouse Height 162.6 cm Admission Weight 138 kg Weight Method Stated [place] Body Weight 54.74 kg BSA Admission 2.34 Body Mass Index 52.2 kg/m2 Temperature Temporal Artery 36.1 DegC Peripheral Pulse Rate 98 bpm Respiratory Rate 16 br/min Systolic Blood Pressure Non-Invasive 145 mmHg HI Diastolic Blood Pressure Non-Invasive 87 mmHg Primary Pain Intensity 0 Pain Scale Type 0-10 Pain scale Respirations Unlabored Respiratory Pattern Regular Oxygen Saturation 94 % Abdomen Description Non-distended, Symmetric Status No, per patient Skin Description Normal for ethnicity Skin Temperature Warm Skin Integrity Intact Characteristics of Speech Clear Level of Consciousness Alert Strength All Extremities Strong Tone All Extremities Normal Sensation All Extremities Intact Affect/Behavior Appropriate, Calm, Cooperative Orientation Oriented x 4 Sensory Deficits None Infectious Disease Symptoms Patient states no symptoms Infectious Disease Recent Exposure No Alcohol and Drug Use No Employee of Institutional Living No Health Care Employee No History of Exposure to TB No History of Positive Chest X-Ray for TB No History of Positive TB Skin Test No Homeless No Known Immunosuppression No Recent Immigrant No Resident of Institutional Living No Bloody Sputum No Fatigue No Fever No Loss of Appetite No Night Sweats No Persistent Cough > 3 Weeks No Weight Loss No Barriers to Learning None evident Teaching Method Explanation Preferred Spoken Language Congolese Preferred Written Language Congolese Patient's Current Physicians NELY Discharge To, Anticipated Home independently Activity Status ADL Awake, Resting Standard Safety ID band on, Call device within reach, Bed in low position, Wheels locked, Upper/Half-Length side-rails up, Phone within reach, personal items within reach, Visitor at bedside, Safety level maintained Prev Test Positive/Diagnosis w/COVID-19 No Current Quarantine/Isolated any Illness No Any Contact with Sick Animals/Birds No Traveled Anywhere in Last 30 Days No No Personal Devices, Patient Valuables Glasses Admission Note-Nursing Procedure/Therapy Intake . Assessment and Plan [place] [employer]hesi[employer] (ASA) physical status classification: Class III. Anesthetic Preoperative Plan Anesthetic technique: MAC. Informed consent: signed by patient. Digitally Signed by CHRIS BUENO on 11/21/2024 10:35 AM [facility]06-30-2025 Note [place] ADMISSION HISTORY AND PHYSICIAL CHIEF COMPLAINT: HISTORY OF PRESENT ILLNESS: REVIEW OF SYSTEMS: ACTIVE PROBLEMS: (2) Atrial fibrillation (55816721) Hypothyroidism (99287612) MEDICATIONS: Active Inpt Meds: None Active PRN Meds: None One Time Meds: None Active IV Meds: Lactated Ringers Infusion 1,000 mL (LR 1,000 mL) Start: 11/21/24 10:03:00 EDT, Rate: 50 mL/hr, 11/21/24 10:03:00 EDT ALLERGIES: (1) NKA FAMILY HISTORY: SOCIAL HISTORY: PHYSICAL EXAM: VITALS: [id number](kg) 11/21 10:1036.1--872517--98/14650.0 24 Hr Tmax: 36.1 at 11/21 10:10 36 Hr Tmax: 36.1 at 11/21 10:10 Vital Signs are the last 5 in the past 48 hours. Weights display the last 5 within 7 days. Initial Wt: 11/21 138.0 kg 304 lb Current Wt: 11/21 138.0 kg 304 lb GENERAL: HEENT: CARDIOVASCULAR: RESPIRATORY: ABDOMEN: EXREMETIES: NEUROLOGICAL: PSYCHIATRIC: LABS: No 36hr Lab Data DIAGNOSTICS: IMPRESSION: PLAN: History and Physical Update I have examined the patient; reviewed the H&P and there are no changes to the H&P unless noted below. Digitally Signed by GIROGIO HARVEY MD on 11/21/2024 10:31 AM [facility]03-08-2025 Progress note [facility] Medical Records Department [address] [place] [address] Progress Note - Cardiology 07/30/24 1047 MR#: [id number] Acct: [id number] Name: OLENA VALERA Rep #:[id number] : 1955 68 From: Ralph Sexton MD PCP: Dr. Hugo Mora MD Status:ADM I N Location: [place] [address] Subjective Subjective Sitting up in chair. Comfortable. Denies any complaints today. Reports feeling better. Objective Data Vital Signs: Vital Signs Temp Pulse Resp BP Pulse Ox O2 Del Method 98.0 F 70 14 132/68 H 94 Room Air 07/30/24 09:15 07/30/24 09:15 07/30/24 09:15 07/30/24 09:15 07/30/24 09:15 07/30/24 09:15 Oxygen Delivery Method Room Air Weight: 309 lb 1.409 oz Body Mass Index (BMI) 51.4 Intake & Output: Intake and Output for Last 24 Hours 07/28/24 07/29/24 07/30/24 23:59 23:59 23:59 Intake Total 2049 2500 / 2500 50 / 50 Balance 2049 2500 / 2500 50 / 50 Lab / Micro Data 07/29/24 04:48 07/29/24 04:48 Labs: Laboratory Results - last 24 hr 07/29/24 14:26: Activated Clotting Time 187 H Micro: Microbiology 07/28/24 18:10 Urine, Clean Catch Urine Culture - Final Streptococcus agalactiae (B) Rhythm Strip Rhythm Strip: Sinus Rhythm Cardiology Labs/Tests Rhythm: EKG: ECHO: Stress Test: Cardiac Cath: PCI: CT Surgery: Holter monitor: EPS: PPM: CXR: Chest CT Scan: Radiography Diagnostic Testing: Radiology Impression Echocardiogram 07/29/24 05:55 Interpretation Summary Mild concentric left ventricular hypertrophy. Mild posterior and inferior basal hypokinesis. Estimated LVEF 50%. Grade 1 diastolic dysfunction. The left atrium is severely enlarged. Ordering Physician: Yolanda Tucker Referring Physician: Lion Valentin Performed By: Ana Laura Andujar RDCS Physical Exam Narrative Morbidly obese. Heart sounds 1 and 2 noted. Chest clear to auscultation bilaterally. Alert orientedx 3. No ankle edema noted. Assessment & Plan Assessment/Plan (1) Dyspnea on exertion: PLAN: Resolved. Could have been because of paroxysms of atrial fibrillation with rapid ventricular response. Continue beta-blockers. (2) Coronary artery disease: PLAN: 60% mid LAD disease with FFR of 0.84. Continue to treat medically. On apixaban for atrial fibrillation. Beta-blockers. Atorvastatin. (3) Paroxysmal atrial fibrillation: PLAN: Patient apparently had atrial fibrillation diagnosed in her primary care physician's office. Started on apixaban. (4) Hypertension: PLAN: Lisinopril and metoprolol. (5) Super obesity: PLAN: Lose weight. PLAN: Plan May discharge home from a cardiology standpoint. Follow-up as outpatient. 07/30/24 1049 Cosigner Signature (if applicable): CC: ~ Signed [facility]03-08-2025 Discharge summary [facility] Medical Records Department [address] [place] [address] Instructions for Home/Discharge Instructions 07/30/24 1000 MR#: [id number] Acct: [id number] Name: OLENA VALERA Rep #:[id number] : 1955 68 From: rEnie Reed PCP: Dr. Hugo Mora MD Status:ADM I N Discharge Instructions Diet Discharge Diet: 2000 mg Sodium Diet DC O2, CPAP, BIPAP needs Home O2 Discharge instructions: No Dressing / Incision Discharge Activity: Return to Normal Activity Weight Bearing Status: Weight bearing as tolerated Dressing / Incision Call your doctor if you observe: Fever of 101 or Higher, Coldness, Increased Pain, Numbness or Tingling, Change in Color, Inability to urinate, Inability to have a bowel movement, Shortness of breath, Dizziness, Fainting spells, Swellingin the ankles, Chest pain, Prolonged hiccupping, Increased palpitations (irregular heartbeat) and Calf discomfort Follow Up Care When: IN 2 WEEKS Test Results: Test results from this visit will be discussed in further detail at your follow- up appointment, if applicable. Discharge Plan Admission Admit Date/Time: 07/28/24 19:30 Attending Provider: Ernie Ross Primary Care Provider: Hugo Mora Consulting Providers: Yolanda Tucker; Ralph Sexton; Mane Jhaveri Discharge Orders/Prescriptions Prescriptions: New Eliquis 5 mg Tablet 5 mg PO BID 30 Days Qty: 60 2RF amoxicillin 500 mg tablet 500 mg PO TID 5 Days Qty: 15 0RF metoprolol succinate 50 mg tablet extended release 24 hr 50 mg PO DAILY 30 Days Qty: 30 2RF Rx Instructions: Hold for heart less than 50 or systolic blood pressure less than 100 mmHg. nystatin 100,000 unit/gram ointment 1 applic topical BID 14 Days Qty: 30 1RF Rx Instructions: Under inframamillary fold of the skin Continued venlafaxine 75 MG capsule,extended release 24hr 75 mg PO DAILY Patient Comments: benazepril 10 MG tablet 10 mg PO DAILY Patient Comments: atorvastatin 20 mg tablet 20 mg PO QHS levothyroxine [Synthroid] 75 mcg tablet 75 mcg PO DAILY Held chlorthalidone 25 MG tablet 25 mg PO DAILY Hold Instructions: Hold for SBP less than 130 mmHg. If blood pressure goes high above 140 mmHg, canresume 12.5 mg daily. Patient Comments: Referrals / Follow Up: Donavan Borjas MD [Med Staff - Active Staff] - Within 1 Month Hugo Mora MD [Primary Care Provider] - Disposition Disposition (needs filled in before D/C Order can be placed): Home, Self Care 07/30/24 1033Pmike Ross MD CC: Dr. Mane Jhaveri MD; Dr. Ralph Sexton MD; Dr. Yolanda Tucker MD; Dr. Hugo Mora MD ~ Signed [facility]03-08-2025 [facility] Medical Records Department [address] [place] [address] Discharge Summary 07/30/24 1008 MR#: [id number] Acct: [id number] Name: OLENA VALERA Rep #: [id number] : 1955 68 From: Ernie Ross MD PCP: Dr. Hugo Mora MD Status:[facility] IN Location: [place] [address] Providers Date of Admission: 07/28/24 Date of Discharge: 07/30/24 Primary Care Physician: Dr. Hugo Mora MD Consultations 07/29/24 13:42 Consult: Cardiology Routine Consulting Provider: Ralph Sexton Reason for Consult: Positive stress test EMERGENT Consult: Yes MD Notified: Yes Date Notified: 07/29/24 Time Notified: 13:42 Method of Notification: Verbal Reason For Visit: UTI, NEW ONSET PAF Diagnosis Discharge Diagnosis (1) Abnormal cardiovascular stress test: Status: Acute Code(s): R94.39 - Abnormal result of other cardiovascular function study (2) Dyspnea on exertion: Status: Acute Code(s): R06.09 - Other forms of dyspnea Plan 68-year-old female with past medical history of diabetes, morbid obesity [BMI 51.4], recent diagnosis of paroxysmal atrial fibrillation, presented to the ED with concerns of dysuria and palpitations. Initial evaluation suggests uncomplicated urinary tract infection, sinus arrhythmia with multiple PACs. # Dyspnea on exertion/unstable angina due to coronary artery disease: -Noted to have reversible ischemia on stress test -Cardiac catheterization showed moderate LAD, mild RCA involvement -Patient will be treated medically for coronary artery disease -Was started aspirin 81 mg daily. 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 Patient had IV ceftriaxone while here. Discharged on 5 more days of amoxicillin to complete the course. -Hygiene precautions to prevent recurrent UTI were discussed #Paroxysmal atrial fibrillation #CHADVASC of 3 -Continue Eliquis -Will need Holter monitoring for at least 48 hours at the time of discharge -Continue metoprolol for now -Prescription given for Eliquis and metoprolol succinate and advised follow-up in [place] cardiology with Dr. Borjas #Hypertensive urgency -Blood pressure was 197/100 at the time of initial presentation -On chlorthalidone and benazepril at home 07/30: Blood pressure was controlled. Continue benazepril. Advised BP monitoring as blood pressure systolic 112 therefore hold chlorthalidone now but if SBP more than 140 mmHg, can resume lower dose 12.5 mg daily #Hypothyroidism -Continue home Synthroid 75 mcg daily -Monitor TSH -Outpatient follow-up as free T3-T4 are normal #Hyperglycemia -A1c levels: 6.2% #Hyponatremia -Monitor CMP #Dyslipidemia: Continue statin therapy #Anxiety depression: Continue home venlafaxine therapy #Morbid obesity: Outpatient evaluation for weight loss therapies, lifestyle changes #Prior tobacco use #DVT prophylaxis: Already on Eliquis. Prescription also given for nystatin for yeast infection in the inframammary region Discharge medication reconciliation done. Discharge follow-up instructions completed. Discharge process discussed with the patient and all questions were answered to patient's satisfaction. Follow with PCP in 1 to 2 weeks Total time spent, exact 35 minutes on discharge meds reconciliation, examination, coordination of care with nurses and ancillary staff, review of imaging and blood test and discussion with the patient on follow-up instructions. Medications at Discharge Home Medications benazepril 10 mg tablet 10 mg PO DAILY BP 12/31/13 chlorthalidone 25 mg tablet 25 mg PO DAILY high BP 12/31/13 Held on 07/30/24. Instructions: Hold for SBP less than 130 mmHg. If blood pressure goes high above 140 mmHg, can resume 12.5 mg daily. venlafaxine 75 mg capsule,extended release 24 hr 75 mg PO DAILY HOT FLASHES 12/31/13 atorvastatin 20 mg tablet 20 mg PO QHS high cholesterol 07/26/24 levothyroxine 75 mcg tablet (Synthroid) 75 mcg PO DAILY hypothyroid 07/28/24 amoxicillin 500 mg tablet 500 mg PO TID 5 days #15 tabs 07/30/24 apixaban 5 mg tablet (Eliquis) 5 mg PO BID 30 days #60 tabs 07/30/24 metoprolol succinate 50 mg tablet,extended release 24 hr 50 mg PO DAILY 1 month #30 tabs 07/30/24 nystatin 100,000 unit/gram topical ointment 1 applic topical BID 2 weeks #30 grams 07/30/24 Physical Exam Narrative Seen and examined. Patient feels much better. Denies chest pain or shortness of breath. Finding discussed with the patient and her and daughter near the bedside. Discharge medications also discussed. Heart rate and blood pressure in normal range. Physical exam General: Alert, Oriented x3, Cooperative. BMI 51.4 kg/m???, morbid obesity HEENT: Atraumatic, PERRLA, EOMI, Normocep (more content not included)...[facility]03-07-2025 Progress note Author Mane Jhaveri [facility] Note Date/Time July 29, 2024 4:37 pm [facility] Medical Records Department [address] [place] [address] Progress Note - Hospitalist 07/29/24 0804 MR#: [id number] Acct: [id number] Name: OLENA VALERA Rep #:[id number] : 1955 68 From: Mane Jhaveri MD PCP: Dr. Hugo Mora MD Status:ADM I N Location: [place] [address] Reason for Visit Reason for Visit: Diagnoses Urinary tract infection, site not specified (07/28/24) Palpitations (07/28/24) Subjective Subjective Patient seen postprocedure, no pain, feeling grateful about the test. Notes that metoprolol helps her heart rate significantly. Objective Data Objective Data Vital Signs: Vital Signs Temp Pulse Resp BP Pulse Ox O2 Del Method 98.2 F 86 16 126/68 H 96 Room Air 07/29/24 06:00 07/29/24 06:00 07/29/24 06:00 07/29/24 06:00 07/29/24 06:00 07/29/24 06:00 Oxygen Delivery Method Room Air Weight: 308 lb 13.882 oz Body Mass Index (BMI) 51.4 Intake & Output: Intake and Output for Last 24 Hours 07/27/24 07/28/24 07/29/24 23:59 23:59 23:59 Intake Total 2049 1500 / 1500 Balance 2049 1500 / 1500 Lab / Micro Data Attestation: I reviewed the patient's lab results. 07/29/24 04:48 07/29/24 04:48 Labs: Laboratory Results - last 24 hr 07/28/24 16:22: WBC 11.1 H, RBC 5.09, Hgb 13.2, Hct 41.0, MCV 80.6 L, MCH 25.9 L, MCHC 32.2, RDW Std Deviation 46.7 H, RDW Coeff of [place]kel 16.8 H, Plt Count 560 H,MPV 9.2, Immature Gran % (Auto) 0.400, Neut % (Auto) 75.6 H, Lymph % (Auto) 15.5L, [place] % (Auto) 7.7, Eos % (Auto) 0.4, Baso % (Auto) 0.4, Absolute Neuts (auto)8.4 H, Absolute Lymphs (auto) 1.72, Nucleated RBC % 0, PT 13.6, INR 1.0, APTT 28.5, Sodium 132 L, Potassium 3.9, Chloride 95 L, Carbon Dioxide 18.5 L, Anion Gap 18 H, BUN 17, Creatinine 0.97, Estim Creat Clear Calc 81.10, Est GFR (MDRD) Non-Af 64, BUN/Creatinine Ratio 17.8, Glucose 140 H, Calcium 10.3, Total Bilirubin 0.46, AST 32, ALT 39 H, Alkaline Phosphatase 107 H, Troponin T High Sens 17 H D, NT pro BNP II 93, Total Protein 8.9 H, Albumin 4.5, Globulin 4.3 H,Albumin/Globulin Ratio 1.0, TSH 7.340 H, Free T4 1.20, Free T3 pg/dL 2.6 07/28/24 16:41: Lactic Acid 2.2 H* 07/28/24 18:10: Urine Color Yellow, Urine Clarity Sl. Cloudy, Urine pH 6.0, Ur Specific [place] 1.020, Urine Protein 30 H, Urine Glucose (UA) Normal, Urine Ketones 5 H, Urine Occult Blood 25 H, Urine Nitrite Negative, Urine Bilirubin Negative, Urine Urobilinogen Normal, Ur Leukocyte Esterase 500 H, Urine RBC 5-10SEEN, Urine WBC 50-100 SEEN, Ur Squamous Epith Cells 0-5 SEEN, Amorphous Sediment 2+ URATE, Urine Bacteria 1+, Urine Mucus 0 SEEN 07/28/24 18:27: Troponin T Hi Sens 2 Hr 17 H 07/28/24 20:49: Magnesium 1.9, Troponin T Hi Sens 4Hr 15 H 07/29/24 04:48: WBC 6.9, RBC 4.08 L, Hgb 10.9 L, Hct 33.3 L, MCV 81.6, MCH 26.7 L, MCHC 32.7, RDW Std Deviation 48.2 H, RDW Coeff of Mykel 16.5 H, Plt Count 393, MPV 9.2, Immature Gran % (Auto) 0.400, Neut % (Auto) 65.1, Lymph % (Auto) 21.8, [place] % (Auto) 9.5, Eos % (Auto) 2.8, Baso % (Auto) 0.4, Absolute Neuts (auto) 4.5, Absolute Lymphs (auto) 1.50, Nucleated RBC % 0, Sodium 135, Potassium 3.4, Chloride 102, Carbon Dioxide 21.5, Anion Gap 12, BUN 13, Creatinine 0.66 L, Estim Creat Clear Calc 97.21, Est GFR (MDRD) Non-Af 96, BUN/Creatinine Ratio 19.7, Glucose 103 H, Hemoglobin A1c 6.2, Calcium 9.1, Total Bilirubin 0.34, AST 25, ALT 29, Alkaline Phosphatase 80, Total Protein 7.0, Albumin 3.8, Globulin 3.2, Albumin/Globulin Ratio 1.2, Triglycerides 160, Cholesterol 177, LDL Cholesterol, Calc 114, VLDL Cholesterol 32, HDL Cholesterol 31 L, Cholesterol/HDL Ratio 5.73 Micro: Microbiology 07/28/24 23:55 Mucosa - Nasopharyngeal Respiratory Panel (PCR) - Final 07/28/24 16:35 Mucosa - Nose SARS-CoV-2, Influenza & RSV (PCR) - Final Radiography Diagnostic Testing: Radiology Impression Chest X-Ray 07/28/24 16:50 IMPRESSION: No acute airspace abnormality. Reading Location: [place] Physical Exam Const alert, oriented x3 and no apparent distress HEENT head/scalp atraumatic Eyes PERRL Neck no lymphadenopathy Resp normal respiratory effort and no retractions Cardio regular rate and regular rhythm GI normal to inspection, nondistended, normoactive bowel sounds Extremity normal to inspection Neuro oriented x3 and CN's II-XII intact bilaterally Psych affect normal Assessment & Plan Assessment/Plan (1) Abnormal cardiovascular stress test: (2) Dyspnea on exertion: PLAN: Plan 68-year-old female with past medical history of diabetes, morbid obesity [BMI 51.4], recent diagnosis of paroxysmal atrial fibrillation, presented to the ED with concerns of dysuria and palpitations. Initial evaluation suggests uncomplicated urinary tract infection, sinus arrhythmia with multiple PACs. #Coronary artery disease #Dyspnea on exertion -Noted to have reversible ischemia on stress test -Cardiac catheterization showed moderate LAD, mild RCA involvement -Patient will be treated medically for coronary artery disease -Start aspirin 81 mg daily #UTI -Continue IV Rocephin -Follow-up on urine cultures -Hygiene precautions to prevent recurrent UTI were discussed #Paroxysmal atrial fibrillation #CHADVASC of 3 -Continue Eliquis -Will need Holter monitoring for at least 48 hours at the time of discharge -Continue metoprolol for now -Admitted to PCU for telemetry monitoring #Hypertensive urgency -Blood pressure was 197/100 at the time of initial presentation -On chlorthalidone and benazepril at home -Will continue benazepril inpatient and started on metoprolol #Hypothyroidism -Continue home Synthroid 75 mcg daily -Monitor TSH -Outpatient follow-up as free T3-T4 are normal #Hyperglycemia -A1c levels: 6.2% #Hyponatremia -Monitor CMP #Dyslipidemia: Continue statin therapy #Anxiety depression: Continue home venlafaxine therapy #Morbid obesity: Outpatient evaluation for weight loss therapies, lifestyle changes #Prior tobacco use #DVT prophylaxis: Already on Eliquis 07/29/24 1637 <Electronically signed by Mane Jhaveri MD> Cosigner Signature (if applicable): CC: ~ Signed [facility] Work Phone: [phone]) 689-507003-07-2025 Progress note [facility] Medical Records Department [address] [place] [address] Progress Note - Hospitalist 07/29/24 0804 MR#: [id number] Acct: [id number] Name: OLENA VALERA Rep #:[id number] : 1955 68 From: Mane Jhaveri MD PCP: Dr. Hugo Mora MD Status:ADM I N Location: [place] [address] Reason for Visit Reason for Visit: Diagnoses Urinary tract infection, site not specified (07/28/24) Palpitations (07/28/24) Subjective Subjective Patient seen postprocedure, no pain, feeling grateful about the test. Notes that metoprolol helps her heart rate significantly. Objective Data Objective Data Vital Signs: Vital Signs Temp Pulse Resp BP Pulse Ox O2 Del Method 98.2 F 86 16 126/68 H 96 Room Air 07/29/24 06:00 07/29/24 06:00 07/29/24 06:00 07/29/24 06:00 07/29/24 06:00 07/29/24 06:00 Oxygen Delivery Method Room Air Weight: 308 lb 13.882 oz Body Mass Index (BMI) 51.4 Intake & Output: Intake and Output for Last 24 Hours 07/27/24 07/28/24 07/29/24 23:59 23:59 23:59 Intake Total 2049 1500 / 1500 Balance 2049 1500 / 1500 Lab / Micro Data Attestation: I reviewed the patient's lab results. 07/29/24 04:48 07/29/24 04:48 Labs: Laboratory Results - last 24 hr 07/28/24 16:22: WBC 11.1 H, RBC 5.09, Hgb 13.2, Hct 41.0, MCV 80.6 L, MCH 25.9 L, MCHC 32.2, RDW Std Deviation 46.7 H, RDW Coeff of Mykel 16.8 H, Plt Count 560 H,MPV 9.2, Immature Gran % (Auto) 0.400, Neut % (Auto) 75.6 H, Lymph % (Auto) 15.5L, [place] % (Auto) 7.7, Eos % (Auto) 0.4, Baso % (Auto) 0.4, Absolute Neuts (auto)8.4 H, Absolute Lymphs (auto) 1.72, Nucleated RBC % 0, PT 13.6, INR 1.0, APTT 28.5, Sodium 132 L, Potassium 3.9, Chloride 95 L, Carbon Dioxide 18.5 L, Anion Gap 18 H, BUN 17, Creatinine 0.97, Estim Creat Clear Calc 81.10, Est GFR (MDRD) Non-Af 64, BUN/Creatinine Ratio 17.8, Glucose 140 H, Calcium 10.3, Total Bilirubin 0.46, AST 32, ALT 39 H, Alkaline Phosphatase 107 H, Troponin T High Sens 17 H D, NT pro BNP II 93, Total Protein 8.9 H, Albumin 4.5, Globulin 4.3 H,Albumin/Globulin Ratio 1.0, TSH 7.340 H, Free T4 1.20, Free T3 pg/dL 2.6 07/28/24 16:41: Lactic Acid 2.2 H* 07/28/24 18:10: Urine Color Yellow, Urine Clarity Sl. Cloudy, Urine pH 6.0, Ur Specific [place] 1.020, Urine Protein 30 H, Urine Glucose (UA) Normal, Urine Ketones 5 H, Urine Occult Blood 25 H, UrineNitrite Negative, Urine Bilirubin Negative, Urine Urobilinogen Normal, Ur Leukocyte Esterase 500 H,Urine RBC 5- 10SEEN, Urine WBC 50-100 SEEN, Ur Squamous Epith Cells 0-5 SEEN, Amorphous Sediment 2+ URATE, Urine Bacteria 1+, Urine Mucus 0 SEEN 07/28/24 18:27: Troponin T Hi Sens 2 Hr 17 H 07/28/24 20:49: Magnesium 1.9, Troponin T Hi Sens 4Hr 15 H 07/29/24 04:48: WBC 6.9, RBC 4.08 L, Hgb 10.9 L, Hct 33.3 L, MCV 81.6, MCH 26.7 L, MCHC 32.7, RDW Std Deviation 48.2 H, RDW Coeff of Mykel 16.5 H, Plt Count 393, MPV 9.2, Immature Gran % (Auto) 0.400, Neut % (Auto) 65.1, Lymph % (Auto) 21.8, [place] % (Auto) 9.5, Eos % (Auto) 2.8, Baso % (Auto) 0.4, Absolute Neuts (auto) 4.5, Absolute Lymphs (auto) 1.50, Nucleated RBC % 0, Sodium 135, Potassium 3.4, Chloride 102, Carbon Dioxide 21.5, Anion Gap 12, BUN 13, Creatinine 0.66 L, Estim Creat Clear Calc 97.21, Est GFR (MDRD) Non-Af 96, BUN/Creatinine Ratio 19.7, Glucose 103 H, Hemoglobin A1c 6.2, Calcium9.1, Total Bilirubin 0.34, AST 25, ALT 29, Alkaline Phosphatase 80, Total Protein 7.0, Albumin 3.8,Globulin 3.2, Albumin/Globulin Ratio 1.2, Triglycerides 160, Cholesterol 177, LDL Cholesterol, [id number], VLDL Cholesterol 32, HDL Cholesterol 31 L, Cholesterol/HDL Ratio 5.73 Micro: Microbiology 07/28/24 23:55 Mucosa - Nasopharyngeal Respiratory Panel (PCR) - Final 07/28/24 16:35 Mucosa - Nose SARS-CoV-2, Influenza & RSV (PCR) - Final Radiography Diagnostic Testing: Radiology Impression Chest X-Ray 07/28/24 16:50 IMPRESSION: No acute airspace abnormality. Reading [facility] Physical Exam Const alert, oriented x3 and no apparent distress HEENT head/scalp atraumatic Eyes PERRL Neck no lymphadenopathy Resp normal respiratory effort and no retractions Cardio regular rate and regular rhythm GI normal to inspection, nondistended, normoactive bowel sounds Extremity normal to inspection Neuro oriented x3 and CN's II-XII intact bilaterally Psych affect normal Assessment & Plan Assessment/Plan (1) Abnormal cardiovascular stress test: (2) Dyspnea on exertion: PLAN: Plan 68-year-old female with past medical history of diabetes, morbid obesity [BMI 51.4], recent diagnosis of paroxysmal atrial fibrillation, presented to the ED with concerns of dysuria and palpitations.Initial evaluation suggests uncomplicated urinary tract infection, sinus arrhythmia with multiple PACs. #Coronary artery disease #Dyspnea on exertion -Noted to have reversible ischemia on stress test -Cardiac catheterization showed moderate LAD, mild RCA involvement -Patient will be treated medically for coronary artery disease -Start aspirin 81 mg daily #UTI -Continue IV Rocephin -Follow-up on urine cultures -Hygiene precautions to prevent recurrent UTI were discussed #Paroxysmal atrial fibrillation #CHADVASC of 3 -Continue Eliquis -Will need Holter monitoring for at least 48 hours at the time of discharge -Continue metoprolol for now -Admitted to PCU for telemetry monitoring #Hypertensive urgency -Blood pressure was 197/100 at the time of initial presentation -On chlorthalidone and benazepril at home -Will continue benazepril inpatient and started on metoprolol #Hypothyroidism -Continue home Synthroid 75 mcg daily -Monitor TSH -Outpatient follow-up as free T3-T4 are normal #Hyperglycemia -A1c levels: 6.2% #Hyponatremia -Monitor CMP #Dyslipidemia: Continue statin therapy #Anxiety depression: Continue home venlafaxine therapy #Morbid obesity: Outpatient evaluation for weight loss therapies, lifestyle changes #Prior tobacco use #DVT prophylaxis: Already on Eliquis 07/29/24 1637 Cosigner Signature (if applicable): CC: ~ Signed [facility]03-07-2025 Consult note Author Ralph Sexton [facility] Note Date/Time July 29, 2024 12:5 5pm [facility] Medical Records Department [address] [place] [address] Consultation - Cardiology 07/29/24 1247 MR#: [id number] Acct: [id number] Name: OLENA VALERA Rep #:[id number] : 1955 68 From: Ralph Sexton MD PCP: Dr. Hugo Mora MD Status:ADM I N Location: [place] [address] Assessment & Plan Assessment/Plan (1) Dyspnea on exertion: PLAN: New onset dyspnea on exertion. According to the patient, she gets short of breath on mild exertion. Abnormal Lexiscan stress Myoview with ischemia reported. Dyspnea on exertion possibly her anginal equivalent. Discussed options with the patient. Starting medical therapy versus coronary angiography with possible revascularization discussed. Risks benefits explained. She understand these and wishes to proceed with invasive workup. (2) Abnormal cardiovascular stress test: PLAN: See #1 above. (3) Hypertension: PLAN: Lisinopril and metoprolol. (4) Super obesity: PLAN: Lose weight. HPI Consult Data Date of Consult: 07/29/24 HPI Narrative Reason for Consultation: Dyspnea on exertion, abnormal stress test HPI Narrative: 68-year-old female with past medical history significant for obesity, hypertension and hypothyroidism. She has recently been diagnosed as having paroxysmal atrial fibrillation by her primary care physician. For the past few days, patient has been complaining of shortness of breath. According to the patient, this is a new complaint for her. She presented to the emergency room on 07/26/2024 with these complaints. She had a negative workup done and discharged home. However her dyspnea on exertion persists. She apparently had an ECG done in the primary care physician's office that showed atrial fibrillation with rapid ventricular response. Patient denies chest pains. Denies orthopnea or PND. No ankle edema. No previous history of heart disease. [facility] Medical History (Updated 07/29/24 @ 12:[address] Ralph Sexton MD) Morbid obesity Anxiety and depression Wears glasses Arthritis High cholesterol Former smoker History of stress test Hypertension Home Medications ?Medication ?Instructions ?Recorded ?Last Taken ?Type benazepril 10 mg tablet 10 mg PO DAILY BP 12/31/13 0 07/28/24 09:30 History 10 mg chlorthalidone 25 mg tablet 25 mg PO DAILY high BP 02/0507/28/24 09:30 History 25 mg venlafaxine 75 mg capsule,extended 75 mg PO DAILY HOT FLASHES 12/31/13 07/28/24 09:30 History release 24 hr 75 mg atorvastatin 20 mg tablet 20 mg PO QHS high cholestero l 07/26/24 07/27/24 21:00 History 20 mg levothyroxine 75 mcg tablet 75 mcg PO DAILY hypothyroi d 07/28/24 07/28/24 08:00 History (Synthroid) 75 mcg Allergy/AdvReac Type Severity Reaction Status Date / Time No Known Allergies Allergy Verified 07/28/24 16:07 Family History (Updated 07/28/24 @ 21:[address] Yolanda Tucker MD) Mother Heart disease Hypertension Father , from massive [place] at 76 y/o. Heart disease CAD (coronary artery disease) Hypertension Myocardial infarction Sudden cardiac Surgical History Hx of colonoscopy History of total right knee replacement Social History (Updated 07/28/24 @ 21:[address] Yolanda Tucker MD) household members: spouse Smoking Status: Former smoker how long ago did patient quit smoking: Quit 30-35 yrs prior, light smoking only. alcohol intake: never substance use type: does not use Physical Exam Narrative Morbidly obese. Heart sounds 1 and 2 noted. Chest clear to auscultation bilaterally. Alert oriented x 3. No ankle edema noted. Risk Stratification Risk Stratification Applicable: No Objective Data Vital Signs: Vital Signs Temp Pulse Resp BP Pulse Ox O2 Del Method 97.8 F 87 18 152/77 H 95 Room Air 07/29/24 10:21 07/29/24 10:27 07/29/24 10:21 07/29/24 10:21 07/29/24 10:21 07/29/24 10:40 Oxygen Delivery Method Room Air Weight: 308 lb 13.882 oz Body Mass Index (BMI) 51.4 Intake & Output: Intake and Output for Last 24 Hours 07/27/24 07/28/24 07/29/24 23:59 23:59 23:59 Intake Total 2049 / 2049 1500 / 1500 Balance 2049 1500 / 1500 Lab / Micro Data 07/29/24 04:48 07/29/24 04:48 Labs: Laboratory Results - last 24 hr 07/28/24 16:22: WBC 11.1 H, RBC 5.09, Hgb 13.2, Hct 41.0, MCV 80.6 L, MCH 25.9 L, MCHC 32.2, RDW Std Deviation 46.7 H, RDW Coeff of Mykel 16.8 H, Plt Count 560 H,MPV 9.2, Immature Gran % (Auto) 0.400, Neut % (Auto) 75.6 H, Lymph % (Auto) 15.5L, [place] % (Auto) 7.7, Eos % (Auto) 0.4, Baso % (Auto) 0.4, Absolute Neuts (auto)8.4 H, Absolute Lymphs (auto) 1.72, Nucleated RBC % 0, PT 13.6, INR 1.0, APTT 28.5, Sodium 132 L, Potassium 3.9, Chloride 95 L, Carbon Dioxide 18.5 L, Anion Gap 18 H, BUN 17, Creatinine 0.97, Estim Creat Clear Calc 81.10, Est GFR (MDRD) Non-Af 64, BUN/Creatinine Ratio 17.8, Glucose 140 H, Calcium 10.3, Total Bilirubin 0.46, AST 32, ALT 39 H, Alkaline Phosphatase 107 H, Troponin T High Sens 17 H D, NT pro BNP II 93, Total Protein 8.9 H, Albumin 4.5, Globulin 4.3 H,Albumin/Globulin Ratio 1.0, TSH 7.340 H, Free T4 1.20, Free T3 pg/dL 2.6 07/28/24 16:41: Lactic Acid 2.2 H* 07/28/24 18:10: Urine Color Yellow, Urine Clarity Sl. Cloudy, Urine pH 6.0, Ur Specific [place] 1.020, Urine Protein 30 H, Urine Glucose (UA) Normal, Urine Ketones 5 H, Urine Occult Blood 25 H, Urine Nitrite Negative, Urine Bilirubin Negative, Urine Urobilinogen Normal, Ur Leukocyte Esterase 500 H, Urine RBC 5-10SEEN, Urine WBC 50-100 SEEN, Ur Squamous Epith Cells 0-5 SEEN, Amorphous Sediment 2+ URATE, Urine Bacteria 1+, Urine Mucus 0 SEEN 07/28/24 18:27: Troponin T Hi Sens 2 Hr 17 H 07/28/24 20:49: Magnesium 1.9, Troponin T Hi Sens 4Hr 15 H 07/29/24 04:48: WBC 6.9, RBC 4.08 L, Hgb 10.9 L, Hct 33.3 L, MCV 81.6, MCH 26.7 L, MCHC 32.7, RDW Std Deviation 48.2 H, RDW Coeff of Mykel 16.5 H, Plt Count 393, MPV 9.2, Immature Gran % (Auto) 0.400, Neut % (Auto) 65.1, Lymph % (Auto) 21.8, [place] % (Auto) 9.5, Eos % (Auto) 2.8, Baso % (Auto) 0.4, Absolute Neuts (auto) 4.5, Absolute Lymphs (auto) 1.50, Nucleated RBC % 0, Sodium 135, Potassium 3.4, Chloride 102, Carbon Dioxide 21.5, Anion Gap 12, BUN 13, Creatinine 0.66 L, Estim Creat Clear Calc 97.21, Est GFR (MDRD) Non-Af 96, BUN/Creatinine Ratio 19.7, Glucose 103 H, Hemoglobin A1c 6.2, Calcium 9.1, Total Bilirubin 0.34, AST 25, ALT 29, Alkaline Phosphatase 80, Total Protein 7.0, Albumin 3.8, Globulin 3.2, Albumin/Globulin Ratio 1.2, Triglycerides 160, Cholesterol 177, LDL Cholesterol, Calc 114, VLDL Cholesterol 32, HDL Cholesterol 31 L, Cholesterol/HDL Ratio 5.73 Micro: Microbiology 07/28/24 18:10 Urine, Clean Catch Urine Culture - Preliminary Streptococcus agalactiae (B) 07/28/24 23:55 Mucosa - Nasopharyngeal Respiratory Panel (PCR) - Final 07/28/24 16:35 Mucosa - Nose SARS-CoV-2, Influenza & RSV (PCR) - Final Rhythm Strip Rhythm Strip: Sinus Rhythm Cardiology Labs/Tests 07/28/24 16:22: WBC 11.1 H, RBC 5.09, Hgb 13.2, Hct 41.0, MCV 80.6 L, MCH 25.9 L, MCHC 32.2, Plt Count 560 H, MPV 9.2, Immature Gran % (Auto) 0.400, Neut % (Auto) 75.6 H, Lymph % (Auto) 15.5 L, [place] % (Auto) 7.7, Eos % (Auto) 0.4, Baso % (Auto) 0.4, Absolute Neuts (auto) 8.4 H, Nucleated RBC % 0, PT 13.6, INR 1.0, APTT 28.5, Sodium 132 L, Potassium 3.9, Chloride 95 L, Carbon Dioxide 18.5 L, Anion Gap 18 H, BUN 17, Creatinine 0.97, Est GFR (MDRD) Non-Af 64, BUN/CreatinineRatio 17.8, Glucose 140 H, Calcium 10.3, Total Bilirubin 0.46 07/28/24 16:41: Lactic Acid 2.2 H* 07/28/24 18:10: Urine Color Yellow, Urine Clarity Sl. Cloudy, Urine pH 6.0, Ur Specific [place] 1.020, Urine Protein 30 H, Urine Glucose (UA) Normal, Urine Ketones 5 H, Urine Occult Blood 25 H, Urine Nitrite Negative, Urine Bilirubin Negative, Urine Urobilinogen Normal, Ur Leukocyte Esterase 500 H, Urine RBC 5-10SEEN, Urine WBC 50-100 SEEN 07/28/24 20:49: Magnesium 1.9 07/29/24 04:48: WBC 6.9, RBC 4.08 L, Hgb 10.9 L, Hct 33.3 L, MCV 81.6, MCH 26.7 L, MCHC 32.7, Plt Count 393, MPV 9.2, Immature Gran % (Auto) 0.400, Neut % (Auto) 65.1, Lymph % (Auto) 21.8, [place] % (Auto) 9.5, Eos % (Auto) 2.8, Baso % (Auto) 0.4, Absolute Neuts (auto) 4.5, Nucleated RBC % 0, Sodium 135, Potassium 3.4, Chloride 102, Carbon Dioxide 21.5, Anion Gap 12, BUN 13, Creatinine 0.66 L,Est GFR (MDRD) Non-Af 96, BUN/Creatinine Ratio 19.7, Glucose 103 H, Hemoglobin A1c 6.2, Calcium 9.1, Total Bilirubin 0.34, Triglycerides 160, Cholesterol 177, VLDL Cholesterol 32, HDL Cholesterol 31 L, Cholesterol/HDL Ratio 5.73 Rhythm: EKG: ECG shows sinus rhythm with right bundle branch block. First-degree AV block. ECHO: Stress Test: Ischemia reported in LAD territory. Cardiac Cath: PCI: CT Surgery: Holter monitor: EPS: PPM: CXR: Chest CT Scan: Radiography Diagnostic Testing: Radiology Impression Chest X-Ray 07/28/24 16:50 IMPRESSION: No acute airspace abnormality. Reading Location: [facility] 07/29/24 7284 <Electronically signed by Ralph Sexton MD> Cosigner Signature (if applicable): CC: Dr. Hugo Mora MD; Dr. Lion Valentin DO~ Signed [facility] Work Phone: [phone] 864-652503-07-2025 Consult note [facility] Medical Records Department [address] [place] [address] Consultation - Cardiology 07/29/24 1247 MR#: [id number] Acct: [id number] Name: OLENA VALERA Rep #:[id number] : 1955 68 From: Ralph Sexton MD PCP: Dr. Hugo Mora MD Status:ADM I N Location: [place] [address] Assessment & Plan Assessment/Plan (1) Dyspnea on exertion: PLAN: New onset dyspnea on exertion. According to the patient, she gets short of breath on mild exertion. Abnormal Lexiscan stress Myoview with ischemia reported. Dyspnea on exertion possibly her anginal equivalent. Discussed options with the patient. Starting medical therapy versus coronary angiography with possible revascularization discussed. Risks benefits explained. She understand these and wishes to proceed with invasive workup. (2) Abnormal cardiovascular stress test: PLAN: See #1 above. (3) Hypertension: PLAN: Lisinopril and metoprolol. (4) Super obesity: PLAN: Lose weight. HPI Consult Data Date of Consult: 07/29/24 HPI Narrative Reason for Consultation: Dyspnea on exertion, abnormal stress test HPI Narrative: 68-year-old female with past medical history significant for obesity, hypertension and hypothyroidism. She has recently been diagnosed as having paroxysmal atrial fibrillation by her primary care physician. For the past few days, patient has been complaining of shortness of breath. According to the patient, this is a new complaint for her. She presented to the emergency room on 07/26/2024 with these complaints. She had a negative workup done and discharged home. However her dyspnea on exertion persists. She apparently had an ECG done in the primary care physician's office that showed atrial fibrillation with rapid ventricular response. Patient denies chest pains. Denies orthopnea or PND. No ankle edema. No previous history of heart disease. [facility] Medical History (Updated 07/29/24 @ 12:[address] Ralph Sexton MD) Morbid obesity Anxiety and depression Wears glasses Arthritis High cholesterol Former smoker History of stress test Hypertension Home Medications ?Medication ?Instructions ?Recorded ?Last Taken ?Type benazepril 10 mg tablet 10 mg PO DAILY BP 12/31/13 0 07/28/24 09:30 History 10 mg chlorthalidone 25 mg tablet 25 mg PO DAILY high BP 02/0507/28/24 09:30 History 25 mg venlafaxine 75 mg capsule,extended 75 mg PO DAILY HOT FLASHES 12/31/13 07/28/24 09:30 History release 24 hr 75 mg atorvastatin 20 mg tablet 20 mg PO QHS high cholestero l 07/26/24 07/27/24 21:00 History 20 mg levothyroxine 75 mcg tablet 75 mcg PO DAILY hypothyroi d 07/28/24 07/28/24 08:00 History (Synthroid) 75 mcg Allergy/AdvReac Type Severity Reaction Status Date / Time No Known Allergies Allergy Verified 07/28/24 16:07 Family History (Updated 07/28/24 @ 21:[address] Yolanda Tucker MD) Mother Heart disease Hypertension Father , from massive [place] at 76 y/o. Heart disease CAD (coronary artery disease) Hypertension Myocardial infarction Sudden cardiac Surgical History Hx of colonoscopy History of total right knee replacement Social History (Updated 07/28/24 @ 21:[address] Yolanda Tucker MD) household members: spouse Smoking Status: Former smoker how long ago did patient quit smoking: Quit 30-35 yrs prior, light smoking only. alcohol intake: never substance use type: does not use Physical Exam Narrative Morbidly obese. Heart sounds 1 and 2 noted. Chest clear to auscultation bilaterally. Alert orientedx 3. No ankle edema noted. Risk Stratification Risk Stratification Applicable: No Objective Data Vital Signs: Vital Signs Temp Pulse Resp BP Pulse Ox O2 Del Method 97.8 F 87 18 152/77 H 95 Room Air 07/29/24 10:21 07/29/24 10:27 07/29/24 10:21 07/29/24 10:21 07/29/24 10:21 07/29/24 10:40 Oxygen Delivery Method Room Air Weight: 308 lb 13.882 oz Body Mass Index (BMI) 51.4 Intake & Output: Intake and Output for Last 24 Hours 07/27/24 07/28/24 07/29/24 23:59 23:59 23:59 Intake Total 2049 1500 / 1500 Balance 2049 1500 / 1500 Lab / Micro Data 07/29/24 04:48 07/29/24 04:48 Labs: Laboratory Results - last 24 hr 07/28/24 16:22: WBC 11.1 H, RBC 5.09, Hgb 13.2, Hct 41.0, MCV 80.6 L, MCH 25.9 L, MCHC 32.2, RDW Std Deviation 46.7 H, RDW Coeff of [place]kel 16.8 H, Plt Count 560 H,MPV 9.2, Immature Gran % (Auto) 0.400, Neut % (Auto) 75.6 H, Lymph % (Auto) 15.5L, [place] % (Auto) 7.7, Eos % (Auto) 0.4, Baso % (Auto) 0.4, Absolute Neuts (auto)8.4 H, Absolute Lymphs (auto) 1.72, Nucleated RBC % 0, PT 13.6, INR 1.0, APTT 28.5, Sodium 132 L, Potassium 3.9, Chloride 95 L, Carbon Dioxide 18.5 L, Anion Gap 18 H, BUN 17, Creatinine 0.97, Estim Creat Clear Calc 81.10, Est GFR (MDRD) Non-Af 64, BUN/Creatinine Ratio 17.8, Glucose 140 H, Calcium 10.3, Total Bilirubin 0.46, AST 32, ALT 39 H, Alkaline Phosphatase 107 H, Troponin T High Sens 17 H D, NT pro BNP II 93, Total Protein 8.9 H, Albumin 4.5, Globulin 4.3 H,Albumin/Globulin Ratio 1.0, TSH 7.340 H, Free T4 1.20, Free T3 pg/dL 2.6 07/28/24 16:41: Lactic Acid 2.2 H* 07/28/24 18:10: Urine Color Yellow, Urine Clarity Sl. Cloudy, Urine pH 6.0, Ur Specific [place] 1.020, Urine Protein 30 H, Urine Glucose (UA) Normal, Urine Ketones 5 H, Urine Occult Blood 25 H, UrineNitrite Negative, Urine Bilirubin Negative, Urine Urobilinogen Normal, Ur Leukocyte Esterase 500 H,Urine RBC 5- 10SEEN, Urine WBC 50-100 SEEN, Ur Squamous Epith Cells 0-5 SEEN, Amorphous Sediment 2+ URATE, Urine Bacteria 1+, Urine Mucus 0 SEEN 07/28/24 18:27: Troponin T Hi Sens 2 Hr 17 H 07/28/24 20:49: Magnesium 1.9, Troponin T Hi Sens 4Hr 15 H 07/29/24 04:48: WBC 6.9, RBC 4.08 L, Hgb 10.9 L, Hct 33.3 L, MCV 81.6, MCH 26.7 L, MCHC 32.7, RDW Std Deviation 48.2 H, RDW Coeff of [place]kel 16.5 H, Plt Count 393, MPV 9.2, Immature Gran % (Auto) 0.400, Neut % (Auto) 65.1, Lymph % (Auto) 21.8, [place] % (Auto) 9.5, Eos % (Auto) 2.8, Baso % (Auto) 0.4, Absolute Neuts (auto) 4.5, Absolute Lymphs (auto) 1.50, Nucleated RBC % 0, Sodium 135, Potassium 3.4, Chloride 102, Carbon Dioxide 21.5, Anion Gap 12, BUN 13, Creatinine 0.66 L, Estim Creat Clear Calc 97.21, Est GFR (MDRD) Non-Af 96, BUN/Creatinine Ratio 19.7, Glucose 103 H, Hemoglobin A1c 6.2, Calcium9.1, Total Bilirubin 0.34, AST 25, ALT 29, Alkaline Phosphatase 80, Total Protein 7.0, Albumin 3.8,Globulin 3.2, Albumin/Globulin Ratio 1.2, Triglycerides 160, Cholesterol 177, LDL Cholesterol, [id number], VLDL Cholesterol 32, HDL Cholesterol 31 L, Cholesterol/HDL Ratio 5.73 Micro: Microbiology 07/28/24 18:10 Urine, Clean Catch Urine Culture - Preliminary Streptococcus agalactiae (B) 07/28/24 23:55 Mucosa - Nasopharyngeal Respiratory Panel (PCR) - Final 07/28/24 16:35 Mucosa - Nose SARS-CoV-2, Influenza & RSV (PCR) - Final Rhythm Strip Rhythm Strip: Sinus Rhythm Cardiology Labs/Tests 07/28/24 16:22: WBC 11.1 H, RBC 5.09, Hgb 13.2, Hct 41.0, MCV 80.6 L, MCH 25.9 L, MCHC 32.2, Plt Count 560 H, MPV 9.2, Immature Gran % (Auto) 0.400, Neut % (Auto) 75.6 H, Lymph % (Auto) 15.5 L, [place] % (Auto) 7.7, Eos % (Auto) 0.4, Baso % (Auto) 0.4, Absolute Neuts (auto) 8.4 H, Nucleated RBC % 0, PT 13.6, INR 1.0, APTT 28.5, Sodium 132 L, Potassium 3.9, Chloride 95 L, Carbon Dioxide 18.5 L, AnionGap 18 H, BUN 17, Creatinine 0.97, Est GFR (MDRD) Non-Af 64, BUN/CreatinineRatio 17.8, Glucose 140 H, Calcium 10.3, Total Bilirubin 0.46 07/28/24 16:41: Lactic Acid 2.2 H* 07/28/24 18:10: Urine Color Yellow, Urine Clarity Sl. Cloudy, Urine pH 6.0, Ur Specific [place] 1.020, Urine Protein 30 H, Urine Glucose (UA) Normal, Urine Ketones 5 H, Urine Occult Blood 25 H, UrineNitrite Negative, Urine Bilirubin Negative, Urine Urobilinogen Normal, Ur Leukocyte Esterase 500 H,Urine RBC 5- 10SEEN, Urine WBC 50-100 SEEN 07/28/24 20:49: Magnesium 1.9 07/29/24 04:48: WBC 6.9, RBC 4.08 L, Hgb 10.9 L, Hct 33.3 L, MCV 81.6, MCH 26.7 L, MCHC 32.7, Plt Count 393, MPV 9.2, Immature Gran % (Auto) 0.400, Neut % (Auto) 65.1, Lymph % (Auto) 21.8, [place] % (Auto) 9.5, Eos % (Auto) 2.8, Baso % (Auto) 0.4, Absolute Neuts (auto) 4.5, Nucleated RBC % 0, Sodium 135, Potassium 3.4, Chloride 102, Carbon Dioxide 21.5, Anion Gap 12, BUN 13, Creatinine 0.66 L,Est GFR (MDRD) Non-Af 96, BUN/Creatinine Ratio 19.7, Glucose 103 H, Hemoglobin A1c 6.2, Calcium 9.1, TotalBilirubin 0.34, Triglycerides 160, Cholesterol 177, VLDL Cholesterol 32, HDL Cholesterol 31 L, Cholesterol/HDL Ratio 5.73 Rhythm: EKG: ECG shows sinus rhythm with right bundle branch block. First-degree AV block. ECHO: Stress Test: Ischemia reported in LAD territory. Cardiac Cath: PCI: CT Surgery: Holter monitor: EPS: PPM: CXR: Chest CT Scan: Radiography Diagnostic Testing: Radiology Impression Chest X-Ray 07/28/24 16:50 IMPRESSION: No acute airspace abnormality. Reading Location: [facility] 07/29/24 1255 Cosigner Signature (if applicable): CC: Dr. Hugo Mora MD; Dr. Lion Valentin, DO~ Signed [facility]03-06-2025 History and physical note Author Yolanda Tucker [facility] Note Date/Time July 28, 2024 9:41 pm [facility] Medical Records Department [address] [place] [address] H&P Exam - Hospitalist 07/28/241922 MR#: [id number] Acct: [id number] Name: OLENA VALERA Rep #:[id number] : 1955 68 From: Yolanda Tucker MD PCP: Dr. Hugo Mora MD Status:ADM I N Location: [place] [address] HPI - General General Date of Admission: 07/28/24 Date of Service: 07/28/24 Chief Complaint: Palpitations, fatigue, malaise, nausea. HPI Narrative The patient is a 68 y/o F w/ PMHx: Morbid obesity, Anxiety and Depression, HTN, HLD, Hypothyroidism, Former tobacco use who presents to the [facility] ED on 07/28/24 with persistent racing heart sensation, dyspnea, sternal nonradiating chest pressure, fatigue, nausea and diaphoresis with history of recent diagnosis of new onset atrial fibrillation per EKG in the office with concern for recurrence referred to the ED to be cautious per PCP. Patient does report several day history of significant urinary frequency which is abnormal for her. Workup in the ED included T97.9, heart rate 135, BP 197/100, respiratory rate 26, 97% on room air with most recent repeat vitals heart rate 99, BP 158/74, respiratory rate 17, 93% room air, CBC with WBC 11.1, human 13.2, platelet 560 with left shift, unremarkable coags, CMP with sodium 132, chloride 95, carbon oxide 18.5, anion gap 18, BUN/creatinine 17/0.97, GFR 64, glucose 140, lactic acid mildly elevated 2.2, hepatic profile with AST/ALT 32/39, alk phos 107, troponin 17 withrepeat delta 17, BNP 93, TSH 7.340 however free T41.20 And free T32.6 For subclinical, urinalysis with cloudy appearing urine with spec gravity 1.020, protein 30, ketone 5, occult blood 25, negative nitrite, leukocyte esterase 500 with urine RBCs 5-10, urine WBCs 50-100 with 1+ urine bacteria, urine culture pending per ED, blood culture x 2 pending per ED, rapid SARS COVID/influenza/RSVPCR negative, chest x-ray with no acute cardiopulmonary findings, EKG more consistent with ST whereas EKG in the office with concern new onset PAF. In theED patient ministered Rocephin 1 g IV x 1. Upon evaluation of strips some concern for irregularity possibly sinus arrhythmia but wanted to be certain no block therefore reviewed with honing machine set up operator on-call Dr. Sexton who felt that this was more consistent with sinus arrhythmia with frequent PAC. He recommended that patient have at least echocardiogram and follow-up Holter monitor assessment at discharge. No formal consult request was placed. [facility] Medical History Morbid obesity Anxiety and depression Wears glasses Arthritis High cholesterol Former smoker History of stress test Hypertension Home Medications ?Medication ?Instructions ?Recorded ?Last Taken ?Type benazepril 10 mg tablet 10 mg PO DAILY BP 12/31/13 0 07/28/24 09:30 History 10 mg chlorthalidone 25 mg tablet 25 mg PO DAILY high BP 02/0507/28/24 09:30 History 25 mg venlafaxine 75 mg capsule,extended 75 mg PO DAILY HOT FLASHES 12/31/13 07/28/24 09:30 History release 24 hr 75 mg atorvastatin 20 mg tablet 20 mg PO QHS high cholestero l 07/26/24 07/27/24 21:00 History 20 mg levothyroxine 75 mcg tablet 75 mcg PO DAILY hypothyroi d 07/28/24 07/28/24 08:00 History (Synthroid) 75 mcg Allergy/AdvReac Type Severity Reaction Status Date / Time No Known Allergies Allergy Verified 07/28/24 16:07 Family History (Updated 07/28/24 @ 21:[address] Yolanda Tucker MD) Mother Heart disease Hypertension Father , from massive [place] at 76 y/o. Heart disease CAD (coronary artery disease) Hypertension Myocardial infarction Sudden cardiac Surgical History Hx of colonoscopy History of total right knee replacement Social History (Updated 07/28/24 @ 21:[address] Yolanda Tucker MD) household members: spouse Smoking Status: Former smoker how long ago did patient quit smoking: Quit 30-35 yrs prior, light smoking only. alcohol intake: never substance use type: does not use ROS ROS Narrative Admission Review of Systems: CONSTITUTIONAL: No weight loss, fever, chills, + weakness or fatigue. HEENT: Eyes: No visual loss, blurred vision, double vision or yellow sclerae. Ears, Nose, Throat: No hearing loss, sneezing, congestion, runny nose or sore throat. SKIN: No rash or itching, lesions, wounds. CARDIOVASCULAR: + Chest pressure, palpitations/racing heart, chronic edema. No orthopnea, syncopal events. RESPIRATORY: + Dyspnea. No cough or sputum, wheezing, hemoptysis. GASTROINTESTINAL: + Decreased appetite, nausea. No vomiting or diarrhea, abdominal pain, melena, BRBPR. GENITOURINARY: + Notable increased urinary frequency. No dysuria, urgency or retention. NEUROLOGICAL: No headache, dizziness, syncope, paralysis, ataxia, numbness or tingling in the extremities, focal weakness, change in bowel or bladder control,seizure. MUSCULOSKELETAL: + muscle, back pain, joint pain or stiffness. HEMATOLOGIC: No anemia. + Easy bleeding/bruising. LYMPHATICS: No enlarged nodes. No history of splenectomy. PSYCHIATRIC: + History of anxiety depression, primarily situational anxiety. ENDOCRINOLOGIC: + Diaphoresis. No cold or heat intolerance. No polyuria or polydipsia. ALLERGIES: No history of asthma, hives, eczema or rhinitis. Vital Signs Vital Signs Vital Signs: 07/28/24 16:08 07/28/24 16:09 07/28/24 16:35 Temperature 97.9 F Temperature Source Temporal Pulse Rate 135 H 145 H Respiratory Rate 26 H Respiratory Effort Blood Pressure 197/100 H Blood Pressure Mean 132 Pulse Ox 97 Oxygen Delivery Method Room Air Room Air 07/28/24 16:52 07/28/24 17:09 07/28/24 17:51 Temperature Temperature Source Pulse Rate 116 H Respiratory Rate 21 H Respiratory Effort Labored Blood Pressure 172/106 H Blood Pressure Mean 128 Pulse Ox 95 Oxygen Delivery Method Room Air 07/28/24 18:11 07/28/24 19:03 07/28/24 19:20 Temperature 98.2 F Temperature Source Pulse Rate 104 H 99 110 H Respiratory Rate 17 12 Respiratory Effort Blood Pressure 158/74 H 164/50 H Blood Pressure Mean 102 88 Pulse Ox 93 98 Oxygen Delivery Method Weight Weight: 314 lb 9.594 oz Body Mass Index (BMI) 52.3 Physical Exam Narrative Physical Examination: General: Awake, alert, oriented x 3 and cooperative, seated upright in ED bed, anxious appearing, no current chest pressure. Skin: Normal color, normal turgor, no icterus, no cyanosis. HEENT: AT/NC, EOMI, PERRLA, mildly dry MM, no carotid bruits, difficult to discern JVD given thickened neck. Lungs: Diminished, greater bases, mildly increased respiratory rate but no distress, no rales, ronchi or wheezing. Heart: Mildly tachycardic with regular rhythm; no gallop, rub audible. Abdomen: Soft, morbidly obese, NTTP, distant BS, difficult to discern distentionHSM given habitus. Extremities: No cyanosis, no clubbing, no marked distal edema but does have intermittent edema chronically per her report. Neurological: Patient awake, alert, oriented as noted cognitive function intact;pupils equally reactive to light and accommodation, cranial nerves gross normal,moving all 4 extremities, no focal deficits, strength moderately globally decreased. Psychiatric: Affect appears anxious, does have underlying anxiety/depressive history, situational anxiety. Results Lab / Micro Data 07/28/24 16:22 07/28/24 16:22 Labs: Laboratory Results - last 24 hr 07/28/24 16:22: WBC 11.1 H, RBC 5.09, Hgb 13.2, Hct 41.0, MCV 80.6 L, MCH 25.9 L, MCHC 32.2, RDW Std Deviation 46.7 H, RDW Coeff of Mykel 16.8 H, Plt Count 560 H,MPV 9.2, Immature Gran % (Auto) 0.400, Neut % (Auto) 75.6 H, Lymph % (Auto) 15.5L, [place] % (Auto) 7.7, Eos % (Auto) 0.4, Baso % (Auto) 0.4, Absolute Neuts (auto)8.4 H, Absolute Lymphs (auto) 1.72, Nucleated RBC % 0, PT 13.6, INR 1.0, APTT 28.5, Sodium 132 L, Potassium 3.9, Chloride 95 L, Carbon Dioxide 18.5 L, Anion Gap 18 H, BUN 17, Creatinine 0.97, Estim Creat Clear Calc 81.10, Est GFR (MDRD) Non-Af 64, BUN/Creatinine Ratio 17.8, Glucose 140 H, Calcium 10.3, Total Bilirubin 0.46, AST 32, ALT 39 H, Alkaline Phosphatase 107 H, Troponin T High Sens 17 H D, NT pro BNP II 93, Total Protein 8.9 H, Albumin 4.5, Globulin 4.3 H,Albumin/Globulin Ratio 1.0, TSH 7.340 H, Free T4 1.20, Free T3 pg/dL 2.6 07/28/24 16:41: Lactic Acid 2.2 H* 07/28/24 18:10: Urine Color Yellow, Urine Clarity Sl. Cloudy, Urine pH 6.0, Ur Specific [place] 1.020, Urine Protein 30 H, Urine Glucose (UA) Normal, Urine Ketones 5 H, Urine Occult Blood 25 H, Urine Nitrite Negative, Urine Bilirubin Negative, Urine Urobilinogen Normal, Ur Leukocyte Esterase 500 H, Urine RBC 5-10SEEN, Urine WBC 50-100 SEEN, Ur Squamous Epith Cells 0-5 SEEN, Amorphous Sediment 2+ URATE, Urine Bacteria 1+, Urine Mucus 0 SEEN 07/28/24 18:27: Troponin T Hi Sens 2 Hr 17 H Micro: Microbiology 07/28/24 16:35 Mucosa - Nose SARS-CoV-2, Influenza & RSV (PCR) - Final Imaging Radiology Impression Chest X-Ray 07/28/24 16:50 IMPRESSION: No acute airspace abnormality. Reading Location: [facility] Assessment & Plan Assessment/Plan (1) Urinary tract infection: (2) Palpitations: PLAN: Plan The patient is a 68 y/o F w/ PMHx: Morbid obesity, Anxiety and Depression, HTN, HLD, Hypothyroidism, Former tobacco use who presents to the [facility] ED on 07/28/24 with persistent racing heart sensation, dyspnea, sternal nonradiating chest pressure, fatigue, nausea and diaphoresis with history of recent diagnosis of new onset atrial fibrillation per EKG in the office with concern for recurrence referred to the ED to be cautious per PCP. #1. Acute Complicated Urinary Tract Infection: Will admit to PCU, UA upon ED evaluation remarkable, pending UCx, continue IVFs, monitor I/Os, continue IV Rocephin w/ transition as able pending sensitivities and speciation. Bld cx x 2 obtained in the ED. #2. Possible New Onset PAF with associated chest pressure, diaphoresis: EKG andtelemetry in the ED with ST with PAC without acute evidence of ischemia but per PCP office new onset PAF on EKG in their office. Admission presentation in the ED with workup notable for acute complicated urinary tract infection, will continue hydration and treatment of UTI as noted, continue to maintain on telemetry monitoring, TSH mildly elevated with free T4 and T3 normal thus subclinical with recommended follow-up outpatient, magnesium level requested, will continue to cycle cardiac enzymes, will request echocardiogram to be cautious, will initiate on metoprolol therapy in addition to Eliquis. In addition will request cardiac stress testing as still uncertain if new onset PAFof note. Discussed case with Cardiology (no formal consult placed but reviewed telemetry also) with recommendation also at discharge for 24-48 HM to be set-up. #3. Hyperglycemia, possibly stress response: Admission glucose 140, no diabetichistory, given other comorbidities and habitus will obtain hemoglobin A1c be cautious. #4. Indeterminate cardiac enzyme: Admission troponin 17, repeat 17, significantly low, to be cautious will maintain on telemetry and cycle cardiac enzymes to be cautious, magnesium level requested. #5. Abnormal TSH with history of hypothyroidism: TSH 7.340, free T4 and free [id number] range however thus subclinical, will continue levothyroxine and repeat levels recommend outpatient at follow-up's following resolution of acute presentation. #6. Acute hyponatremia, hypochloremia, suspected hypovolemic etiology secondary to acute presentation of the 1: Admission sodium 132, chloride 95, will continue judicious hydration repeat CMP in AM. #7. Hypertension: Continue home regimen including benazepril however will hold diuretic, adding also metoprolol as noted, PRN hydralazine. #8. Hyperlipidemia: We will continue patient on statin therapy. #9. Anxiety and depression: We will continue patient home venlafaxine regimen. #10. Morbid Obesity: Weight loss and lifestyle changes encouraged. #11. Former tobacco use: Encourage continued tobacco cessation. #12. DVT prophylaxis: Given recent PAF diagnosis will initiate on Eliquis therapy. #13. CODE status: Patient HCPOA and living will are not in place but has been would you medical decision-maker if necessary she notes. Discussed CODE status at length including difference between FULL code, DNR-CCA and DNR-CC status. Following discussions about the differences in these status, requested Full [employer]. Advanced Care Planning Face to Face Time: 16 minutes. Charges/Coding Visit Charges Inpatient E&M: 34355 Init Hosp L3 Procedures Hospitalists Procedures: 89177 Advncd Care Plan 30 Min 07/28/24 2141 <Electronically signed by Yolanda Tucker MD> Cosigner Signature (if applicable): CC: Dr. Yolanda Tucker MD; Dr. Hugo Mora MD~ Signed [facility] Work Phone: [phone] Discharge summary Author Lion Valentin [facility] Note Date/Time July 28, 2024 7:52 pm [facility] Medical Records Department [address] [place] [address] Emergency Department Summary 07/28/24 MR#: [id number] Acct: [id number] Name: OLENA VALERA Rep #:[id number] : 1955 68 From: Lion Valentin DO PCP: Dr. Hugo Mora MD Status:REG E R Location: ED HPI History of Present Illness Chief Complaint: Palpitations Narrative Narrative: Patient is a 68-year-old female past medical history of hypothyroidism, hypercholesteremia, hypertension who presents to the emergency department the chief complaint of elevated heart rate from her primary care office. States that she was here in the emergency department recently had a full workup and wasultimately sent home. Patient states that for the past few days she has noted that she has had worsening shortness of breath with exertion. She states that she can barely walk any short amount of distance without becoming very short of breath. Patient states that she was following up with her primary care physician today from a follow-up visit here in the emergency department and theynoted that her heart rate was in the 130s a obtain an EKG that read atrial fibrillation therefore they sent her here for the valuation management as she does not have a history of this. [facility] Medical History Wears glasses Anxiety Thyroid disease Arthritis High cholesterol Former smoker Leg cramps History of pain when walking History of edema History of stress test Hypertension Home Medications ?Medication ?Instructions ?Recorded ?Last Taken ?Type benazepril 10 mg tablet 10 mg PO DAILY BP 12/31/13 0 07/28/24 History chlorthalidone 25 mg tablet 25 mg PO DAILY 12/31/13 History venlafaxine 75 mg capsule,extended 75 mg PO DAILY HOT FLASHES 12/31/13 07/28/24 History release 24 hr atorvastatin 20 mg tablet 20 mg PO QHS 07/26/24 History levothyroxine 75 mcg tablet 75 mcg PO DAILY 07/28/24 0 07/28/24 History (Synthroid) Allergy/AdvReac Type Severity Reaction Status Date / Time No Known Allergies Allergy Verified 07/28/24 16:07 Surgical History Hx of colonoscopy History of total right knee replacement Social History household members: spouse Smoking Status: Former smoker ROS ROS ED ROS Narrative Constitutional: Denies fevers, chills, headaches Eyes: Denies change in vision double vision blurry vision Cardiovascular: Denies chest pain or palpitations Respiratory: Complains shortness of breath as noted above denies coughing wheezing Abdomen: Denies abdominal pain vomiting diarrhea : Denies any urinary symptoms Neurological: Denies numbness, weakness, tingling Musculoskeletal: Denies back pain Skin: Denies rashes or lesions EXAM Physical Exam Narrative Exam Narrative: General: Patient lying in bed rest comfortably did not appear to be in acute distress Head: Atraumatic, normocephalic Eyes: PERRL bilaterally, EOMI bilaterally, no conjunctival injection noted Neck: Soft, supple, trachea midline Cardiovascular: Patient tachycardic with a regular rhythm no murmurs gallops rubs noted Respiratory: Clear to auscultation bilaterally Abdomen: Soft, nondistended, nontender to palpation Extremities: +5/5 strength noted in the bilateral upper and lower extremities, radial pulses +2/4 in the bilateral extremities, no pedal edema on exam Neurological: Patient follow commands that she was at [facility] there is 2024 Skin: Warm, dry, intact no rashes or lesions noted Const Vital Signs: 07/28/24 16:08 07/28/24 16:09 07/28/24 16:35 Temperature 97.9 F Temperature Source Temporal Pulse Rate 135 H 145 H Respiratory Rate 26 H Respiratory Effort Blood Pressure 197/100 H Blood Pressure Mean 132 Pulse Ox 97 Oxygen Delivery Method Room Air Room Air 07/28/24 16:52 07/28/24 17:09 07/28/24 17:51 Temperature Temperature Source Pulse Rate 116 H Respiratory Rate 21 H Respiratory Effort Labored Blood Pressure 172/106 H Blood Pressure Mean 128 Pulse Ox 95 Oxygen Delivery Method Room Air 07/28/24 18:11 07/28/24 19:03 07/28/24 19:20 Temperature 98.2 F Temperature Source Pulse Rate 104 H 99 110 H Respiratory Rate 17 12 Respiratory Effort Blood Pressure 158/74 H 164/50 H Blood Pressure Mean 102 88 Pulse Ox 93 98 Oxygen Delivery Method 07/28/24 19:22 Temperature 98.2 F Temperature Source Temporal Pulse Rate 106 H Respiratory Rate 21 H Respiratory Effort Blood Pressure 164/90 H Blood Pressure Mean 114 Pulse Ox 98 Oxygen Delivery Method Room Air MDM MDM MDM Narrative Medical decision making narrative: Patient is a 68-year-old female who presents to the emerged part with a chief complaint of elevated heart rate while at her primary care physician concern fornew onset atrial fibrillation with rapid ventricular response. On the differential diagnose includes but not limited to CHF, ACS, pneumonia, pneumothorax, upper respiratory infection secondary viral etiology. Once workupis obtained reviewed she will be reevaluated. Patient be given 30 cc/kg bolus of IV fluids which were ordered at 1650 and this is based on ideal body weight as she has a BMI of greater than 30 Patient CBC was reviewed and showed no evidence leukocytosis white blood count normal 11.1, hemoglobin 13.2, plate count was noted to be 560. Patient sodium normal 132, potassium normal 3.9, creatinine normal at 0.97. Patient lactic acid was elevated 2.2, AST and ALT were 32 and 39 respectively. Patient's troponin was noted to be 17. Patient's EKG was reviewed independently interpreted myself showed sinus tachycardia with a rate of 122 bpm. Patient's TSH was elevated at 7.34 however free T4 and T3 normal at 1.20 and 2.6 respectively. Patient's urinalysis showed negative nitrates 500 leukocyte esterase 50-100 white cells with 1+ bacteria this will be sent for culture she will be given a gram Rocephin. Patient's chest x-ray reviewed by myself and byradiology which showed no acute airspace abnormality. Patient CTA of her chest from 07/26/2024 was reviewed and showed no evidence of pulmonary embolism. Patient was ambulated here in the emergency department and her heart rate went to 128. We will discuss case with hospitalist for admission. Discussed case with hospitalist Dr. Tucker who accept patient for admission. Patient was notified is agreeable this plan as well as significant other bedsideall question concerns answered. Lab Data Labs: Laboratory Results - last 24 hr 07/28/24 07/28/24 07/28/24 16:22 16:41 18:10 WBC 11.1 H RBC 5.09 Hgb 13.2 Hct 41.0 MCV 80.6 L MCH 25.9 L MCHC 32.2 RDW Std Deviation 46.7 H RDW Coeff of Mykel 16.8 H Plt Count 560 H MPV 9.2 Immature Gran % (Auto) 0.400 Neut % (Auto) 75.6 H Lymph % (Auto) 15.5 L [place] % (Auto) 7.7 Eos % (Auto) 0.4 Baso % (Auto) 0.4 Absolute Neuts (auto) 8.4 H Absolute Lymphs (auto) 1.72 Nucleated RBC % 0 PT 13.6 INR 1.0 APTT 28.5 Sodium 132 L Potassium 3.9 Chloride 95 L Carbon Dioxide 18.5 L Anion Gap 18 H BUN 17 Creatinine 0.97 Estim Creat Clear Calc 81.10 Est GFR (MDRD) Non-Af 64 BUN/Creatinine Ratio 17.8 Glucose 140 H Lactic Acid 2.2 H* Calcium 10.3 Total Bilirubin 0.46 AST 32 ALT 39 H Alkaline Phosphatase 107 H Troponin T High Sens 17 H D Troponin T Hi Sens 2 Hr NT pro BNP II 93 Total Protein 8.9 H Albumin 4.5 Globulin 4.3 H Albumin/Globulin Ratio 1.0 TSH 7.340 H Free T4 1.20 Free T3 pg/dL 2.6 Urine Color Yellow Urine Clarity Sl. Cloudy Urine pH 6.0 Ur Specific [place] 1.020 Urine Protein 30 H Urine Glucose (UA) Normal Urine Ketones 5 H Urine Occult Blood 25 H Urine Nitrite Negative Urine Bilirubin Negative Urine Urobilinogen Normal Ur Leukocyte Esterase 500 H Urine RBC 5-10 SEEN Urine WBC 50-100 SEEN Ur Squamous Epith Cells 0-5 SEEN Amorphous Sediment 2+ URATE Urine Bacteria 1+ Urine Mucus 0 SEEN 07/28/24 18:27 WBC RBC Hgb Hct MCV MCH MCHC RDW Std Deviation RDW Coeff of Mykel Plt Count MPV Immature Gran % (Auto) Neut % (Auto) Lymph % (Auto) [place] % (Auto) Eos % (Auto) Baso % (Auto) Absolute Neuts (auto) Absolute Lymphs (auto) Nucleated RBC % PT INR APTT Sodium Potassium Chloride Carbon Dioxide Anion Gap BUN Creatinine Estim Creat Clear Calc Est GFR (MDRD) Non-Af BUN/Creatinine Ratio Glucose Lactic Acid Calcium Total Bilirubin AST ALT Alkaline Phosphatase Troponin T High Sens Troponin T Hi Sens 2 Hr 17 H NT pro BNP II Total Protein Albumin Globulin Albumin/Globulin Ratio TSH Free T4 Free T3 pg/dL Urine Color Urine Clarity Urine pH Ur Specific [place] Urine Protein Urine Glucose (UA) Urine Ketones Urine Occult Blood Urine Nitrite Urine Bilirubin Urine Urobilinogen Ur Leukocyte Esterase Urine RBC Urine WBC Ur Squamous Epith Cells Amorphous Sediment Urine Bacteria Urine Mucus Radiography Diagnostic Testing: Clinical Impression(s) from Imaging Studies Chest X-Ray 07/28/24 16:50 IMPRESSION: No acute airspace abnormality. Reading Location: [facility] Discharge Plan Triage Chief Complaint: Palpitations ED Provider: Lion Valentin Dx/Rx/DC Orders Clinical Impression: Sinus tachycardia, Palpitations, Urinary tract infection Prescriptions: No Action venlafaxine 75 MG capsule,extended release 24hr 75 mg PO DAILY Patient Comments: chlorthalidone 25 MG tablet 25 mg PO DAILY Patient Comments: benazepril 10 MG tablet 10 mg PO DAILY Patient Comments: atorvastatin 20 mg tablet 20 mg PO QHS levothyroxine [Synthroid] 75 mcg tablet 75 mcg PO DAILY Primary Care Provider: Hugo Mora Referrals: Hugo Mora MD [Primary Care Provider] - Print Language: Congolese Disposition Disposition: Acute Care Hospital [facility] What to do if you have Problems For any increased pain, shortness of breath, bleeding, nausea or vomiting, chestpain, or any unexpected problems, contact your Primary Care Provider. Call [facility] ([phone]) or report to the closest Emergency Room. Call 911 if necessary. 07/28/241951 <Electronically signed by Lion Valentin DO> Cosigner Signature (if applicable): CC: Dr. Hugo Mora MD ~ Signed [facility] Work Phone: [phone]) [phone] History and physical note [facility] Medical Records Department [address] [place] [address] H&P Exam - Hospitalist 07/28/241922 MR#: [id number] Acct: [id number] Name: OLENA VALERA Rep #:[id number] : 1955 68 From: Yolanda Tucker MD PCP: Dr. Hugo Mora MD Status:ADM I N Location: [place] [address] HPI - General General Date of Admission: 07/28/24 Date of Service: 07/28/24 Chief Complaint: Palpitations, fatigue, malaise, nausea. HPI Narrative The patient is a 68 y/o F w/ PMHx: Morbid obesity, Anxiety and Depression, HTN, HLD, Hypothyroidism, Former tobacco use who presents to the [facility] ED on 07/28/24 with persistent racing heart sensation, dyspnea, sternal nonradiating chest pressure, fatigue, nausea and diaphoresis with history of recent diagnosis of new onset atrial fibrillation per EKG in the office with concern for recurrence referredto the ED to be cautious per PCP. Patient does report several day history of significant urinary frequency which is abnormal for her. Workup in the ED included T97.9, heart rate 135, BP 197/100, respiratory rate 26, 97% on room air with most recent repeat vitals heart rate 99, BP 158/74, respiratory rate 17, 93% room air, CBC with WBC 11.1, human 13.2, platelet 560 with left shift, unremarkable coags, CMP with sodium 132, chloride 95, carbon oxide 18.5, anion gap 18, BUN/creatinine 17/0.97, GFR64, glucose 140, lactic acid mildly elevated 2.2, hepatic profile with AST/ALT 32/39, alk phos 107,troponin 17 withrepeat delta 17, BNP 93, TSH 7.340 however free T41.20 And free T32.6 For subclinical, urinalysis with cloudy appearing urine with spec gravity 1.020, protein 30, ketone 5, occult blood 25, negative nitrite, leukocyte esterase 500 with urine RBCs 5-10, urine WBCs 50-100 with 1+ urine bacteria, urine culture pending per ED, blood culture x 2 pending per ED, rapid SARS COVID/influenz a/RSVPCR negative, chest x-ray with no acute cardiopulmonary findings, EKG more consistent with ST whereas EKG in the office with concern new onset PAF. In theED patient ministered Rocephin 1 g IV x 1. Upon evaluation of strips some concern for irregularity possibly sinus arrhythmia but wanted to be certain no block therefore reviewed with honing machine set up operator on-call Dr. Sexton who felt that this was more consistent with sinus arrhythmia with frequent PAC. He recommended that patient have at least echocardiogram and follow-up Holter monitor assessment at discharge. No formal consult request was placed. [facility] Medical History Morbid obesity Anxiety and depression Wears glasses Arthritis High cholesterol Former smoker History of stress test Hypertension Home Medications ?Medication ?Instructions ?Recorded ?Last Taken ?Type benazepril 10 mg tablet 10 mg PO DAILY BP 12/31/13 0 07/28/24 09:30 History 10 mg chlorthalidone 25 mg tablet 25 mg PO DAILY high BP 02/0507/28/24 09:30 History 25 mg venlafaxine 75 mg capsule,extended 75 mg PO DAILY HOT FLASHES 12/31/13 07/28/24 09:30 History release 24 hr 75 mg atorvastatin 20 mg tablet 20 mg PO QHS high cholestero l 07/26/24 07/27/24 21:00 History 20 mg levothyroxine 75 mcg tablet 75 mcg PO DAILY hypothyroi d 07/28/24 07/28/24 08:00 History (Synthroid) 75 mcg Allergy/AdvReac Type Severity Reaction Status Date / Time No Known Allergies Allergy Verified 07/28/24 16:07 Family History (Updated 07/28/24 @ 21:[address] Yolanda Tucker MD) Mother Heart disease Hypertension Father , from massive [place] at 76 y/o. Heart disease CAD (coronary artery disease) Hypertension Myocardial infarction Sudden cardiac Surgical History Hx of colonoscopy History of total right knee replacement Social History (Updated 07/28/24 @ 21:[address] Yolanda Tucker MD) household members: spouse Smoking Status: Former smoker how long ago did patient quit smoking: Quit 30-35 yrs prior, light smoking only. alcohol intake: never substance use type: does not use ROS ROS Narrative Admission Review of Systems: CONSTITUTIONAL: No weight loss, fever, chills, + weakness or fatigue. HEENT: Eyes: No visual loss, blurred vision, double vision or yellow sclerae. Ears, Nose, Throat: No hearing loss, sneezing, congestion, runny nose or sore throat. SKIN: No rash or itching, lesions, wounds. CARDIOVASCULAR: + Chest pressure, palpitations/racing heart, chronic edema. No orthopnea, syncopal events. RESPIRATORY: + Dyspnea. No cough or sputum, wheezing, hemoptysis. GASTROINTESTINAL: + Decreased appetite, nausea. No vomiting or diarrhea, abdominal pain, melena, BRBPR. GENITOURINARY: + Notable increased urinary frequency. No dysuria, urgency or retention. NEUROLOGICAL: No headache, dizziness, syncope, paralysis, ataxia, numbness or tingling in the extremities, focal weakness, change in bowel or bladder control,seizure. MUSCULOSKELETAL: + muscle, back pain, joint pain or stiffness. HEMATOLOGIC: No anemia. + Easy bleeding/bruising. LYMPHATICS: No enlarged nodes. No history of splenectomy. PSYCHIATRIC: + History of anxiety depression, primarily situational anxiety. ENDOCRINOLOGIC: + Diaphoresis. No cold or heat intolerance. No polyuria or polydipsia. ALLERGIES: No history of asthma, hives, eczema or rhinitis. Vital Signs Vital Signs Vital Signs: 07/28/24 16:08 07/28/24 16:09 07/28/24 16:35 Temperature 97.9 F Temperature Source Temporal Pulse Rate 135 H 145 H Respiratory Rate 26 H Respiratory Effort Blood Pressure 197/100 H Blood Pressure Mean 132 Pulse Ox 97 Oxygen Delivery Method Room Air Room Air 07/28/24 16:52 07/28/24 17:09 07/28/24 17:51 Temperature Temperature Source Pulse Rate 116 H Respiratory Rate 21 H Respiratory Effort Labored Blood Pressure 172/106 H Blood Pressure Mean 128 Pulse Ox 95 Oxygen Delivery Method Room Air 07/28/24 18:11 07/28/24 19:03 07/28/24 19:20 Temperature 98.2 F Temperature Source Pulse Rate 104 H 99 110 H Respiratory Rate 17 12 Respiratory Effort Blood Pressure 158/74 H 164/50 H Blood Pressure Mean 102 88 Pulse Ox 93 98 Oxygen Delivery Method Weight Weight: 314 lb 9.594 oz Body Mass Index (BMI) 52.3 Physical Exam Narrative Physical Examination: General: Awake, alert, oriented x 3 and cooperative, seated upright in ED bed, anxious appearing, no current chest pressure. Skin: Normal color, normal turgor, no icterus, no cyanosis. HEENT: AT/NC, EOMI, PERRLA, mildly dry MM, no carotid bruits, difficult to discern JVD given thickened neck. Lungs: Diminished, greater bases, mildly increased respiratory rate but no distress, no rales, ronchi or wheezing. Heart: Mildly tachycardic with regular rhythm; no gallop, rub audible. Abdomen: Soft, morbidly obese, NTTP, distant BS, difficult to discern distentionHSM given habitus. Extremities: No cyanosis, no clubbing, no marked distal edema but does have intermittent edema chronically per her report. Neurological: Patient awake, alert, oriented as noted cognitive function intact;pupils equally reactive to light and accommodation, cranial nerves gross normal,moving all 4 extremities, no focal deficits, strength moderately globally decreased. Psychiatric: Affect appears anxious, does have underlying anxiety/depressive history, situational anxiety. Results Lab / Micro Data 07/28/24 16:22 07/28/24 16:22 Labs: Laboratory Results - last 24 hr 07/28/24 16:22: WBC 11.1 H, RBC 5.09, Hgb 13.2, Hct 41.0, MCV 80.6 L, MCH 25.9 L, MCHC 32.2, RDW Std Deviation 46.7 H, RDW Coeff of Mykel 16.8 H, Plt Count 560 H,MPV 9.2, Immature Gran % (Auto) 0.400, Neut % (Auto) 75.6 H, Lymph % (Auto) 15.5L, [place] % (Auto) 7.7, Eos % (Auto) 0.4, Baso % (Auto) 0.4, Absolute Neuts (auto)8.4 H, Absolute Lymphs (auto) 1.72, Nucleated RBC % 0, PT 13.6, INR 1.0, APTT 28.5, Sodium 132 L, Potassium 3.9, Chloride 95 L, Carbon Dioxide 18.5 L, Anion Gap 18 H, BUN 17, Creatinine 0.97, Estim Creat Clear Calc 81.10, Est GFR (MDRD) Non-Af 64, BUN/Creatinine Ratio 17.8, Glucose 140 H, Calcium 10.3, Total Bilirubin 0.46, AST 32, ALT 39 H, Alkaline Phosphatase 107 H, Troponin T High Sens 17 H D, NT pro BNP II 93, Total Protein 8.9 H, Albumin 4.5, Globulin 4.3 H,Albumin/Globulin Ratio 1.0, TSH 7.340 H, Free T4 1.20, Free T3 pg/dL 2.6 07/28/24 16:41: Lactic Acid 2.2 H* 07/28/24 18:10: Urine Color Yellow, Urine Clarity Sl. Cloudy, Urine pH 6.0, Ur Specific [place] 1.020, Urine Protein 30 H, Urine Glucose (UA) Normal, Urine Ketones 5 H, Urine Occult Blood 25 H, UrineNitrite Negative, Urine Bilirubin Negative, Urine Urobilinogen Normal, Ur Leukocyte Esterase 500 H,Urine RBC 5- 10SEEN, Urine WBC 50-100 SEEN, Ur Squamous Epith Cells 0-5 SEEN, Amorphous Sediment 2+ URATE, Urine Bacteria 1+, Urine Mucus 0 SEEN 07/28/24 18:27: Troponin T Hi Sens 2 Hr 17 H Micro: Microbiology 07/28/24 16:35 Mucosa - Nose SARS-CoV-2, Influenza & RSV (PCR) - Final Imaging Radiology Impression Chest X-Ray 07/28/24 16:50 IMPRESSION: No acute airspace abnormality. Reading Location: [facility] Assessment & Plan Assessment/Plan (1) Urinary tract infection: (2) Palpitations: PLAN: Plan The patient is a 68 y/o F w/ PMHx: Morbid obesity, Anxiety and Depression, HTN, HLD, Hypothyroidism, Former tobacco use who presents to the [facility] ED on 07/28/24 with persistent racing heart sensation, dyspnea, sternal nonradiating chest pressure, fatigue, nausea and diaphoresis with history of recent diagnosis of new onset atrial fibrillation per EKG in the office with concern for recurrence referredto the ED to be cautious per PCP. #1. Acute Complicated Urinary Tract Infection: Will admit to PCU, UA upon ED evaluation remarkable,pending UCx, continue IVFs, monitor I/Os, continue IV Rocephin w/ transition as able pending sensitivities and speciation. Bld cx x 2 obtained in the ED. #2. Possible New Onset PAF with associated chest pressure, diaphoresis: EKG andtelemetry in the ED with ST with PAC without acute evidence of ischemia but per PCP office new onset PAF on EKG in theiroffice. Admission presentation in the ED with workup notable for acute complicated urinary tract infection, will continue hydration and treatment of UTI as noted, continue to maintain on telemetry monitoring, TSH mildly elevated with free T4 and T3 normal thus subclinical with recommended follow-upoutpatient, magnesium level requested, will continue to cycle cardiac enzymes, will request echocardiogram to be cautious, will initiate on metoprolol therapy in addition to Eliquis. In addition willrequest cardiac stress testing as still uncertain if new onset PAFof note. Discussed case with Cardiology (no formal consult placed but reviewed telemetry also) with recommendation also at discharge for 24-48 HM to be set-up. #3. Hyperglycemia, possibly stress response: Admission glucose 140, no diabetichistory, given othercomorbidities and habitus will obtain hemoglobin A1c be cautious. #4. Indeterminate cardiac enzyme: Admission troponin 17, repeat 17, significantly low, to be cautious will maintain on telemetry and cycle cardiac enzymes to be cautious, magnesium level requested. #5. Abnormal TSH with history of hypothyroidism: TSH 7.340, free T4 and free B0xpdrgs range howeverthus subclinical, will continue levothyroxine and repeat levels recommend outpatient at follow-up'sfollowing resolution of acute presentation. #6. Acute hyponatremia, hypochloremia, suspected hypovolemic etiology secondary to acute presentation of the 1: Admission sodium 132, chloride 95, will continue judicious hydration repeat CMP in AM. #7. Hypertension: Continue home regimen including benazepril however will hold diuretic, adding also metoprolol as noted, PRN hydralazine. #8. Hyperlipidemia: We will continue patient on statin therapy. #9. Anxiety and depression: We will continue patient home venlafaxine regimen. #10. Morbid Obesity: Weight loss and lifestyle changes encouraged. #11. Former tobacco use: Encourage continued tobacco cessation. #12. DVT prophylaxis: Given recent PAF diagnosis will initiate on Eliquis therapy. #13. CODE status: Patient HCPOA and living will are not in place but has been would you medical decision-maker if necessary she notes. Discussed CODE status at length including difference between FULL code, DNR-CCA and DNR-CC status. Following discussions about the differences in these status, requested Full Codestatus. Advanced Care Planning Face to Face Time: 16 minutes. Charges/Coding Visit Charges Inpatient E&M: 03102 Init Hosp L3 Procedures Hospitalists Procedures: 15157 Advncd Care Plan 30 Min 07/28/24 2141 Cosigner Signature (if applicable): CC: Dr. Yolanda Tucker MD; Dr. Hugo Mora MD~ Signed [facility]03-06-2025 Evaluation note* Diagnosis Onset Date Resolution Status Admit Date Abnormal cardiovascular stre ss test acute July 28, 2024 7:30pm Coronary artery disease acute M 2024 7:30pm Dyspnea on exertion acute July 28, 2024 7:30pm Palpitations acute July 28 025 7:30pm Paroxysmal atrial fibrillation acute July 28, 2024 7:30pm Super obesity acute July 28, 2024 7:30pm Urinary tract infection acute M 2024 7:30pm Hypertension chronic July 28 025 7:30pm [facility] Work Phone: 1(930) 529-661203-06-2025 Evaluation note* Diagnosis Onset Date Resolution Status Admit Date Abnormal cardiovascular stre ss test acute July 28, 2024 7:30pm Coronary artery disease acute M 2024 7:30pm Dyspnea on exertion acute July 28, 2024 7:30pm Palpitations acute July 28 025 7:30pm Paroxysmal atrial fibrillation acute July 28, 2024 7:30pm Hypertension chronic July 28, 025 7:30pm Super obesity inactive July 28, 2024 7:30pm Urinary tract infection inactive M arch 2024 7:30pm Anemia acute August 23 10:37am Coronary artery disease acute A pril 2024 10:37am Dyspnea on exertion acute August 23, 2024 10:37am Paroxysmal atrial fibrillation acute August 23, 2024 10:37am Hypertension chronic August 23 10:37am [facility] Work Phone: 1(477) 886-536103-06-2025 Discharge summary [facility] Medical Records Department [address] [place] [address] Emergency Department Summary 07/28/24 MR#: [id number] Acct: [id number] Name: OLENA VALERA Rep #:[id number] : 1955 68 From: Lion Valentin DO PCP: Dr. Hugo Mora MD Status:REG E R Location: ED HPI History of Present Illness Chief Complaint: Palpitations Narrative Narrative: Patient is a 68-year-old female past medical history of hypothyroidism, hypercholesteremia, hypertension who presents to the emergency department the chief complaint of elevated heart rate from her primary care office. States that she was here in the emergency department recently had a full workup and wasultimately sent home. Patient states that for the past few days she has noted that she has had worsening shortness of breath with exertion. She states that she can barely walk any short amount of distance without becoming very short of breath. Patient states that she was following up with herprimary care physician today from a follow-up visit here in the emergency department and theynoted that her heart rate was in the 130s a obtain an EKG that read atrial fibrillation therefore they sent her here for the valuation management as she does not have a history of this. [facility] Medical History Wears glasses Anxiety Thyroid disease Arthritis High cholesterol Former smoker Leg cramps History of pain when walking History of edema History of stress test Hypertension Home Medications ?Medication ?Instructions ?Recorded ?Last Taken ?Type benazepril 10 mg tablet 10 mg PO DAILY BP 12/31/13 0 07/28/24 History chlorthalidone 25 mg tablet 25 mg PO DAILY 12/31/13 History venlafaxine 75 mg capsule,extended 75 mg PO DAILY HOT FLASHES 12/31/13 07/28/24 History release 24 hr atorvastatin 20 mg tablet 20 mg PO QHS 07/26/24 History levothyroxine 75 mcg tablet 75 mcg PO DAILY 07/28/24 0 07/28/24 History (Synthroid) Allergy/AdvReac Type Severity Reaction Status Date / Time No Known Allergies Allergy Verified 07/28/24 16:07 Surgical History Hx of colonoscopy History of total right knee replacement Social History household members: spouse Smoking Status: Former smoker ROS ROS ED ROS Narrative Constitutional: Denies fevers, chills, headaches Eyes: Denies change in vision double vision blurry vision Cardiovascular: Denies chest pain or palpitations Respiratory: Complains shortness of breath as noted above denies coughing wheezing Abdomen: Denies abdominal pain vomiting diarrhea : Denies any urinary symptoms Neurological: Denies numbness, weakness, tingling Musculoskeletal: Denies back pain Skin: Denies rashes or lesions EXAM Physical Exam Narrative Exam Narrative: General: Patient lying in bed rest comfortably did not appear to be in acute distress Head: Atraumatic, normocephalic Eyes: PERRL bilaterally, EOMI bilaterally, no conjunctival injection noted Neck: Soft, supple, trachea midline Cardiovascular: Patient tachycardic with a regular rhythm no murmurs gallops rubs noted Respiratory: Clear to auscultation bilaterally Abdomen: Soft, nondistended, nontender to palpation Extremities: +5/5 strength noted in the bilateral upper and lower extremities, radial pulses +2/4 in the bilateral extremities, no pedal edema on exam Neurological: Patient follow commands that she was at [facility] there is 2024 Skin: Warm, dry, intact no rashes or lesions noted Const Vital Signs: 07/28/24 16:08 07/28/24 16:09 07/28/24 16:35 Temperature 97.9 F Temperature Source Temporal Pulse Rate 135 H 145 H Respiratory Rate 26 H Respiratory Effort Blood Pressure 197/100 H Blood Pressure Mean 132 Pulse Ox 97 Oxygen Delivery Method Room Air Room Air 07/28/24 16:52 07/28/24 17:09 07/28/24 17:51 Temperature Temperature Source Pulse Rate 116 H Respiratory Rate 21 H Respiratory Effort Labored Blood Pressure 172/106 H Blood Pressure Mean 128 Pulse Ox 95 Oxygen Delivery Method Room Air 07/28/24 18:11 07/28/24 19:03 07/28/24 19:20 Temperature 98.2 F Temperature Source Pulse Rate 104 H 99 110 H Respiratory Rate 17 12 Respiratory Effort Blood Pressure 158/74 H 164/50 H Blood Pressure Mean 102 88 Pulse Ox 93 98 Oxygen Delivery Method 07/28/24 19:22 Temperature 98.2 F Temperature Source Temporal Pulse Rate 106 H Respiratory Rate 21 H Respiratory Effort Blood Pressure 164/90 H Blood Pressure Mean 114 Pulse Ox 98 Oxygen Delivery Method Room Air MDM MDM MDM Narrative Medical decision making narrative: Patient is a 68-year-old female who presents to the emerged part with a chief complaint of elevatedheart rate while at her primary care physician concern fornew onset atrial fibrillation with rapid ventricular response. On the differential diagnose includes but not limited to CHF, ACS, pneumonia, p neumothorax, upper respiratory infection secondary viral etiology. Once workupis obtained reviewed she will be reevaluated. Patient be given 30 cc/kg bolus of IV fluids which were ordered at 1650 andthis is based on ideal body weight as she has a BMI of greater than 30 Patient CBC was reviewed and showed no evidence leukocytosis white blood count normal 11.1, hemoglobin 13.2, plate count was noted to be 560. Patient sodium normal 132, potassium normal 3.9, creatinine normal at 0.97. Patient lactic acid was elevated 2.2, AST and ALT were 32 and 39 respectively. Patient's troponin was noted to be 17. Patient's EKG was reviewed independently interpreted myself showed sinus tachycardia with a rate of 122 bpm. Patient's TSH was elevated at 7.34 however free T4 andT3 normal at 1.20 and 2.6 respectively. Patient's urinalysis showed negative nitrates 500 leukocyteesterase 50-100 white cells with 1+ bacteria this will be sent for culture she will be given a gramRocephin. Patient's chest x-ray reviewed by myself and byradiology which showed no acute airspace abnormality. Patient CTA of her chest from 07/26/2024 was reviewed and showed no evidence of pulmonary embolism. Patient was ambulated here in the emergency department and her heart rate went to 128. We will discuss case with hospitalist for admission. Discussed case with hospitalist Dr. Tucker who accept patient for admission. Patient was notified isagreeable this plan as well as significant other bedsideall question concerns answered. Lab Data Labs: Laboratory Results - last 24 hr 07/28/24 07/28/24 07/28/24 16:22 16:41 18:10 WBC 11.1 H RBC 5.09 Hgb 13.2 Hct 41.0 MCV 80.6 L MCH 25.9 L MCHC 32.2 RDW Std Deviation 46.7 H RDW Coeff of Mykel 16.8 H Plt Count 560 H MPV 9.2 Immature Gran % (Auto) 0.400 Neut % (Auto) 75.6 H Lymph % (Auto) 15.5 L [place] % (Auto) 7.7 Eos % (Auto) 0.4 Baso % (Auto) 0.4 Absolute Neuts (auto) 8.4 H Absolute Lymphs (auto) 1.72 Nucleated RBC % 0 PT 13.6 INR 1.0 APTT 28.5 Sodium 132 L Potassium 3.9 Chloride 95 L Carbon Dioxide 18.5 L Anion Gap 18 H BUN 17 Creatinine 0.97 Estim Creat Clear Calc 81.10 Est GFR (MDRD) Non-Af 64 BUN/Creatinine Ratio 17.8 Glucose 140 H Lactic Acid 2.2 H* Calcium 10.3 Total Bilirubin 0.46 AST 32 ALT 39 H Alkaline Phosphatase 107 H Troponin T High Sens 17 H D Troponin T Hi Sens 2 Hr NT pro BNP II 93 Total Protein 8.9 H Albumin 4.5 Globulin 4.3 H Albumin/Globulin Ratio 1.0 TSH 7.340 H Free T4 1.20 Free T3 pg/dL 2.6 Urine Color Yellow Urine Clarity Sl. Cloudy Urine pH 6.0 Ur Specific [place] 1.020 Urine Protein 30 H Urine Glucose (UA) Normal Urine Ketones 5 H Urine Occult Blood 25 H Urine Nitrite Negative Urine Bilirubin Negative Urine Urobilinogen Normal Ur Leukocyte Esterase 500 H Urine RBC 5-10 SEEN Urine WBC 50-100 SEEN Ur Squamous Epith Cells 0-5 SEEN Amorphous Sediment 2+ URATE Urine Bacteria 1+ Urine Mucus 0 SEEN 07/28/24 18:27 WBC RBC Hgb Hct MCV MCH MCHC RDW Std Deviation RDW Coeff of Mykel Plt Count MPV Immature Gran % (Auto) Neut % (Auto) Lymph % (Auto) [place] % (Auto) Eos % (Auto) Baso % (Auto) Absolute Neuts (auto) Absolute Lymphs (auto) Nucleated RBC % PT INR APTT Sodium Potassium Chloride Carbon Dioxide Anion Gap BUN Creatinine Estim Creat Clear Calc Est GFR (MDRD) Non-Af BUN/Creatinine Ratio Glucose Lactic Acid Calcium Total Bilirubin AST ALT Alkaline Phosphatase Troponin T High Sens Troponin T Hi Sens 2 Hr 17 H NT pro BNP II Total Protein Albumin Globulin Albumin/Globulin Ratio TSH Free T4 Free T3 pg/dL Urine Color Urine Clarity Urine pH Ur Specific [place] Urine Protein Urine Glucose (UA) Urine Ketones Urine Occult Blood Urine Nitrite Urine Bilirubin Urine Urobilinogen Ur Leukocyte Esterase Urine RBC Urine WBC Ur Squamous Epith Cells Amorphous Sediment Urine Bacteria Urine Mucus Radiography Diagnostic Testing: Clinical Impression(s) from Imaging Studies Chest X-Ray 07/28/24 16:50 IMPRESSION: No acute airspace abnormality. Reading Location: [facility] Discharge Plan Triage Chief Complaint: Palpitations ED Provider: Lion Valentin Dx/Rx/DC Orders Clinical Impression: Sinus tachycardia, Palpitations, Urinary tract infection Prescriptions: No Action venlafaxine 75 MG capsule,extended release 24hr 75 mg PO DAILY Patient Comments: chlorthalidone 25 MG tablet 25 mg PO DAILY Patient Comments: benazepril 10 MG tablet 10 mg PO DAILY Patient Comments: atorvastatin 20 mg tablet 20 mg PO QHS levothyroxine [Synthroid] 75 mcg tablet 75 mcg PO DAILY Primary Care Provider: Hugo Mora Referrals: Hugo Mora MD [Primary Care Provider] - Print Language: Congolese Disposition Disposition: Acute Care Hospital [facility] What to do if you have Problems For any increased pain, shortness of breath, bleeding, nausea or vomiting, chestpain, or any unexpected problems, contact your Primary Care Provider. Call [facility] ([phone]) or report tothe closest Emergency Room. Call 911 if necessary. 07/28/241951 Cosigner Signature (if applicable): CC: Dr. Hugo Mora MD ~ Signed [facility]03-06-2025 Radiology Diagnostic study note [facility] Imaging Services [address] [place], [place] [address] Chest PA and Lateral MR#: [id number] Acct: [id number] Name: OLENA VALERAABEL Rep #: [id number] : 1955 F 68 From: Donovan Henderson DO PCP: Dr. Hugo Mora MD Status: PRE E R Study:Chest PA and Lateral Date of Exam: 07/28/24 Exam# [id number] Ordering Dr: Emelyn Valentin DO PROCEDURE: CHEST PA AND LATERAL REASON FOR EXAM: Palpitations TECHNIQUE: Frontal and lateral views of the chest. COMPARISON: 07/26/2024 FINDINGS: Borderline cardiomegaly. No focal consolidation, pleural effusion or sizable pneumothorax. RAD/Chest PA and Lateral IMPRESSION: No acute airspace abnormality. Reading Location: [facility] CC: Dr. Hugo Mora MD; Dr. Lion Valentin DO ~ Brand Engineer: Signed [facility]03-06-2025 Discharge summary Author Lion Valentin [facility] Note Date/Time July 28, 2024 7:52 pm [facility] Medical Records Department [address] [place] [address] Emergency Department Summary 07/28/24 MR#: [id number] Acct: [id number] Name: OLENA VALERA Rep #:[id number] : 1955 68 From: Lion Valentin DO PCP: Dr. Hugo Mora MD Status:REG E R Location: ED HPI History of Present Illness Chief Complaint: Palpitations Narrative Narrative: Patient is a 68-year-old female past medical history of hypothyroidism, hypercholesteremia, hypertension who presents to the emergency department the chief complaint of elevated heart rate from her primary care office. States that she was here in the emergency department recently had a full workup and wasultimately sent home. Patient states that for the past few days she has noted that she has had worsening shortness of breath with exertion. She states that she can barely walk any short amount of distance without becoming very short of breath. Patient states that she was following up with her primary care physician today from a follow-up visit here in the emergency department and theynoted that her heart rate was in the 130s a obtain an EKG that read atrial fibrillation therefore they sent her here for the valuation management as she does not have a history of this. [facility] Medical History Wears glasses Anxiety Thyroid disease Arthritis High cholesterol Former smoker Leg cramps History of pain when walking History of edema History of stress test Hypertension Home Medications ?Medication ?Instructions ?Recorded ?Last Taken ?Type benazepril 10 mg tablet 10 mg PO DAILY BP 12/31/13 0 07/28/24 History chlorthalidone 25 mg tablet 25 mg PO DAILY 12/31/13 History venlafaxine 75 mg capsule,extended 75 mg PO DAILY HOT FLASHES 12/31/13 07/28/24 History release 24 hr atorvastatin 20 mg tablet 20 mg PO QHS 07/26/24 History levothyroxine 75 mcg tablet 75 mcg PO DAILY 07/28/24 0 07/28/24 History (Synthroid) Allergy/AdvReac Type Severity Reaction Status Date / Time No Known Allergies Allergy Verified 07/28/24 16:07 Surgical History Hx of colonoscopy History of total right knee replacement Social History household members: spouse Smoking Status: Former smoker ROS ROS ED ROS Narrative Constitutional: Denies fevers, chills, headaches Eyes: Denies change in vision double vision blurry vision Cardiovascular: Denies chest pain or palpitations Respiratory: Complains shortness of breath as noted above denies coughing wheezing Abdomen: Denies abdominal pain vomiting diarrhea : Denies any urinary symptoms Neurological: Denies numbness, weakness, tingling Musculoskeletal: Denies back pain Skin: Denies rashes or lesions EXAM Physical Exam Narrative Exam Narrative: General: Patient lying in bed rest comfortably did not appear to be in acute distress Head: Atraumatic, normocephalic Eyes: PERRL bilaterally, EOMI bilaterally, no conjunctival injection noted Neck: Soft, supple, trachea midline Cardiovascular: Patient tachycardic with a regular rhythm no murmurs gallops rubs noted Respiratory: Clear to auscultation bilaterally Abdomen: Soft, nondistended, nontender to palpation Extremities: +5/5 strength noted in the bilateral upper and lower extremities, radial pulses +2/4 in the bilateral extremities, no pedal edema on exam Neurological: Patient follow commands that she was at [facility] there is 2024 Skin: Warm, dry, intact no rashes or lesions noted Const Vital Signs: 07/28/24 16:08 07/28/24 16:09 07/28/24 16:35 Temperature 97.9 F Temperature Source Temporal Pulse Rate 135 H 145 H Respiratory Rate 26 H Respiratory Effort Blood Pressure 197/100 H Blood Pressure Mean 132 Pulse Ox 97 Oxygen Delivery Method Room Air Room Air 07/28/24 16:52 07/28/24 17:09 07/28/24 17:51 Temperature Temperature Source Pulse Rate 116 H Respiratory Rate 21 H Respiratory Effort Labored Blood Pressure 172/106 H Blood Pressure Mean 128 Pulse Ox 95 Oxygen Delivery Method Room Air 07/28/24 18:11 07/28/24 19:03 07/28/24 19:20 Temperature 98.2 F Temperature Source Pulse Rate 104 H 99 110 H Respiratory Rate 17 12 Respiratory Effort Blood Pressure 158/74 H 164/50 H Blood Pressure Mean 102 88 Pulse Ox 93 98 Oxygen Delivery Method 07/28/24 19:22 Temperature 98.2 F Temperature Source Temporal Pulse Rate 106 H Respiratory Rate 21 H Respiratory Effort Blood Pressure 164/90 H Blood Pressure Mean 114 Pulse Ox 98 Oxygen Delivery Method Room Air MDM MDM MDM Narrative Medical decision making narrative: Patient is a 68-year-old female who presents to the emerged part with a chief complaint of elevated heart rate while at her primary care physician concern fornew onset atrial fibrillation with rapid ventricular response. On the differential diagnose includes but not limited to CHF, ACS, pneumonia, pneumothorax, upper respiratory infection secondary viral etiology. Once workupis obtained reviewed she will be reevaluated. Patient be given 30 cc/kg bolus of IV fluids which were ordered at 1650 and this is based on ideal body weight as she has a BMI of greater than 30 Patient CBC was reviewed and showed no evidence leukocytosis white blood count normal 11.1, hemoglobin 13.2, plate count was noted to be 560. Patient sodium normal 132, potassium normal 3.9, creatinine normal at 0.97. Patient lactic acid was elevated 2.2, AST and ALT were 32 and 39 respectively. Patient's troponin was noted to be 17. Patient's EKG was reviewed independently interpreted myself showed sinus tachycardia with a rate of 122 bpm. Patient's TSH was elevated at 7.34 however free T4 and T3 normal at 1.20 and 2.6 respectively. Patient's urinalysis showed negative nitrates 500 leukocyte esterase 50-100 white cells with 1+ bacteria this will be sent for culture she will be given a gram Rocephin. Patient's chest x-ray reviewed by myself and byradiology which showed no acute airspace abnormality. Patient CTA of her chest from 07/26/2024 was reviewed and showed no evidence of pulmonary embolism. Patient was ambulated here in the emergency department and her heart rate went to 128. We will discuss case with hospitalist for admission. Discussed case with hospitalist Dr. Tucker who accept patient for admission. Patient was notified is agreeable this plan as well as significant other bedsideall question concerns answered. Lab Data Labs: Laboratory Results - last 24 hr 07/28/24 07/28/24 07/28/24 16:22 16:41 18:10 WBC 11.1 H RBC 5.09 Hgb 13.2 Hct 41.0 MCV 80.6 L MCH 25.9 L MCHC 32.2 RDW Std Deviation 46.7 H RDW Coeff of Mykel 16.8 H Plt Count 560 H MPV 9.2 Immature Gran % (Auto) 0.400 Neut % (Auto) 75.6 H Lymph % (Auto) 15.5 L [place] % (Auto) 7.7 Eos % (Auto) 0.4 Baso % (Auto) 0.4 Absolute Neuts (auto) 8.4 H Absolute Lymphs (auto) 1.72 Nucleated RBC % 0 PT 13.6 INR 1.0 APTT 28.5 Sodium 132 L Potassium 3.9 Chloride 95 L Carbon Dioxide 18.5 L Anion Gap 18 H BUN 17 Creatinine 0.97 Estim Creat Clear Calc 81.10 Est GFR (MDRD) Non-Af 64 BUN/Creatinine Ratio 17.8 Glucose 140 H Lactic Acid 2.2 H* Calcium 10.3 Total Bilirubin 0.46 AST 32 ALT 39 H Alkaline Phosphatase 107 H Troponin T High Sens 17 H D Troponin T Hi Sens 2 Hr NT pro BNP II 93 Total Protein 8.9 H Albumin 4.5 Globulin 4.3 H Albumin/Globulin Ratio 1.0 TSH 7.340 H Free T4 1.20 Free T3 pg/dL 2.6 Urine Color Yellow Urine Clarity Sl. Cloudy Urine pH 6.0 Ur Specific [place] 1.020 Urine Protein 30 H Urine Glucose (UA) Normal Urine Ketones 5 H Urine Occult Blood 25 H Urine Nitrite Negative Urine Bilirubin Negative Urine Urobilinogen Normal Ur Leukocyte Esterase 500 H Urine RBC 5-10 SEEN Urine WBC 50-100 SEEN Ur Squamous Epith Cells 0-5 SEEN Amorphous Sediment 2+ URATE Urine Bacteria 1+ Urine Mucus 0 SEEN 07/28/24 18:27 WBC RBC Hgb Hct MCV MCH MCHC RDW Std Deviation RDW Coeff of Mykel Plt Count MPV Immature Gran % (Auto) Neut % (Auto) Lymph % (Auto) [place] % (Auto) Eos % (Auto) Baso % (Auto) Absolute Neuts (auto) Absolute Lymphs (auto) Nucleated RBC % PT INR APTT Sodium Potassium Chloride Carbon Dioxide Anion Gap BUN Creatinine Estim Creat Clear Calc Est GFR (MDRD) Non-Af BUN/Creatinine Ratio Glucose Lactic Acid Calcium Total Bilirubin AST ALT Alkaline Phosphatase Troponin T High Sens Troponin T Hi Sens 2 Hr 17 H NT pro BNP II Total Protein Albumin Globulin Albumin/Globulin Ratio TSH Free T4 Free T3 pg/dL Urine Color Urine Clarity Urine pH Ur Specific [place] Urine Protein Urine Glucose (UA) Urine Ketones Urine Occult Blood Urine Nitrite Urine Bilirubin Urine Urobilinogen Ur Leukocyte Esterase Urine RBC Urine WBC Ur Squamous Epith Cells Amorphous Sediment Urine Bacteria Urine Mucus Radiography Diagnostic Testing: Clinical Impression(s) from Imaging Studies Chest X-Ray 07/28/24 16:50 IMPRESSION: No acute airspace abnormality. Reading Location: [facility] Discharge Plan Triage Chief Complaint: Palpitations ED Provider: Lion Valentin Dx/Rx/DC Orders Clinical Impression: Sinus tachycardia, Palpitations, Urinary tract infection Prescriptions: No Action venlafaxine 75 MG capsule,extended release 24hr 75 mg PO DAILY Patient Comments: chlorthalidone 25 MG tablet 25 mg PO DAILY Patient Comments: benazepril 10 MG tablet 10 mg PO DAILY Patient Comments: atorvastatin 20 mg tablet 20 mg PO QHS levothyroxine [Synthroid] 75 mcg tablet 75 mcg PO DAILY Primary Care Provider: Hugo Mora Referrals: Hugo Mora MD [Primary Care Provider] - Print Language: Congolese Disposition Disposition: Acute Care Hospital [facility] What to do if you have Problems For any increased pain, shortness of breath, bleeding, nausea or vomiting, chestpain, or any unexpected problems, contact your Primary Care Provider. Call [facility] ([phone]) or report to the closest Emergency Room. Call 911 if necessary. 07/28/241951 <Electronically signed by Lion Valentin DO> Cosigner Signature (if applicable): CC: Dr. Hugo Mora MD ~ Signed [facility] Work Phone: [phone] 308-193503-04-2025 NoteHNO ID: [id number] Author: CHANTEL HOPKINS APRN.[employer]ER Service: ? Author Type: Nurse Practitioner Type: Progress Notes Filed: 07/26/2024 18:34 Note Text: This note was created using Bee Thereriter. Subjective Olena Valera is a 68 year old female. 68 year old female with PMH HTN, thyroid and arthritis presents for illness Acute onset 4 days ago +chest congestion +SOB Don't feel good +headache States she feels like her blood pressure is elevated Has been taking her medicine as prescribed +exposure to flu Shortness of Breath PAST MEDICAL HISTORY Diagnosis Date Arthritis Dysthymic disorder Depression (non-psychotic), not being treated for this HTN (hypertension) Hypothyroid Lichen sclerosus et atrophicus of the vulva 08/13/2011 PAST SURGICAL HISTORY Procedure Laterality Date COLONOSCOP W/ OR W/O BRSH SPEC 2012 Colonoscopy STEREO LOC FOR CORE BRST BX RT 09-04-10 RIGHT STEREO TOTAL KNEE REPLACEMENT 11/24/2013 Knee replacement, total, right knee ALLERGIES Patient has no known allergies. MEDICATIONS clopidogrel (PLAVIX) 75 mg tablet Take 75 mg by mouth once daily. clotrimazole-betamethasone (LOTRISONE) lotion Apply 1 application to affected area twice daily. levothyroxine (LEVOXYL) 50 mcg tablet Take 50 mcg by mouth daily before breakfast. venlafaxine XR (EFFEXOR XR) 75 mg 24 hr capsule Take 1 capsule by mouth once daily. ERGOCALCIFEROL, VITAMIN D2, (VITAMIN D ORAL) Take 1 tablet by mouth once daily. clobetasol 0.05 % TOPICAL ointment Apply 1 application to affected area twice daily. TO AFFECTED AREA. (Patient not taking: Reported on 03/19/2018 ) chlorthalidone 25 mg ORAL tablet Take 25 mg by mouth once daily. benazepril hcl(LOTENSIN 10 MG TAB) Take one(1) tablet daily. Calcium-Cholecalciferol (D3) (CALCIUM 600 + D) 600-125 mg-unit ORAL Tab Take one(1) tablet twice daily. FAMILY HISTORY Problem Relation Age of Onset Heart Mother CHF Heart Father [place]- Hypertension Brother Hypertension Brother Breast Cancer Maternal Aunt from this Breast Cancer Paternal Aunt Coronary Artery Disease Brother Social History Tobacco Use Smoking status: Former Current packs/day: 0.00 Types: Cigarettes Quit date: 08/02/2010 Years since quittin.9 Smokeless tobacco: Never Tobacco comments: 1 pack per week Substance Use Topics Alcohol use: No Drug use: No Review of Systems Respiratory: Positive for shortness of breath. Objective BP (!) 230/110 Pulse (!) 122 Temp 36.7 ?C (98 ?F) (Tympanic) Resp 20 Wt (!) 144.7 kg (319 lb 0.1 oz) LMP 08/09/2010 SpO2 99% BMI 54.33 kg/m? Physical Exam Constitutional: Appearance: She is obese. Comments: Appears uncomfortable Cardiovascular: Rate and Rhythm: Tachycardia present. Pulmonary: Comments: Tachypnic Assessment and Plan ASSESSMENT/PLAN: 1. Tachycardia - ICD9: 785.0, ICD10: R00.0 (primary diagnosis) Apical 122 here in clinic Discussed limitation of express care Referred to ED Declines EMS to drive 2. Elevated blood pressure reading - ICD9: 796.2, ICD10: R03.0 - 230-110 Tachycardic Short of breath 3. SOB (shortness of breath) - ICD9: 786.05, ICD10: R06.02 See above Chantel Hopkins APRN.[facility]03-04-2025 History of Present illness Narrative* Chantel Hopkins APRN.DESIGNATED BROKER - 07/26/2024 6:31 PM EST This note was created using NoteWriter. Subjective Olena Valera is a 68 year old female. 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 MEDICATIONS clopidogrel (PLAVIX) 75 mg tablet Take 75 mg by mouth once daily. clotrimazole-betamethasone (LOTRISONE) lotion Apply 1 application to affected area twice daily. levothyroxine (LEVOXYL) 50 mcg tablet Take 50 mcg by mouth daily before breakfast. venlafaxine XR (EFFEXOR XR) 75 mg 24 hr capsule Take 1 capsule by mouth once daily. ERGOCALCIFEROL, VITAMIN D2, (VITAMIN D ORAL) Take 1 tablet by mouth once daily. clobetasol 0.05 % TOPICAL ointment Apply 1 application to affected area twice daily. TO AFFECTED AREA. (Patient not taking: Reported on 03/19/2018 ) chlorthalidone 25 mg ORAL tablet Take 25 mg by mouth once daily. benazepril hcl(LOTENSIN 10 MG TAB) Take one(1) tablet daily. Calcium-Cholecalciferol (D3) (CALCIUM 600 + D) 600-125 mg-unit ORAL Tab Take one(1) tablet twice daily. FAMILY HISTORY Problem Relation Age of Onset Heart Mother CHF Heart Father [place]- Hypertension Brother Hypertension Brother Breast Cancer Maternal Aunt from this Breast Cancer Paternal Aunt Coronary Artery Disease Brother Social History Tobacco Use Smoking status: Former Current packs/day: 0.00 Types: Cigarettes Quit date: 08/02/2010 Years since quittin.9 Smokeless tobacco: Never Tobacco comments: 1 pack per week Substance Use Topics Alcohol use: No Drug use: No Review of Systems Respiratory: Positive for shortness of breath. Objective BP (!) 230/110 Pulse (!) 122 Temp 36.7 C (98 F) (Tympanic) Resp 20 Wt (!) 144.7 kg (319 lb 0.1 oz) LMP 08/09/2010 SpO2 99% BMI 54.33 kg/m Physical Exam Constitutional: Appearance: She is obese. Comments: Appears uncomfortable Cardiovascular: Rate and Rhythm: Tachycardia present. Pulmonary: Comments: Tachypnic Assessment and Plan ASSESSMENT/PLAN: 1. Tachycardia - ICD9: 785.0, ICD10: R00.0 (primary diagnosis) Apical 122 here in clinic Discussed limitation of express care Referred to ED Declines EMS to drive 2. Elevated blood pressure reading - ICD9: 796.2, ICD10: R03.0 - 230-110 Tachycardic Short of breath 3. SOB (shortness of breath) - ICD9: 786.05, ICD10: R06.02 See above Chantel Hopkins APRN.DESIGNATED BROKER documented in this encounterUniversity [facility] Cent[facility] summary Author Ernie Ross [facility] Note Date/Time July 30, 2024 10:3 3am [facility] Medical Records Department [address] [place] [id number] Instructions for Home/Discharge Instructions 07/30/24 1000 MR#: [id number] Acct: [id number] Name: OLENA VALERA Rep #:[id number] : 1955 68 From: Ernie Reed PCP: Dr. Hugo Mora MD Status:ADM I N Discharge Instructions Diet Discharge Diet: 2000 mg Sodium Diet DC O2, CPAP, BIPAP needs Home O2 Discharge instructions: No Dressing / Incision Discharge Activity: Return to Normal Activity Weight Bearing Status: Weight bearing as tolerated Dressing / Incision Call your doctor if you observe: Fever of 101 or Higher, Coldness, Increased Pain, Numbness or Tingling, Change in Color, Inability to urinate, Inability to have a bowel movement, Shortness of breath, Dizziness, Fainting spells, Swellingin the ankles, Chest pain, Prolonged hiccupping, Increased palpitations (irregular heartbeat) and Calf discomfort Follow Up Care When: IN 2 WEEKS Test Results: Test results from this visit will be discussed in further detail at your follow- up appointment, if applicable. Discharge Plan Admission Admit Date/Time: 07/28/24 19:30 Attending Provider: Ernie Ross Primary Care Provider: Hugo Mora Consulting Providers: Yolanda Tucker; Ralph Sexton; Mane Jhaveri Discharge Orders/Prescriptions Prescriptions: New Eliquis 5 mg Tablet 5 mg PO BID 30 Days Qty: 60 2RF amoxicillin 500 mg tablet 500 mg PO TID 5 Days Qty: 15 0RF metoprolol succinate 50 mg tablet extended release 24 hr 50 mg PO DAILY 30 Days Qty: 30 2RF Rx Instructions: Hold for heart less than 50 or systolic blood pressure less than 100 mmHg. nystatin 100,000 unit/gram ointment 1 applic topical BID 14 Days Qty: 30 1RF Rx Instructions: Under inframamillary fold of the skin Continued venlafaxine 75 MG capsule,extended release 24hr 75 mg PO DAILY Patient Comments: benazepril 10 MG tablet 10 mg PO DAILY Patient Comments: atorvastatin 20 mg tablet 20 mg PO QHS levothyroxine [Synthroid] 75 mcg tablet 75 mcg PO DAILY Held chlorthalidone 25 MG tablet 25 mg PO DAILY Hold Instructions: Hold for SBP less than 130 mmHg. If blood pressure goes high above 140 mmHg, can resume 12.5 mg daily. Patient Comments: Referrals / Follow Up: Donavan Borjas MD [Med Staff - Active Staff] - Within 1 Month Hugo Mora MD [Primary Care Provider] - Disposition Disposition (needs filled in before D/C Order can be placed): Home, Self Care 07/30/24 1033<Electronically signed by Ernie Ross MD>Ernie Ross MD CC: Dr. Mane Jhaveri MD; Dr. Ralph Sexton MD; Dr. Yolanda Tucker MD; Dr. Hugo Mora MD ~ Signed [facility] Work Phone: Evaluation noteNo assessment information available [facility] Work Phone: Evaluation note* Diagnosis Tachycardia- Primary Tachycardia, unspecified Elevated blood pressure reading Elevated blood pressure reading without diagnosis of hypertension SOB (shortness of breath) Shortness of breath documented in this encounter [facility] course Narrative No data available for this section [facility] Discharge instructions Additional Instructions Stay well-hydrated, plenty of rest, please return for any shortness of breath, chest pain or worsening of your symptoms.[facility] Work Phone: Progress note Author Ralph Sexton [facility] Note Date/Time July 30, 2024 10:4 9am [facility] Medical Records Department [address] [place] [address] Progress Note - Cardiology 07/30/24 1047 MR#: [id number] Acct: [id number] Name: OLENA VALERA Rep #:[id number] : 1955 68 From: Ralph Sexton MD PCP: Dr. Hugo Mora MD Status:ADM I N Location: [place] [address] Subjective Subjective Sitting up in chair. Comfortable. Denies any complaints today. Reports feeling better. Objective Data Vital Signs: Vital Signs Temp Pulse Resp BP Pulse Ox O2 Del Method 98.0 F 70 14 132/68 H 94 Room Air 07/30/24 09:15 07/30/24 09:15 07/30/24 09:15 07/30/24 09:15 07/30/24 09:15 07/30/24 09:15 Oxygen Delivery Method Room Air Weight: 309 lb 1.409 oz Body Mass Index (BMI) 51.4 Intake & Output: Intake and Output for Last 24 Hours 07/28/24 07/29/24 07/30/24 23:59 23:59 23:59 Intake Total 2049 2500 / 2500 50 / 50 Balance 2049 2500 / 2500 50 / 50 Lab / Micro Data 07/29/24 04:48 07/29/24 04:48 Labs: Laboratory Results - last 24 hr 07/29/24 14:26: Activated Clotting Time 187 H Micro: Microbiology 07/28/24 18:10 Urine, Clean Catch Urine Culture - Final Streptococcus agalactiae (B) Rhythm Strip Rhythm Strip: Sinus Rhythm Cardiology Labs/Tests Rhythm: EKG: ECHO: Stress Test: Cardiac Cath: PCI: CT Surgery: Holter monitor: EPS: PPM: CXR: Chest CT Scan: Radiography Diagnostic Testing: Radiology Impression Echocardiogram 07/29/24 05:55 Interpretation Summary Mild concentric left ventricular hypertrophy. Mild posterior and inferior basal hypokinesis. Estimated LVEF 50%. Grade 1 diastolic dysfunction. The left atrium is severely enlarged. Ordering Physician: Yolanda Tucker Referring Physician: Lion Valentin Performed By: Ana Laura Andujar RDCS Physical Exam Narrative Morbidly obese. Heart sounds 1 and 2 noted. Chest clear to auscultation bilaterally. Alert oriented x 3. No ankle edema noted. Assessment & Plan Assessment/Plan (1) Dyspnea on exertion: PLAN: Resolved. Could have been because of paroxysms of atrial fibrillation with rapid ventricular response. Continue beta-blockers. (2) Coronary artery disease: PLAN: 60% mid LAD disease with FFR of 0.84. Continue to treat medically. On apixaban for atrial fibrillation. Beta-blockers. Atorvastatin. (3) Paroxysmal atrial fibrillation: PLAN: Patient apparently had atrial fibrillation diagnosed in her primary care physician's office. Started on apixaban. (4) Hypertension: PLAN: Lisinopril and metoprolol. (5) Super obesity: PLAN: Lose weight. PLAN: Plan May discharge home from a cardiology standpoint. Follow-up as outpatient. 07/30/24 1049 <Electronically signed by Ralph Sexton MD> Cosigner Signature (if applicable): CC: ~ Signed [facility] Work Phone: Summary Purpose Family History No Family History Records Found Relationship Condition Age at Onset Recorded Date/T per mother Cardiac disease Unknown Hypertension Unknown father Cardiac disease Unknown Coronary artery disease Unknown Myocardial infarction Unknown Sudden cardiac Unknown Advance Directives No Advanced Directives Records Found Advance Directive Response Recorded Date/ Time Advance Directives No October 26 4 8:15am Living Will No December 03, 2021 8:20am Power of Talent Management Specialist No December 03 8:20am Advance Directive Response Recorded Date/ Time Advance Directives No October 26 4 8:15am Living Will No March 09 10:51am Power of Talent Management Specialist No March 09, 2016 10:51am Advance Directive Response Recorded Date/ Time Advance Directives No October 26 4 8:15am Living Will No August 23, 2022 11:56am Power of Talent Management Specialist No August 23 11:56am Advance Directive Response Recorded Date/ Time Living Will No July 26, 2024 8:16pm Power of Talent Management Specialist No July 26 8:16pm Living Will No July 28, 2024 4:52pm Power of Talent Management Specialist No July 28 4:52pm Advance Directives No October 26 4 7:15am Advance Directive Response Recorded Date/ Time Living Will No July 26, 2024 8:16pm Power of Talent Management Specialist No July 26 8:16pm Living Will No July 28, 2024 8:54pm Power of Talent Management Specialist No July 28 8:54pm Advance Directives No October 26 7:15am Advance Directive Response Recorded Date/ Time Living Will No July 26, 2024 9:16pm Do you have a Healthcare Power of Talent Management Specialist? No July 26, 2024 9:16pm Living Will No July 28, 2024 9:54pm Do you have a Healthcare Power of Talent Management Specialist? No July 28, 2024 9:54pm Advance Directives No October 26 4 8:15am Chief Complaint and Reason for Visit Chief Complaint LT KNEE *HALEY PROTOC OL*, PREOP Chief Complaint LT KNEE *HALEY PROTOC OL*, PREOP LT KNEE *HALEY PROTOCOL*, PREOP LT TOTAL KNEE W HALEY Chief Complaint LT KNEE *HALEY PROTOC OL*, PREOP LT KNEE *HALEY PROTOCOL*, PREOP LT TOTAL KNEE W HALEY LLE PAIN, R/O DVT S/P TKR Chief Complaint GENERAR ILLNESS Chief Complaint Admit Date HTN, DIAPHORESIS, SOB July 26, 2024 6: 37pm UTI, [place] PAF July 28, 2024 7:30 pm Chief Complaint Admit Date HTN, DIAPHORESIS, SOB July 26, 2024 6: 37pm UTI, [place] PAF July 28, 2024 7:30 pm UTI, [place] PAF July 29, 2024 8:04 am UTI, [place] O[place]ET PAF July 29, 2024 12:3 0pm UTI, [place] O[place]ET PAF July 30, 2024 10:4 7am Reason for Visit Admit Date Abnormal cardiovascular stress test Robi 2024 7:30pm Coronary artery disease July 28, 2024 7:30pm Dyspnea on exertion July 28, 2024 7:30 pm Palpitations July 28, 2024 7:30 pm Paroxysmal atrial fibrillation July 7:30pm Super obesity July 28, 2024 7:30 pm Urinary tract infection July 28, 2024 7:30pm Hypertension July 28, 2024 7:30 pm Chief Complaint Admit Date HTN, DIAPHORESIS, SOB July 26, 2024 6: 37pm UTI, NEW ONSET PAF July 28, 2024 7:30 pm UTI, [place] PAF July 29, 2024 8:04 am UTI, [place] PAF July 29, 2024 12:3 0pm UTI, [place] PAF July 30, 2024 10:0 8am UTI, [place] PAF July 30, 2024 10:4 7am S/P [facility] Cath 07/29August 23, 2024 10:3 7am e order August 23, 2024 12:0 6pm Reason for Visit Admit Date Abnormal cardiovascular stress test Robi 2024 7:30pm Coronary artery disease July 28, 2024 7:30pm Dyspnea on exertion July 28, 2024 7:30 pm Palpitations July 28, 2024 7:30 pm Paroxysmal atrial fibrillation July 7:30pm Hypertension July 28, 2024 7:30 pm Super obesity July 28, 2024 7:30 pm Urinary tract infection July 28, 2024 7:30pm Anemia August 23, 2024 10:3 7am Coronary artery disease August 23, 2024 10:37am Dyspnea on exertion August 23, 2024 10:3 7am Paroxysmal atrial fibrillation August 10:37am Hypertension August 23, 2024 10:3 7am Chief Complaint Admit Date HTN, DIAPHORESIS, SOB July 26, 2024 6: 37pm UTI, [place] PAF July 28, 2024 7:30 pm UTI, [place] PAF July 29, 2024 8:04 am UTI, [place] PAF July 29, 2024 12:3 0pm UTI, [place] PAF July 30, 2024 10:0 8am UTI, [place] PAF July 30, 2024 10:4 7am S/P [facility] Cath 07/29August 23, 2024 10:3 7am e order August 23, 2024 12:0 6pm SCREENING October 06, 2024 9:57a m Additional Source Comments INFORMATION SOURCE (unrecogn ized section and content) DATE CREATED AUTHOR 05/30/2021 [facility] DATE CREATED AUTHOR AUTHOR'S ORGANIZ ATION 07/28/2024 [facility] DATE CREATED AUTHOR AUTHOR'S ORGANIZ ATION 10/29/2024 [facility] DATE CREATED AUTHOR AUTHOR'S ORGANIZ ATION 01/03/2025 [facility] Goals (unrecognized section and content) Goals may be documented in a n alternate sectionGoals may be documented in an alternate sectionGoals may be documented in an alternate sectionGoals may be documented in an alternate sectionGoals may be documented in an alternate sectionGoals may be documented in an alternate sectionGoals may be documented in an alternate sectionGoals may be documented in an alternate section No data available for this section Care Teams (unrecognized sec tion and content) Team Status: Active Member Role Status Dates Dr. Sagar Nuñez MD Family Provider Active Dr. Hugo Mora MD Primary Care Provider Active Team Status: Inactive Member Role Status Dates Dr. Hugo Moar MD Primary Care Provider Active Dr. Bharat Cid DO Emergency Provider Active Citizen Participation Specialist Relationship Specialty Start Date End Date Hugo Mora MD [address] [facility] [address] [place] [address] PCP - General Family Medicine 07/26/24 Team Status: Active Member Role Status Dates Dr. Hugo Mora MD Primary Care Provider Active Team Status: Inactive Member Role Status Dates Dr. Hugo Mora MD Primary Care Provider Active Start: July 26, 2024 End: July 26, 2024 Dr. Miguel Waters MD Emergency Provider Active Sta rt: July 26, 2024 End: July 26, 2024 Team Status: Active Member Role Status Dates Dr. Hugo Mora MD Primary Care Provider Active Start: July 28, 2024 Dr. Lion Valentin DO Referring Provider Active Start: July 28, 2024 Dr. Lion Valentin DO Emergency Provider Active Start: July 28, 2024 Dr. Yolanda Tucker MD Admit Provider Active St art: July 28, 2024 Dr. Yolanda Tucker MD Attending Provider Active Start: July 28, 2024 Team Status: Inactive Member Role Status Dates Dr. Hugo Mora MD Primary Care Provider Active Start: July 28, 2024 End: July 30, 2024 Dr. Lion Valentin DO Referring Provider Active Start: July 28, 2024 End: July 30, 2024 Dr. Lion Valentin DO Emergency Provider Active Start: July 28, 2024 End: July 30, 2024 Dr. Yolanda Tucker MD Admit Provider Active St art: July 28, 2024 End: July 30, 2024 Dr. Yolanda Tucker MD Other Provider Active St art: July 28, 2024 End: July 30, 2024 Dr. Ralph Sexton MD Other Provider Active Star t: July 28, 2024 End: July 30, 2024 Dr. Ernie Ross MD Attending Provider Active Start: July 28, 2024 End: July 30, 2024 Dr. Mane Jhaveri MD Other Provider Active St art: July 28, 2024 End: July 30, 2024 Team Status: Active Member Role Status Dates Dr. Hugo Mora MD Primary Care Provider Active Start: July 29, 2024 Dr. Lion Valentin DO Referring Provider Active Start: July 29, 2024 Dr. Lion Valentin DO Emergency Provider Active Start: July 29, 2024 Dr. Yolanda Tucker MD Admit Provider Active St art: July 29, 2024 Dr. Yolanda Tucker MD Other Provider Active St art: July 29, 2024 Dr. Mane Jhaveri MD Attending Provider Active Start: July 29, 2024 Dr. Mane Jhaveri MD Other Provider Active St art: July 29, 2024 Dr. Ralph Sexton MD Other Provider Active Star t: July 29, 2024 Team Status: Active Member Role Status Dates Dr. Hugo Mora MD Primary Care Provider Active Start: July 29, 2024 Dr. Lion Valentin DO Referring Provider Active Start: July 29, 2024 Dr. Lion Valentin DO Emergency Provider Active Start: July 29, 2024 Dr. Yolanda Tucker MD Admit Provider Active St art: July 29, 2024 Dr. Yolanda Tucker MD Other Provider Active St art: July 29, 2024 Dr. Mane Jhaveri MD Other Provider Active St art: July 29, 2024 Dr. Ralph Sexton MD Attending Provider Active Start: July 29, 2024 Team Status: Active Member Role Status Dates Dr. Hugo Mora MD Primary Care Provider Active Start: July 30, 2024 Dr. Lion Valentin DO Referring Provider Active Start: July 30, 2024 Dr. Lion Valentin DO Emergency Provider Active Start: July 30, 2024 Dr. Yolanda Tucker MD Admit Provider Active St art: July 30, 2024 Dr. Yolanda Tucker MD Other Provider Active St art: July 30, 2024 Dr. Ralph Sexton MD Attending Provider Active Start: July 30, 2024 Dr. Ralph Sexton MD Other Provider Active Star t: July 30, 2024 Dr. Ernie Ross MD Other Provider Active Sta rt: July 30, 2024 Dr. Mane Jhaveri MD Other Provider Active St art: July 30, 2024 Team Status: Inactive Member Role Status Dates Dr. Hugo Mora MD Primary Care Provider Active Start: July 26, 2024 End: July 26, 2024 Dr. Miguel Waters MD Attending Provider Active Sta rt: July 26, 2024 End: July 26, 2024 Dr. Miguel Waters MD Emergency Provider Active Sta rt: July 26, 2024 End: July 26, 2024 Team Status: Active Member Role Status Dates Dr. Hugo Mora MD Primary Care Provider Active Start: July 29, 2024 Dr. Lion Valentin DO Emergency Provider Active Start: July 29, 2024 Dr. Yolanda Tucker MD Admit Provider Active St art: July 29, 2024 Dr. Yolanda Tucker MD Other Provider Active St art: July 29, 2024 Dr. Mane Jhaveri MD Attending Provider Active Start: July 29, 2024 Dr. Mane Jhaveri MD Other Provider Active St art: July 29, 2024 Dr. Ralph Sexton MD Other Provider Active Star t: July 29, 2024 Team Status: Active Member Role Status Dates Dr. Hugo Mora MD Primary Care Provider Active Start: July 30, 2024 Dr. Lion Valentin DO Emergency Provider Active Start: July 30, 2024 Dr. Yolanda Tucker MD Admit Provider Active St art: July 30, 2024 Dr. Yolanda Tucker MD Other Provider Active St art: July 30, 2024 Dr. Ralph Sexton MD Other Provider Active Star t: July 30, 2024 Dr. Ernie Ross MD Attending Provider Active Start: July 30, 2024 Dr. Ernie Ross MD Other Provider Active Sta rt: July 30, 2024 Dr. Mane Jhaveri MD Other Provider Active St art: July 30, 2024 Team Status: Inactive Member Role Status Dates Dr. Hugo Mora MD Primary Care Provider Active Start: August 23, 2024 End: August 23, 2024 Dr. Hugo Mora MD Referring Provider Active Start: August 23, 2024 End: August 23, 2024 Dr. Donavan Borjas MD Attending Provider Active Start: August 23, 2024 End: August 23, 2024 Team Status: Inactive Member Role Status Dates Dr. Hugo Mora MD Primary Care Provider Active Start: August 23, 2024 End: August 23, 2024 Dr. Donavan Borjas MD Attending Provider Active Start: August 23, 2024 End: August 23, 2024 Dr. Donavan Borjas MD Referring Provider Active Start: August 23, 2024 End: August 23, 2024 Team Status: Inactive Member Role Status Dates Dr. Hugo Mora MD Primary Care Provider Active Start: October 06, 2024 End: October 06, 2024 Dr. Hugo Mora MD Attending Provider Active Start: October 06, 2024 End: October 06, 2024 Dr. Hugo Mora MD Referring Provider Active Start: October 06, 2024 End: October 06, 2024 Team Status: Inactive Member Role Status Dates Dr. Hugo Mora MD Primary Care Provider Active Start: October 24, 2024 End: October 24, 2024 Dr. Hugo Mora MD Attending Provider Active Start: October 24, 2024 End: October 24, 2024 Dr. Hugo Mora MD Referring Provider Active Start: October 24, 2024 End: October 24, 2024 Team Status: Active Member Role Status Dates Dr. Hugo Mora MD Primary Care Provider Active Start: October 25, 2024 Dr. Hugo Mora MD Attending Provider Active Start: October 25, 2024 Dr. Hugo Mora MD Referring Provider Active Start: October 25, 2024 Team Status: Inactive Member Role Status Dates Dr. Hugo Mora MD Primary Care Provider Active Start: October 25, 2024 End: October 25, 2024 Dr. Hugo Mora MD Attending Provider Active Start: October 25, 2024 End: October 25, 2024 Dr. Hugo Mora MD Referring Provider Active Start: October 25, 2024 End: October 25, 2024 Source Comments (unrecognize d section and content) In the event this informatio n is protected by the Federal Confidentiality of Alcohol and Drug Abuse Patient Records regulations: The Federal rules restrict any use of the information to criminally investigate or prosecute any alcohol or drug abuse patient.[facility] Reason for Visit (unrecogniz ed section and content) Reason Comments Shortness of Breath SOB, chest congestio n, and feels like blood pressure is elevated x 4 days FOR RECORDS PERTAINING TO PATIENTS WHO ARE OR HAVE BEEN ENROLLED IN A CHEMICAL DEPENDENCY/SUBSTANCEABUSE PROGRAM, SOME INFORMATION MAY BE OMITTED. This clinical summary was aggregated from multiple sources. Caution should be exercised in using it in the provision of clinical care. This summary normalizes information from multiple sources, and as a consequence, information in this document may materially change the coding, format and clinical context of patient data. In addition, data may be omitted in some cases. CLINICAL DECISIONS SHOULD BE BASED ON THE PRIMARY CLINICAL RECORDS. [employer] provides no warranty or guarantee of the accuracy or completeness of information in this document.
[2025-04-23 12:17] LABS: Hematocrit 39.4 % (37-47); Hemoglobin 12.4 g/dL (12.0-15.0); Immature Granulocytes Count 0.040 X10^3/uL (0.0-0.0); Mean Corp Hgb Conc 31.5 g/dL (32-36); Mean Corpuscular Volume 83.7 fL (81-99); Mean Platelet Vol. 9.4 fl (6.2-12.0); NRBC Flagged by Analyzer 0 % (0-5); Platelet Count 464 K/mm3 (150-450); RBC Distribution Width CV 16.7 % (11.6-14.6); RBC Distribution Width SD 51.0 fl (35.1-43.9); Red Blood Count 4.71 M/mm3 (4.2-5.4); White Blood Count 11.8 K/mm3 (4.4-11.0)
--- NOTE | 2025-04-23 12:38 | EKG12_ITS ---
Test Reason : repeat Blood Pressure : */* mmHG Vent. Rate : 81 BPM Atrial Rate : 81 BPM P-R Int : 252 ms QRS Dur : 86 ms QT Int : 416 ms P-R-T Axes : 55 35 52 degrees QTcB Int : 483 ms Sinus rhythm with 1st degree A-V block Low voltage QRS Septal infarct , age undetermined Right bundle branch block Abnormal ECG Occasional PVC Confirmed by Donavan Borjas ([id number]), editor house organ FRANCISCO HARPER ([id number]) on 04/24/2025 8:29:03 AM Referred By: Confirmed By: Donavan Borjas
[2025-04-23 12:39] LABS: Anion Gap 18 (5-15); BUN 19 mg/dL (4-19); BUN/Creat Ratio 25.6 RATIO (10-20); Calcium,Total 10.3 mg/dL (7.6-11.0); Carbon Dioxide 20.8 mmol/L (21.0-32.0); Chloride 98 mmol/L (98-108); Estimated Creatinine Clearance 97.50 ml/min (50-250); Glucose 156 mg/dL (70-99); Magnesium 1.9 mg/dL (1.5-2.2); Potassium 3.1 mmol/L (3.3-5.1); Troponin T High Sensitivity 11 ng/L (<=14)
--- NOTE | 2025-04-23 13:02 | EX.ED.DYSGE1 ---
HPI History of Present Illness Chief Complaint: Syncope Informant: patient, spouse/S.O. and family Narrative Narrative: 69-year-old female presenting to the emergency room with a near syncopal episode at [facility]. Patient states that her dog on Thursday. She had a close friend that also this week and the service was yesterday. 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 She was in the pulpit states that she just did not feel her normal self. She states at 1 point she got up to stand tricks member noticed that she was very sweaty which she states is not that uncommon for her. She states that she told the person her not to leave her side. She states that she started to lose consciousness but did not lose consciousness. Patient notes a history of atrial fibrillation but does not feel her heart racing when she goes into it. The patient denies any chest pain shortness of breath. She denies missing any doses of her apixaban. She follows locally with Dr. Borjas from cardiology. She is on metoprolol benazepril and chlorthalidone. She also takes atorvastatin and venlafaxine. She notes that she did have a heart catheterization earlier this year in light of an abnormal stress test while evaluating her atrial fibrillation. This demonstrated coronary artery disease in 3 vessels but not at a percentage for intervention. [facility] Medical History Super obesity Urinary tract infection History of left heart catheterization Sinus tachycardia Palpitations Abnormal cardiovascular stress test Dyspnea on exertion Coronary artery disease Paroxysmal atrial fibrillation Morbid obesity Anxiety and depression Wears glasses Arthritis High cholesterol Former smoker History of stress test Hypertension Home Medications ?Medication ?Instructions ?Recorded ?Last Taken ?Type benazepril 10 mg tablet 10 mg PO DAILY BP 12/31/13 07/28/24 09:30 History 10 mg venlafaxine 75 mg capsule,extended 75 mg PO DAILY HOT FLASHES 12/31/13 07/28/24 09:30 History release 24 hr 75 mg atorvastatin 20 mg tablet 20 mg PO QHS high cholesterol 07/26/24 07/27/24 21:00 History 20 mg levothyroxine 75 mcg tablet 75 mcg PO DAILY hypothyroid 07/28/24 07/28/24 08:00 History (Synthroid) 75 mcg nystatin 100,000 unit/gram topical 1 applic topical BID 2 weeks #30 07/30/24 Unknown Rx ointment grams apixaban 5 mg tablet (Eliquis) 5 mg PO BID 90 days #180 tabs 08/23/24 Unknown Rx chlorthalidone 25 mg tablet 12.5 mg (1/2 x 25 mg) PO QDAY #30 08/23/24 Unknown Rx tabs metoprolol succinate 50 mg 50 mg PO DAILY 3 months #90 tabs 08/23/24 Unknown Rx tablet,extended release 24 hr Allergy/AdvReac Type Severity Reaction Status Date / Time No Known Allergies Allergy Verified 04/23/25 11:21 Family History Mother Heart disease Hypertension Father , from massive PA at 76 y/o. Heart disease CAD (coronary artery disease) Hypertension Myocardial infarction Sudden cardiac Surgical History Hx of colonoscopy History of total right knee replacement Social History household members: spouse Smoking Status: Former smoker how long ago did patient quit smoking: Quit 30-35 yrs prior, light smoking only. alcohol intake: never substance use type: does not use caffeine: Yes ROS ROS ED Constitutional Constitutional ED: Denies chills, fever(s) or weight loss Eyes Eyes: Denies change in vision or diplopia ENT ENT ED: Denies ear pain, rhinorrhea or sore throat Cardiovascular Cardiovascular: Reports other Details: Near syncope ; Denies chest pain, orthopnea, palpitations or racing heartbeat Respiratory/Chest Respiratory/Chest: Denies cough, dyspnea or orthopnea Gastrointestinal Gastrointestinal: Denies abdominal pain, diarrhea, nausea or vomiting Genitourinary Genitourinary ED: Denies dysuria, hematuria or urinary frequency Musculoskeletal Musculoskeletal: Denies arthralgias or myalgias Integumentary Denies abscess or rash Neurologic Neurologic: Denies headache(s) or weakness Psychiatric Psychiatric: Reports other Details: Situational depression regarding recent deaths ; Denies anxiety, suicidal ideation or suicidal thoughts Endocrine Endocrinology: Denies polydipsia, polyphagia or polyuria Allergic/Immunologic Allergic/Immunologic ED: Denies mouth swelling, tongue swelling or urticaria EXAM Physical Exam Narrative Exam Narrative: Very pleasant 69-year-old female laying back in bed. and daughter in the room. Const Vital Signs: 04/23/25 11:21 04/23/25 11:26 04/23/25 12:21 Temperature 96.1 F L Temperature Source Temporal Pulse Rate 133 H 90 Respiratory Rate 24 H Respiratory Pattern Tachypnea Blood Pressure 211/112 H 183/96 H Blood Pressure Mean 145 125 Pulse Ox 97 Oxygen Delivery Method Room Air 04/23/25 13:00 04/23/25 13:00 04/23/25 14:00 Temperature Temperature Source Pulse Rate 96 89 84 Respiratory Rate 18 Respiratory Pattern Blood Pressure 124/92 H 124/92 H 145/74 H Blood Pressure Mean 102 102 97 Pulse Ox 99 Oxygen Delivery Method Room Air 04/23/25 15:00 04/23/25 16:00 Temperature Temperature Source Pulse Rate 90 78 Respiratory Rate 19 H Respiratory Pattern Blood Pressure 143/76 H 142/72 H Blood Pressure Mean 98 95 Pulse Ox 93 96 Oxygen Delivery Method Room Air Positive well nourished and well developed General Appearance ED: well developed and NAD HEENT Reports normocephalic, head/scalp atraumatic and moist mucous membranes Eyes PERRL and EOMs intact bilaterally Neck no lymphadenopathy, supple and no JVD Resp normal respiratory effort and clear to auscultation bilaterally Cardio no murmurs Rate: tachycardic Rhythm: abnormal rhythm irregularly irregular GI normal to inspection, nondistended, normoactive bowel sounds and non-tender Palpation: soft Back/Spine no CVA tenderness and normal ROM Extremity normal to inspection General Extremety ED: Negative for edema General Extremity: Negative for edema Neuro oriented x3 and CN's II-XII intact bilaterally Sensorium / Orientation: alert Motor Exam: strength 5/5 throughout Psych Mood & Affect: tearful; Negative for depressed or anxious Skin no rashes or lesions noted and no wounds MDM MDM MDM Narrative Medical decision making narrative: Differential diagnosis includes but not limited to paroxysmal A-fib other cardiac dysrhythmia acute coronary syndrome Takotsubo's cardiomyopathy hypertensive urgency/emergency electrolyte abnormalities EKG initially is A-fib with RVR repeat is sinus rhythm first-degree AV block otherwise unchanged from prior. Initial troponins are 1119 and 33. White count 11.8 hemoglobin 12.4 platelet count of 464 BMP shows a glucose of 156. My independent interpretation of the chest x-ray is no acute findings. Patient's blood pressures come down on its own currently 139/78. She remains in a sinus rhythm. It is unclear if this was a hypertensive urgency if the elevated troponins could be from A-fib with RVR or she could have a Takotsubo's cardiomyopathy or if this is developing ACS. I spoke with cardiology as well as the patient and her . Plan of care will be admission to the hospital for further evaluation. I will speak with her hospitalist. History & Record Review Discussion w/independent historian: Patient and Significant other Additional record(s) reviewed:: Prior inpatient record, Prior ED visit and Prior labs Lab Data Attestation: I reviewed the patient's lab results. Labs: Laboratory Results - last 24 hr 04/23/25 04/23/25 04/23/25 11:28 13:24 15:29 WBC 11.8 H RBC 4.71 Hgb 12.4 Hct 39.4 MCV 83.7 MCH 26.3 L MCHC 31.5 L RDW Std Deviation 51.0 H RDW Coeff of Mykel 16.7 H Plt Count 464 H MPV 9.4 Immature Gran % (Auto) 0.300 Neut % (Auto) 74.0 H Lymph % (Auto) 16.1 L [place] % (Auto) 7.6 Eos % (Auto) 1.6 Baso % (Auto) 0.4 Absolute Neuts (auto) 8.7 H Absolute Lymphs (auto) 1.90 Nucleated RBC % 0 Sodium 137 Potassium 3.1 L Chloride 98 Carbon Dioxide 20.8 L Anion Gap 18 H BUN 19 Creatinine 0.76 Estim Creat Clear Calc 97.50 Est GFR (MDRD) Non-Af 86 BUN/Creatinine Ratio 25.6 H Glucose 156 H Calcium 10.3 Magnesium 1.9 Troponin T High Sens 11 D Troponin T Hi Sens 2 Hr 19 H Troponin T Hi Sens 4Hr 33 H Radiography Diagnostic Testing: Clinical Impression(s) from Imaging Studies Chest X-Ray 04/23/25 12:00 IMPRESSION: No acute findings. [facility] EKG Initial EKG: Attestation: I personally reviewed and interpreted this EKG as follows: Comments: Atrial fibrillation with rapid ventricular response at a rate of 104 bpm. PVC noted. Follow-up EKG: Attestation: I personally reviewed and interpreted this EKG as follows: Comments: Sinus rhythm with first-degree AV block with PVC. Management Discussion w/another healthcare provider: Hospitalist (Dr. Tucker) and [employer] Route Aide (Dr. Quezada) Discharge Plan Dx/Rx/DC Orders Clinical Impression: Hypertension, Paroxysmal atrial fibrillation, Near syncope, Elevated troponin, Coronary artery disease Disposition Disposition: Acute Care Hospital [facility]
[2025-04-23] MEDS: Potassium Chloride Oral Tablet 20 MEQ 40 MEQ PO (13:18)
[2025-04-23 14:02] LABS: Troponin T High Sens 2 HR 19 ng/L (<=14)
[2025-04-23 16:04] LABS: Troponin T High Sens 4 HR 33 ng/L (<=14)
--- NOTE | 2025-04-23 16:35 | HP.PCM.HOS_ITS ---
HPI - General General Date of Admission: 04/23/25 Date of Service: 04/23/25 Chief Complaint: Lightheadedness/dizziness, near syncopal event. 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 Patient upon current hospitalist evaluation notes feeling significantly improved since initial ED arrival especially since cardioversion spontaneously to sinus rhythm. Workup in the ED included T96.1, heart 133, BP 211/112, respiratory rate 24, 97% on room air with most recent repeat vitals heart rate 78, BP 142/72, respiratory rate 19, 96% on room air, CBC with WC 11.8, Hgb 12.4, platelet 464 with left shift, BMP with potassium 3.1, carbon oxide 20.8, anion gap 18, BUN/Cr 19/0.76, GFR 86, glucose 156, magnesium 1.9, initial troponin 11 repeat delta 19 and 4-hour repeat troponin 33, chest x-ray with no acute cardiopulmonary findings, EKG with atrial fibrillation with RVR initially with follow-up EKG with cardioversion with sinus rhythm with first- degree AV block with PVC. In the ED patient ministered full-strength aspirin therapy as well as potassium chloride 40 mill equivalent p.o. x 1. [facility] Medical History Super obesity Urinary tract infection History of left heart catheterization Sinus tachycardia Palpitations Abnormal cardiovascular stress test Dyspnea on exertion Coronary artery disease Paroxysmal atrial fibrillation Morbid obesity Anxiety and depression Wears glasses Arthritis High cholesterol Former smoker History of stress test Hypertension Home Medications ?Medication ?Instructions ?Recorded ?Last Taken ?Type benazepril 10 mg tablet 10 mg PO DAILY BP 12/31/13 0 07/28/24 09:30 History 10 mg venlafaxine 75 mg capsule,extended 75 mg PO DAILY HOT FLASHES 12/31/13 07/28/24 09:30 History release 24 hr 75 mg atorvastatin 20 mg tablet 20 mg PO QHS high cholestero l 07/26/24 07/27/24 21:00 History 20 mg levothyroxine 75 mcg tablet 75 mcg PO DAILY hypothyroi d 07/28/24 07/28/24 08:00 History (Synthroid) 75 mcg apixaban 5 mg tablet (Eliquis) 5 mg PO BID 90 days #18 0 tabs 08/23/24 Unknown Rx chlorthalidone 25 mg tablet 12.5 mg (1/2 x 25 mg) PO Q DAY #30 08/23/24 Unknown Rx tabs metoprolol succinate 50 mg 50 mg PO DAILY 3 months #90 tabs 08/23/24 Unknown Rx tablet,extended release 24 hr Allergy/AdvReac Type Severity Reaction Status Date / Time No Known Allergies Allergy Verified 04/23/25 11:21 Family History Mother Heart disease Hypertension Father , from massive MO at 76 y/o. Heart disease CAD (coronary artery disease) Hypertension Myocardial infarction Sudden cardiac Surgical History Hx of colonoscopy History of total right knee replacement Social History household members: spouse Smoking Status: Former smoker how long ago did patient quit smoking: Quit 30-35 yrs prior, light smoking only. alcohol intake: never substance use type: does not use caffeine: Yes ROS ROS Narrative Admission Review of Systems: CONSTITUTIONAL: No weight loss, fever, chills, + weakness or fatigue. HEENT: + Lightheadedness/dizziness. Eyes: No visual loss, blurred vision, double vision or yellow sclerae. Ears, Nose, Throat: No hearing loss, sneezing, congestion, runny nose or sore throat. SKIN: No rash or itching, lesions, wounds. CARDIOVASCULAR: + Lightheadedness/dizziness, near syncope, chronic edema. No chest discomfort, no orthopnea, syncopal events. RESPIRATORY: No dyspnea, marked cough or sputum, wheezing, hemoptysis. GASTROINTESTINAL: No anorexia, nausea, vomiting or diarrhea, abdominal pain, melena, BRBPR. GENITOURINARY: No increased frequency, dysuria, urgency or retention. NEUROLOGICAL: + Lightheadedness, dizziness, near syncopal sensation. No headache, paralysis, ataxia, numbness or tingling in the extremities, focal weakness, change in bowel or bladder control, seizure. MUSCULOSKELETAL: + muscle, back pain, joint pain or stiffness. HEMATOLOGIC: No anemia. + Easy bleeding/bruising. LYMPHATICS: No enlarged nodes. No history of splenectomy. PSYCHIATRIC: + History of anxiety depression, primarily situational anxiety. ENDOCRINOLOGIC: + Diaphoresis. No cold or heat intolerance. No polyuria or polydipsia. ALLERGIES: No history of asthma, hives, eczema or rhinitis. Vital Signs Vital Signs Vital Signs: 04/23/25 11:21 04/23/25 11:26 04/23/25 12:21 Temperature 96.1 F L Temperature Source Temporal Pulse Rate 133 H 90 Respiratory Rate 24 H Respiratory Pattern Tachypnea Blood Pressure 211/112 H 183/96 H Blood Pressure Mean 145 125 Pulse Ox 97 Oxygen Delivery Method Room Air 04/23/25 13:00 04/23/25 13:00 04/23/25 14:00 Temperature Temperature Source Pulse Rate 96 89 84 Respiratory Rate 18 Respiratory Pattern Blood Pressure 124/92 H 124/92 H 145/74 H Blood Pressure Mean 102 102 97 Pulse Ox 99 Oxygen Delivery Method Room Air 04/23/25 15:00 04/23/25 16:00 Temperature Temperature Source Pulse Rate 90 78 Respiratory Rate 19 H Respiratory Pattern Blood Pressure 143/76 H 142/72 H Blood Pressure Mean 98 95 Pulse Ox 93 96 Oxygen Delivery Method Room Air Weight Weight: 317 lb 3.923 oz Body Mass Index (BMI) 52.7 Physical Exam Narrative Physical Examination: General: Awake, alert, oriented x 3 and cooperative, seated upright in ED bed, notes feeling improved since initial ED arrival, remains in sinus rhythm on monitor. Skin: Normal color, normal turgor, no icterus, no cyanosis except occasional stage ecchymoses, abrasion. HEENT: AT/NC, EOMI, PERRLA, mildly dry MM, no carotid bruits, difficult to discern JVD given thickened neck. Lungs: Diminished, greater bases, mildly increased respiratory rate but no distress, no rales, ronchi or wheezing. Heart: Improved, regular rate and regular rhythm; no gallop, rub audible. Abdomen: Soft, morbidly obese, NTTP, distant BS, difficult to discern distention HSM given habitus. Extremities: No cyanosis, no clubbing, mild bilateral ankle nonpitting chronic edema. Neurological: Patient awake, alert, oriented as noted cognitive function intact; pupils equally reactive to light and accommodation, cranial nerves gross normal, moving all 4 extremities, no focal deficits, strength mildly to moderately globally decreased but improved since initial ED arrival. Psychiatric: Affect appears fatigued otherwise appropriate, no evidence of acute anxiety or depressive symptoms but does report history of recent passing of unfortunately her dog and her friend with his expected appropriate reaction, does have situational anxiety history concurrently. Results Lab / Micro Data 04/23/25 11:28 04/23/25 11:28 Labs: Laboratory Results - last 24 hr 04/23/25 11:28: WBC 11.8 H, RBC 4.71, Hgb 12.4, Hct 39.4, MCV 83.7, MCH 26.3 L, MCHC 31.5 L, RDW Std Deviation 51.0 H, RDW Coeff of Mykel 16.7 H, Plt Count 464 H, MPV 9.4, Immature Gran % (Auto) 0.300, Neut % (Auto) 74.0 H, Lymph % (Auto) 16.1 L, Stephens % (Auto) 7.6, Eos % (Auto) 1.6, Baso % (Auto) 0.4, Absolute Neuts (auto) 8.7 H, Absolute Lymphs (auto) 1.90, Nucleated RBC % 0, Sodium 137, Potassium 3.1 L, Chloride 98, Carbon Dioxide 20.8 L, Anion Gap 18 H, BUN 19, Creatinine 0.76, Estim Creat Clear Calc 97.50, Est GFR (MDRD) Non-Af 86, BUN/Creatinine Ratio 25.6 H, Glucose 156 H, Calcium 10.3, Magnesium 1.9, Troponin T High Sens 11 D 04/23/25 13:24: Troponin T Hi Sens 2 Hr 19 H 04/23/25 15:29: Troponin T Hi Sens 4Hr 33 H Imaging Radiology Impression Chest X-Ray 04/23/25 12:00 IMPRESSION: No acute findings. 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 stage I per GFR trending, PAF, HTN, HLD, Morbid obesity, Anxiety and Depression, Nonobstructive CAD, Former tobacco use who presents to [facility] ED on 04/23/2025 with history of near syncopal event at [facility] unfortunately suffering sever emotional events over the last week including the of her dog as well as a close friend who service she was attending to the day prior 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 #1. Lightheadedness, dizziness, near syncopal sensation possibly secondary to acute paroxsymal atrial fibrillation w/ RVR with associated mild indeterminate cardiac enzymes likely secondary to demand in the situation: EKG in ED w/ atrial fibrillation w/ RVR initially however converted with repeat EKG with sinus rhythm with first-degree AV block with occasional PVC. Will admit to PCU, maintain on telemetry, trend cardiac enzyme serial set per ED initiation, will obtain orthostatics to be cautious, obtain ECHO, obtain TSH level. Will continue aspirin, Eliquis, statin, metoprolol, benazepril home regimen. Given cardioversion at this time we will continue metoprolol with dose x 1 now. #2. Hyperglycemia without diabetic history: Admission glucose 156, no diabetic history chart reported or documented, given medical history of obtain hemoglobin A1c. #3. Hypokalemia: Admission K+ 3.1, magnesium per ED 1.9, supplementation given, repeat level in AM. #4. CAD: Status post cardiac catheterization 07/29/2024 with LAD 60% with a negative FFR 50% circumflex and right coronary artery treated medically which was obtained following an abnormal stress test likely secondary to body habitus with a noted anterior ischemic change, will continue aspirin, Eliquis, statin, metoprolol, benazepril home regimen. #5. Chronic Kidney Disease Stage I versus stage II per GFR trending: Admission BUN/Cr 19/0.76, GFR 86, baseline renal function 0.6-0.9, repeat BMP in AM. #6. PAF: Will continue patient on metoprolol and apixaban regimen. #7. Anxiety and depression: Will continue patient home venlafaxine regimen. #8. Hypertension: Continue home regimen including metoprolol, chlorthalidone, benazepril with hold parameters as needed, PRN hydralazine. #9. Hyperlipidemia: Continue home statin regimen. AM FLP. #10. Morbid Obesity: Weight loss and lifestyle changes encouraged. #11. Former tobacco use: Encourage continued tobacco cessation. #12. SAQIB: BiPAP nightly. #13. DVT prophylaxis: Will continue patient on apixaban regimen. #14. CODE status: Patient does not have healthcare power of commercial real estate attorney or living will in place but she notes her who is present would be her medical decision-maker if necessary. Discussed CODE status at length including difference between FULL code, DNR-CCA and DNR-CC status. Following discussions about the differences in these status, requested Full Code status. Advanced Care Planning Face to Face Time: 16 minutes. Charges/Coding Visit Charges Inpatient E&M: 39849 Init Hosp L3 Procedures Hospitalists Procedures: 90405 Advncd Care Plan 30 Min
--- OUTSIDE RECORDS SUMMARY | 2025-04-23 16:50 | XMS RPT_ITS | CCD ---
Author Organization 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 Hugo Mora Primary [...] Attending Provider Miguel Waters Attending Unavailable Leann, uHgo Primary Care Unavailable Donavan Borjas Referring Unavailable [...] Start: 01-21-2013 take 1 capsule by mo [facility] once daily Venlafaxine 75 MG capsule,extended [...] 25, 2013 12:00am October 27, 2013 3:13pm Multivitamin,Sc-Zxwe-Vo-Fa-M in (Multivitamin And Mineral) Tablet (10 sources) Start: 12-03-2021 End: 07-26-2024 Multivitamin,Rg-Ultl-Pe-Fa-M in (Multivitamin And Mineral) Tablet Discontinued 1 {tbl} PO DAILY December 03, 2021 12:00am July 26, 2024 9:14pm Start: 12-03-2021 End: 07-26-2024 Multivitamin,Aw-Ftmc-Sv-Fa-M in (Multivitamin And Mineral) Tablet Discontinued 1 {tbl} PO DAILY December 02, 2021 11:00pm July 26, 2024 8:14pm Start: 12-03-2021 take 1 tablet by mannie th once daily Multivitamin,Du-Rgar-Bg-Fa-Min (Multivit cruz And Mineral) Tablet Active 1 [...] Coronary arteriosclerosis; Translations: [Atherosclerotic heart disease of [place] de[place] coronary artery without angina pectoris] Onset: 08-09-2024 [...] Reports Accession: Collected Date/Time: Received Date/Time: Pathologist: [id number] 11/21/2024 10:57 EDT 11/22/2024 09:13 EDT MD KAREN BARBER Final Surgical Pathology Report DIAGNOSIS: COLON, BIOPSY: - SLIGHTLY POLYPOID FRAGMENTS OF COLONIC MUCOSA WITH INCREASED INTRAEPITHELIAL LYMPHOCYTES SUGGESTIVE BUT NOT DIAGNOSTIC OF LYMPHOCYTIC COLITIS Comment: Case discussed with Dr. Harvey. CLINICAL INFORMATION: Procedure: COLONOSCOPY Preoperative diagnosis: SCREENING Postoperative diagnosis: SCREENING SPECIMEN: A COLON POLYP GROSS DESCRIPTION: All parts labelled with patient name and [id number] Received in formalin labeled colon polyp are 2 sims-brown tissue fragments measuring 0.3 x 0.2 and 0.5 x 0.3 cm greatest dimension. TS-1 Luz Elena Lazaro, Grossing Foundry Metallurgist/ Dr. Sukhdev Champagne, Pathologist Performed by Luz Elena Lazaro MICROSCOPIC DESCRIPTION: The microscopic examination is performed, except in the case of Gross Only. Verified by Pathology Report verified by [facility] KAREN BARBER MD Sign out Date: 11/23/2024 16:04 Performing Lab: [facility], [address] [place] [address] Pathology Dept Disclaimer If ancillary studies were utilized, the following Laboratory Developed Test (LDT) disclaimer will apply: Under CLIA requirements, [facility] is qualified to perform high complexity testing. For all ancillary stains, positive and negative controls stain appropriately. Performance characteristics of immunohistochemical and chromogenic in-situ hybridization tests have been determined by [facility]. These tests are used for clinical purposes, They should not be regarded as investigational or for research. Normal [facility] Urine Cultureon 10-27-2024 [facility] Escherichia coli [place] Count >100,000 Escherichia coli: REACTION Ampicillin Islt [...] SMX Islt LUIS ALFREDO <=[address] [facility] Comment on above: Performed By: #### L 501.9520, L500.4050, L501.73615, L500.4100, L506.0400, L501.9985 #### [facility] [place], [address] Urine cultureOrdered By: Leesa Mora on 10-25-2024 Bacteria identified Cx Nom (U) Escherichia coli Abnormal [facility] Anion gap in Serum or Plasma Ordered By: Hugo Mora on 10-24-2024 Anion gap [Moles/Vol] 15 mmol/L 5-15 [facility] BUN/creatinine ratioOrdered By: Hugo Mora on 10-24-2024 Urea nitrogen/Creatinine [Mass ratio] 24.8 mg/mg High 10-20 [facility] Bilirubin, totalOrdered By: Hugo Mora on 10-24-2024 Bilirubin [Mass/Vol] 0.32 mg/dL 0.00-1.30 [facility] Calculated very low density lipoprotein (VLDL) cholesterol measurementOrdered By: Hugo Mora on 10-24-2024 Calculated very low density lipoprotein (VLDL) cholesterol measurement 48 mg/dL High 5-40 [facility] Carbon dioxide, total [Moles /volume] in Central venous bloodOrdered By: Hugo Mora on 10-24-2024 CO2 [Moles/Vol] 21.7 mmol/L 21.0-32.0 [facility] Chloride assayOrdered By: Kaleb Mora on 10-24-2024 Chloride [Moles/Vol] 99 mmol/L 98-108 [facility] Comprehensive Metabolic Prof ilon 10-24-2024 Albumin [Mass/Vol] 4.4 g/dL Normal 3.4-4.8 [facility] Comment on above: Performed By: #### L 501.9520, L500.4050, L501.33056, L500.4100, L506.0400, L501.9985 #### [facility] [address] [place], [address] Albumin/Globulin [Mass ratio] 1.1 {ratio} Normal 0.9-2.4 [facility] Comment on above: Performed By: #### L 501.9520, L500.4050, L501.37975, L500.4100, L506.0400, L501.9985 #### [facility] [address] [place], [address] ALK PHOS 112 U/L High 35-104 [facility] Comment on above: Performed By: #### L 501.9520, L500.4050, L501.41495, L500.4100, L506.0400, L501.9985 #### [facility] [address] [place], [address] ALT [Catalytic activity/Vol] 31 U/L Normal <=34 [facility] Comment on above: Performed By: #### L 501.9520, L500.4050, L501.80131, L500.4100, L506.0400, L501.9985 #### [facility] [address] [place], [address] AST [Catalytic activity/Vol] 49 U/L High <=31 [facility] Comment on above: Performed By: #### L 501.9520, L500.4050, L501.89513, L500.4100, L506.0400, L501.9985 #### [facility] [address] [place], [address] Bilirubin [Mass/Vol] 0.32 mg/dL Normal 0.00-1.30 [facility] Comment on above: Performed By: #### L 501.9520, L500.4050, L501.69311, L500.4100, L506.0400, L501.9985 #### [facility] [address] [place], [address] BUN/CRE 24.8 RATIO High 10-20 [facility] Comment on above: Performed By: #### L 501.9520, L500.4050, L501.51101, L500.4100, L506.0400, L501.9985 #### [facility] [address] [place], [address] Calcium [Mass/Vol] 10.7 mg/dL Normal 7.6-11.0 [facility] Comment on above: Performed By: #### L 501.9520, L500.4050, L501.76070, L500.4100, L506.0400, L501.9985 #### [facility] [address] [place], [address] Chloride [Moles/Vol] 99 mmol/L Normal 98-108 [facility] Comment on above: Performed By: #### L 501.9520, L500.4050, L501.87202, L500.4100, L506.0400, L501.9985 #### [facility] [address] [place], [address] CO2 [Moles/Vol] 21.7 mmol/L Normal 21.0-32.0 [facility] Comment on above: Performed By: #### L 501.9520, L500.4050, L501.70787, L500.4100, L506.0400, L501.9985 #### [facility] [address] [place], [address] Creatinine [Mass/Vol] 0.73 mg/dL Normal 0.70-1.20 [facility] Comment on above: Performed By: #### L 501.9520, L500.4050, L501.69280, L500.4100, L506.0400, L501.9985 #### [facility] [address] [place], [address] GAP 15 Normal 5-15 [facility] Comment on above: Performed By: #### L 501.9520, L500.4050, L501.93943, L500.4100, L506.0400, L501.9985 #### [facility] [address] [place], [address] GFR/1.73 sq M.predicted among non-blacks MDRD (S/P/Bld) [Vol rate/Area] 90 mL/min/{1.73_m2} Normal >60 [facility] Comment on above: Result Comment: mL/m in/1.73m2 CKD-EPI Creatinine Equation (2020) Performed By: #### L 501.9520, L500.4050, L501.81551, L500.4100, L506.0400, L501.9985 #### [facility] [address] [place], [address] Globulin (S) [Mass/Vol] 4.1 g/dL Normal 2.2-4.2 [facility] Comment on above: Performed By: #### L 501.9520, L500.4050, L501.42343, L500.4100, L506.0400, L501.9985 #### [facility] [address] [place], [address] Glucose [Mass/Vol] 120 mg/dL High 70-99 [facility] Comment on above: Performed By: #### L 501.9520, L500.4050, L501.87684, L500.4100, L506.0400, L501.9985 #### [facility] [address] [place], [address] Potassium [Moles/Vol] 4.3 mmol/L Normal 3.3-5.1 [facility] Comment on above: Performed By: #### L 501.9520, L500.4050, L501.35787, L500.4100, L506.0400, L501.9985 #### [facility] [address] [place], [address] Sodium [Moles/Vol] 135 mmol/L Normal 133-145 [facility] Comment on above: Performed By: #### L 501.9520, L500.4050, L501.46540, L500.4100, L506.0400, L501.9985 #### [facility] [address] [place], [address] T PROT 8.5 g/dL High 5.9-8.4 [facility] Comment on above: Performed By: #### L 501.9520, L500.4050, L501.55225, L500.4100, L506.0400, L501.9985 #### [facility] [address] [place], [address] Urea nitrogen [Mass/Vol] 18 mg/dL Normal 4-19 [facility] Comment on above: Performed By: #### L 501.9520, L500.4050, L501.77732, L500.4100, L506.0400, L501.9985 #### [facility] [address] [place], [address] Free T3on 10-24-2024 Free T3 [Mass/Vol] 3.2 pg/mL Normal 2.18-3.98 [facility] Comment on above: Performed By: #### L 501.9520, L500.4050, L501.31249, L500.4100, L506.0400, L501.9985 #### [facility] [address] [place], [place], [id number] Free [id number] By: Hugo núñez on 10-24-2024 Free T3 [Mass/Vol] 3.2 pg/mL 2.18-3.98 [facility] Glomerular filtration rate ( GFR) estimation/1.73 sq m using serum, plasma, or whole bOrdered By: Hugo Mora on 10-24-2024 GFR/1.73 sq M.predicted among non-blacks MDRD (S/P/Bld) [Vol rate/Area] 90 mL/min/{1.73_m2} >60 [facility] Comment on above: mL/min/1.73m2 CKD-EP I Creatinine Equation (2020) Hemoglobin A1con 10-24-2024 HbA1c (Bld) [Mass fraction] 6.3 % High <=5.6 [facility] Comment on above: Result Comment: Norm al < 5.7 % Prediabetic 5.7 - 6.4 % Diabetic >or= 6.5 % Please note range changes. Performed By: #### L 501.9520, L500.4050, L501.96523, L500.4100, L506.0400, L501.9985 #### [facility] [address] [place], [place], [id number] Hemoglobin A1c percentageOrd ered By: Hugo Mora on 10-24-2024 HbA1c (Bld) [Mass fraction] 6.3 % High <5.7 [facility] Comment on above: Normal < 5.7 % Predi abetic 5.7 - 6.4 % Diabetic >or= 6.5 % Please note range changes. LDL calc ser/plasOrdered By: Hugo Mora on 10-24-2024 Cholesterol in LDL [Mass/Vol] 87 mg/dL [facility] Comment on above: Qnutlvbxrm=250-675 m g/dL & Higher Yrvj=312 mg/dL or greater Laboratory - Chemistry and C hemistry - challengeOrdered By: Hugo Mora on 10-24-2024 AST [Catalytic activity/Vol] 49 U/L High <32 [facility] Lipid Profileon 10-24-2024 CHOL:HDL 4.[address] [facility] Comment on above: Performed By: #### L 501.9520, L500.4050, L501.86237, L500.4100, L506.0400, L501.9985 #### [facility] [address] [place], [address] Cholesterol [Mass/Vol] 169 mg/dL Normal <=200 [facility] Comment on above: Result Comment: Chol esterol level, Desirable <200 mg/dL Borderline high cholesterol 200-239 mg/dL High cholesterol >=240 mg/dL Recommendations of the NCEP Adult Treatment Panel for the following risk-cutoff thresholds for the [place] population. Performed By: #### L 501.9520, L500.4050, L501.46161, L500.4100, L506.0400, L501.9985 #### [facility] [address] [place], [address] Cholesterol in HDL [Mass/Vol] 35 mg/dL Low [facility] Comment on above: Result Comment: Siomara onal Cholesterol Education Program (NCEP) guidelines: <40 mg/dL: Low HDL-cholesterol (major risk factor for CHD) >= 60 mg/dL: High HDL-cholesterol (negative risk factor for CHD) HDL-cholesterol is affected by a number of factors, e.g. smoking, exercise, hormones, sex and age. Performed By: #### L 501.9520, L500.4050, L501.62208, L500.4100, L506.0400, L501.9985 #### [facility] [address] [place], [address] Cholesterol in LDL [Mass/Vol] 87 mg/dL Normal [facility] Comment on above: Result Comment: Bord hqoapv=299-443 mg/dL Higher Xxcj=230 mg/dL or greater Performed By: #### L 501.9520, L500.4050, L501.17679, L500.4100, L506.0400, L501.9985 #### [facility] [address] [place], [address] Cholesterol in VLDL [Mass/Vol] 48 mg/dL High 5-40 [facility] Comment on above: Performed By: #### L 501.9520, L500.4050, L501.59975, L500.4100, L506.0400, L501.9985 #### [facility] [address] [place], [address] Triglyceride [Mass/Vol] 240 mg/dL High [facility] Comment on above: Result Comment: The drugs N-Acetylcysteine and Metamizole may falsely depress this assay. Normal range: <150 mg/dL Borderline High: 150-199 mg/dL High: 200-499 mg/dL Very High: >500 mg/dL Performed By: #### L 501.9520, L500.4050, L501.33141, L500.4100, L506.0400, L501.9985 #### [facility] [address] [place], [address] Potassium measurement (mass/ volume)Ordered By: Hugo Mora on 10-24-2024 Potassium (Unsp spec) [Mass/Vol] 4.3 mmol/L 3.3-5.1 [facility] Screening total cholesterol/ high density lipoprotein (HDL) cholesterol ratioOrdered By: Hugo Mora on 10-24-2024 Cholesterol.total/Odalis sterol in HDL [Mass ratio] 4.90 {ratio} [facility] Serum creatinine measurement (mass/volume)Ordered By: Hugo Mora on 10-24-2024 Creatinine [Mass/Vol] 0.73 mg/dL 0.70-1.20 [facility] Serum globulin measurementOr dered By: Hugo Mora on 10-24-2024 Globulin (S) [Mass/Vol] 4.1 g/dL 2.2-4.2 [facility] Serum glucose measurement (m ass/volume)Ordered By: Hugo Mora on 10-24-2024 Glucose [Mass/Vol] 120 mg/dL High 70-99 [facility] Serum or plasma alanine cruz otransferase (ALT) measurementOrdered By: Hugo Mora on 10-24-2024 ALT [Catalytic activity/Vol] 31 U/L <35 [facility] Serum or plasma albumin nicole urement (mass/volume)Ordered By: Hugo Mora on 10-24-2024 Albumin [Mass/Vol] 4.4 g/dL 3.4-4.8 [facility] Serum or plasma albumin/glob ulin mass ratioOrdered By: Hugo Mora on 10-24-2024 Albumin/Globulin [Mass ratio] 1.1 {ratio} 0.9-2.4 [facility] Serum or plasma alkaline adrián sphatase measurementOrdered By: Hugo Mora on 10-24-2024 ALP [Catalytic activity/Vol] 112 U/L High 35-104 [facility] Serum or plasma calcium nicole urement (mass/volume)Ordered By: Hugo Mora on 10-24-2024 Calcium [Mass/Vol] 10.7 mg/dL 7.6-11.0 [facility] Serum or plasma cholesterol in HDL measurement (mass/volume)Ordered By: Hugo Mora on 10-24-2024 Cholesterol in HDL [Mass/Vol] 35 mg/dL Low >40 [facility] Comment on above: National Cholesterol Education Program (NCEP) guidelines:<40 mg/dL: Low HDL-cholesterol (major risk factor for CHD)>= 60 mg/dL: High HDL-cholesterol (negative risk factor for CHD)HDL-cholesterol is affected by a number of factors, e.g. smoking, exercise, hormones, sex and age. Serum or plasma cholesterol measurement (mass/volume)Ordered By: Hugo Mora on 10-24-2024 Cholesterol [Mass/Vol] 169 mg/dL <201 [facility] Comment on above: Cholesterol level, D esirable <200 mg/dLBorderline high cholesterol 200-239 mg/dLHigh cholesterol >=240 mg/dLRecommendations of the NCEP Adult Treatment Panel for the following risk-cutoff thresholds for the [place] population. Serum or plasma urea nitroge n measurement (mass/volume)Ordered By: Hugo Mora on 10-24-2024 Urea nitrogen [Mass/Vol] 18 mg/dL 4-19 [facility] Sodium levelOrdered By: Hugo Mora on 10-24-2024 Sodium [Moles/Vol] 135 mmol/L 133-145 [facility] T4 Free Directon 10-24-2024 T4 FREE DIRECT 1.10 ng/dL Normal 0.76-1.46 [facility] Comment on above: Performed By: #### L 501.9520, L500.4050, L501.72717, L500.4100, L506.0400, L501.9985 #### [facility] [address] [place], [address] T4 freeOrdered By: Hugo núñez on 10-24-2024 Free T4 [Mass/Vol] 1.10 ng/dL 0.76-1.46 [facility] TSH DL <= 0.005 mIU/L QnOrde red By: Hugo Mora on 10-24-2024 TSH Qn 3.930 uIU/mL 0.300-4.200 [facility] Thyroid Stim Hormone (TSH)on 10-24-2024 TSH 3.930 uIU/mL Normal 0.300-4.200 [facility] Comment on above: Performed By: #### L 501.9520, L500.4050, L501.99517, L500.4100, L506.0400, L501.9985 #### [facility] [address] [place], [address] Total proteinOrdered By: Leesa Mora on 10-24-2024 Protein [Mass/Vol] 8.5 g/dL High 5.9-8.4 [facility] Triglycerides measurementOrd ered By: Hugo Mora on 10-24-2024 Triglyceride [Mass/Vol] 240 mg/dL High <199 [facility] Comment on above: The drugs N-Acetylcy steine and Metamizole may falsely depress this assay. Normal range: <150 mg/dLBorderline High: 150-199 mg/dLHigh: 200-499 mg/dLVery High: >500 mg/dL SCRN MAMM (CAD)W/CRISTINA BILATo n 10-06-2024 SCRN MAMM (CAD)W/CRISTINA BILAT [facility] Services [address] [place], [place] [address] SCRN MAMM (CAD)W/CRISTINA BILAT MR#: [id number] Acct: [id number] Name: OLENA VALERA Rep #: [id number] : 1955 F 69 From: Neva Laura PCP: Dr. Hugo Mora MD Status: [facility] Study: SCRN MAMM (CAD)W/CRISTINA BILAT Date of Exam: 09/22 10/16 Exam# [id number] Ordering Dr: Hugo Mora MD EXAM: SCRN MAMM (CAD)W/CRISTINA BILAT [...] be mailed to the patient. Reading Location: [facility] CC: Dr. Hugo Mora MD Cook'S Assistant: Signed Normal [facility] 12 Lead EKG performed by [facility] on 08-23-2024 12 Lead EKG performed by [facility] [address] [place] [address] 12 Lead EKG performed by [facility] 08/23/24 1528 MR#: [id number] Acct: [id number] Name: OLENA VALERA Rep #: [id number] : 1955 69 From: Donavan Borjas MD Attending Dr: Dr. Donavan Borjas MD Status: DE P AMB Ordering Dr: Donavan Borjas MD Date: 08/23/24 Location: [facility] Sex: F C Admitted: [facility]/12 Lead EKG performed by [facility] ECG Report Interpretation ----Sinus Rhythm -First degree A-V block - frequent multiform ectopic ventricular beats -Right bundle branch block. ABNORMAL Electronically signed on 08/23/2024 at 12:[address] Donavan Borjas [employer] Version [id number] 08/23/24 1216 Date Donavan Borjas MD CC: Dr. Hugo Mora MD Date Dictated: 08/23/24 1528 Date Transcribed: 08/23/241527 Cook'S Assistant: Signed Normal [facility] CBC-Complete Blood Cnt No Di ffon 08-23-2024 Erythrocyte distribution width (RBC) [Ratio] 16.1 % High 11.6-14.6 [facility] Comment on above: Performed By: #### L 501.9520, L500.4050, L501.55282, L500.4100, L506.0400, L501.9985 #### [facility] [address] [place], [address] Hematocrit (Bld) [Volume fraction] 39.6 % Normal 37-47 [facility] Comment on above: Performed By: #### L 501.9520, L500.4050, L501.41008, L500.4100, L506.0400, L501.9985 #### [facility] [address] [place], [address] Hemoglobin (Bld) [Mass/Vol] 12.8 g/dL Normal 12.0-15.0 [facility] Comment on above: Performed By: #### L 501.9520, L500.4050, L501.68393, L500.4100, L506.0400, L501.9985 #### [facility] [address] [place], [address] MCH (RBC) [Entitic mass] 25.9 pg Low 27.0-32.0 [facility] Comment on above: Performed By: #### L 501.9520, L500.4050, L501.81303, L500.4100, L506.0400, L501.9985 #### [facility] [address] [place], [address] MCHC (RBC) [Mass/Vol] 32.3 g/dL Normal 32-36 [facility] Comment on above: Performed By: #### L 501.9520, L500.4050, L501.78001, L500.4100, L506.0400, L501.9985 #### [facility] [address] [place], [address] MCV (RBC) [Entitic vol] 80.2 fL Low 81-99 [facility] Comment on above: Performed By: #### L 501.9520, L500.4050, L501.31479, L500.4100, L506.0400, L501.9985 #### [facility] [address] [place], [address] Platelet mean volume (Bld) [Entitic vol] 9.4 fL Normal 6.2-12.0 [facility] Comment on above: Performed By: #### L 501.9520, L500.4050, L501.78787, L500.4100, L506.0400, L501.9985 #### [facility] [address] [place], [address] Platelets (Bld) [#/Vol] 458 10*3/uL High 150-450 [facility] Comment on above: Performed By: #### L 501.9520, L500.4050, L501.75566, L500.4100, L506.0400, L501.9985 #### [facility] [address] [place], [address] RBC (Bld) [#/Vol] 4.94 10*6/uL Normal 4.2-5.4 [facility] Comment on above: Performed By: #### L 501.9520, L500.4050, L501.74889, L500.4100, L506.0400, L501.9985 #### [facility] [address] [place], [address] RDW SD 46.8 fl High 35.1-43.9 [facility] Comment on above: Performed By: #### L 501.9520, L500.4050, L501.63154, L500.4100, L506.0400, L501.9985 #### [facility] [address] [place], [address] WBC (Bld) [#/Vol] 8.7 10*3/uL Normal 4.4-11.0 [facility] Comment on above: Performed By: #### L 501.9520, L500.4050, L501.73567, L500.4100, L506.0400, L501.9985 #### [facility] [address] [place], [address] Cardiology Visit Reporton Cardiology Visit Report [facility] [address] [place] [address] OFFICE VISIT Date of Service: 08/23/24 MR#: [id number] Acct: [id number] Name: OLENA VALERA Rep #: [id number] : 1955 Provider: Dr. Donavan arrington MD Age/Sex: 69/F Location: [facility] Status: Signed HPI HPI History of [...] Method room air Intake Visit Reasons: S/P [facility] Cath 07/29 Water Server Required: No Accompanied by: Is patient in [...] you fallen in the past year?: Yes [facility] History Super obesity Urinary tract infection [...] Heart disease Hypertension Father , from massive [place] at 76 y/o. Heart disease CAD (coronary [...] No Palpit (more content not included)... Normal [facility] Erythrocyte distribution wid th (RBC) [Ratio]Ordered By: Donavan Borjas on 08-23-2024 Erythrocyte distribution width (RBC) [Entitic vol] 46.8 fL High 35.1-43.9 [facility] Erythrocyte distribution wid th ratioOrdered By: Donavan Borjas on 08-23-2024 Erythrocyte distribution width (RBC) [Ratio] 16.1 % High 11.6-14.6 [facility] Erythrocyte distribution wid th standard deviationOrdered By: Donavan Borjas on 08-23-2024 Erythrocyte distribution width (RBC) [Ratio] 46.8 fl High 35.1-43.9 [facility] Hematocrit Auto (Bld) [Volum e fraction]Ordered By: Donavan Borjas on 08-23-2024 Hematocrit (Bld) [Volume fraction] 39.6 % 37-47 [facility] Hemoglobin measurementOrdere d By: Donavan Borjas on 08-23-2024 Hemoglobin (Bld) [Mass/Vol] 12.8 g/dL 12.0-15.0 [facility] MCV (mean corpuscular volume ) determinationOrdered By: Donavan Borjas on 08-23-2024 MCV (RBC) [Entitic vol] 80.2 fL Low 81-99 [facility] Mean corpuscular hemoglobin (MCH) determinationOrdered By: Donavan Borjas on 08-23-2024 MCH (RBC) [Entitic mass] 25.9 pg Low 27.0-32.0 [facility] Mean corpuscular hemoglobin concentration (MCHC) determinationOrdered By: Donavan Borjas on 08-23-2024 MCHC (RBC) [Mass/Vol] 32.3 g/dL 32-36 [facility] Mean platelet volume determi nationOrdered By: Donavan Borjas on 08-23-2024 Platelet mean volume (Bld) [Entitic vol] 9.4 fL 6.2-12.0 [facility] Platelet countOrdered By: Kathy Borjas on 08-23-2024 Platelets (Bld) [#/Vol] 458 10*3/uL High 150-450 [facility] RBC Auto (Bld) [#/Vol]Ordere d By: Donavan Borjas on 08-23-2024 RBC (Bld) [#/Vol] 4.94 10*6/uL 4.2-5.4 [facility] White blood cell (WBC) count Ordered By: Donavan Borjas on 08-23-2024 WBC (Bld) [#/Vol] 8.7 10*3/uL 4.4-11.0 [facility] Culture, Blood (WB)on 2024 CUB Blood cultures x2, from two different sites No growth in [address] [facility] Comment on above: Performed By: #### L 501.9520, L500.4050, L501.66085, L500.4100, L506.0400, L501.9985 #### [facility] [address] [place], [address] Discharge Instructionon Discharge Instruction [facility] Medical Records Department [address] [place] [address] Instructions for Home/Discharge Instructions 07/30/24 1000 MR#: [id number] Acct: [id number] Name: OLENA VALERA Rep #: [id number] : 1955 68 From: Ernie Ross MD [...] MD; Dr. Hugo Mora MD Signed Normal [facility] Urine Cultureon 07-30-2024 URC Streptococcus agalactiae (B) [place] Count >100,000 Streptococcus agalactiae (B): REACTION Ampicillin Islt LUIS ALFREDO <=0.25 cefTRIAXone Islt LUIS ALFREDO 0.25 S Clindamycin.induced Susc Islt NEG Linezolid Islt LUIS ALFREDO <=2 S Vancomycin Islt LUIS ALFREDO 0.[address] [facility] Comment on above: Performed By: #### L 501.9520, L500.4050, L501.63271, L500.4100, L506.0400, L501.9985 #### [facility] [address] [place], [place], [address] ACT Activated Clotting Timeo n 07-29-2024 ACTk CLOT TIME 187 sec High 74-137 [facility] Comment on above: Performed By: #### L 501.9520, L500.4050, L501.77208, L500.4100, L506.0400, L501.9985 #### [facility] [address] [place], [place], [address] Absolute lymphocyte countOrd ered By: Yolanda Tucker on 07-29-2024 Lymphocytes Auto (Unsp spec) [#/Vol] 1.50 10*3/uL 0.83-4.51 [facility] Absolute neutrophil countOrd ered By: Garrett on 07-29-2024 Neutrophils (Bld) [#/Vol] 4.5 10*3/uL 2.0-7.7 [facility] Activated clotting timeOrder ed By: Mane Jhaveri on 07-29-2024 Activated Clotting Time 187 sec High 74-137 [facility] Anion gap in Serum or Plasma Ordered By: Yolanda Tucker on 07-29-2024 Anion gap [Moles/Vol] 12 mmol/L 5-15 [facility] Automated lymphocyte count a s percentage of total leukocytesOrdered By: Yolanda Tucker on 07-29-2024 Lymphocytes/100 WBC Auto (Unsp spec) 21.8 % 19-41 [facility] BUN/creatinine ratioOrdered By: Yolanda Tucker on 07-29-2024 Urea nitrogen/Creatinine [Mass ratio] 19.7 mg/mg 10-20 [facility] Basophil percentageOrdered B y: Yolanda Tucker on 07-29-2024 Basophils/100 WBC (Bld) 0.4 % 0-1 [facility] Bilirubin, totalOrdered By: Yolanda Tucker on 07-29-2024 Bilirubin [Mass/Vol] 0.34 mg/dL 0.00-1.30 [facility] CBC W/Diff, Automatedon Absolute Lymph 1.50 X10 3/uL Normal 0.83-4.51 [facility] Comment on above: Performed By: #### L 501.9520, L500.4050, L501.08304, L500.4100, L506.0400, L501.9985 #### [facility] [address] [place], [address] Absolute Neut 4.5 X10 3/uL Normal 2.0-7.7 [facility] Comment on above: Performed By: #### L 501.9520, L500.4050, L501.08846, L500.4100, L506.0400, L501.9985 #### [facility] [address] [place], [address] Basophils/100 WBC (Bld) 0.4 % Normal 0-1 [facility] Comment on above: Performed By: #### L 501.9520, L500.4050, L501.40004, L500.4100, L506.0400, L501.9985 #### [facility] [address] [place], [address] Eosinophils/100 WBC (Bld) 2.8 % Normal 0-5 [facility] Comment on above: Performed By: #### L 501.9520, L500.4050, L501.28253, L500.4100, L506.0400, L501.9985 #### [facility] [address] [place], [address] Erythrocyte distribution width (RBC) [Ratio] 16.5 % High 11.6-14.6 [facility] Comment on above: Performed By: #### L 501.9520, L500.4050, L501.16362, L500.4100, L506.0400, L501.9985 #### [facility] [address] [place], [address] Hematocrit (Bld) [Volume fraction] 33.3 % Low 37-47 [facility] Comment on above: Performed By: #### L 501.9520, L500.4050, L501.83937, L500.4100, L506.0400, L501.9985 #### [facility] [address] [place], [address] Hemoglobin (Bld) [Mass/Vol] 10.9 g/dL Low 12.0-15.0 [facility] Comment on above: Performed By: #### L 501.9520, L500.4050, L501.29159, L500.4100, L506.0400, L501.9985 #### [facility] [address] [place], [address] IG% 0.400 Normal 0.0-0.9 [facility] Comment on above: Result Comment: IG% - Immature Granulocytes (promyelocytes, myelocytes and metamyelocytes) > 1% indicates that a LEFT SHIFT is Present. Performed By: #### L 501.9520, L500.4050, L501.74115, L500.4100, L506.0400, L501.9985 #### [facility] [address] [place], [address] Lymphocytes/100 WBC (Bld) 21.8 % Normal 19-41 [facility] Comment on above: Performed By: #### L 501.9520, L500.4050, L501.85535, L500.4100, L506.0400, L501.9985 #### [facility] [address] [place], [address] MCH (RBC) [Entitic mass] 26.7 pg Low 27.0-32.0 [facility] Comment on above: Performed By: #### L 501.9520, L500.4050, L501.79331, L500.4100, L506.0400, L501.9985 #### [facility] [address] [place], [address] MCHC (RBC) [Mass/Vol] 32.7 g/dL Normal 32-36 [facility] Comment on above: Performed By: #### L 501.9520, L500.4050, L501.97946, L500.4100, L506.0400, L501.9985 #### [facility] [address] [place], [address] MCV (RBC) [Entitic vol] 81.6 fL Normal 81-99 [facility] Comment on above: Performed By: #### L 501.9520, L500.4050, L501.48495, L500.4100, L506.0400, L501.9985 #### [facility] [address] [place], [address] Monocytes/100 WBC (Bld) 9.5 % Normal 0-10 [facility] Comment on above: Performed By: #### L 501.9520, L500.4050, L501.15837, L500.4100, L506.0400, L501.9985 #### [facility] [address] [place], [address] Neutrophils/100 WBC (Bld) 65.1 % Normal 47-70 [facility] Comment on above: Performed By: #### L 501.9520, L500.4050, L501.53808, L500.4100, L506.0400, L501.9985 #### [facility] [address] [place], [address] Nucleated RBC (Bld) [#/Vol] 0 10*3/uL Normal 0-5 [facility] Comment on above: Performed By: #### L 501.9520, L500.4050, L501.70176, L500.4100, L506.0400, L501.9985 #### [facility] [address] [place], [address] Platelet mean volume (Bld) [Entitic vol] 9.2 fL Normal 6.2-12.0 [facility] Comment on above: Performed By: #### L 501.9520, L500.4050, L501.29151, L500.4100, L506.0400, L501.9985 #### [facility] [address] [place], [address] Platelets (Bld) [#/Vol] 393 10*3/uL Normal 150-450 [facility] Comment on above: Performed By: #### L 501.9520, L500.4050, L501.50777, L500.4100, L506.0400, L501.9985 #### [facility] [address] [place], [address] RBC (Bld) [#/Vol] 4.08 10*6/uL Low 4.2-5.4 [facility] Comment on above: Performed By: #### L 501.9520, L500.4050, L501.75100, L500.4100, L506.0400, L501.9985 #### [facility] [address] [place], [address] RDW SD 48.2 fl High 35.1-43.9 [facility] Comment on above: Performed By: #### L 501.9520, L500.4050, L501.67661, L500.4100, L506.0400, L501.9985 #### [facility] [address] [place], [address] WBC (Bld) [#/Vol] 6.9 10*3/uL Normal 4.4-11.0 [facility] Comment on above: Performed By: #### L 501.9520, L500.4050, L501.71126, L500.4100, L506.0400, L501.9985 #### [facility] [address] [place], [address] Calculated very low density lipoprotein (VLDL) cholesterol measurementOrdered By: Yolanda Tucker on 07-29-2024 Calculated very low density lipoprotein (VLDL) cholesterol measurement 32 mg/dL 5-40 [facility] VLDL Cholesterol 32 mg/dL 5-40 [facility] Carbon dioxide, total [Moles /volume] in Central venous bloodOrdered By: Yolanda Tucker on 07-29-2024 CO2 [Moles/Vol] 21.5 mmol/L 21.0-32.0 [facility] Cardiac Cath Diagnosticon Cardiac Cath Diagnostic [facility] Imaging Services [address] [place] [address] Cardiac Cath Diagnostic MR#: [id number] Acct: [id number] Name: OLENA VALERA Rep #: [id number] : 1955 68 From: Ralph Sexton MD PCP: Dr. Hugo Mora MD Status:ADM IN Patient Name: OLENA VALERA Study Date: 07/29/2024 Performing: Ralph Sexton MD Ht: 65 inches 165.1 cm : 1955 Wt: 309.3 lbs 140.1 kg Age: 68 Gender: female BSA: 2.38 PROCEDURE(S) PERFORMED DC02-(21131)LHC/COR IC10-(63794)FFR, CORONARY OR GRAFT, INITIAL VESSEL CLINICAL PROFILE [...] multiple views using a 5 Fr. 4.0 [place] catheter. Left Coronary Artery selective angiography was [...] 14:27:40 Heparin given IA 07/29/2024 13:48:34 Heparin 21931 unit(s) IV 07/29/2024 14:00:19 Potassium Chloride 40 [...] Dictated: 07/29/24 1345 Date Transcribed: 07/29/24 1616 Cook'S Assistant: NAREN Cason [facility] Cardiac catheterization repo rtOrdered By: Ralph Sexton on 07-29-2024 Cardiac catheterization study [facility] Imaging Services [address] [place] [address] Cardiac Cath Diagnostic MR#: [id number] Acct: [id number] Name: OLENA VALERA Rep #:[id number] : 1955 68 From: Ralph Sexton MD PCP: Dr. Hugo Mora MD Status:ADM I N Patient Name: OLENA VALERA Study Date: 07/29/2024 Performing: Ralph Sexton MD Ht: 65 inches 165.1 cm : 1955 Wt: 309.3 lbs 140.1 kg Age: 68 Gender: female BSA: 2.38 PROCEDURE(S) PERFORMED DC02-(06795)LHC/COR IC10-(35589)FFR, CORONARY OR GRAFT, INITIAL VESSEL CLINICAL PROFILE [...] multiple views using a 5 Fr. 4.0 [place] catheter. Left Coronary Artery selective angiography was [...] 14:27:40 Heparin given IA 07/29/2024 13:48:34 Heparin 93453 unit(s) IV 07/29/2024 14:00:19 Potassium Chloride 40 mEq PO 07/29/2024 13:41:11 Verapamil 2.5mg, Ntg 200mcgs, 2000 units of Heparin given IA 07/29/2024 13:48:34 SUMMARY OF HEMODYNAMIC DATA Time AIR REST ECG 13:37:22 AO 119/77 (94) SA 13:52:27 Signed By Ralph Sexton MD On 07/29/2024 16:16:48 Ralph Sexton MD 07/29/24 1617 Date _ Ralph Sexton MD [facility] Signature: Date (if indicated) CC: Dr. Mane Jhaveri MD; Dr. Ralph Sexton MD; Dr. Hugo Mora MD; Dr. Lion Valentin DO ~ Date Dictated: 07/29/24 1345 Date Transcribed: 07/29/24 1616 Cook'S Assistant: NAREN Goldsmith [facility] Work Phone: Cardiovascular stress test r eportOrdered By: Ralph Sexton on 07-29-2024 Study report [facility] Cardiovascular Services [address] [place] [address] MR#: [id number] Acct: [id number] Name: OLENA VALERA Rep #: [id number] : 1955 68 From: aRlph Sexton MD Primary Care: Dr. Hugo Mora [...] of 53%. This note was generated with Diasporaation software. It may contain incorrectwords, spelling, and punctuation that were not noted in checking the note beforesigning. 07/29/24 1233 Date _ Ralph Sexton MD CC: Dr. Mane Jhaveri MD; Dr. Yolanda Tucker MD; Dr. Hugo Mora MD; Dr. Lion Valentin DO ~ Date Dictated: 07/29/24 1230 Date Transcribed: 07/29/24 1230 Cook'S Assistant: NAREN Signed [facility] Work Phone: Chloride assayOrdered By: Karina Tucker on 07-29-2024 Chloride [Moles/Vol] 102 mmol/L 98-108 [facility] Comprehensive Metabolic Prof ilon 07-29-2024 Albumin [Mass/Vol] 3.8 g/dL Normal 3.4-4.8 [facility] Comment on above: Order Comment: Comme nts: Fasting Lipid Profile Performed By: #### L 501.9520, L500.4050, L501.46637, L500.4100, L506.0400, L501.9958 #### [facility] [address] [place], [address] Albumin/Globulin [Mass ratio] 1.2 {ratio} Normal 0.9-2.4 [facility] Comment on above: Order Comment: Comme nts: Fasting Lipid Profile Performed By: #### L 501.9520, L500.4050, L501.95883, L500.4100, L506.0400, L501.9985 #### [facility] [address] [place], [address] ALK PHOS 80 U/L Normal 35-104 [facility] Comment on above: Order Comment: Comme nts: Fasting Lipid Profile Performed By: #### L 501.9520, L500.4050, L501.09094, L500.4100, L506.0400, L501.9985 #### [facility] [address] [place], [address] ALT [Catalytic activity/Vol] 29 U/L Normal <=34 [facility] Comment on above: Order Comment: Comme nts: Fasting Lipid Profile Performed By: #### L 501.9520, L500.4050, L501.19108, L500.4100, L506.0400, L501.9985 #### [facility] [address] [place], [address] AST [Catalytic activity/Vol] 25 U/L Normal <=31 [facility] Comment on above: Order Comment: Comme nts: Fasting Lipid Profile Performed By: #### L 501.9520, L500.4050, L501.43733, L500.4100, L506.0400, L501.9985 #### [facility] [address] [place], [address] Bilirubin [Mass/Vol] 0.34 mg/dL Normal 0.00-1.30 [facility] Comment on above: Order Comment: Comme nts: Fasting Lipid Profile Performed By: #### L 501.9520, L500.4050, L501.55916, L500.4100, L506.0400, L501.9985 #### [facility] [address] [place], [address] BUN/CRE 19.7 RATIO Normal 10-20 [facility] Comment on above: Order Comment: Comme nts: Fasting Lipid Profile Performed By: #### L 501.9520, L500.4050, L501.54659, L500.4100, L506.0400, L501.9985 #### [facility] [address] [place], [address] Calcium [Mass/Vol] 9.1 mg/dL Normal 7.6-11.0 [facility] Comment on above: Order Comment: Comme nts: Fasting Lipid Profile Performed By: #### L 501.9520, L500.4050, L501.81958, L500.4100, L506.0400, L501.9985 #### [facility] [address] [place], [address] Chloride [Moles/Vol] 102 mmol/L Normal 98-108 [facility] Comment on above: Order Comment: Comme nts: Fasting Lipid Profile Performed By: #### L 501.9520, L500.4050, L501.66861, L500.4100, L506.0400, L501.9985 #### [facility] [address] [place], [address] CO2 [Moles/Vol] 21.5 mmol/L Normal 21.0-32.0 [facility] Comment on above: Order Comment: Comme nts: Fasting Lipid Profile Performed By: #### L 501.9520, L500.4050, L501.59501, L500.4100, L506.0400, L501.9985 #### [facility] [address] [place], [address] Creatinine [Mass/Vol] 0.66 mg/dL Low 0.70-1.20 [facility] Comment on above: Order Comment: [facility]: Fasting Lipid Profile Performed By: #### L 501.9520, L500.4050, L501.23656, L500.4100, L506.0400, L501.9985 #### [facility] [address] [place], [address] ECRCL 97.21 ml/min Normal 50-250 [facility] Comment on above: Order Comment: [facility]: Fasting Lipid Profile Performed By: #### L 501.9520, L500.4050, L501.23072, L500.4100, L506.0400, L501.9985 #### [facility] [address] [place], [address] GAP 12 Normal 5-15 [facility] Comment on above: Order Comment[facility]: Fasting Lipid Profile Performed By: #### L 501.9520, L500.4050, L501.88882, L500.4100, L506.0400, L501.9985 #### [facility] [address] [place], [address] GFR/1.73 sq M.predicted among non-blacks MDRD (S/P/Bld) [Vol rate/Area] 96 mL/min/{1.73_m2} Normal >60 [facility] Comment on above: Order Comment: [facility]: Fasting Lipid Profile Result Comment: mL/m in/1.73m2 CKD-EPI Creatinine Equation (2020) Performed By: #### L 501.9520, L500.4050, L501.76289, L500.4100, L506.0400, L501.9985 #### [facility] [address] [place], [address] Globulin (S) [Mass/Vol] 3.2 g/dL Normal 2.2-4.2 [facility] Comment on above: Order Comment: Comme nts: Fasting Lipid Profile Performed By: #### L 501.9520, L500.4050, L501.15238, L500.4100, L506.0400, L501.9985 #### [facility] [address] [place], [address] Glucose [Mass/Vol] 103 mg/dL High 70-99 [facility] Comment on above: Order Comment: Comm nts: Fasting Lipid Profile Performed By: #### L 501.9520, L500.4050, L501.25104, L500.4100, L506.0400, L501.9985 #### [facility] [address] [place], [address] Potassium [Moles/Vol] 3.4 mmol/L Normal 3.3-5.1 [facility] Comment on above: Order Comment: [facility] nts: Fasting Lipid Profile Performed By: #### L 501.9520, L500.4050, L501.76816, L500.4100, L506.0400, L501.9985 #### [facility] [address] [place], [address] Sodium [Moles/Vol] 135 mmol/L Normal 133-145 [facility] Comment on above: Order Comment: Comm nts: Fasting Lipid Profile Performed By: #### L 501.9520, L500.4050, L501.17924, L500.4100, L506.0400, L501.9985 #### [facility] [address] [place], [address] T PROT 7.0 g/dL Normal 5.9-8.4 [facility] Comment on above: Order Comment: [facility] nts: Fasting Lipid Profile Performed By: #### L 501.9520, L500.4050, L501.70608, L500.4100, L506.0400, L501.9985 #### [facility] [address] [place], [address] Urea nitrogen [Mass/Vol] 13 mg/dL Normal 4-19 [facility] Comment on above: Order Comment: Comme nts: Fasting Lipid Profile Performed By: #### L 501.9520, L500.4050, L501.79277, L500.4100, L506.0400, L501.9985 #### [facility] [address] [place], [address] Consultation - Cardiologyon 07-29-2024 Consultation - Cardiology [facility] Medical Records Department [address] [place] [address] Consultation - Cardiology 07/29/24 1247 MR#: [id number] Acct: [id number] Name: OLENA VALERA Rep #: [id number] : 1955 68 From: Ralph Sexton MD PCP: Dr. Hugo Mora MD Status:ADM IN Location: [place] [address] Assessment Plan Assessment/Plan (1) Dyspnea on exertion: [...] previous history of heart disease. [facility] Medical History (Updated 07/29/24 @ 12:53 by [...] Heart disease Hypertension Father , from massive [place] at 76 y/o. Heart disease CAD (coronary [...] 75.6 H, Lymph % (Auto) 15.5 L, Meigs % (Auto) 7.7, Eos % (Auto) 0.4, Baso % (Auto) 0.4, Absolute Neuts (auto) 8.4 H, Absolute Lymphs (auto) 1.72, Nucleated RBC % 0, PT 13.6, INR 1.0, APTT 28.5, Sodium 132 L, Potassium 3.9, Chloride 95 L, Carbon Dioxide 18.5 L, Anion Gap 18 H, BUN 17, Cr (more content not included)... Normal [facility] Echo Complete W/ Contraston 07-29-2024 Echo Complete W/ Contrast [facility] Cardiovascular Services [address] [place] [address] Echo Complete W/ Contrast 07/29/24 0911 MR#: [id number] Acct: [id number] Name: OLENA VALERA Rep #: [id number] : 1955 68 From: Ralph Sexton MD Attending Dr: Dr. Mane Jhaveri MD Status: AD M IN Ordering Dr: Yolanda Tucker MD Date: 07/29/24 Location: [facility] Sex: F C Admitted: 07/28/24 Reason For [...] Date Dictated: 07/29/24910 Date Transcribed: 07/29/24 1259 Cook'S Assistant: Signed Normal [facility] Echocardiogram study reportO rdered By: Ralph Sexton on 07-29-2024 Study report [facility] Cardiovascular Services [address] [place] [address] Echo Complete W/ Contrast 07/29/24910 MR#: [id number] Acct: [id number] Name: OLENA VALERA Rep #:[id number] : 1955 68 From: Ralph Sexton MD Attending Dr: Dr. Mane Jhaveri MD Status: ADM IN Ordering Dr: Yolanda Tucker MD Date: 07/29/24 Location: [facility] Sex: F C Admitted: 07/28/24 Reason For [...] Date Dictated: 07/29/24910 Date Transcribed: 07/29/24 125 Cook'S Assistant: Signed [facility] Work Phone: Eosinophil percentageOrdered By: Yolanda Tucker on 07-29-2024 Eosinophils/100 WBC (Bld) 2.8 % 0-5 [facility] Erythrocyte distribution wid th ratioOrdered By: Yolanda Tucker on 07-29-2024 Erythrocyte distribution width (RBC) [Ratio] 16.5 % High 11.6-14.6 [facility] Erythrocyte distribution wid th standard deviationOrdered By: Yolanda Tucker on 07-29-2024 Erythrocyte distribution width (RBC) [Entitic vol] 48.2 fL High 35.1-43.9 [facility] Erythrocyte distribution width (RBC) [Ratio] 48.2 fl High 35.1-43.9 [facility] Estimation of creatinine lissy aranceOrdered By: Yolanda Tucker on 07-29-2024 Estimated Creatinine Clearance Calc 97.21 ml/min 50-250 [facility] GFR/1.73 sq M.predicted tae g non-blacks MDRD (S/P/Bld) [Vol rate/Area]Ordered By: Yolanda Tucker on 07-29-2024 Estimated GFR (MDRD) Non-Af Amer [address] >60 [facility] Comment on above: mL/min/1.73m2 CKD-EP I Creatinine Equation (2020) Glomerular filtration rate ( GFR) estimation/1.73 sq m using serum, plasma, or whole bOrdered By: Yolanda Tucker on 07-29-2024 GFR/1.73 sq M.predicted among non-blacks MDRD (S/P/Bld) [Vol rate/Area] 96 mL/min/{1.73_m2} >60 [facility] Comment on above: mL/min/1.73m2 CKD-EP I Creatinine Equation (2020) Hematocrit Auto (Bld) [Volum e fraction]Ordered By: Yolanda Tucker on 07-29-2024 Hematocrit (Bld) [Volume fraction] 33.3 % Low 37-47 [facility] Hemoglobin A1con 07-29-2024 HbA1c (Bld) [Mass fraction] 6.2 % Normal <=5.6 [facility] Comment on above: Performed By: #### L 501.9520, L500.4050, L501.55642, L500.4100, L506.0400, L501.9985 #### [facility] [place], [address] Hemoglobin A1c percentageOrd ered By: Yolanda Tucker on 07-29-2024 HbA1c (Bld) [Mass fraction] 6.2 % >5.7 [facility] Hemoglobin measurementOrdere d By: Yolanda Tucker on 07-29-2024 Hemoglobin (Bld) [Mass/Vol] 10.9 g/dL Low 12.0-15.0 [facility] Immature granulocytes/100 WB C Auto (Bld)Ordered By: Yolanda Tucker on 07-29-2024 Immature granulocytes/100 WBC (Bld) 0.400 % 0.0-0.9 [facility] Comment on above: IG% - Immature Granu locytes (promyelocytes, myelocytes and metamyelocytes) > 1% indicates that a LEFT SHIFT is Present. LDL calc ser/plasOrdered By: Yolanda Tucker on 07-29-2024 Cholesterol in LDL [Mass/Vol] 114 mg/dL [facility] Comment on above: Llgckpbyyw=101-049 m g/dL & Higher Uqtf=203 mg/dL or greater LDL Cholesterol, Calculated 114 mg/dL [facility] Comment on above: Wplexzgwcj=829-201 m g/dL & Higher Nhwo=988 mg/dL or greater Laboratory - Chemistry and C hemistry - challengeOrdered By: Yolanda Tucker on 07-29-2024 AST [Catalytic activity/Vol] 25 U/L <32 [facility] Lipid Profileon 07-29-2024 CHOL:HDL 5.[address] [facility] Comment on above: Order Comment: Comme nts: Fasting Lipid Profile Performed By: #### L 501.9520, L500.4050, L501.81382, L500.4100, L506.0400, L501.9985 #### [facility] [address] [place], [address] Cholesterol [Mass/Vol] 177 mg/dL Normal <=200 [facility] Comment on above: Order Comment: Comme nts: Fasting Lipid Profile Result Comment: Chol esterol level, Desirable <200 mg/dL Borderline high cholesterol 200-239 mg/dL High cholesterol >=240 mg/dL Recommendations of the NCEP Adult Treatment Panel for the following risk-cutoff thresholds for the [place] population. Performed By: #### L 501.9520, L500.4050, L501.00527, L500.4100, L506.0400, L501.9985 #### [facility] [address] [place], [address] Cholesterol in HDL [Mass/Vol] 31 mg/dL Low [facility] Comment on above: Order Comment: Comme nts: Fasting Lipid Profile Result Comment: Siomara onal Cholesterol Education Program (NCEP) guidelines: <40 mg/dL: Low HDL-cholesterol (major risk factor for CHD) >= 60 mg/dL: High HDL-cholesterol (negative risk factor for CHD) HDL-cholesterol is affected by a number of factors, e.g. smoking, exercise, hormones, sex and age. Performed By: #### L 501.9520, L500.4050, L501.79381, L500.4100, L506.0400, L501.9985 #### [facility] [address] [place], [address] Cholesterol in LDL [Mass/Vol] 114 mg/dL Normal [facility] Comment on above: Order Comment: Comme nts: Fasting Lipid Profile Result Comment: Bord ziphni=800-757 mg/dL Higher Plmp=758 mg/dL or greater Performed By: #### L 501.9520, L500.4050, L501.31931, L500.4100, L506.0400, L501.9985 #### [facility] [address] [place], [address] Cholesterol in VLDL [Mass/Vol] 32 mg/dL Normal 5-40 [facility] Comment on above: Order Comment: Comme nts: Fasting Lipid Profile Performed By: #### L 501.9520, L500.4050, L501.91554, L500.4100, L506.0400, L501.9985 #### [facility] [address] [place], [address] Triglyceride [Mass/Vol] 160 mg/dL Normal [facility] Comment on above: Order Comment: Comme nts: Fasting Lipid Profile Result Comment: The drugs N-Acetylcysteine and Metamizole may falsely depress this assay. Normal range: <150 mg/dL Borderline High: 150-199 mg/dL High: 200-499 mg/dL Very High: >500 mg/dL Performed By: #### L 501.9520, L500.4050, L501.44874, L500.4100, L506.0400, L501.9985 #### [facility] [address] [place], [address] Lymphocytes Auto (Unsp spec) [#/Vol]Ordered By: Yolanda Tucker on 07-29-2024 Lymphocytes (Bld) [#/Vol] 1.50 10*3/uL 0.83-4.51 [facility] Lymphocytes/100 WBC Auto (Un sp spec)Ordered By: Yolanda Tucker on 07-29-2024 Lymphocytes/100 WBC (Bld) 21.8 % 19-41 [facility] MCV (mean corpuscular volume ) determinationOrdered By: Yolanda White on 07-29-2024 MCV (RBC) [Entitic vol] 81.6 fL 81-99 [facility] Mean corpuscular hemoglobin (MCH) determinationOrdered By: Garrett on 07-29-2024 MCH (RBC) [Entitic mass] 26.7 pg Low 27.0-32.0 [facility] Mean corpuscular hemoglobin concentration (MCHC) determinationOrdered By: Garrett on 07-29-2024 MCHC (RBC) [Mass/Vol] 32.7 g/dL 32-36 [facility] Mean platelet volume determi nationOrdered By: Yolanda White on 07-29-2024 Platelet mean volume (Bld) [Entitic vol] 9.2 fL 6.2-12.0 [facility] Monocyte percentageOrdered B y: Yolanda White on 07-29-2024 Monocytes/100 WBC (Bld) 9.5 % 0-10 [facility] Neutrophil percentageOrdered By: White on 07-29-2024 Neutrophils/100 WBC (Bld) 65.1 % 47-70 [facility] Nucleated red blood cell per centageOrdered By: White on 07-29-2024 Nucleated RBC/100 WBC (Bld) [Ratio] 0 % 0-5 [facility] Platelet countOrdered By: Karina triana Garrett on 07-29-2024 Platelets (Bld) [#/Vol] 393 10*3/uL 150-450 [facility] Potassium (Unsp spec) [Mass/ Vol]Ordered By: Yolanda Garrett on 07-29-2024 Potassium [Moles/Vol] 3.4 mmol/L 3.3-5.1 [facility] Potassium measurement (mass/ volume)Ordered By: Yolanda Tucker on 07-29-2024 Potassium (Unsp spec) [Mass/Vol] 3.4 mmol/L 3.3-5.1 [facility] RBC Auto (Bld) [#/Vol]Ordere d By: Yolanda Tucker on 07-29-2024 RBC (Bld) [#/Vol] 4.08 10*6/uL Low 4.2-5.4 [facility] RESPIRATORY PANEL MOLECULARo n 07-29-2024 RP PANEL ADENOVIRUS Not Detected INFLUENZA A Not Detected INFLUENZA A (SUBTYPE H1) Not Detected INFLUENZA A (SUBTYPE H3) Not Detected INFLUENZA B Not Detected HUMAN METAPHNEUMO Not Detected PARAINFLUENZA 1 Not Detected PARAINFLUENZA 2 Not Detected PARAINFLUENZA 3 Not Detected PARAINFLUENZA 4 Not Detected RHINOVIRUS Not Detected RSV A Not Detected RSV B Not Detected Normal [facility] Comment on above: Performed By: #### L 501.9520, L500.4050, L501.84543, L500.4100, L506.0400, L501.9987 #### [facility] [address] [place], [address] Screening total cholesterol/ high density lipoprotein (HDL) cholesterol ratioOrdered By: Yolanda Tucker on 07-29-2024 Cholesterol.total/Odalis sterol in HDL [Mass ratio] 5.73 {ratio} [facility] Serum creatinine measurement (mass/volume)Ordered By: Yolanda Tucker on 07-29-2024 Creatinine [Mass/Vol] 0.66 mg/dL Low 0.70-1.20 [facility] Serum globulin measurementOr dered By: Yolanda Tucker on 07-29-2024 Globulin (S) [Mass/Vol] 3.2 g/dL 2.2-4.2 [facility] Serum glucose measurement (m ass/volume)Ordered By: Yolanda Tucker on 07-29-2024 Glucose [Mass/Vol] 103 mg/dL High 70-99 [facility] Serum or plasma alanine cruz otransferase (ALT) measurementOrdered By: Yolanda Tucker on 07-29-2024 ALT [Catalytic activity/Vol] 29 U/L <35 [facility] Serum or plasma albumin nicole urement (mass/volume)Ordered By: Yolanda Tucker on 07-29-2024 Albumin [Mass/Vol] 3.8 g/dL 3.4-4.8 [facility] Serum or plasma albumin/glob ulin mass ratioOrdered By: Yolanda Tucker on 07-29-2024 Albumin/Globulin [Mass ratio] 1.2 {ratio} 0.9-2.4 [facility] Serum or plasma alkaline adrián sphatase measurementOrdered By: [facility] Garrett on 07-29-2024 ALP [Catalytic activity/Vol] 80 U/L 35-104 [facility] Serum or plasma calcium nicole urement (mass/volume)Ordered By: Yolanda Tucker on 07-29-2024 Calcium [Mass/Vol] 9.1 mg/dL 7.6-11.0 [facility] Serum or plasma cholesterol in HDL measurement (mass/volume)Ordered By: Yolanda Tucker on 07-29-2024 Cholesterol in HDL [Mass/Vol] 31 mg/dL Low >40 [facility] Comment on above: National Cholesterol Education Program (NCEP) guidelines:<40 mg/dL: Low HDL-cholesterol (major risk factor for CHD)>= 60 mg/dL: High HDL-cholesterol (negative risk factor for CHD)HDL-cholesterol is affected by a number of factors, e.g. smoking, exercise, hormones, sex and age. Serum or plasma cholesterol measurement (mass/volume)Ordered By: Yolanda Tucker on 07-29-2024 Cholesterol [Mass/Vol] 177 mg/dL <201 [facility] Comment on above: Cholesterol level, D esirable <200 mg/dLBorderline high cholesterol 200-239 mg/dLHigh cholesterol >=240 mg/dLRecommendations of the NCEP Adult Treatment Panel for the following risk-cutoff thresholds for the [place] population. Serum or plasma urea nitroge n measurement (mass/volume)Ordered By: Yolanda Tucker on 07-29-2024 Urea nitrogen [Mass/Vol] 13 mg/dL 4-19 [facility] Sodium levelOrdered By: Gale Tucker on 07-29-2024 Sodium [Moles/Vol] 135 mmol/L 133-145 [facility] Stress Reporton 07-29-[address] [facility] [address] [place] [address] MR#: [id number] Acct: [id number] Name: OLENA VALERA Rep #: [id number] : 1955 68 From: Ralph Sexton MD [...] of 53%. This note was generated with Di[employer]pora[employer] software. It may contain incorrect words, spelling, and punctuation that were not noted in checking the note before signing. 07/29/24 1233 Date Ralph Sexton MD CC: Dr. Mane Jhaveri MD; Dr. Yolanda Tucker MD; Dr. Hugo Mora MD; Dr. Lion Valentin, DO Date Dictated: 07/29/24 1230 Date Transcribed: 07/29/241229 Cook'S Assistant: NAREN Signed Normal [facility] Total proteinOrdered By: Rocio Tucker on 07-29-2024 Protein [Mass/Vol] 7.0 g/dL 5.9-8.4 [facility] Triglycerides measurementOrd ered By: Yolanda Tucker on 07-29-2024 Triglyceride [Mass/Vol] 160 mg/dL <199 [facility] Comment on above: The drugs N-Acetylcy steine and Metamizole may falsely depress this assay. Normal range: <150 mg/dLBorderline High: 150-199 mg/dLHigh: 200-499 mg/dLVery High: >500 mg/dL White blood cell (WBC) count Ordered By: Yolanda Tucker on 07-29-2024 WBC (Bld) [#/Vol] 6.9 10*3/uL 4.4-11.0 [facility] Absolute neutrophil countOrd ered By: Lion Valentin on 07-28-2024 Neutrophils (Bld) [#/Vol] 8.4 10*3/uL High 2.0-7.7 [facility] Activated partial thrombopla stin time (aPTT) in platelet poor plasma by coagulation aOrdered By: Lion Valentin on 07-28-2024 aPTT Coag (PPP) [Time] 28.5 s 24.1-36.2 [facility] Amorphous sediment detection in urine sediment by light microscopyOrdered By: Lion Valentin on 07-28-2024 Amorphous sediment LM Ql (Urine sed) 2+ URATE [facility] Anion gap in Serum or Plasma Ordered By: Lion Valentin on 07-28-2024 Anion gap [Moles/Vol] 18 mmol/L High 5-15 [facility] BUN/creatinine ratioOrdered By: Lion Valentin on 07-28-2024 Urea nitrogen/Creatinine [Mass ratio] 17.8 mg/mg 10-20 [facility] Basophil percentageOrdered B y: Lion Valentin on 07-28-2024 Basophils/100 WBC (Bld) 0.4 % 0-1 [facility] Bilirubin Test strip Ql (U)O rdered By: Lion Valentin on 07-28-2024 Bilirubin Ql (U) Negative Negative [facility] Bilirubin, totalOrdered By: Lion Valentin on 07-28-2024 Bilirubin [Mass/Vol] 0.46 mg/dL 0.00-1.30 [facility] Blood cultureOrdered By: Anastasiya Valentin on 07-28-2024 Bacteria identified Cx Nom (Bld) No growth in [address] [facility] CBC W/Diff, Automatedon Absolute Lymph 1.72 X10 3/uL Normal 0.83-4.51 [facility] Comment on above: Performed By: #### L 501.9520, L500.4050, L501.01322, L500.4100, L506.0400, L501.9985 #### [facility] [address] [place], [address] Absolute Neut 8.4 X10 3/uL High 2.0-7.7 [facility] Comment on above: Performed By: #### L 501.9520, L500.4050, L501.27614, L500.4100, L506.0400, L501.9985 #### [facility] [address] [place], [address] Basophils/100 WBC (Bld) 0.4 % Normal 0-1 [facility] Comment on above: Performed By: #### L 501.9520, L500.4050, L501.61133, L500.4100, L506.0400, L501.9985 #### [facility] [address] [place], [address] Eosinophils/100 WBC (Bld) 0.4 % Normal 0-5 [facility] Comment on above: Performed By: #### L 501.9520, L500.4050, L501.93076, L500.4100, L506.0400, L501.9985 #### [facility] [address] [place], [address] Erythrocyte distribution width (RBC) [Ratio] 16.8 % High 11.6-14.6 [facility] Comment on above: Performed By: #### L 501.9520, L500.4050, L501.48312, L500.4100, L506.0400, L501.9985 #### [facility] [address] [place], [address] Hematocrit (Bld) [Volume fraction] 41.0 % Normal 37-47 [facility] Comment on above: Performed By: #### L 501.9520, L500.4050, L501.34181, L500.4100, L506.0400, L501.9985 #### [facility] [address] [place], [address] Hemoglobin (Bld) [Mass/Vol] 13.2 g/dL Normal 12.0-15.0 [facility] Comment on above: Performed By: #### L 501.9520, L500.4050, L501.81120, L500.4100, L506.0400, L501.9985 #### [facility] [address], [address] IG% 0.400 Normal 0.0-0.9 [facility] Comment on above: Result Comment: IG% - Immature Granulocytes (promyelocytes, myelocytes and metamyelocytes) > 1% indicates that a LEFT SHIFT is Present. Performed By: #### L 501.9520, L500.4050, L501.81247, L500.4100, L506.0400, L501.9985 #### [facility] [address] [place], [address] Lymphocytes/100 WBC (Bld) 15.5 % Low 19-41 [facility] Comment on above: Performed By: #### L 501.9520, L500.4050, L501.09490, L500.4100, L506.0400, L501.9985 #### [facility] [address] [place], [address] MCH (RBC) [Entitic mass] 25.9 pg Low 27.0-32.0 [facility] Comment on above: Performed By: #### L 501.9520, L500.4050, L501.17736, L500.4100, L506.0400, L501.9985 #### [facility] [address], [address] MCHC (RBC) [Mass/Vol] 32.2 g/dL Normal 32-36 [facility] Comment on above: Performed By: #### L 501.9520, L500.4050, L501.31399, L500.4100, L506.0400, L501.9985 #### [facility] [address] [place], [address] MCV (RBC) [Entitic vol] 80.6 fL Low 81-99 [facility] Comment on above: Performed By: #### L 501.9520, L500.4050, L501.45637, L500.4100, L506.0400, L501.9985 #### [facility] [address], [address] Monocytes/100 WBC (Bld) 7.7 % Normal 0-10 [facility] Comment on above: Performed By: #### L 501.9520, L500.4050, L501.68747, L500.4100, L506.0400, L501.9985 #### [facility] [address], [address] Neutrophils/100 WBC (Bld) 75.6 % High 47-70 [facility] Comment on above: Performed By: #### L 501.9520, L500.4050, L501.66559, L500.4100, L506.0400, L501.9985 #### [facility] [address], [address] Nucleated RBC (Bld) [#/Vol] 0 10*3/uL Normal 0-5 [facility] Comment on above: Performed By: #### L 501.9520, L500.4050, L501.17794, L500.4100, L506.0400, L501.9985 #### [facility] [address] [place], [address] Platelet mean volume (Bld) [Entitic vol] 9.2 fL Normal 6.2-12.0 [facility] Comment on above: Performed By: #### L 501.9520, L500.4050, L501.20340, L500.4100, L506.0400, L501.9985 #### [facility] [address] [place], [address] Platelets (Bld) [#/Vol] 560 10*3/uL High 150-450 [facility] Comment on above: Performed By: #### L 501.9520, L500.4050, L501.24104, L500.4100, L506.0400, L501.9985 #### [facility] [address] [place], [address] RBC (Bld) [#/Vol] 5.09 10*6/uL Normal 4.2-5.4 [facility] Comment on above: Performed By: #### L 501.9520, L500.4050, L501.65298, L500.4100, L506.0400, L501.9985 #### [facility] [address] [place], [address] RDW SD 46.7 fl High 35.1-43.9 [facility] Comment on above: Performed By: #### L 501.9520, L500.4050, L501.82362, L500.4100, L506.0400, L501.9985 #### [facility] [address] [place], [address] WBC (Bld) [#/Vol] 11.1 10*3/uL High 4.4-11.0 [facility] Comment on above: Performed By: #### L 501.9520, L500.4050, L501.45088, L500.4100, L506.0400, L501.9985 #### [facility] [address] [place], [address] Carbon dioxide, total [Moles /volume] in Central venous bloodOrdered By: Lion Valentin on 07-28-2024 CO2 [Moles/Vol] 18.5 mmol/L Low 21.0-32.0 [facility] Chest PA and Lateralon 07-28 Chest PA and Lateral [facility] [address] [place] [address] Chest PA and Lateral MR#: [id number] Acct: [id number] Name: OLENA VALERA Rep #: [id number] : 1955 F 68 From: Teja Laura PCP: Dr. Hugo Mora MD Status: PRE ER Study: Chest PA and Lateral Date of Exam: 07/28/24 Exam# [id number] Ordering Dr: Lion Valentin DO PROCEDURE: CHEST PA AND LATERAL REASON FOR EXAM: Palpitations TECHNIQUE: Frontal and lateral views of the chest. COMPARISON: 07/26/2024 FINDINGS: Borderline cardiomegaly. No focal consolidation, pleural effusion or sizable pneumothorax. RAD/Chest PA and Lateral IMPRESSION: No acute airspace abnormality. Reading Location: [facility] CC: Dr. Hugo Mora MD; Dr. Lion Valentin DO Cook'S Assistant: Signed Normal [facility] Chloride assayOrdered By: Jerardo Valentin on 07-28-2024 Chloride [Moles/Vol] 95 mmol/L Low 98-108 [facility] Comprehensive Metabolic Prof ilon 07-28-2024 Albumin [Mass/Vol] 4.5 g/dL Normal 3.4-4.8 [facility] Comment on above: Performed By: #### L 501.9520, L500.4050, L501.40950, L500.4100, L506.0400, L501.9985 #### [facility] [address] [place], [address] Albumin/Globulin [Mass ratio] 1.0 {ratio} Normal 0.9-2.4 [facility] Comment on above: Performed By: #### L 501.9520, L500.4050, L501.74374, L500.4100, L506.0400, L501.9985 #### [facility] [address] [place], [address] ALK PHOS 107 U/L High 35-104 [facility] Comment on above: Performed By: #### L 501.9520, L500.4050, L501.82015, L500.4100, L506.0400, L501.9985 #### [facility] [address] [place], [address] ALT [Catalytic activity/Vol] 39 U/L High <=34 [facility] Comment on above: Performed By: #### L 501.9520, L500.4050, L501.16295, L500.4100, L506.0400, L501.9985 #### [facility] [address] [place], [address] AST [Catalytic activity/Vol] 32 U/L Normal <=31 [facility] Comment on above: Performed By: #### L 501.9520, L500.4050, L501.30684, L500.4100, L506.0400, L501.9985 #### [facility] [address] [place], [address] Bilirubin [Mass/Vol] 0.46 mg/dL Normal 0.00-1.30 [facility] Comment on above: Performed By: #### L 501.9520, L500.4050, L501.62888, L500.4100, L506.0400, L501.9985 #### [facility] [address] [place], [address] BUN/CRE 17.8 RATIO Normal 10-20 [facility] Comment on above: Performed By: #### L 501.9520, L500.4050, L501.36245, L500.4100, L506.0400, L501.9985 #### [facility] [address] [place], [address] Calcium [Mass/Vol] 10.3 mg/dL Normal 7.6-11.0 [facility] Comment on above: Performed By: #### L 501.9520, L500.4050, L501.50507, L500.4100, L506.0400, L501.9985 #### [facility] [address] [place], [address] Chloride [Moles/Vol] 95 mmol/L Low 98-108 [facility] Comment on above: Performed By: #### L 501.9520, L500.4050, L501.90456, L500.4100, L506.0400, L501.9985 #### [facility] [address] [place], [address] CO2 [Moles/Vol] 18.5 mmol/L Low 21.0-32.0 [facility] Comment on above: Performed By: #### L 501.9520, L500.4050, L501.03244, L500.4100, L506.0400, L501.9985 #### [facility] [address] [place], [address] Creatinine [Mass/Vol] 0.97 mg/dL Normal 0.70-1.20 [facility] Comment on above: Performed By: #### L 501.9520, L500.4050, L501.62368, L500.4100, L506.0400, L501.9985 #### [facility] [address] [place], [address] ECRCL 81.10 ml/min Normal 50-250 [facility] Comment on above: Performed By: #### L 501.9520, L500.4050, L501.21933, L500.4100, L506.0400, L501.9985 #### [facility] [address] [place], [address] GAP 18 High 5-15 [facility] Comment on above: Performed By: #### L 501.9520, L500.4050, L501.33892, L500.4100, L506.0400, L501.9985 #### [facility] [address] [place], [address] GFR/1.73 sq M.predicted among non-blacks MDRD (S/P/Bld) [Vol rate/Area] 64 mL/min/{1.73_m2} Normal >60 [facility] Comment on above: Result Comment: mL/m in/1.73m2 CKD-EPI Creatinine Equation (2020) Performed By: #### L 501.9520, L500.4050, L501.07391, L500.4100, L506.0400, L501.9985 #### [facility] [address] [place], [address] Globulin (S) [Mass/Vol] 4.3 g/dL High 2.2-4.2 [facility] Comment on above: Performed By: #### L 501.9520, L500.4050, L501.54348, L500.4100, L506.0400, L501.9985 #### [facility] [address] [place], [address] Glucose [Mass/Vol] 140 mg/dL High 70-99 [facility] Comment on above: Performed By: #### L 501.9520, L500.4050, L501.25376, L500.4100, L506.0400, L501.9985 #### [facility] [address] [place], [address] Potassium [Moles/Vol] 3.9 mmol/L Normal 3.3-5.1 [facility] Comment on above: Performed By: #### L 501.9520, L500.4050, L501.35146, L500.4100, L506.0400, L501.9985 #### [facility] [address] [place], [address] Sodium [Moles/Vol] 132 mmol/L Low 133-145 [facility] Comment on above: Performed By: #### L 501.9520, L500.4050, L501.84283, L500.4100, L506.0400, L501.9985 #### [facility] [address] [place], [address] T PROT 8.9 g/dL High 5.9-8.4 [facility] Comment on above: Performed By: #### L 501.9520, L500.4050, L501.08172, L500.4100, L506.0400, L501.9985 #### [facility] [address] [place], [address] Urea nitrogen [Mass/Vol] 17 mg/dL Normal 4-19 [facility] Comment on above: Performed By: #### L 501.9520, L500.4050, L501.71049, L500.4100, L506.0400, L501.9985 #### [facility] [address] [place], [address] Emergency Department Summary on 07-28-2024 Emergency Department Summary [facility] Medical Records Department [address] [place] [address] Emergency Department Summary 07/28/24 MR#: [id number] Acct: [id number] Name: OLENA VALERA Rep #: [id number] : 1955 68 From: Lion Valentin DO [...] does not have a history of this. [facility] Medical History Wears glasses Anxiety Thyroid [...] Patient follow commands that she was at [facility] there is 2024 Skin: Warm, dry, intact [...] Room Air (more content not included)... Normal [facility] Eosinophil percentageOrdered By: Lion Valentin on 07-28-2024 Eosinophils/100 WBC (Bld) 0.4 % 0-5 [facility] Epithelial cells.squamous LM Ql (Urine sed)Ordered By: Lion Valentin on 07-28-2024 Epithelial cells.squamous LM.HPF (Urine sed) [#/Area] 0 /[HPF] 5-10 [facility] Erythrocyte distribution wid th ratioOrdered By: Lion Valentin on 07-28-2024 Erythrocyte distribution width (RBC) [Ratio] 16.8 % High 11.6-14.6 [facility] Erythrocyte distribution wid th standard deviationOrdered By: Liongagan Valentin on 07-28-2024 Erythrocyte distribution width (RBC) [Entitic vol] 46.7 fL High 35.1-43.9 [facility] Estimation of creatinine lissy aranceOrdered By: Lion Valentin on 07-28-2024 Estimated Creatinine Clearance Calc 81.10 ml/min 50-250 [facility] Free T3on 07-28-2024 Free T3 [Mass/Vol] 2.6 pg/mL Normal 2.18-3.98 [facility] Comment on above: Performed By: #### L 501.9589, L500.4050, L501.25463, L500.4100, L506.0400, L501.9985 #### [facility] [place], [address] Free [id number] By: Lion aguilar on 07-28-2024 Free T3 [Mass/Vol] 2.6 pg/mL 2.18-3.98 [facility] Free Triiodothyronine (T3) pg/dL 2.6 pg/mL 2.18-3.98 [facility] GFR/1.73 sq M.predicted tae g non-blacks MDRD (S/P/Bld) [Vol rate/Area]Ordered By: Lion Valentin on 07-28-2024 Estimated GFR (MDRD) Non-Af Amer [address] >60 [facility] Comment on above: mL/min/1.73m2 CKD-EP I Creatinine Equation (2020) Glucose Ql (U)Ordered By: Jerardo Valentin on 07-28-2024 Urine Glucose (UA) Normal mg/dl Normal [facility] H AND P Exam - [facility] 07-28-2024 H&P Exam - Hospitalist [facility] Medical Records Department [address] [place] [address] H P Exam - Hospitalist 07/28/241922 MR#: [id number] Acct: [id number] Name: OLENA VALERA Rep #: [id number] : 1955 68 From: Yolanda Tucker MD PCP: Dr. Hugo Mora MD Status:ADM IN Location: [place] [address] HPI - General General Date of Admission: 07/28/24 Date of Service: 07/28/24 Chief Complaint: Palpitations, fatigue, malaise, nausea. HPI Narrative The patient is a 68 y/o F w/ PMHx: Morbid obesity, Anxiety and Depression, HTN, HLD, Hypothyroidism, Former tobacco use who presents to the [facility] ED on 07/28/24 with persistent racing heart [...] be certain no block therefore reviewed with nuclear control operator on-call Dr. Sexton who felt that this was more consistent with sinus arrhythmia with frequent PAC. He recommended that patient have at least echocardiogram and follow- up Holter monitor assessment at discharge. No formal consult request was placed. [facility] Medical History Morbid obesity Anxiety and depression [...] Heart disease Hypertension Father , from massive [place] at 76 y/o. Heart disease CAD (coronary [...] headache, diz (more content not included)... Normal [facility] Hematocrit Auto (Bld) [Volum e fraction]Ordered By: Lion Valentin on 07-28-2024 Hematocrit (Bld) [Volume fraction] 41.0 % 37-47 [facility] Hemoglobin measurementOrdere d By: Lion Valentin on 07-28-2024 Hemoglobin (Bld) [Mass/Vol] 13.2 g/dL 12.0-15.0 [facility] Immature granulocytes/100 WB C Auto (Bld)Ordered By: Lion Valentin on 07-28-2024 Immature granulocytes/100 WBC (Bld) 0.400 % 0.0-0.9 [facility] Comment on above: IG% - Immature Granu locytes (promyelocytes, myelocytes and metamyelocytes) > 1% indicates that a LEFT SHIFT is Present. Influenza virus A and B and SARS-CoV-2 (COVID-19) and Respiratory syncytial virus RNAOrdered By: Lion Valentin on 07-28-2024 SARS-CoV-2 (COVID-19) RNA MICAELA+probe Ql (Unsp spec) [facility] SARS-CoV-2 (COVID-19) RNA MICAELA+probe Ql (Unsp spec) [facility] International normalized rat io (INR) calculationOrdered By: Lion Valentin on 07-28-2024 INR Coag (Bld) [Relative time] 1.0 {INR} [facility] Ketones Test strip Ql (U)Ord ered By: Lion Valentin on 07-28-2024 Ketones Ql (U) 5 mg/dl High Negative [facility] L499.0042on 07-28-2024 Trop T High Sen 17 ng/L High <=14 [facility] Comment on above: Performed By: #### L 501.9520, L500.4050, L501.46348, L500.4100, L506.0400, L501.9985 #### [facility] [address] [place], [place], [id number] L499.0043on 07-28-2024 Trop T High Sen 15 ng/L High <=14 [facility] Comment on above: Order Comment: Comme nts: may add to ED labs Performed By: #### L 501.5200, L499.0043 #### [facility] [address] [place], [address] L501.4021on 07-28-2024 Trop T High Sen 17 ng/L High <=14 [facility] Comment on above: Performed By: #### L 501.9520, L500.4050, L501.29524, L500.4100, L506.0400, L501.9985 #### [facility] [address] [place], [place], [id number] L503.7505Ordered By: Lion caicedo on 07-28-2024 Natriuretic peptide B (Bld) [Mass/Vol] 93 pg/mL Normal <=900 [facility] Comment on above: Heart Failure Unlike ly: < 300 pg/mLHeart Failure Likely< 50 Years: > 450 pg/mL50-75 Years: > 900 pg/mL>75 Years: > 1800 pg/mL Result Comment: Hear t Failure Unlikely: < 300 pg/mL Heart Failure Likely < 50 Years: > 450 pg/mL 50-75 Years: > 900 pg/mL >75 Years: > 1800 pg/mL Performed By: #### L 501.9520, L500.4050, L501.53838, L500.4100, L506.0400, L501.9985 #### [facility] [address] [place], [address] Laboratory - Chemistry and C hemistry - challengeOrdered By: Lion Valentin on 07-28-2024 AST [Catalytic activity/Vol] 32 U/L <32 [facility] Lactic Acidon 07-28-2024 Lactate [Moles/Vol] 2.2 mmol/L Invalid Interpretation Code 0.0-2.0 [facility] Comment on above: Order Comment: Y Result Comment: Crit ical Result(s) Called ESMART at: 1730 by: BRAULIO??Results read back by same. Performed By: #### L 501.9520, L500.4050, L501.83994, L500.4100, L506.0400, L501.9985 #### [facility] [address] [place], [address] Lactic acid measurementOrder ed By: Lion Valentin on 07-28-2024 Lactate [Moles/Vol] 2.2 mmol/L High 0.0-2.0 [facility] Comment on above: Critical Result(s) C alled ESMART at: 1730 by: BRAULIO Results read back by same. Lymphocytes Auto (Unsp spec) [#/Vol]Ordered By: Lion Valentin on 07-28-2024 Lymphocytes (Bld) [#/Vol] 1.72 10*3/uL 0.83-4.51 [facility] Lymphocytes/100 WBC Auto (Un sp spec)Ordered By: Lion Valentin on 07-28-2024 Lymphocytes/100 WBC (Bld) 15.5 % Low 19-41 [facility] M100.678on 07-28-2024 M100.678 Pending SARS-CoV-2 (COVID 19) Negative INFLUENZA A Negative INFLUENZA B Negative RSV PCR Negative Normal [facility] Comment on above: Performed By: #### L 501.9520, L500.4050, L501.68637, L500.4100, L506.0400, L501.9985 #### [facility] [address] [place], [address] MCV (mean corpuscular volume ) determinationOrdered By: Lion Valentin on 07-28-2024 MCV (RBC) [Entitic vol] 80.6 fL Low 81-99 [facility] Magnesiumon 07-28-2024 Magnesium [Mass/Vol] 1.9 mg/dL Normal 1.5-2.2 [facility] Comment on above: Order Comment: Comme nts: may add to ED labs Performed By: #### L 501.5200, L499.0043 #### [facility] [address] [place], [address] Magnesium (Unsp spec) [Mass/ Vol]Ordered By: Yolanda Tucker on 07-28-2024 Magnesium [Mass/Vol] 1.9 mg/dL 1.5-2.2 [facility] Magnesium measurement (mass/ volume)Ordered By: Yolanda Tucker on 07-28-2024 Magnesium (Unsp spec) [Mass/Vol] 1.9 mg/dL 1.5-2.2 [facility] Mean corpuscular hemoglobin (MCH) determinationOrdered By: Lion Valentin on 07-28-2024 MCH (RBC) [Entitic mass] 25.9 pg Low 27.0-32.0 [facility] Mean corpuscular hemoglobin concentration (MCHC) determinationOrdered By: Lion Valentin on 07-28-2024 MCHC (RBC) [Mass/Vol] 32.2 g/dL 32-36 [facility] Mean platelet volume determi nationOrdered By: Lion Valentin on 07-28-2024 Platelet mean volume (Bld) [Entitic vol] 9.2 fL 6.2-12.0 [facility] Microscopic analysis of urin e for red blood cells (RBC)Ordered By: Lion Valentin on 07-28-2024 Microscopic analysis of urine for red blood cells (RBC) 5-10 SEEN /hpf 0-5 [facility] Urine RBC 5-10 SEEN /hpf 0-5 [facility] Monocyte percentageOrdered B y: Lion Valentin on 07-28-2024 Monocytes/100 WBC (Bld) 7.7 % 0-10 [facility] Mucus LM Ql (Urine sed)Order ed By: Loin Valentin on 07-28-2024 Mucus Ql (Urine sed) 0 SEEN /hpf [facility] Neutrophil percentageOrdered By: Lion Valentin on 07-28-2024 Neutrophils/100 WBC (Bld) 75.6 % High 47-70 [facility] Nitrite Test strip Ql (U)Ord ered By: Lion Valentin on 07-28-2024 Nitrite Ql (U) Negative Negative [facility] No Panel InformationOrdered By: Lion Valentin on 07-28-2024 Troponin T High Sensitivity 17 ng/L High <14 [facility] Comment on above: Delta: 12 on 5-1850 Nucleated red blood cell per centageOrdered By: Lion Valentin on 07-28-2024 Nucleated RBC/100 WBC (Bld) [Ratio] 0 % 0-5 [facility] Partial Thromboplast Timeon 07-28-2024 aPTT Coag (Bld) [Time] 28.5 s Normal 24.1-36.2 [facility] Comment on above: Performed By: #### L 501.9520, L500.4050, L501.59305, L500.4100, L506.0400, L501.9985 #### [facility] [address] [place], [address] Platelet countOrdered By: Jerardo Valentin on 07-28-2024 Platelets (Bld) [#/Vol] 560 10*3/uL High 150-450 [facility] Potassium (Unsp spec) [Mass/ Vol]Ordered By: Lion Valentin on 07-28-2024 Potassium [Moles/Vol] 3.9 mmol/L 3.3-5.1 [facility] Protein Test strip Ql (U)Ord ered By: Lion Valentin on 07-28-2024 Protein Ql (U) 30 mg/dl High Negative [facility] Prothrombin Time w/INRon INR Coag (PPP) [Relative time] 1.0 {INR} Normal [facility] Comment on above: Performed By: #### L 501.9520, L500.4050, L501.00348, L500.4100, L506.0400, L501.9985 #### [facility] [address] [place], [address] PT Coag (PPP) [Time] 13.6 s Normal 11.7-14.9 [facility] Comment on above: Performed By: #### L [id number], L500.4050, L501.95269, L500.4100, L506.0400, L501.9985 #### [facility] [address] [place], [address] Prothrombin timeOrdered By: Lion Valentin on 07-28-2024 PT Coag (PPP) [Time] 13.6 s 11.7-14.9 [facility] RBC Auto (Bld) [#/Vol]Ordere d By: Lion Valentin on 07-28-2024 RBC (Bld) [#/Vol] 5.09 10*6/uL 4.2-5.4 [facility] Respiratory pathogens DNA an d RNA panel MICAELA+probe (Resp)Ordered By: Yolanda Tucker on 07-28-2024 Respiratory Panel (PCR) [facility] Respiratory Panel (PCR) [facility] Respiratory pathogens detect ion panel by molecular detection methodOrdered By: Yolanda Tucker on 07-28-2024 Respiratory pathogens DNA and RNA panel MICAELA+probe (Resp) [facility] Serum creatinine measurement (mass/volume)Ordered By: Lion Valentin on 07-28-2024 Creatinine [Mass/Vol] 0.97 mg/dL 0.70-1.20 [facility] Serum globulin measurementOr dered By: Lion Valentin on 07-28-2024 Globulin (S) [Mass/Vol] 4.3 g/dL High 2.2-4.2 [facility] Serum glucose measurement (m ass/volume)Ordered By: Lion Valentin on 07-28-2024 Glucose [Mass/Vol] 140 mg/dL High 70-99 [facility] Serum or plasma alanine cruz otransferase (ALT) measurementOrdered By: Lion Valentin on 07-28-2024 ALT [Catalytic activity/Vol] 39 U/L High <35 [facility] Serum or plasma albumin nicole urement (mass/volume)Ordered By: Lion Valentin on 07-28-2024 Albumin [Mass/Vol] 4.5 g/dL 3.4-4.8 [facility] Serum or plasma albumin/glob ulin mass ratioOrdered By: Lion Valentin on 07-28-2024 Albumin/Globulin [Mass ratio] 1.0 {ratio} 0.9-2.4 [facility] Serum or plasma alkaline adrián sphatase measurementOrdered By: Lion Valentin on 07-28-2024 ALP [Catalytic activity/Vol] 107 U/L High 35-104 [facility] Serum or plasma calcium nicole urement (mass/volume)Ordered By: Lion Valentin on 07-28-2024 Calcium [Mass/Vol] 10.3 mg/dL 7.6-11.0 [facility] Serum or plasma urea nitroge n measurement (mass/volume)Ordered By: Lion Valentin on 07-28-2024 Urea nitrogen [Mass/Vol] 17 mg/dL 4-19 [facility] Sodium levelOrdered By: Tyler Valentin on 07-28-2024 Sodium [Moles/Vol] 132 mmol/L Low 133-145 [facility] Squamous epithelial cells de tection in urine sediment by light microscopyOrdered By: Lion Valentin on 07-28-2024 Epithelial cells.squamous LM Ql (Urine sed) 0-5 SEEN /hpf 5-10 [facility] T4 Free Directon 07-28-2024 T4 FREE DIRECT 1.20 ng/dL Normal 0.76-1.46 [facility] Comment on above: Performed By: #### L 501.9520, L500.4050, L501.94843, L500.4100, L506.0400, L501.9985 #### [facility] [address] [place], [address] T4 freeOrdered By: Lion aguilar on 07-28-2024 Free T4 [Mass/Vol] 1.20 ng/dL 0.76-1.46 [facility] TSH DL <= 0.005 mIU/L QnOrde red By: Lion Valentin on 07-28-2024 Thyroid Stimulating Hormone (TSH) 7.340 uIU/mL High 0.300-4.200 [facility] TSH Qn 7.340 uIU/mL High 0.300-4.200 [facility] Thyroid Stim Hormone (TSH)on 07-28-2024 TSH 7.340 uIU/mL High 0.300-4.200 [facility] Comment on above: Performed By: #### L 501.9520, L500.4050, L501.03376, L500.4100, L506.0400, L501.9985 #### [facility] [address] [place], [address] Total proteinOrdered By: Anastasiya Valentin on 07-28-2024 Protein [Mass/Vol] 8.9 g/dL High 5.9-8.4 [facility] Troponin T.cardiac High sens itivity method [Mass/Vol]Ordered By: Lion Valentin on 07-28-2024 Troponin T High Sensitivity 4 Hour 15 ng/L High <14 [facility] Troponin T High Sensitivity 2 Hour 17 ng/L High <14 [facility] Troponin T.cardiac [Mass/vol ume] in Serum or Plasma by High sensitivity methodOrdered By: Lion Valentin on 07-28-2024 Troponin T.cardiac High sensitivity method [Mass/Vol] 15 ng/L High <14 [facility] Troponin T.cardiac High sensitivity method [Mass/Vol] 17 ng/L High <14 [facility] Urinalysis, Completeon 07-28 AMORPHOUS 2+ URATE Normal [facility] Comment on above: Order Comment: CLEAN CATCH Performed By: #### L 501.9520, L500.4050, L501.71249, L500.4100, L506.0400, L501.9985 #### [facility] [address] [place], [address] BACTERIA 1+ /hpf Normal None Seen [facility] Comment on above: Order Comment: CLEAN CATCH Performed By: #### L 501.9520, L500.4050, L501.05385, L500.4100, L506.0400, L501.9985 #### [facility] [address] [place], [address] EPI,SQUAMOUS 0-5 SEEN Normal 5-10 [facility] Comment on above: Order Comment: CLEAN CATCH Performed By: #### L 501.9520, L500.4050, L501.13472, L500.4100, L506.0400, L501.9985 #### [facility] [address] [place], [address] RBC 5-10 SEEN Normal 0-5 [facility] Comment on above: Order Comment: CLEAN CATCH Performed By: #### L 501.9520, L500.4050, L501.40993, L500.4100, L506.0400, L501.9985 #### [facility] [address] [place], [address] WBC 50-100 SEEN Normal 0-5 [facility] Comment on above: Order Comment: CLEAN CATCH Performed By: #### L 501.9520, L500.4050, L501.34152, L500.4100, L506.0400, L501.9985 #### [facility] [address] [place], [address] Mucus Ql (Urine sed) 0 SEEN Normal [facility] Comment on above: Order Comment: CLEAN CATCH Performed By: #### L 501.9520, L500.4050, L501.80996, L500.4100, L506.0400, L501.9985 #### [facility] [address] [place], [place], [id number] Urine blood detectionOrdered By: Lion Valentin on 07-28-2024 Urine Occult Blood 25 /ul High Negative [facility] Urine clarityOrdered By: Anastasiya Valentin on 07-28-2024 Clarity (U) Sl. Cloudy Clear [facility] Urine color determinationOrd ered By: Lion Valentin on 07-28-2024 Color (U) Yellow Yellow [facility] Urine cultureOrdered By: Anastasiya Valentin on 07-28-2024 Bacteria identified Cx Nom (U) Streptococcus agalactiae (B) Abnormal [facility] Bacteria identified Cx Nom (U) Streptococcus agalactiae (B) Abnormal [facility] Urine glucose detectionOrder ed By: Lion Valentin on 07-28-2024 Glucose Ql (U) Normal mg/dl Normal [facility] Urine leukocyte esterase det ection by dipstickOrdered By: Lion Valentin on 07-28-2024 Leukocyte esterase Test strip Ql (U) 500 /ul High Negative [facility] Urine pHOrdered By: Lion amaro on 07-28-2024 pH (U) 6.0 [pH] 5.0 - 8.0 [facility] Urine sediment bacteria coun t by microscopy (number/high power field)Ordered By: Lion Valentin on 07-28-2024 Bacteria LM.HPF (Urine sed) [#/Area] 1 /[HPF] None Seen [facility] Urine specific gravity measu rementOrdered By: Lion Valentin on 07-28-2024 Specific gravity (U) [Rel density] 1.020 1.002-1.030 [facility] Urine urobilinogen measureme ntOrdered By: Lion Valentin on 07-28-2024 Urobilinogen Ql (U) Normal mg/dl Normal [facility] Urobilinogen Ql (U)Ordered B y: Lion Valentin on 07-28-2024 Urine Urobilinogen Normal mg/dl Normal [facility] White blood cell (WBC) count Ordered By: Lion Valentin on 07-28-2024 WBC (Bld) [#/Vol] 11.1 10*3/uL High 4.4-11.0 [facility] White blood cell countOrdere d By: Lion Valentin on 07-28-2024 Urine WBC 50-100 SEEN /hpf 0-5 [facility] White blood cell count 50-100 SEEN /hpf 0-5 [facility] aPTT Coag (PPP) [Time]Ordere d By: Lion Valentin on 07-28-2024 aPTT Coag (Bld) [Time] 28.5 s 24.1-36.2 [facility] 12 Lead EKGon 07-26-2024 12 Lead EKG [facility] [address] [place] [address] 12 Lead EKG 07/26/24 1843 MR#: [id number] Acct: [id number] Name: OLENA VALERA Rep #: [id number] : 1955 68 From: Donavan Borjas MD [...] block Abnormal ECG Confirmed by Donavan Borjas ([id number]), news editor FRANCISCO HARPER ([id number]) on 07/28/2024 6:55:07 AM Referred By: Confirmed By: Donavan Borjas 07/28/2455 Date Donavan Borjas MD CC: Dr. Hugo Mora MD; Dr. Miguel Waters MD Signed Normal [facility] Absolute lymphocyte countOrd ered By: ED PROVIDER on 07-26-2024 Lymphocytes Auto (Unsp spec) [#/Vol] 1.65 10*3/uL 0.83-4.51 [facility] Absolute neutrophil countOrd ered By: ED PROVIDER on 07-26-2024 Neutrophils (Bld) [#/Vol] 6.4 10*3/uL 2.0-7.7 [facility] Anion gap in Serum or Plasma Ordered By: ED PROVIDER on 07-26-2024 Anion gap [Moles/Vol] 17 mmol/L High 5-15 [facility] Automated lymphocyte count a s percentage of total leukocytesOrdered By: ED PROVIDER on 07-26-2024 Lymphocytes/100 WBC Auto (Unsp spec) 18.3 % Low 19-41 [facility] BUN/creatinine ratioOrdered By: ED PROVIDER on 07-26-2024 Urea nitrogen/Creatinine [Mass ratio] 15.5 mg/mg 10-20 [facility] Basic Metabolic Profile (BMP )on 07-26-2024 BUN/CRE 15.5 RATIO Normal -20 [facility] Comment on above: Performed By: #### L 501.9520, L500.4050, L501.76458, L500.4100, L506.0400, L501.9985 #### [facility] [address] [place], [place], [address] Calcium [Mass/Vol] 10.2 mg/dL Normal 7.6-11.0 [facility] Comment on above: Performed By: #### L 501.9520, L500.4050, L501.52201, L500.4100, L506.0400, L501.9985 #### [facility] [address] [place], [address] Chloride [Moles/Vol] 96 mmol/L Low 98-108 [facility] Comment on above: Performed By: #### L 501.9520, L500.4050, L501.66858, L500.4100, L506.0400, L501.9985 #### [facility] [address] [place], [address] CO2 [Moles/Vol] 19.6 mmol/L Low 21.0-32.0 [facility] Comment on above: Performed By: #### L 501.9520, L500.4050, L501.79131, L500.4100, L506.0400, L501.9985 #### [facility] [address] [place], [address] Creatinine [Mass/Vol] 0.90 mg/dL Normal 0.70-1.20 [facility] Comment on above: Performed By: #### L 501.9520, L500.4050, L501.91226, L500.4100, L506.0400, L501.9985 #### [facility] [address] [place], [address] ECRCL 88.13 ml/min Normal 50-250 [facility] Comment on above: Performed By: #### L 501.9520, L500.4050, L501.75334, L500.4100, L506.0400, L501.9985 #### [facility] [address] [place], [address] GAP 17 High 5-15 [facility] Comment on above: Performed By: #### L 501.9520, L500.4050, L501.47375, L500.4100, L506.0400, L501.9985 #### [facility] [address] [place], [address] GFR/1.73 sq M.predicted among non-blacks MDRD (S/P/Bld) [Vol rate/Area] 70 mL/min/{1.73_m2} Normal >60 [facility] Comment on above: Result Comment: mL/m in/1.73m2 CKD-EPI Creatinine Equation (2020) Performed By: #### L 501.9520, L500.4050, L501.92952, L500.4100, L506.0400, L501.9985 #### [facility] [address] [place], [address] Glucose [Mass/Vol] 125 mg/dL High 70-99 [facility] Comment on above: Performed By: #### L 501.9520, L500.4050, L501.20288, L500.4100, L506.0400, L501.9985 #### [facility] [address] [place], [address] Potassium [Moles/Vol] 3.9 mmol/L Normal 3.3-5.1 [facility] Comment on above: Performed By: #### L 501.9520, L500.4050, L501.20165, L500.4100, L506.0400, L501.9985 #### [facility] [address] [place], [address] Sodium [Moles/Vol] 133 mmol/L Normal 133-145 [facility] Comment on above: Performed By: #### L 501.9520, L500.4050, L501.00740, L500.4100, L506.0400, L501.9985 #### [facility] [address] [place], [address] Urea nitrogen [Mass/Vol] 14 mg/dL Normal 4-19 [facility] Comment on above: Performed By: #### L 501.9520, L500.4050, L501.41219, L500.4100, L506.0400, L501.9985 #### [facility] [address] [place], [address] Basophil percentageOrdered B y: ED PROVIDER on 07-26-2024 Basophils/100 WBC (Bld) 0.6 % 0-1 [facility] CBC W/Diff, Automatedon Absolute Lymph 1.65 X10 3/uL Normal 0.83-4.51 [facility] Comment on above: Performed By: #### L 501.9520, L500.4050, L501.36925, L500.4100, L506.0400, L501.9985 #### [facility] [address], [address] Absolute Neut 6.4 X10 3/uL Normal 2.0-7.7 [facility] Comment on above: Performed By: #### L 501.9520, L500.4050, L501.35574, L500.4100, L506.0400, L501.9985 #### [facility] [address] [place], [address] Basophils/100 WBC (Bld) 0.6 % Normal 0-1 [facility] Comment on above: Performed By: #### L 501.9520, L500.4050, L501.07124, L500.4100, L506.0400, L501.9985 #### [facility] [address] [place], [address] Eosinophils/100 WBC (Bld) 1.6 % Normal 0-5 [facility] Comment on above: Performed By: #### L 501.9520, L500.4050, L501.74883, L500.4100, L506.0400, L501.9985 #### [facility] [address], [address] Erythrocyte distribution width (RBC) [Ratio] 16.5 % High 11.6-14.6 [facility] Comment on above: Performed By: #### L 501.9520, L500.4050, L501.14072, L500.4100, L506.0400, L501.9985 #### [facility] [address] [place], [address] Hematocrit (Bld) [Volume fraction] 38.8 % Normal 37-47 [facility] Comment on above: Performed By: #### L 501.9520, L500.4050, L501.29210, L500.4100, L506.0400, L501.9985 #### [facility] [address] [place], [address] Hemoglobin (Bld) [Mass/Vol] 12.4 g/dL Normal 12.0-15.0 [facility] Comment on above: Performed By: #### L 501.9520, L500.4050, L501.96639, L500.4100, L506.0400, L501.9985 #### [facility] [address] [place], [address] IG% 0.200 Normal 0.0-0.9 [facility] Comment on above: Result Comment: IG% - Immature Granulocytes (promyelocytes, myelocytes and metamyelocytes) > 1% indicates that a LEFT SHIFT is Present. Performed By: #### L 501.9520, L500.4050, L501.48337, L500.4100, L506.0400, L501.9985 #### [facility] [address] [place], [address] Lymphocytes/100 WBC (Bld) 18.3 % Low 19-41 [facility] Comment on above: Performed By: #### L 501.9520, L500.4050, L501.02091, L500.4100, L506.0400, L501.9985 #### [facility] [address], [address] MCH (RBC) [Entitic mass] 25.7 pg Low 27.0-32.0 [facility] Comment on above: Performed By: #### L 501.9520, L500.4050, L501.31562, L500.4100, L506.0400, L501.9985 #### [facility] [address] [place], [address] MCHC (RBC) [Mass/Vol] 32.0 g/dL Normal 32-36 [facility] Comment on above: Performed By: #### L 501.9520, L500.4050, L501.54671, L500.4100, L506.0400, L501.9985 #### [facility] [address] [place], [address] MCV (RBC) [Entitic vol] 80.5 fL Low 81-99 [facility] Comment on above: Performed By: #### L 501.9520, L500.4050, L501.75805, L500.4100, L506.0400, L501.9985 #### [facility] [address] [place], [address] Monocytes/100 WBC (Bld) 9.0 % Normal 0-10 [facility] Comment on above: Performed By: #### L 501.9520, L500.4050, L501.73554, L500.4100, L506.0400, L501.9985 #### [facility] [address] [place], [address] Neutrophils/100 WBC (Bld) 70.3 % High 47-70 [facility] Comment on above: Performed By: #### L 501.9520, L500.4050, L501.94401, L500.4100, L506.0400, L501.9985 #### [facility] [address] [place], [address] Nucleated RBC (Bld) [#/Vol] 0 10*3/uL Normal 0-5 [facility] Comment on above: Performed By: #### L 501.9520, L500.4050, L501.84544, L500.4100, L506.0400, L501.9985 #### [facility] [address] [place], [address] Platelet mean volume (Bld) [Entitic vol] 9.1 fL Normal 6.2-12.0 [facility] Comment on above: Performed By: #### L 501.9520, L500.4050, L501.36899, L500.4100, L506.0400, L501.9985 #### [facility] [address] [place], [address] Platelets (Bld) [#/Vol] 511 10*3/uL High 150-450 [facility] Comment on above: Performed By: #### L 501.9520, L500.4050, L501.32020, L500.4100, L506.0400, L501.9985 #### [facility] [address] [place], [address] RBC (Bld) [#/Vol] 4.82 10*6/uL Normal 4.2-5.4 [facility] Comment on above: Performed By: #### L 501.9520, L500.4050, L501.18136, L500.4100, L506.0400, L501.9985 #### [facility] [address] [place], [address] RDW SD 46.5 fl High 35.1-43.9 [facility] Comment on above: Performed By: #### L 501.9520, L500.4050, L501.17355, L500.4100, L506.0400, L501.9985 #### [facility] [address] [place], [place], [address] WBC (Bld) [#/Vol] 9.0 10*3/uL Normal 4.4-11.0 [facility] Comment on above: Performed By: #### L 501.9520, L500.4050, L501.95404, L500.4100, L506.0400, L501.9985 #### [facility] [address] [place], [place], [address] CNOVon 07-26-2024 CNOV Office Visit (UCWSTR ) OLENA VALERA ([id number]) 1955 F Date Time Provider Department 07/26/24 6:15 PM CHANTEL HOPKINS [facility] During your visit today, we recorded the following information about you: Temperature Pulse Respiration Blood pressure 98 degrees 122/minute 20/minute 230/110 Weight 144.7 kg Chantel Hopkins APRN.[employer] 07/26/2024 6:34 PM Signed This note was [...] Procedure Laterality Date COLONOSCOP W/ OR W/O [facility] SPEC 2013 Colonoscopy STEREO LOC FOR CORE [...] of Onset Heart Mother CHF Heart Father MO- Hypertension Brother Hypertension Brother Breast Cancer Maternal [...] 786.05, ICD10: R06.02 See above Chantel Hopkins APRN.[employer] Allergies As of Date: 07/26/2024 (No Known [...] unspecified [R92.8] (more content not included)... Normal [facility] CTA Chest W/WO Contraston CTA Chest W/WO Contrast [facility] [address] [place] [address] CTA Chest W/WO Contrast MR#: [id number] Acct: [id number] Name: OLENA VALERA Rep #: [id number] : 1955 F 68 From: Carmen Martin DO PCP: Dr. Hugo Mora MD Status: REG ER Study: CTA Chest W/WO Contrast Date of Exam: 07/26/24 Exam# [id number] Ordering Dr: Miguel Waters MD PROCEDURE: CTA [...] Hugo Mora MD; Dr. Miguel Waters MD Cook'S Assistant: Signed Normal [facility] Carbon dioxide, total [Moles /volume] in Central venous bloodOrdered By: ED PROVIDER on 07-26-2024 CO2 [Moles/Vol] 19.6 mmol/L Low 21.0-32.0 [facility] Chest PA and Lateralon 07-26 Chest PA and Lateral [facility] Imaging Services [address] [place] [address] Chest PA and Lateral MR#: [id number] Acct: [id number] Name: OLENA VALERA Rep #: [id number] : 1955 F 68 From: Hugo Akhtar MD PCP: Dr. Hugo Mora MD Status: PRE ER Study: Chest PA and Lateral Date of Exam: 07/26/24 Exam# [id number] Ordering Dr: Provider,Ed P. PROCEDURE: CHEST PA [...] Dr. Hugo Mora MD; ED PHYSICIAN PROVIDER Cook'S Assistant: Signed Normal [facility] Chloride assayOrdered By: ED PROVIDER on 07-26-2024 Chloride [Moles/Vol] 96 mmol/L Low 98-108 [facility] D-Dimer Quantitative (DVT/PE )on 07-26-2024 D-DIMER QUANT 0.86 FEU/ug/m Invalid Interpretation Code 0.27-0.49 [facility] Comment on above: Order Comment: CRITI BOYD VALUE CALLED TO JOANN LEVIN 07/26/24 2104 Mouna Yolandesudheercourtney. RESULTS READ BACK BY SAME. Result Comment: D-Di chaya ELEVATED (>0.49): Additional studies and clinical assessments are indicated to conclude diagnosis of: Deep Vein Thrombosis (DVT) or Pulmonary Embolism (PE) Performed By: #### L 300.8000 #### [facility] [address] [place], [place], [id number] D-dimer measurement for deep venous thrombosisOrdered By: Miguel Waters on 07-26-2024 D-Dimer Quantitative (PE/DVT) 0.86 FEU/ug/m High 0.27-0.49 [facility] Comment on above: D-Dimer ELEVATED (>0 .49): Additional studies and clinicalassessments are indicated to conclude diagnosis of:Deep Vein Thrombosis (DVT) or Pulmonary Embolism (PE) Emergency Department Summary on 07-26-2024 Emergency Department Summary [facility] Medical Records Department [address] [place] [address] Emergency Department Summary 07/26/24 MR#: [id number] Acct: [id number] Name: OLENA VALERA Rep #: [id number] : 1955 68 From: Miguel Waters MD [...] Rate 28 (more content not included)... Normal [facility] Eosinophil percentageOrdered By: ED PROVIDER on 07-26-2024 Eosinophils/100 WBC (Bld) 1.6 % 0-5 [facility] Erythrocyte distribution wid th ratioOrdered By: ED PROVIDER on 07-26-2024 Erythrocyte distribution width (RBC) [Ratio] 16.5 % High 11.6-14.6 [facility] Erythrocyte distribution wid th standard deviationOrdered By: ED PROVIDER on 07-26-2024 Erythrocyte distribution width (RBC) [Entitic vol] 46.5 fL High 35.1-43.9 [facility] Erythrocyte distribution width (RBC) [Ratio] 46.5 fl High 35.1-43.9 [facility] Estimation of creatinine lissy aranceOrdered By: ED PROVIDER on 07-26-2024 Estimated Creatinine Clearance Calc 88.13 ml/min 50-250 [facility] GFR/1.73 sq M.predicted tae g non-blacks MDRD (S/P/Bld) [Vol rate/Area]Ordered By: ED PROVIDER on 07-26-2024 Estimated GFR (MDRD) Non-Af Amer [address] >60 [facility] Comment on above: mL/min/1.73m2 CKD-EP I Creatinine Equation (2020) Glomerular filtration rate ( GFR) estimation/1.73 sq m using serum, plasma, or whole bOrdered By: ED PROVIDER on 07-26-2024 GFR/1.73 sq M.predicted among non-blacks MDRD (S/P/Bld) [Vol rate/Area] 70 mL/min/{1.73_m2} >60 [facility] Comment on above: mL/min/1.73m2 CKD-EP I Creatinine Equation (2020) Hematocrit Auto (Bld) [Volum e fraction]Ordered By: ED PROVIDER on 07-26-2024 Hematocrit (Bld) [Volume fraction] 38.8 % 37-47 [facility] Hemoglobin measurementOrdere d By: ED PROVIDER on 07-26-2024 Hemoglobin (Bld) [Mass/Vol] 12.4 g/dL 12.0-15.0 [facility] Immature granulocytes/100 WB C Auto (Bld)Ordered By: ED PROVIDER on 07-26-2024 Immature granulocytes/100 WBC (Bld) 0.200 % 0.0-0.9 [facility] Comment on above: IG% - Immature Granu locytes (promyelocytes, myelocytes and metamyelocytes) > 1% indicates that a LEFT SHIFT is Present. L499.0042on 07-26-2024 Trop T Delta [address] [facility] Comment on above: Result Comment: If c linical suspicion for ACS is high, suggest getting a third troponin. Otherwise, stress test or CTCA. Performed By: #### L 499.0042 #### [facility] [address] [place], [place], [id number] Trop T High Sen 14 ng/L Normal <=14 [facility] Comment on above: Performed By: #### L 499.0042 #### [facility] [address] [place], [address] L499.0043on 07-26-2024 Trop [address] Delta Normal [facility] Comment on above: Result Comment: PT D ISCHARGED Performed By: #### L 501.9520, L500.4050, L501.91836, L500.4100, L506.0400, L501.9985 #### [facility] [address] [place], [address] Trop T High Sen Normal <=14 [facility] Comment on above: Result Comment: PT D ISCHARGED Performed By: #### L 501.9520, L500.4050, L501.10866, L500.4100, L506.0400, L501.9985 #### [facility] [address] [place], [address] L501.4021on 07-26-2024 Trop T High Sen 12 ng/L Normal <=14 [facility] Comment on above: Performed By: #### L 501.9520, L500.4050, L501.46441, L500.4100, L506.0400, L501.9985 #### [facility] [address] [place], [address] Lymphocytes Auto (Unsp spec) [#/Vol]Ordered By: ED PROVIDER on 07-26-2024 Lymphocytes (Bld) [#/Vol] 1.65 10*3/uL 0.83-4.51 [facility] Lymphocytes/100 WBC Auto (Un sp spec)Ordered By: ED PROVIDER on 07-26-2024 Lymphocytes/100 WBC (Bld) 18.3 % Low 19-41 [facility] MCV (mean corpuscular volume ) determinationOrdered By: ED PROVIDER on 07-26-2024 MCV (RBC) [Entitic vol] 80.5 fL Low 81-99 [facility] Mean corpuscular hemoglobin (MCH) determinationOrdered By: ED PROVIDER on 07-26-2024 MCH (RBC) [Entitic mass] 25.7 pg Low 27.0-32.0 [facility] Mean corpuscular hemoglobin concentration (MCHC) determinationOrdered By: ED PROVIDER on 07-26-2024 MCHC (RBC) [Mass/Vol] 32.0 g/dL 32-36 [facility] Mean platelet volume determi nationOrdered By: ED PROVIDER on 07-26-2024 Platelet mean volume (Bld) [Entitic vol] 9.1 fL 6.2-12.0 [facility] Monocyte percentageOrdered B y: ED PROVIDER on 07-26-2024 Monocytes/100 WBC (Bld) 9.0 % 0-10 [facility] Neutrophil percentageOrdered By: ED PROVIDER on 07-26-2024 Neutrophils/100 WBC (Bld) 70.3 % High 47-70 [facility] No Panel InformationOrdered By: Miguel Waters on 07-26-2024 Troponin T Hi Sensitivity 2Hr Delta 2 [facility] Comment on above: If clinical suspicio n for ACS is high, suggest getting a third troponin. Otherwise, stress test or CTCA. No Panel InformationOrdered By: ED PROVIDER on 07-26-2024 Troponin T High Sensitivity 12 ng/L <14 [facility] Nucleated red blood cell per centageOrdered By: ED PROVIDER on 07-26-2024 Nucleated RBC/100 WBC (Bld) [Ratio] 0 % 0-5 [facility] Platelet countOrdered By: ED PROVIDER on 07-26-2024 Platelets (Bld) [#/Vol] 511 10*3/uL High 150-450 [facility] Potassium (Unsp spec) [Mass/ Vol]Ordered By: ED PROVIDER on 07-26-2024 Potassium [Moles/Vol] 3.9 mmol/L 3.3-5.1 [facility] Potassium measurement (mass/ volume)Ordered By: ED PROVIDER on 07-26-2024 Potassium (Unsp spec) [Mass/Vol] 3.9 mmol/L 3.3-5.1 [facility] RBC Auto (Bld) [#/Vol]Ordere d By: ED PROVIDER on 07-26-2024 RBC (Bld) [#/Vol] 4.82 10*6/uL 4.2-5.4 [facility] Serum creatinine measurement (mass/volume)Ordered By: ED PROVIDER on 07-26-2024 Creatinine [Mass/Vol] 0.90 mg/dL 0.70-1.20 [facility] Serum glucose measurement (m ass/volume)Ordered By: ED PROVIDER on 07-26-2024 Glucose [Mass/Vol] 125 mg/dL High 70-99 [facility] Serum or plasma calcium nicole urement (mass/volume)Ordered By: ED PROVIDER on 07-26-2024 Calcium [Mass/Vol] 10.2 mg/dL 7.6-11.0 [facility] Serum or plasma urea nitroge n measurement (mass/volume)Ordered By: ED PROVIDER on 07-26-2024 Urea nitrogen [Mass/Vol] 14 mg/dL 4-19 [facility] Sodium levelOrdered By: ELIZABETH AGUERO on 07-26-2024 Sodium [Moles/Vol] 133 mmol/L 133-145 [facility] Troponin T.cardiac High sens itivity method [Mass/Vol]Ordered By: Miguel Waters on 07-26-2024 Troponin T High Sensitivity 2 Hour 14 ng/L <14 [facility] Troponin T.cardiac [Mass/vol ume] in Serum or Plasma by High sensitivity methodOrdered By: Miguel Waters on 07-26-2024 Troponin T.cardiac High sensitivity method [Mass/Vol] 14 ng/L <14 [facility] White blood cell (WBC) count Ordered By: ED PROVIDER on 07-26-2024 WBC (Bld) [#/Vol] 9.0 10*3/uL 4.4-11.0 [facility] Influenza virus A and B and SARS-CoV-2 (COVID-19) Ag panel - Upper respiratory specimOrdered By: Ruthie Doe on 08-23-2022 SARS-CoV-2 & FLU Antigen (Rapid) SARS-CoV-2 (COVID 19) [facility] Glucose Glucometer (BldC) [M ass/Vol]on 12-30-2021 Glucose [Mass/Vol] 122 mg/dL 74-106 [facility] Work Phone: Comment on above: MANAGEMENT OF PATIEN T CARE PER NURSING PROTOCOL Absolute lymphocyte counton 12-06-2021 Lymphocytes Auto (Unsp spec) [#/Vol] 1.27 10*3/uL 0.83-4.51 [facility] Work Phone: Basophil percentageon 2021 Basophils/100 WBC (Bld) 0.7 % 0-1 [facility] Work Phone: Chloride [Moles/Vol] 103 mmol/L 98-107 [facility] Work Phone: Eosinophils/100 WBC (Bld) 2.0 % 0-5 [facility] Work Phone: Glucose [Mass/Vol] 115 mg/dL 74-106 [facility] Work Phone: Comment on above: Fasting Glucose resu lt from 100 to 125 mg/dL suggests IMPAIRED HOMEOSTASIS per A.D.A. criteria. Neutrophils (Bld) [#/Vol] 5.1 10*3/uL 2.0-7.7 [facility] Work Phone: Neutrophils/100 WBC (Bld) 70.0 % 47-70 [facility] Work Phone: Potassium [Moles/Vol] 3.8 mmol/L 3.5-5.1 [facility] Work Phone: Sodium [Moles/Vol] 136 mmol/L 136-145 [facility] Work Phone: WBC (Bld) [#/Vol] 7.3 10*3/uL 4.4-11.0 [facility] Work Phone: Blood erythrocytes count (nu mber/volume)on 12-06-2021 RBC (Bld) [#/Vol] 4.88 10*6/uL 4.2-5.4 [facility] Work Phone: Blood hemoglobin measurement (mass/volume)on 12-06-2021 Hemoglobin (Bld) [Mass/Vol] 12.3 g/dL 12.0-15.0 [facility] Work Phone: Blood lymphocytes/100 leukoc yteson 12-06-2021 Lymphocytes/100 WBC (Bld) 17.3 % 19-41 [facility] Work Phone: Blood monocytes/100 leukocyt eson 12-06-2021 Monocytes/100 WBC (Bld) 9.7 % 0-10 [facility] Work Phone: Blood platelet mean volumeon 12-06-2021 Platelet mean volume (Bld) [Entitic vol] 10.0 fL 6.2-12.0 [facility] Work Phone: Determination of erythrocyte mean corpuscular volume (MCV)on 12-06-2021 MCV (RBC) [Entitic vol] 81.4 fL 81-99 [facility] Work Phone: Hematocrit Auto (Bld) [Volum e fraction]on 12-06-2021 Hematocrit (Bld) [Volume fraction] 39.7 % 37-47 [facility] Work Phone: Laboratory - Chemistry and C hemistry - challengeon 12-06-2021 CO2 [Moles/Vol] 26.0 mmol/L 21.0-32.0 [facility] Work Phone: Urea nitrogen/Creatinine [Mass ratio] 26.6 mg/mg 10-20 [facility] Work Phone: Magnesium [Mass/Vol] 1.9 mg/dL 1.6-2.6 [facility] Work Phone: Laboratory - Hematology and Cell countson 12-06-2021 Erythrocyte distribution width (RBC) [Entitic vol] 47.2 fL 35.1-43.9 [facility] Work Phone: Erythrocyte distribution width (RBC) [Ratio] 15.9 % 11.6-14.6 [facility] Work Phone: Immature granulocytes/100 WBC (Bld) 0.300 % 0.0-0.9 [facility] Work Phone: Comment on above: IG% - Immature Granu locytes (promyelocytes, myelocytes and metamyelocytes) > 1% indicates that a LEFT SHIFT is Present. MCH (RBC) [Entitic mass] 25.2 pg 27.0-32.0 [facility] Work Phone: Nucleated RBC/100 WBC (Bld) [Ratio] 0 % 0-5 [facility] Work Phone: MCHC Auto (RBC) [Mass/Vol]on 12-06-2021 MCHC (RBC) [Mass/Vol] 31.0 g/dL 32-36 [facility] Work Phone: No Panel Informationon 12-06 Estimated GFR (MDRD) Amer 120 mL/min >60 [facility] Work Phone: Comment on above: GFR Calc Estimated GFR (MDRD) Non-Af Amer 99 mL/min >60 [facility] Work Phone: Comment on above: Non- GFR Calc Thyroid Stimulating Hormone (TSH) 1.31 uIU/mL 0.358-3.74 [facility] Work Phone: Platelets bldon 12-06-2021 Platelets (Bld) [#/Vol] 391 10*3/uL 150-450 [facility] Work Phone: Serum or plasma calcium nicole urement (mass/volume)on 12-06-2021 Calcium [Mass/Vol] 9.8 mg/dL 8.5-10.1 [facility] Work Phone: Serum or plasma creatinine m easurement (mass/volume)on 12-06-2021 Creatinine [Mass/Vol] 0.64 mg/dL 0.55-1.02 [facility] Work Phone: Comment on above: The validity of the calculated GFR & GFRAA in patients over 70 years has not been determined. Clinical correlation is essential. Serum or plasma urea nitroge n measurement (mass/volume)on 12-06-2021 Urea nitrogen [Mass/Vol] 17 mg/dL 12-09 [facility] Work Phone: Thin prep Papanicolaou smear with manual screeningon 12-06-2021 Thin prep Papanicolaou smear with manual screening 10-06 [facility] Work Phone: CULTURE URINEon 05-03-2021 Antimicrobial Susceptibility [facility] Comment on above: Result Comment: S [...] S<=20 Performed By: #### C JACKTMARIVEL #### [facility] [address] [place] [address] CINDY De La O MD Bacteria identified Cx Nom (U) Final report Invalid Interpretation Code [facility] Comment on above: Performed By: #### C JACKTMARIVEL #### [facility] [address] [place] [address] CINDY De La O MD Result 1 Escherichia coli Invalid Interpretation Code [facility] Comment on above: Result Comment: Grea ter than 100,000 colony forming units per mL Cefazolin <=4 ug/mL Cefazolin with an LUIS ALFREDO <=16 predicts susceptibility to the oral agents cefaclor, cefdinir, cefpodoxime, cefprozil, cefuroxime, cephalexin, and loracarbef when used for therapy of uncomplicated urinary tract infections due to E. coli, Klebsiella pneumoniae, and Proteus mirabilis. Performed By: #### C JACKTMARIVEL #### [facility] [address] [place] [address] CINDY De La O MD BNPon 04-29-2021 Natriuretic peptide B (Bld) [Mass/Vol] 37 pg/mL Normal <=100 [facility] Comment on above: Performed By: #### B LAB SCIENTIST #### [facility] [address] [place] [address] CINDY De La O MD CBC PLT DIFFon 04-29-2021 BASO # 0.04 10 3/uL Normal 0.00-0.10 [facility] Comment on above: Performed By: #### T ROP2HR #### [facility] [address] [place] [address] CINDY De La O MD Basophils/100 WBC (Bld) 0.4 % Normal 0.2-1.0 [facility] Comment on above: Performed By: #### T MARTITA2 #### [facility] [address] [place] [address] CINDY De La O MD EOS# 0.14 10 3/uL Normal 0.00-0.20 [facility] Comment on above: Performed By: #### T ROP2HR #### [facility] [address] [place] [address] CINDY De La O MD Eosinophils/100 WBC (Bld) 1.6 % Normal 0.9-2.9 [facility] Comment on above: Performed By: #### T ROP2HR #### [facility] [address] [place] [address] CINDY De La O MD Erythrocyte distribution width (RBC) [Ratio] 16.5 % High 11.5-15.5 [facility] Comment on above: Performed By: #### T ROP2HR #### [facility] [address] [place] [address] CINDY De La O MD Hematocrit (Bld) [Volume fraction] 39.4 % Normal 37.0-47.0 [facility] Comment on above: Performed By: #### T ROP2HR #### [facility] [address] [place] [address] CINDY De La O MD Hemoglobin (Bld) [Mass/Vol] 12.6 g/dL Normal 12.0-16.0 [facility] Comment on above: Performed By: #### T ROP2HR #### [facility] [address] [place] [address] CINDY De La O MD IG# 0.04 10 3/uL Normal [facility] Comment on above: Performed By: #### T ROP2HR #### [facility] [address] [place] [address] CINDY De La O MD IG% 0.4 % Normal [facility] Comment on above: Performed By: #### T ROP2HR #### [facility] [address] [place] [address] CINDY De La O MD LYMPH# 1.46 10 3/uL Normal 1.30-2.90 [facility] Comment on above: Performed By: #### T ROP2HR #### [facility] [address] [place] [address] CINDY De La O MD Lymphocytes/100 WBC (Bld) 16.2 % Low 20.5-45.5 [facility] Comment on above: Performed By: #### T ROP2HR #### [facility] [address] [place] [address] CINDY De La O MD MCH (RBC) [Entitic mass] 25.8 pg Low 27.0-31.0 [facility] Comment on above: Performed By: #### T ROP2HR #### [facility] [address] [place], [place] [id number] CINDY De La O MD MCHC (RBC) [Mass/Vol] 32.0 g/dL Normal 32.0-36.0 [facility] Comment on above: Performed By: #### T ROP2HR #### [facility] [address] [place] [address] CINDY De La O MD MCV (RBC) [Entitic vol] 80.7 fL Low 81.0-99.0 [facility] Comment on above: Performed By: #### T ROP2HR #### [facility] [address] [place] [address] CINDY De La O MD MONO# 0.79 10 3/uL Normal 0.30-0.80 [facility] Comment on above: Performed By: #### T ROP2HR #### [facility] [address] [place] [address] CINDY De La O MD Monocytes/100 WBC (Bld) 8.7 % Normal 5.5-11.7 [facility] Comment on above: Performed By: #### T ROP2HR #### [facility] [address] [place], [place] [id number] CINDY De La O MD Morphology Stan[place] (Bld) [Interp] Normal [facility] Comment on above: Performed By: #### T ROP2HR #### [facility] [address] [place] [address] CINDY De La O MD NEUT# 6.56 10 3/uL High 2.20-4.80 [facility] Comment on above: Performed By: #### T ROP2HR #### [facility] [address] [place], [place] [id number] CINDY De La O MD Neutrophils/100 WBC (Bld) 72.7 % High 43.0-65.0 [facility] Comment on above: Performed By: #### T ROP2HR #### [facility] [address] [place], [place] [id number] CINDY De La O MD NRBC# 0.00 10 3/uL Normal [facility] Comment on above: Performed By: #### T ROP2HR #### [facility] [address] [place], [place] [id number] CINDY De La O MD Nucleated RBC/100 WBC (Bld) [Ratio] 0.0 % Normal [facility] Comment on above: Performed By: #### T ROP2HR #### [facility] [address] [place], [place] [id number] CINDY De La O MD Platelet mean volume (Bld) [Entitic vol] 9.6 fL Normal 7.4-10.4 [facility] Comment on above: Performed By: #### T ROP2HR #### [facility] [address] [place] [address] CINDY De La O MD PLT 392 10 3/uL Normal 130-400 [facility] Comment on above: Performed By: #### T ROP2HR #### [facility] [address] [place], [place] [id number] CINDY De La O MD RBC 4.88 10 6/uL Normal 4.20-5.40 [facility] Comment on above: Performed By: #### T ROP2HR #### [facility] [address] [place], [place] [id number] CINDY De La O MD WBC 9.03 10 3/uL Normal 4.70-10.80 [facility] Comment on above: Performed By: #### T ROP2HR #### [facility] [address] [place], [place] [id number] CINDY De La O MD CHEST SINGLE [...] BRIGGS MD Date: 04/30/2021 7:44 AM Normal [facility] CKon 04-29-2021 CK [Catalytic activity/Vol] 147 U/L High 30-135 [facility] Comment on above: Performed By: #### T ROP2HR #### [facility] [address] [place], [place] [id number] CINDY De La O MD CMPon 04-29-2021 Albumin [Mass/Vol] 4.5 g/dL Normal 3.5-5.0 [facility] Comment on above: Performed By: #### C MP #### [facility] [address] [place] [address] CINDY De La O MD ALP [Catalytic activity/Vol] 103 U/L Normal 38-126 [facility] Comment on above: Performed By: #### C MP #### [facility] [address] [place] [address] CINDY De La O MD ALT [Catalytic activity/Vol] 31 U/L Normal 9-52 [facility] Comment on above: Performed By: #### C MP #### [facility] [address] [place] [address] CINDY De La O MD AST [Catalytic activity/Vol] 33 U/L Normal 14-36 [facility] Comment on above: Performed By: #### C MP #### [facility] [address] [place], [place] [id number] CINDY De La O MD Bilirubin [Mass/Vol] 0.4 mg/dL Normal 0.2-1.3 [facility] Comment on above: Performed By: #### C MP #### [facility] [address] [place], [place] [id number] CINDY De La O MD Calcium [Mass/Vol] 10.2 mg/dL Normal 8.4-10.2 [facility] Comment on above: Performed By: #### C MP #### [facility] [address] [place] [address] CINDY De La O MD Chloride [Moles/Vol] 101 mmol/L Normal 98-107 [facility] Comment on above: Performed By: #### C MP #### [facility] [address] [place] [address] CINDY De La O MD Creatinine [Mass/Vol] 0.7 mg/dL Normal 0.5-1.0 [facility] Comment on above: Performed By: #### C MP #### [facility] [address] [place] [address] CINDY De La O MD ECO2 27 mmol/L Normal 22-30 [facility] Comment on above: Performed By: #### C MP #### [facility] [address] [place] [address] CINDY De La O MD EGFR-AF BRAZILIAN 102 mL/min/1.73m 2 Normal >=60 [facility] Comment on above: Performed By: #### C MP #### [facility] [address] [place] [address] CINDY De La O MD EGFR-NON AF BRAZILIAN 84 mL/min/1.73 m 2 Normal >=60 [facility] Comment on above: Performed By: #### C MP #### [facility] [address] [place] [address] CINDY De La O MD Glucose [Mass/Vol] 132 mg/dL High 70-99 [facility] Comment on above: Performed By: #### C MP #### [facility] [address] [place], [place] [id number] CINDY De La O MD Potassium [Moles/Vol] 3.3 mmol/L Low 3.5-5.0 [facility] Comment on above: Performed By: #### C MP #### [facility] [address] [place] [address] CINDY De La O MD Protein [Mass/Vol] 8.1 g/dL Normal 6.3-8.2 [facility] Comment on above: Performed By: #### C MP #### [facility] [address] [place] [address] CINDY De La O MD Sodium [Moles/Vol] 139 mmol/L Normal 137-145 [facility] Comment on above: Performed By: #### C MP #### [facility] [address] [place] [address] CINDY De La O MD Urea nitrogen [Mass/Vol] 19 mg/dL High 7-17 [facility] Comment on above: Performed By: #### C MP #### [facility] [address] [place] [address] CINDY De La O MD COVID +FLU A/B+RSVon 021 FLU A MOLECULAR Negative Normal [facility] Comment on above: Performed By: #### C 19 COLON #### [facility] [address] [place] [address] CINDY De La O MD FLU B MOLECULAR Negative Normal [facility] Comment on above: Performed By: #### C 19 COLON #### [facility] [address] [place] [address] CINDY De La O MD RSV MOLECULAR Negative Normal [facility] Comment on above: Performed By: #### C 19 COLON #### [facility] [address] [place] [address] CINDY De La O MD SARS-CoV-2 (COVID-19) RNA MICAELA+probe Ql (Unsp spec) Not detected Normal NOT DETECTED - NEG [facility] Comment on above: Performed By: #### C 19 COLON #### [facility] [address] [place] [address] CINDY De La O MD D DIMERon 04-29-2021 D-DIMER 321 ug/mL Normal 251-500 [facility] Comment on above: Performed By: #### T ROP2HR #### [facility] [address] [place] [address] CINDY De La O MD Adrián 04-29-2021 [...] time. Return to ED if worse. Normal [facility] MAGNESIUMon 04-29-2021 Magnesium [Mass/Vol] 1.90 mg/dL Normal 1.60-2.30 [facility] Comment on above: Performed By: #### M G #### [facility] [address] [place] [id number] CINDY De La O MD PROTHROMBINon 04-29-2021 COMMENT Preformatted Comment s: Normal Range (Patient NOT on Coumadin): Protime: 10.8 - 12.2 Seconds INR: 0.94 - 1.06 Normal Range (Patient ON Coumadin) Protime: 22.8 - 34.1 INR: 2.00 - 3.00 [facility] Comment on above: Performed By: #### P T #### [facility] [address] [place] [address] CINDY De La O MD INR Coag (PPP) [Relative time] 0.87 {INR} Low 2.00-3.00 [facility] Comment on above: Performed By: #### P T #### [facility] [address] [place] [address] CINDY De La O MD PT Coag (PPP) [Time] 10.0 s [facility] Comment on above: Performed By: #### P T #### [facility] [address] [place] [address] CINDY De La O MD PTTon 04-29-2021 aPTT Coag (Bld) [Time] 23.7 s [facility] Comment on above: Performed By: #### P TT #### [facility] [address] [place] [address] CINDY De La O MD COMMENT Normal Range (Patien t NOT on Heparin) PTT: 24.7 - 29.7 Normal Range (Patient ON Heparin) PTT: 51.1 - 88.6 [facility] Comment on above: Performed By: #### P TT #### [facility] [address] [place] [address] CINDY De La O MD TROPONIN Ion 04-29-2021 COMMENT Reference Range: 0.0-0.034 ng/mL Borderline: 0.035 - 0.119 ng/mL AMI Cutoff Range: >/= 0.120 ng/mL [facility] Comment on above: Performed By: #### T ROP #### [facility] [address] [place] [address] CINDY De La O MD Troponin I.cardiac [Mass/Vol] 0.024 ng/mL Normal <=0.034 [facility] Comment on above: Performed By: #### T ROP #### [facility] [address] [place] [address] CINDY De La O MD TROPONIN - 2 HRon 04-29-2021 COMMENT Reference Range: 0.0-0.034 ng/mL Borderline: 0.035 - 0.119 ng/mL AMI Cutoff Range: >/= 0.120 ng/mL Normal [facility] Comment on above: Performed By: #### T ROP2HR #### [facility] [address] [place] [address] CINDY De La O MD Troponin I.cardiac [Mass/Vol] 0.018 ng/mL Normal <=0.034 [facility] Comment on above: Performed By: #### T ROP2HR #### [facility] [address] [place] [address] CINDY De La O MD URINALYSIS W/ MICRO REFLEX C ULTon 04-29-2021 AMORPHOUS Negative Normal NEGATIVE [facility] Comment on above: Performed By: #### U AAUTMI #### [facility] [address] [place] [address] CINDY De La O MD BACTERIA MANY Normal NEGATIVE [facility] Comment on above: Performed By: #### U AAUTMI #### [facility] [address] [place] [address] CINDY De La O MD Bilirubin Ql (U) Negative Normal NEGATIVE [facility] Comment on above: Performed By: #### U AAUTMI #### [facility] [address] [place], [place] [id number] CINDY De La O MD CASTS NONE SEEN Normal NONE SEEN [facility] Comment on above: Performed By: #### U AAUTMI #### [facility] [address] [place], [place] [id number] CINDY De La O MD Clarity (U) HAZY Normal CLEAR [facility] Comment on above: Performed By: #### U AAUTMI #### [facility] [address] [place] [address] CINDY De La O MD Color (U) YELLOW Normal YELLOW [facility] Comment on above: Performed By: #### U AAUTMI #### [facility] [address] [place] [address] CINDY De La O MD COMMENT PLEASE NOTE: Specime n integrity may be affected if more than 4 hours have passed between the collection time and time testing was performed. Normal [facility] Comment on above: Performed By: #### U AAUTMI #### [facility] [address] [place] [address] CINDY De La O MD Crystals LM Nom (Urine sed) NONE SEEN Normal NEGATIVE [facility] Comment on above: Performed By: #### U AAUTMI #### [facility] [address] [place] [address] CINDY De La O MD EPITHELIAL FEW Normal NEGATIVE [facility] Comment on above: Performed By: #### U AAUTMI #### [facility] [address] [place] [address] CINDY De La O MD GLITTER CELLS Normal ABSENT [facility] Comment on above: Performed By: #### U AAUTMI #### [facility] [address] [place] [address] CINDY De La O MD Glucose Ql (U) Negative Normal NEGATIVE [facility] Comment on above: Performed By: #### U AAUTMI #### [facility] [address] [place] [address] CINDY De La O MD Hemoglobin Ql (U) Negative Normal NEGATIVE [facility] Comment on above: Performed By: #### U AAUTMI #### [facility] [address] [place], [place] [id number] CINDY De La O MD Ketones Ql (U) Negative Normal NEGATIVE [facility] Comment on above: Performed By: #### U AAUTMI #### [facility] [address] [place] [address] CINDY De La O MD Leukocyte esterase Test strip Ql (U) SMALL Normal NEGATIVE [facility] Comment on above: Performed By: #### U AAUTMI #### [facility] [address] [place] [id number] CINDY De La O MD MUCOUS FEW Normal NONE SEEN [facility] Comment on above: Performed By: #### U AAUTMI #### [facility] [address] [place] [id number] CINDY De La O MD Nitrite Ql (U) Positive Normal NEGATIVE [facility] Comment on above: Performed By: #### U AAUTMI #### [facility] [address] [place], [place] [id number] CINDY De La O MD pH (U) 6.0 [pH] Normal 5.0-9.0 [facility] Comment on above: Performed By: #### U BRITTMI #### [facility] [address] [place] [address] CINDY De La O MD Protein Ql (U) Negative Normal NEGATIVE [facility] Comment on above: Performed By: #### U AAUTMI #### [facility] [address] [place], [place] [id number] CINDY De La O MD RBC RARE Normal NONE SEEN [facility] Comment on above: Performed By: #### U AASVENMI #### [facility] [address] [place], [place] [id number] CINDY De La O MD SP GRAVITY 1.025 Normal 1.010-1.030 [facility] Comment on above: Performed By: #### U BRITTMI #### [facility] [address] [place], [place] [id number] CINDY De La O MD SPERMATAZOA Normal NEGATIVE [facility] Comment on above: Performed By: #### U PRITIUTMI #### [facility] [address] [place], [place] [id number] CINDY De La O MD TRICHOMONAS Normal NONE [facility] Comment on above: Performed By: #### U BRITTMI #### [facility] [address] [place] [id number] CINDY De La O MD URINE CULTURE SENT YES Normal NO [facility] Comment on above: Performed By: #### U AAUTMI #### [facility] [address] [place], [place] [address] CINDY De La O MD Urobilinogen Qn (U) 0.20 {Rosy'U}/dL Normal 0.20-8. 00 [facility] Comment on above: Performed By: #### U AAUTMI #### [facility] [address] [place] [address] CINDY De La O MD WBC 20-30 Normal NONE SEEN [facility] Comment on above: Performed By: #### U AAUTMI #### [facility] [address] [place], [place] [id number] CINDY De La O MD YEAST Normal NEGATIVE [facility] Comment on above: Performed By: #### U AAUTMI #### [facility] [address] [place], [place] [id number] CINDY De La O MD No Panel Information Nasal Screen MRSA/MSSA [facility] Work Phone: Vital Signs Date Time Vital Sign Value Performing Clinician Facility 08-23-2024 11:11-0400 Body height 165.[address] Hugo Mora MD Work Phone: [facility] 08-23-2024 11:11-0400 Body mass index (BMI) [Ratio] 50.5 kg/m2 Dr. Hugo Mora MD Work Phone: [facility] 08-23-2024 11:11-0400 Body weight 137.[address] Hugo Mora MD Work Phone: [facility] 08-23-2024 11:11-0400 Diastolic blood pressure 63 mm[Hg] Dr. Hugo Mora MD Work Phone: [facility] 08-23-2024 11:11-0400 Heart rate 95 /min Dr. Hugo Mora MD Work Phone: [facility] 08-23-2024 11:11-0400 Respiratory rate 18 /min Dr. Hugo Mora MD Work Phone: [facility] 08-23-2024 11:11-0400 SaO2% (BldA) [Mass fraction] 95 % Dr. Hugo Mora MD Work Phone: 3(039)151-334394 [place] [address] 08-23-2024 11:11-0400 Systolic blood pressure 103 mm[Hg] Dr. Hugo Mora MD Work Phone: 0(295)749-058494 [place] [address] 07-30-2024 09:15-0500 Body temperature 98 [degF] Dr. Hugo Mora MD Work Phone: 4(728)238-056494 [place] [address] 07-30-2024 09:15-0500 Diastolic blood pressure 68 mm[Hg] Dr. Hugo Mora MD Work Phone: 1(376)890-947894 [place] [address] 07-30-2024 09:15-0500 Heart rate 70 /min Dr. Hugo Mora MD Work Phone: 1(653)056-083994 [place] [address] 07-30-2024 09:15-0500 Respiratory rate 14 /min Dr. Hugo Mora MD Work Phone: 6(337)237-237394 [place] [address] 07-30-2024 09:15-0500 SaO2% (BldA) [Mass fraction] 94 % Dr. Hugo Mora MD Work Phone: 4(994)109-803094 [place] [address] 07-30-2024 09:15-0500 Systolic blood pressure 132 mm[Hg] Dr. Hugo Mora MD Work Phone: 2(325)343-471894 [place] [address] 07-30-2024 03:30-0500 Body mass index (BMI) [Ratio] 51.4 kg/m2 Dr. Hugo Mora MD Work Phone: 8(217)266-232794 [place] [address] 07-30-2024 03:30-0500 Body weight 140.[address] Hugo Mora MD Work Phone: 9(305)181-029994 [place] [address] 07-29-2024 12:30-0500 Body height 165.[address] Hugo Mora MD Work Phone: 4(387)476-363594 [place] [address] 07-28-2024 19:22-0500 Body temperature 98.2 [degF] Dr. Hugo Mora MD Work Phone: 8(458)558-877694 [place] [address] 07-28-2024 19:22-0500 Diastolic blood pressure 90 mm[Hg] Dr. Hugo Mora MD Work Phone: [facility] 07-28-2024 19:22-0500 Heart rate 106 /min Dr. Hugo Mora MD Work Phone: [facility] 07-28-2024 19:22-0500 Respiratory rate 21 /min Dr. Hugo Mora MD Work Phone: 2(510)190-66[address] [place] [address] 07-28-2024 19:22-0500 SaO2% (BldA) [Mass fraction] 98 % Dr. Hugo Mora MD Work Phone: 3(127)135-675206 [place] [address] 07-28-2024 19:22-0500 Systolic blood pressure 164 mm[Hg] Dr. Hugo Mora MD Work Phone: 8(426)930-054914 [address] 07-28-2024 16:31-0500 Body mass index (BMI) [Ratio] 52.3 kg/m2 Dr. Hugo Mora MD Work Phone: 9(386)327-970214 [address] 07-28-2024 16:31-0500 Body weight 142.[address] Hugo Mora MD Work Phone: 9(632)246-380994 [place] [address] 07-28-2024 16:08-0500 Body height 165.[address] Hugo Mora MD Work Phone: 8(806)669-609494 [place] [address] 07-26-2024 23:30-0500 Body temperature 98.7 [degF] Dr. Hugo Mora MD Work Phone: 9(392)810-869206 [place] [address] 07-26-2024 23:30-0500 Diastolic blood pressure 85 mm[Hg] Dr. Hugo Mora MD Work Phone: 1(374)139-983014 [address] 07-26-2024 23:30-0500 Heart rate 111 /min Dr. Hugo Mora MD Work Phone: [facility] 07-26-2024 23:30-0500 Respiratory rate 20 /min Dr. Hugo Mora MD Work Phone: 6(531)589-939006 [place] [address] 07-26-2024 23:30-0500 SaO2% (BldA) [Mass fraction] 98 % Dr. Hugo Mora MD Work Phone: [facility] 07-26-2024 23:30-0500 Systolic blood pressure 170 mm[Hg] Dr. Hugo Mora MD Work Phone: [facility] 07-26-2024 18:38-0500 Body mass index (BMI) [Ratio] 53 kg/m2 Dr. Hugo Mora MD Work Phone: [facility] 07-26-2024 18:38-0500 Body weight 144.[address] Hugo Mora MD Work Phone: [facility] 07-26-2024 18:25-0500 Body mass index (BMI) [Ratio] 54.33 kg/m2 Chantel Hopkins [employer] Work Phone: [facility] 07-26-2024 18:25-0500 Body temperature 98.01 [degF] Chantel Hopkins [employer] Work Phone: [facility] 07-26-2024 18:25-0500 Body weight 144.7 kg Chantel Hopkins [employer] Work Phone: [facility] 07-26-2024 18:25-0500 Diastolic blood pressure 110 mm[Hg] Chantel Hopkins [employer] Work Phone: [facility] 07-26-2024 18:25-0500 Heart rate 122 /min Chantel Hopkins [employer] Work Phone: [facility] 07-26-2024 18:25-0500 Respiratory rate 20 /min Chantel Hopkins [employer] Work Phone: [facility] 07-26-2024 18:25-0500 SaO2% (BldA) [Mass fraction] 99 % Chantel Hopkins [employer] Work Phone: [facility] 07-26-2024 18:25-0500 Systolic blood pressure 230 mm[Hg] Chantel Hopkins [employer] Work Phone: [facility] 08-23-2022 13:57-0400 Heart rate 87 /min [facility] 08-23-2022 13:57-0400 Respiratory rate 16 /min [facility] 08-23-2022 13:57-0400 SaO2% (BldA) [Mass fraction] 95 % [facility] 08-23-2022 11:41-0400 Body height 165.1 cm [facility] 08-23-2022 11:41-0400 Body mass index (BMI) [Ratio] 46.9 kg/m2 [facility] 08-23-2022 11:41-0400 Body temperature 98.1 [degF] [facility] 08-23-2022 11:41-0400 Body weight 127.91 kg [facility] 08-23-2022 11:41-0400 Diastolic blood pressure 107 mm[Hg] [facility] 08-23-2022 11:41-0400 Systolic blood pressure 148 mm[Hg] [facility] 12-30-2021 14:45-0400 Body temperature 96.9 [degF] Dr. Hugo Mora Work Phone: [facility] Work Phone: 12-30-2021 14:45-0400 Diastolic blood pressure 67 mm[Hg] Dr. Hugo Mora Work Phone: [facility] Work Phone: 12-30-2021 14:45-0400 Heart rate 76 /min Dr. Hugo Mora Work Phone: [facility] Work Phone: 12-30-2021 14:45-0400 Respiratory rate 16 /min Dr. Hugo Mora Work Phone: [facility] Work Phone: 12-30-2021 14:45-0400 SaO2% (BldA) [Mass fraction] 98 % Dr. Hugo Mora Work Phone: [facility] Work Phone: 08-08-2022 14:45-0400 Systolic blood pressure 155 mm[Hg] Dr. Hugo Mora Work Phone: [facility] Work Phone: 12-30-2021 11:54-0400 Inhaled oxygen flow rate 4 L/min Dr. Hugo Mora Work Phone: [facility] Work Phone: 12-30-2021 06:08-0400 Body height 165.[address] Hugo Mora Work Phone: [facility] Work Phone: 12-30-2021 06:08-0400 Body mass index (BMI) [Ratio] 47.1 kg/m2 Dr. Hugo Mora Work Phone: [facility] Work Phone: 12-30-2021 06:08-0400 Body weight 128.[address] Hugo Mora Work Phone: [facility] Work Phone: Encounters Encounter Date Encounter Type Care Provider Facility Start: 11-21-2024 End: 11-21-2024 ambulatory GIORGIO HARVEY Facility:[facility] Start: 11-21-2024 End: 11-21-[address] GIORGIO HARVEY MD [facility] Start: 11-09-[address] HUGO MCKAY Facility:[facility] Start: 10-25-2024 End: 10-25-[address] Hugo Mora MD Work Phone: [facility] Work Phone: Start: 10-25-2024 End: 10-25-[address] Hugo Mora MD -Laboratory Specimen Work Phone: Start: 10-24-2024 End: 10-25-[address] Hugo Mora MD Work Phone: [facility] Work Phone: Start: 10-24-2024 End: 10-24-[address] Hugo Mora MD -Laboratory [place] Work Phone: Start: 10-24-2024 End: 10-24-2024 ambulatory Hugo Mora Facility:[facility] Start: 10-06-2024 End: 10-06-[address] Hugo Mora MD Work Phone: [facility] Work Phone: Start: 10-06-2024 End: 10-06-[address] Hugo Mora MD -Outpatient Breast Imaging Work Phone: Start: 10-06-2024 End: 10-06-2024 ambulatory Hugo Mora Facility:[facility] Start: 08-23-2024 End: 08-23-[address] Hugo Mora MD Work Phone: [facility] Work Phone: Start: 08-23-2024 End: 08-23-[address] Donavan Borjas MD -Laboratory Work Phone: Start: 08-23-2024 End: 08-23-[address] Donavan Borjas MD -[facility] Work Phone: Start: 08-23-2024 End: 08-23-2024 ambulatory Donavan Borjas [facility] Start: 08-23-2024 End: 08-23-2024 ambulatory Donavan Borjas Facility:[facility] Start: 07-30-2024 Non-patient / Non-visit Dr. Ralph sheikh MD -[facility] Start: 07-29-2024 Non-patient / Non-visit Dr. Ralph sheikh MD -[facility] Start: 07-29-2024 Non-patient / Non-visit Dr. Mane Jhaveri MD -[facility] Work Phone: Start: 07-28-2024 ambulatory Yolanda Tucker Facility :[facility] SEQUOYAH Start: 07-28-2024 End: 07-30-2024 Evaluation and management of inpatient Dr. Yolanda Tucker MD -Progressive Care Unit Work Phone: Start: 07-26-2024 End: 07-26-2024 Emergency department patient visit Dr. 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 Start: 01-17-2022 End: 01-17-[address] Hugo Mora Work Phone: [facility] Work Phone: Start: 01-17-2022 End: 01-17-[address] Hugo Mora Work Phone: [facility] Start: 12-30-2021 End: 12-30-2021 Admission to same day surgery center Dr. Hugo Mora Work Phone: [facility] Start: 12-06-2021 End: 12-06-2021 Patient encounter procedure [facility] Start: 12-05-2021 Non-patient / Non-visit Dr. Kaleb Mora Work Phone: [facility] Procedures Date Procedure Procedure Detail Performing Clinician [...] lower extremity Start: 08-23-2013 Colonoscopy Chantel flores REED PRESS FEEDER.[employer] BUILDER Work Phone: Start: 05-25-2009 Lipid 1996 panel - S kala or Plasma Chantel Hopikns REED PRESS FEEDER.WO[employer]EN BO[employer] BUILDER Work Phone: Nasal Screen MRSA/MSSA Dr. Oralia Mora Work Phone: SARS-CoV-2 & FLU Ant igen (Rapid) Total prosthetic rep lacement of knee joint using cement DR GIORGIO HARVEY MD Comment on above: bilateral Plan of Treatment Date Care Activity Detail Author Start: 02-27-2026 Urine microalbumin profile DTaP,Tdap,Td Vaccine (3 - Td or Tdap) [facility] Start: 10-06-2024 Screening mammography SCRN MAMM (CAD)W/CRISTINA BILAT [facility] Start: 10-02-2024 Covid-19 Vaccine () Covid-19 Vaccine () [facility] Start: 07-30-[address] [facility] Start: 07-29-2024 Notification of physician [facility] Start: 07-29-[address] [facility] Start: 07-29-2024 Provision of activity privileges [facility] Start: 07-29-[address] [facility] Start: 07-29-2024 Taking patient vital signs [facility] Start: 07-29-[address] [facility] Start: 07-29-2024 [facility] Start: 07-29-2024 Referral to nuclear control operator [facility] Start: 07-28-2024 Assessment of risk of venous thromboembolism [facility] Start: 07-28-[address] [facility] Start: 07-28-2024 Insertion of catheter into peripheral vein [facility] Start: 07-28-2024 Introduction of urinary catheter [facility] Start: 07-28-2024 Measuring intake and output [facility] Start: 07-28-[address] [facility] Start: 07-28-2024 Providing care according to standard [facility] Start: 07-28-2024 Provision of activity privileges [facility] Start: 07-28-[address] [facility] Start: 07-28-2024 [facility] Start: 07-28-2024 Respiratory pathogens DNA and RNA panel - Respiratory specimen by MICAELA with probe detection [facility] Start: 07-28-[address] [facility] Start: 07-28-[address] [facility] Start: 07-28-2024 Hospital admission, emergency, from emergency room, medical nature [facility] Start: 07-28-2024 [facility] Start: 07-28-2024 End: 07-28-2024 [facility] Start: 07-28-2024 Bacteria identified in Blood by Culture Blood Culture [facility] Start: 07-28-2024 Bacteria identified in Urine by Culture Urine Culture [facility] Start: 07-26-2024 End: 07-26-2024 [facility] Start: 07-26-2024 Emergency dept visit high severity&threat funcj EMERGENCY DEPT VISIT HI MDM [facility] Start: 05-25-2024 Advance Directive Discussion Advance Directive Discussion [facility] Start: 12-09-2023 Shingrix Vaccine (3 of 3) Shingrix Vaccine (3 of 3) [facility] Start: 08-24-2023 Screening for malignant neoplasm of colon [facility] Start: 12-30-2021 Anesth open/surg arthrs total knee arthroplasty ANESTH KNEE ARTHROPLASTY [facility] Work Phone: Start: 12-30-2021 Arthrp kne condyle&platu medial&lat compartments TOTAL KNEE ARTHROPLASTY [facility] Work Phone: Start: 12-30-2021 Injection aa&/strd other peripheral nerve/branch NJX AA&/STRD OTHER PN/BRANCH [facility] Work Phone: Start: 12-30-2021 Radiologic examination of knee Knee [address] [facility] Work Phone: Start: 12-30-2021 XR Knee [address] [facility] Work Phone: Start: 12-30-2021 Application of ice collar, cap or bag [facility] Work Phone: Start: 12-30-[address] [facility] Work Phone: Start: 12-30-[address] [facility] Work Phone: Start: 12-30-2021 Neurovascular assessment [facility] Work Phone: Start: 12-30-[address] [facility] Work Phone: Start: 12-30-[address] [facility] Work Phone: Start: 12-30-2021 Provision of activity privileges [facility] Work Phone: Start: 12-30-[address] [facility] Work Phone: Start: 12-30-2021 Vital signs measurements [facility] Work Phone: Start: 12-30-[address] [facility] Work Phone: Start: 12-30-2021 [facility] Work Phone: Start: 2021 Screening for osteoporosis Bone Density Screening [facility] Start: 03-19-2019 Screening for malignant neoplasm of breast Mammogram Screening [facility] Start: 05-25-2014 Lipid panel Lipid Screening [facility] Start: 12-31-2009 Diabetes Screening Diabetes Screening [facility] Start: 2001 Screening for malignant neoplasm of colon [facility] Start: 1974 Anxiety Screening Anxiety Screening [facility] Start: 1974 Depression Screening Depression Screening [facility] Start: 1974 Hepatitis C screening Hepatitis C Screening [facility] Magnesium measurement [facility] Patient Education [facility] Work Phone: Patient referral [facility] Work Phone: Troponin T.cardiac [Mass/volume] in Serum or Plasma by High sensitivity method [facility] Urine culture [facility] Immunizations Immunization Date Immunization Notes Care Provider Rimma whitaker 12-30-2013 tetanus toxoid, redu tony diphtheria toxoid, and acellular pertussis vaccine, adsorbed [facility] 10-27-2013 Pneumococcal Vaccine [facility] Work Phone: 10-27-2013 pneumococcal vaccine , unspecified formulation [facility] 04-18-2013 Influenza virus vaccine [facility] Payers Date Payer Category Payer Private Health Insurance [id number] 2024 Unknown [id number] 2024 Self-pay [id number] 2024 Medicare (Managed Care) [facility] [employer] O [id number] 2024 Medicare [id number] 2004 Unknown [id number] 1955 Unknown [id number]. [id number] 1955 Unknown [id number]. 2.62 Medicare [id number] Medicare ANTHEM MEDICARE PPO [id number] Unknown [id number]. 2.462 Unknown [id number] 2.16.840.1.137951.3.579. 2.462 Unknown [id number] 2.16.840.1.122380.3.579. 2.462 Unknown [id number] 2.16.840.1.741829.3.579. 2.462 Unknown [id number] 2.16.840.1.164294.3.579. 2.462 Unknown [id number] 2.16.840.1.131907.3.579. 2.462 Unknown [id number] 2.16.840.1.227811.3.579. 2.462 Unknown [id number] 2.16.840.1.878453.3.579. 2.462 Unknown [id number] 2.16.840.1.870366.3.579. 2.462 Unknown [id number] 2.16.840.1.188572.3.579. 2.462 Unknown [id number] 2.16.840.1.506707.3.579. 2.462 Unknown [id number] 2.16.840.1.248297.3.579. 2.462 Social History Date Type Detail Facility Start: 12-03-2021 End: 08-23-2022 Tobacco smoking status [facility] Unknown if ever smoked [facility] Start: 1955 Sex Assigned At Female [facility] Start: 08-13-2011 End: 11-18-2024 Tobacco smoking status NMIS Ex-smoker [facility] End: 08-02-2010 History of tobacco use Current smoker [facility] End: 08-02-2010 History of tobacco use Cigarette Smoker [facility] Start: 08-13-2011 Tobacco use and exposure Smoke less tobacco non-user [facility] Start: 03-19-2018 Alcoholic beverage intake Current non-drinker of alcohol (finding) [facility] Start: 03-19-2018 End: 04-29-2020 History of Social function [facility] Start: 03-19-2018 End: 04-29-2020 Tobacco use panel [facility] National Score (1-10 0), lower number is lower risk Not on file [facility] Start: 1955 Sex assigned at Not on file [facility] Start: 07-28-2024 End: 11-09-2024 Sex Female (finding) [facility] Sexual Orientation Cassandra Galicia Medical Equipment Procedure Code Equipment Code Equipment Origin al Text Equipment Identifier Dates ([id number]) Metal-backed pat steven prosthesis ()[id number] FDA Start: 12-30-2021 ([id number]) Coated knee femu r prosthesis ()[id number] [id number] FDA Start: 12-30-2021 ([id number]) Coated knee tibi a prosthesis ()[id number] FDA Start: 12-30-2021 ([id number]) Tibial insert ()[id number] FDA Start: 12-30-2021 Goals Date Patient Goal Desired Activity /State Functional Status Date Assessment Result Facility 07-30-2024 Functional status Chair [facility] Work Phone: 02-13-2014 Are you deaf, or do you have serious difficulty hearing No 02/13/2014 1:52 PM Dania Loera Ma No [facility] 02-13-2014 Are you blind, or do you have serious difficulty seeing, even when wearing glasses No 02/13/2014 1:52 PM Dania Loera Ma No [facility] 02-13-2014 Do you have serious difficulty walking or climbing stairs No 02/13/2014 1:52 PM Dania Loera Ma [facility] 02-13-2014 Do you have difficul ty dressing or bathing No 02/13/2014 1:52 PM Dania Loera Ma [facility] 02-13-2014 Because of a physica l, mental, or emotional condition, do you have difficulty doing errands alone such as visiting a physician's office or shopping No 02/13/2014 1:52 PM EDT Dania Israel Ma No [facility] Mental Status Date Assessment Result Facility 07-30-2024 Cognitive function Voice/Name [facility] Work Phone: 07-28-2024 Cognitive function Level Of Cons ciousness Awake;Alert;Appropriate;Fol lows Commands [facility] Work Phone: 07-26-2024 Cognitive function Voice/Name [facility] Work Phone: 08-23-2022 Cognitive function Level Of Cons ciousness Awake;Alert;Appropriate;Fol lows Commands [facility] Work Phone: 12-30-2021 Cognitive function Voice/Name [facility] Work Phone: 02-13-2014 Because of a physica l, mental, or emotional condition, do you have serious difficulty concentrating, remembering, or making decisions No 02/13/2014 1:52 PM EDT Dania Israel Ma No [facility] Clinical Notes 07-26-2024 to 11-21-2024 Note Date & Type Note Facility 11-21-2024 Evaluation + Plan note Extrac larry from: Title:Clinical Document Author:GIORGIO HARVEY Date:11/21/24 [place] ADMISSION HISTORY AN D PHYSICIAL CHIEF COMPLAINT: HISTORY OF PRESENT ILLNESS: REVIEW OF SYSTEMS: ACTIVE PROBLEMS: (2) Atrial fibrillation (72883299) Hypothyroidism (58634811) MEDICATIONS: Active Inpt Meds: None Active PRN Meds: None One Time Meds: None Active IV Meds: Lactated Ringers Infusion 1,000 mL (LR 1,000 mL) Start: 11/21/24 10:03:00 EDT, Rate: 50 mL/hr, 11/21/24 10:03:00 EDT ALLERGIES: (1) NKA FAMILY HISTORY: SOCIAL HISTORY: PHYSICAL EXAM: VITALS: FzkchfFeduDVKscsiNKGwD9FGC1OevuTi(kg) 11/21 10:1036.1--790007--77/16807.0 24 Hr Tmax: 36.1 at 11/21 10:10 [...] changes to the H&P unless noted below. [facility] 06-30-2025 Hospital Discharge instructions Patient Education [...] water added (diluted fruit juice). Eat bland, gets-va-qxqmii foods in small amounts as you are able. These foods include bananas, applesauce, rice, lean meats, toast, and crackers. Avoid fluids that contain a lot of sugar or caffeine, such as energy drinks, sports drinks, and soda. Avoid alcohol. Avoid spicy or fatty foods. General instructions Take jtee-imh-slavcdn and prescription medicines only as told by your health care provider. Drink enough fluid to keep your urine pale yellow. Wash your hands often using soap and water. If soap and water are not available, use hand superintendent automotive. Make sure that all people in your [...] eating and drinking to prevent dehydration. Take rryl-qim-jwnojef and prescription medicines only as told by [...] 05/11/2006 Document Revised: 09/02/2019 Document Reviewed: 10/19/2018 [employer] Patient Education 2020 [employer]. 11/21/2024 11:00:05 Moderate Conscious Sedation, Adult, Care [...] until you are awake and alert. Take cyph-gul-dmbepnx and prescription medicines only as told by [...] 03/01/2014 Document Revised: 04/23/2018 Document Reviewed: 08/30/2016 [employer] Patient Education 2020 [employer]. 11/21/2024 10:59:59 Colonoscopy, Adult, Care After Colonoscopy, [...] a slower pace than normal. ?Eat soft, aung-lz-rsduxk foods. Take jkxk-quj-sentrsw or prescription medicines only as told by [...] 12/23/2004 Document Revised: 03/03/2018 Document Reviewed: 07/22/2016 [employer] Patient Education 2020 [employer]. Follow Up Care 11/09/2024 08:20:08 With:GIORGIO HARVEY MD Address: [address] [facility] [address] [place] [address] [phone] When: Unknown Comments:Follow-up as needed [facility] 06-30-2025 Note Discharge Instructions Thank you for allowing [facility] to assist you with your healthcare needs. The following is importantdischarge information regarding your hospital visit. Your Care Team HUGO MCKAY What to do next Follow Up Appointments Follow Up with GIORGIO HARVEY MD Where:[address] [facility] [address] [place] [address] [phone] Additional Information: Follow-up as needed The Following [...] water added (diluted fruit juice). Eat bland, sdkq-xj-dkbmzx foods in small amounts as you are able. These foods include bananas, applesauce, rice, lean meats, toast, and crackers. Avoid fluids that contain a lot of sugar or caffeine, such as energy drinks, sports drinks, and soda. Avoid alcohol. Avoid spicy or fatty foods. General instructions Take mhfb-jsh-jqccopp and prescription medicines only as told by your health care provider. Drink enough fluid to keep your urine pale yellow. Wash your hands often using soap and water. If soap and water are not available, use hand superintendent automotive. Make sure that all people in your [...] eating and drinking to prevent dehydration. Take hfuc-jqm-ouycssp and prescription medicines only as told by [...] 05/11/2006 Document Revised: 09/02/2019 Document Reviewed: 10/19/2018 [employer] Patient Education [employer] Moderate Conscious Sedation, Adult, Care After These [...] until you are awake and alert. Take eico-ahp-pptbdkb and prescription medicines only as told by [...] 03/01/2014 Document Revised: 04/23/2018 Document Reviewed: 08/30/2016 [employer] Patient Education [employer] Colonoscopy, Adult, Care After This sheet gives [...] slower pace than normal. ? Eat soft, wedy-zo-curbuk foods. Take xwax-ynk-ldopsmc or prescription medicines only as told by [...] Document Reviewed: 07/22/2016 Elsevier Patient Education 2020 [employer] Additional Information VACCINATE! IT SAVES LIVES! Members of the community who have not yet received the COVID-19 vaccine and would like to receive it can visit one of [facility] vaccine clinics. There are many vaccine clinic locations within the [facility]. For locations and available times, please visit https://gettheshot.coronavirus.[place].gov/. It is important to note that some COVID mobile vaccine clinics are held outdoors and may be canceled in rainy or stormy conditions. To learn more about pediatric vaccinations (ages 5-11), we invite you to visit the [employer] webpage. https://www.MiNeedss.org/pages/[email or web address]-Ivylw-Lfroghysepq-Kiwituzudv-Wtfpi-[email or web address] stions.htmlTo learn more about the COVID-19 vaccine, we invite you to visit the CDC website for a list of frequently asked questions.https://www.cdc.gov/coronavirus/2019-ncov/vaccines/faq.html [facility] Patient Portal Access Instructions: Stay connected with your healthcare team and access your personal medical information anytime with the [facility] Patient Portal. Please follow the directions below to create your [facility] account: 1.Access the email account you provided upon registration to the hospital/physician office.2.Look for an invitation email from [facility].3.Open the email and access the invitation link: AcceptInvitation to [facility].4.Fill in the required velázquez to create your account. To access your account, visit [email or web address]. Click the blue button labeled Access Patient [...] who you will allowto register on the [facility] Patient Portal for access to your information. You can also access the [facility] on the [facility] wisam. Simply click on Patient Portal and then log into your account. If you would like to receive a full copy of your medical records, please contact the [facility] Medical Records Department by calling [phone], Thursday through Thursday between 8 a.m. and [...] Call your local pharmacy or go to [email or web address]/[email or web address] to find one close to you.3.Make use of household items: Use cat litter or old coffee grounds to dispose medications if other options arenot available. Mix your drugs with these household products, seal them in an airtight container andthrow it into the garbage. [facility]: [phone] to be sure your drugs can be [...] that I should contact my do ctor. 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 Signature: Date/Time: Relationship to Patient: Witness Name/Signature: Date/Time: [facility]06-30-2025 Note Date of Service November 21, 2024 Procedure Name Colonoscopy to the cecum with biopsy of a small polyp Consent Taken before procedure Indication Screening colonoscopy Location [facility] Pre-Procedure Exam Screening colonoscopy Procedural Sedation Anesthesia [...] SEE CJART, GASTROESOPHAGEAL REFLUX DISEASE, SCREENING, SCREENING, [id number] Post Procedure Assessment, 11/21/24 10:56:00 EDT, Stop [...] GIORGIO HARVEY MD on 11/21/2024 10:59 AM [facility]06-30-2025 Anesthesiology Consult note Patient: OLENA VALERA Age: 69 years Sex: Female : 1955 Associated Diagnoses: None Author: CHRIS BUENO APRN-SAGGER MAKER Assessment Postanesthesia assessment Vitals: Vital signs from [...] by CHRIS BUENO on 11/21/2024 10:53 AM [facility]06-30-2025 Anesthesiology Consult note Patient: OLENA VALERA [...] history: TKR (total knee replacement) using cement ([id number]). Comments: 11/18/2024 9:14 EDT - Olivia Dong [...] Signs (last 24 hrs) Last Charted Temp Aqvoklux98.1 DegC (NOV 21 10:10) SBPH 145 mmHg (NOV 21 10:10) DBP87 mmHg (NOV 21 10:10) BMI52.2 (NOV 21 10:10) Measurements from flowsheet : Measurements 11/21/2024 10:10 EDT Height 162.6 cm Admission Weight 138 kg Weight Method Stated [place] Body Weight 54.74 kg BSA Admission 2.34 [...] - ASA Class 3 11/21/2024 10:31 EDT Robert Lee History and Physical 11/21/2024 10:28 EDT SN [...] Surgeon SN - CAt - Role Performed Tobacco Grader 1 SN - CAt - Role Performed Superintendent Plant Protection SN - CAt - Role Performed SAGGER MAKER 11/21/2024 10:17 EDT Allergies Yes Consent Form [...] Person #1 We May Share AMIE VALERA [phone] Designated Person #1 Relationship Spouse Height 162.6 cm Admission Weight 138 kg Weight Method Stated [place] Body Weight 54.74 kg BSA Admission 2.34 [...] evident Teaching Method Explanation Preferred Spoken Language Kyrgyz Preferred Written Language Kyrgyz Patient's Current Physicians NELY Discharge To, Anticipated [...] Note-Nursing Procedure/Therapy Intake . Assessment and Plan [place] Society of Anesthesiologists (ASA) physical status classification: Class III. Anesthetic Preoperative Plan Anesthetic technique: MAC. Informed consent: signed by patient. Digitally Signed by CHRIS BUENO on 11/21/2024 10:35 AM [facility]06-30-2025 Note [place] ADMISSION HISTORY AND PHYSICIAL CHIEF COMPLAINT: HISTORY OF PRESENT ILLNESS: REVIEW OF SYSTEMS: ACTIVE PROBLEMS: (2) Atrial fibrillation (29705848) Hypothyroidism (93438553) MEDICATIONS: Active Inpt Meds: None Active PRN Meds: None One Time Meds: None Active IV Meds: Lactated Ringers Infusion 1,000 mL (LR 1,000 mL) Start: 11/21/24 10:03:00 EDT, Rate: 50 mL/hr, 11/21/24 10:03:00 EDT ALLERGIES: (1) NKA FAMILY HISTORY: SOCIAL HISTORY: PHYSICAL EXAM: VITALS: RshwezYfdbCJJljquKZHhB6QBV6RfkzJx(kg) 11/21 10:1036.1--062434--38/46427.0 24 Hr Tmax: 36.1 at 11/21 10:10 [...] H&P unless noted below. Digitally Signed by GIORGIO HARVEY MD on 11/21/2024 10:31 AM [facility]03-08-2025 Progress note [facility] Medical Records Department [address] [place] [address] Progress Note - Cardiology 07/30/24 1047 MR#: [id number] Acct: [id number] Name: OLENA VALERA Rep #:[id number] : 1955 68 From: Ralph Sexton MD PCP: Dr. Hugo Mora MD Status:ADM I N Location: [place] [address] Subjective Subjective Sitting up in chair. Comfortable. [...] Cosigner Signature (if applicable): CC: ~ Signed [facility]03-08-2025 Discharge summary [facility] Medical Records Department [address] [place] [address] Instructions for Home/Discharge Instructions 07/30/24 1000 MR#: [id number] Acct: [id number] Name: OLENA VALERA Rep #:[id number] : [...] 07/30/24 1033Pmike Ross MD CC: Dr. Mane hJaveri MD; Dr. Ralph Sexton MD; Dr. Yolanda Tucker MD; Dr. Hugo Mora MD ~ Signed [facility]03-08-2025 [facility] Medical Records Department [address] [place] [address] Discharge Summary 07/30/24 1008 MR#: [id number] Acct: [id number] Name: OLENA VALERA Rep #: [id number] : 1955 68 From: Ernie Ross MD PCP: Dr. Hugo Mora MD Status:[facility] Location: [place] [address] Providers Date of Admission: 07/28/24 Date of [...] of Eliquis therefore baby aspirin discontinued and nuclear control operator agrees #UTI due to strep group [...] and metoprolol succinate and advised follow-up in [place] cardiology with Dr. Borjas #Hypertensive urgency -Blood [...] Atraumatic, PERRLA, EOMI, Normocep (more content not included)...[facility]03-07-2025 Progress note Author Mane Jhaveri [facility] Note Date/Time July 29, 2024 4:37 pm [facility] Medical Records Department [address] [place] [address] Progress Note - Hospitalist 07/29/24 0804 MR#: [id number] Acct: [id number] Name: OLENA VALERA Rep #:[id number] : 1955 68 From: Mane Jhaveri MD PCP: Dr. Hugo Mora MD Status:ADM I N Location: [place] [address] Reason for Visit Reason for Visit: Diagnoses [...] (Auto) 75.6 H, Lymph % (Auto) 15.5L, Meigs % (Auto) 7.7, Eos % (Auto) 0.4, [...] Sl. Cloudy, Urine pH 6.0, Ur Specific [place] 1.020, Urine Protein 30 H, Urine Glucose [...] % (Auto) 65.1, Lymph % (Auto) 21.8, Meigs % (Auto) 9.5, Eos % (Auto) 2.8, [...] Cosigner Signature (if applicable): CC: ~ Signed [facility] Work Phone: 1(761) 613-706903-07-2025 Progress note [facility] Medical Records Department [address] [place] [address] Progress Note - Hospitalist 07/29/24 0804 MR#: [id number] Acct: [id number] Name: OLENA VALERA Rep #:[id number] : 1955 68 From: Mane Jhaveri MD PCP: Dr. Hugo Mora MD Status:ADM I N Location: [place] [address] Reason for Visit Reason for Visit: Diagnoses [...] (Auto) 75.6 H, Lymph % (Auto) 15.5L, Meigs % (Auto) 7.7, Eos % (Auto) 0.4, [...] Sl. Cloudy, Urine pH 6.0, Ur Specific [place] 1.020, Urine Protein 30 H, Urine Glucose [...] % (Auto) 65.1, Lymph % (Auto) 21.8, Meigs % (Auto) 9.5, Eos % (Auto) 2.8, [...] 1.2, Triglycerides 160, Cholesterol 177, LDL Cholesterol, [id number], VLDL Cholesterol 32, HDL Cholesterol 31 L, Cholesterol/HDL Ratio 5.73 Micro: Microbiology 07/28/24 23:55 Mucosa - Nasopharyngeal Respiratory Panel (PCR) - Final 07/28/24 16:35 Mucosa - Nose SARS-CoV-2, Influenza & RSV (PCR) - Final Radiography Diagnostic Testing: Radiology Impression Chest X-Ray 07/28/24 16:50 IMPRESSION: No acute airspace abnormality. Reading [facility] Physical Exam Const alert, oriented x3 and [...] Cosigner Signature (if applicable): CC: ~ Signed [facility]03-07-2025 Consult note Author aRlph Sexton [facility] Note Date/Time July 29, 2024 12:[address] [facility] Medical Records Department [address] [place] [address] Consultation - Cardiology 07/29/24 1247 MR#: [id number] Acct: [id number] Name: OLENA VALERA Rep #:[id number] : 1955 68 From: Ralph Sexton MD PCP: Dr. Hugo Mora MD Status:ADM I N Location: [place] [address] Assessment & Plan Assessment/Plan (1) Dyspnea on [...] previous history of heart disease. [facility] Medical History (Updated 07/29/24 @ 12:53 by [...] Heart disease Hypertension Father , from massive [place] at 76 y/o. Heart disease CAD (coronary [...] (Auto) 75.6 H, Lymph % (Auto) 15.5L, Meigs % (Auto) 7.7, Eos % (Auto) 0.4, [...] Sl. Cloudy, Urine pH 6.0, Ur Specific [place] 1.020, Urine Protein 30 H, Urine Glucose [...] % (Auto) 65.1, Lymph % (Auto) 21.8, Meigs % (Auto) 9.5, Eos % (Auto) 2.8, [...] 75.6 H, Lymph % (Auto) 15.5 L, Meigs % (Auto) 7.7, Eos % (Auto) 0.4, [...] Sl. Cloudy, Urine pH 6.0, Ur Specific [place] 1.020, Urine Protein 30 H, Urine Glucose [...] % (Auto) 65.1, Lymph % (Auto) 21.8, Meigs % (Auto) 9.5, Eos % (Auto) 2.8, [...] acute airspace abnormality. Reading Location: [facility] 07/29/24 5861 <Electronically signed by Ralph Sexton MD> Cosigner Signature (if applicable): CC: Dr. Hugo Mora MD; Dr. Lion Valentin DO~ Signed [facility] Work Phone: 1(693) 537-944803-07-2025 Consult note [facility] Medical Records Department [address] [place] [address] Consultation - Cardiology 07/29/24 1247 MR#: [id number] Acct: [id number] Name: OLENA VALERA Rep #:[id number] : 1955 68 From: Ralph Sexton MD PCP: Dr. Hugo Mora MD Status:ADM I N Location: [place] [address] Assessment & Plan Assessment/Plan (1) Dyspnea on [...] previous history of heart disease. [facility] Medical History (Updated 07/29/24 @ 12:53 by [...] Heart disease Hypertension Father , from massive [place] at 76 y/o. Heart disease CAD (coronary [...] (Auto) 75.6 H, Lymph % (Auto) 15.5L, Meigs % (Auto) 7.7, Eos % (Auto) 0.4, [...] Sl. Cloudy, Urine pH 6.0, Ur Specific [place] 1.020, Urine Protein 30 H, Urine Glucose [...] % (Auto) 65.1, Lymph % (Auto) 21.8, Meigs % (Auto) 9.5, Eos % (Auto) 2.8, [...] 1.2, Triglycerides 160, Cholesterol 177, LDL Cholesterol, [id number], VLDL Cholesterol 32, HDL Cholesterol 31 L, [...] 75.6 H, Lymph % (Auto) 15.5 L, Meigs % (Auto) 7.7, Eos % (Auto) 0.4, [...] Sl. Cloudy, Urine pH 6.0, Ur Specific [place] 1.020, Urine Protein 30 H, Urine Glucose [...] % (Auto) 65.1, Lymph % (Auto) 21.8, Meigs % (Auto) 9.5, Eos % (Auto) 2.8, [...] Mora MD; Dr. Lion Valentin, DO~ Signed [facility]03-06-2025 History and physical note Author Yolanda Tucker [facility] Note Date/Time July 28, 2024 9:41 pm [facility] Medical Records Department [address] [place] [address] H&P Exam - Hospitalist 07/28/241922 MR#: [id number] Acct: [id number] Name: OLENA VALERA Rep #:[id number] : 1955 68 From: Yolanda Tucker MD PCP: Dr. Hugo Mora MD Status:ADM I N Location: [place] [address] HPI - General General Date of Admission: 07/28/24 Date of Service: 07/28/24 Chief Complaint: Palpitations, fatigue, malaise, nausea. HPI Narrative The patient is a 68 y/o F w/ PMHx: Morbid obesity, Anxiety and Depression, HTN, HLD, Hypothyroidism, Former tobacco use who presents to the [facility] ED on 07/28/24 with persistent racing heart [...] be certain no block therefore reviewed with nuclear control operator on-call Dr. Sexton who felt that this was more consistent with sinus arrhythmia with frequent PAC. He recommended that patient have at least echocardiogram and follow-up Holter monitor assessment at discharge. No formal consult request was placed. [facility] Medical History Morbid obesity Anxiety and depression [...] Heart disease Hypertension Father , from massive [place] at 76 y/o. Heart disease CAD (coronary [...] (Auto) 75.6 H, Lymph % (Auto) 15.5L, Meigs % (Auto) 7.7, Eos % (Auto) 0.4, [...] Sl. Cloudy, Urine pH 6.0, Ur Specific [place] 1.020, Urine Protein 30 H, Urine Glucose [...] Former tobacco use who presents to the [facility] ED on 07/28/24 with persistent racing heart [...] hypothyroidism: TSH 7.340, free T4 and free [id number] range however thus subclinical, will continue levothyroxine [...] 16 minutes. Charges/Coding Visit Charges Inpatient E&M: 53529 Init Hosp L3 Procedures Hospitalists Procedures: 51958 Advncd Care Plan 30 Min 07/28/24 2141 <Electronically signed by Yolanda Tucker MD> Cosigner Signature (if applicable): CC: Dr. Yolanda Tucker MD; Dr. Hugo Mora MD~ Signed [facility] Work Phone: 1([phone]) 980-359003-06-2025 Discharge summary Author Lion Valentin [facility] Note Date/Time July 28, 2024 7:52 pm [facility] Medical Records Department [address] [place] [address] Emergency Department Summary 07/28/24 MR#: [id number] Acct: [id number] Name: OLENA VALERA Rep #:[id number] : 1955 68 From: Lion aVlentin DO PCP: Dr. Hugo Mora MD Status:REG [...] does not have a history of this. [facility] Medical History Wears glasses Anxiety Thyroid [...] Patient follow commands that she was at [facility] there is 2024 Skin: Warm, dry, intact [...] 75.6 H Lymph % (Auto) 15.5 L Meigs % (Auto) 7.7 Eos % (Auto) 0.4 [...] Sl. Cloudy Urine pH 6.0 Ur Specific [place] 1.020 Urine Protein 30 H Urine Glucose [...] (Auto) Neut % (Auto) Lymph % (Auto) Meigs % (Auto) Eos % (Auto) Baso % [...] Color Urine Clarity Urine pH Ur Specific [place] Urine Protein Urine Glucose (UA) Urine Ketones Urine Occult Blood Urine Nitrite Urine Bilirubin Urine Urobilinogen Ur Leukocyte Esterase Urine RBC Urine WBC Ur Squamous Epith Cells Amorphous Sediment Urine Bacteria Urine Mucus Radiography Diagnostic Testing: Clinical Impression(s) from Imaging Studies Chest X-Ray 07/28/24 16:50 IMPRESSION: No acute airspace abnormality. Reading Location: [facility] Discharge Plan Triage Chief [...] MD [Primary Care Provider] - Print Language: Kyrgyz Disposition Disposition: Acute Care Hospital [facility] What to do if you have Problems For any increased pain, shortness of breath, bleeding, nausea or vomiting, chestpain, or any unexpected problems, contact your Primary Care Provider. Call [facility] ([phone]) or report to the closest Emergency Room. Call 911 if necessary. 07/28/241951 <Electronically signed by Lion Valentin DO> Cosigner Signature (if applicable): CC: Dr. Hguo Mora MD ~ Signed [facility] Work Phone: 1(544) 808-908903-06-2025 History and physical note [facility] Medical Records Department [address] [place] [address] H&P Exam - Hospitalist 07/28/241922 MR#: [id number] Acct: [id number] Name: OLENA VALERA Rep #:[id number] : 1955 68 From: Yolanda Tucker MD PCP: Dr. Hugo Mora MD Status:ADM I N Location: [place] [address] HPI - General General Date of Admission: 07/28/24 Date of Service: 07/28/24 Chief Complaint: Palpitations, fatigue, malaise, nausea. HPI Narrative The patient is a 68 y/o F w/ PMHx: Morbid obesity, Anxiety and Depression, HTN, HLD, Hypothyroidism, Former tobacco use who presents to the [facility] ED on 07/28/24 with persistent racing heart [...] be certain no block therefore reviewed with nuclear control operator on-call Dr. Sexton who felt that this was more consistent with sinus arrhythmia with frequent PAC. He recommended that patient have at least echocardiogram and follow-up Holter monitor assessment at discharge. No formal consult request was placed. [facility] Medical History Morbid obesity Anxiety and depression [...] Heart disease Hypertension Father , from massive [place] at 76 y/o. Heart disease CAD (coronary [...] (Auto) 75.6 H, Lymph % (Auto) 15.5L, Meigs % (Auto) 7.7, Eos % (Auto) 0.4, [...] Sl. Cloudy, Urine pH 6.0, Ur Specific [place] 1.020, Urine Protein 30 H, Urine Glucose [...] Former tobacco use who presents to the [facility] ED on 07/28/24 with persistent racing heart [...] hypothyroidism: TSH 7.340, free T4 and free [id number] range howeverthus subclinical, will continue levothyroxine and [...] 16 minutes. Charges/Coding Visit Charges Inpatient E&M: 31143 Init Hosp L3 Procedures Hospitalists Procedures: 07884 Advncd Care Plan 30 Min 07/28/24 2141 Cosigner Signature (if applicable): CC: Dr. Yolanda Tucker MD; Dr. Hugo Mora MD~ Signed [facility]03-06-2025 Evaluation note* Diagnosis Onset Date Resolution Status [...] 7:30pm Hypertension chronic July 28 025 7:30pm [facility] Work Phone: 1([phone]) 444-559003-06-2025 Evaluation note* Diagnosis Onset Date Resolution Status [...] 2024 10:37am Hypertension chronic August 23 10:37am [facility] Work Phone: [phone] 450-221203-06-2025 Discharge summary [facility] Medical Records Department [address] [place] [address] Emergency Department Summary 07/28/24 MR#: [id number] Acct: [id number] Name: OLENA VALERA Rep #:[id number] : [...] does not have a history of this. [facility] Medical History Wears glasses Anxiety Thyroid [...] Patient follow commands that she was at [facility] there is 2024 Skin: Warm, dry, intact [...] 75.6 H Lymph % (Auto) 15.5 L Meigs % (Auto) 7.7 Eos % (Auto) 0.4 [...] Sl. Cloudy Urine pH 6.0 Ur Specific [place] 1.020 Urine Protein 30 H Urine Glucose [...] (Auto) Neut % (Auto) Lymph % (Auto) Meigs % (Auto) Eos % (Auto) Baso % [...] Color Urine Clarity Urine pH Ur Specific [place] Urine Protein Urine Glucose (UA) Urine Ketones Urine Occult Blood Urine Nitrite Urine Bilirubin Urine Urobilinogen Ur Leukocyte Esterase Urine RBC Urine WBC Ur Squamous Epith Cells Amorphous Sediment Urine Bacteria Urine Mucus Radiography Diagnostic Testing: Clinical Impression(s) from Imaging Studies Chest X-Ray 07/28/24 16:50 IMPRESSION: No acute airspace abnormality. Reading Location: [facility] Discharge Plan Triage Chief [...] MD [Primary Care Provider] - Print Language: Kyrgyz Disposition Disposition: Acute Care Hospital [facility] What to do if you have Problems For any increased pain, shortness of breath, bleeding, nausea or vomiting, chestpain, or any unexpected problems, contact your Primary Care Provider. Call [facility] ([phone]) or report tothe closest Emergency Room. Call 911 if necessary. 07/28/241951 Cosigner Signature (if applicable): CC: Dr. Hugo Mora MD ~ Signed [facility]03-06-2025 Radiology Diagnostic study note [facility] Imaging Services [address] [place], [place] [address] Chest PA and Lateral MR#: [id number] Acct: [id number] Name: OLENA VALERAABEL Rep #: [id number] : 1955 F 68 From: Donovan Henderson DO PCP: Dr. Hguo Mora MD Status: PRE E R Study:Chest PA and Lateral Date of Exam: 07/28/24 Exam# [id number] Ordering Dr: Emelyn Valentin DO PROCEDURE: CHEST PA AND LATERAL REASON FOR EXAM: Palpitations TECHNIQUE: Frontal and lateral views of the chest. COMPARISON: 07/26/2024 FINDINGS: Borderline cardiomegaly. No focal consolidation, pleural effusion or sizable pneumothorax. RAD/Chest PA and Lateral IMPRESSION: No acute airspace abnormality. Reading Location: [facility] CC: Dr. Hugo Mora MD; Dr. Lion Valentin DO ~ Cook'S Assistant: Signed [facility]03-06-2025 Discharge summary Author Lion Valentin [facility] Note Date/Time July 28, 2024 7:52 pm [facility] Medical Records Department [address] [place] [address] Emergency Department Summary 07/28/24 MR#: [id number] Acct: [id number] Name: OLENA VALERA Rep #:[id number] : [...] does not have a history of this. [facility] Medical History Wears glasses Anxiety Thyroid [...] Patient follow commands that she was at [facility] there is 2024 Skin: Warm, dry, intact [...] 75.6 H Lymph % (Auto) 15.5 L Meigs % (Auto) 7.7 Eos % (Auto) 0.4 [...] Sl. Cloudy Urine pH 6.0 Ur Specific [place] 1.020 Urine Protein 30 H Urine Glucose [...] (Auto) Neut % (Auto) Lymph % (Auto) Meigs % (Auto) Eos % (Auto) Baso % [...] Color Urine Clarity Urine pH Ur Specific [place] Urine Protein Urine Glucose (UA) Urine Ketones Urine Occult Blood Urine Nitrite Urine Bilirubin Urine Urobilinogen Ur Leukocyte Esterase Urine RBC Urine WBC Ur Squamous Epith Cells Amorphous Sediment Urine Bacteria Urine Mucus Radiography Diagnostic Testing: Clinical Impression(s) from Imaging Studies Chest X-Ray 07/28/24 16:50 IMPRESSION: No acute airspace abnormality. Reading Location: [facility] Discharge Plan Triage Chief [...] MD [Primary Care Provider] - Print Language: Kyrgyz Disposition Disposition: Acute Care Hospital [facility] What to do if you have Problems For any increased pain, shortness of breath, bleeding, nausea or vomiting, chestpain, or any unexpected problems, contact your Primary Care Provider. Call [facility] ([phone]) or report to the closest Emergency Room. Call 911 if necessary. 07/28/241951 <Electronically signed by Lion Valentin DO> Cosigner Signature (if applicable): CC: Dr. Hugo Mora MD ~ Signed [facility] Work Phone: 1(452) 921-947203-04-2025 NoteHNO ID: [id number] Author: CHANTEL HOPKINS APRN.[employer] Service: ? Author Type: Nurse Practitioner Type: Progress Notes Filed: 07/26/2024 18:34 Note Text: This note was created using [employer]. Subjective Olena Valera is a 68 year [...] of Onset Heart Mother CHF Heart Father [place]- Hypertension Brother Hypertension Brother Breast Cancer Maternal [...] 786.05, ICD10: R06.02 See above Chantel Hopkins APRN.[facility] History of Present illness Narrative* Chantel Hopkins APRN.[employer] - 07/26/2024 6:31 PM EST This note [...] of Onset Heart Mother CHF Heart Father [place]- Hypertension Brother Hypertension Brother Breast Cancer Maternal [...] 786.05, ICD10: R06.02 See above Chantel Hopkins APRN.[employer] documented in [facility] summary Author Ernie Ross [facility] Note Date/Time July 30, 2024 10:3 3am [facility] Medical Records Department [address] [place] [address] Instructions for Home/Discharge Instructions 07/30/24 1000 MR#: [id number] Acct: [id number] Name: OLENA VALERA Rep #:[id number] : [...] MD; Dr. Hugo Mora MD ~ Signed [facility] Work Phone: Evaluation noteNo assessment information available [facility] Work Phone: Evaluation note* Diagnosis Tachycardia- Primary Tachycardia, unspecified Elevated blood pressure reading Elevated blood pressure reading without diagnosis of hypertension SOB (shortness of breath) Shortness of breath documented in this encounter [facility] course Narrative No data available for this section [facility] Discharge instructions Additional Instructions Stay well-hydrated, plenty of rest, please return for any shortness of breath, chest pain or worsening of your symptoms.[facility] Work Phone: Progress note Author Ralph Sexton [facility] Note Date/Time July 30, 2024 10:[address] [facility] Medical Records Department [address] [place] [address] Progress Note - Cardiology 07/30/24 1047 MR#: [id number] Acct: [id number] Name: OLENA VALERA Rep #:[id number] : 1955 68 From: Ralph Sexton MD PCP: Dr. Hugo Mora MD Status:ADM I N Location: [place] [address] Subjective Subjective Sitting up in chair. Comfortable. [...] Cosigner Signature (if applicable): CC: ~ Signed [facility] Work Phone: Summary Purpose Family History No [...] No December 03, 2021 8:20am Power of Guard Range No December 03 8:20am Advance Directive Response Recorded Date/ Time Advance Directives No October 26 4 8:15am Living Will No March 09 10:51am Power of Guard Range No March 09, 2016 10:51am Advance Directive Response Recorded Date/ Time Advance Directives No October 26 4 8:15am Living Will No August 23, 2022 11:56am Power of Guard [place] No August 23 11:56am Advance Directive Response Recorded Date/ Time Living Will No July 26, 2024 8:16pm Power of Guard [place] No July 26 8:16pm Living Will No July 28, 2024 4:52pm Power of Guard Range No July 28 4:52pm Advance Directives No October 26 4 7:15am Advance Directive Response Recorded Date/ Time Living Will No July 26, 2024 8:16pm Power of Guard [place] No July 26 8:16pm Living Will No July 28, 2024 8:54pm Power of Guard Range No July 28 8:54pm Advance Directives No October 26 7:15am Advance Directive Response Recorded Date/ Time Living Will No July 26, 2024 9:16pm Do you have a Healthcare Power of Guard Range? No July 26, 2024 9:16pm Living Will No July 28, 2024 9:54pm Do you have a Healthcare Power of Guard Range? No July 28, 2024 9:54pm Advance Directives [...] PAF July 30, 2024 10:4 7am S/P [facility] Cath 07/29August 23, 2024 10:3 7am e [...] PAF July 30, 2024 10:4 7am S/P [facility] Cath 07/29August 23, 2024 10:3 7am e order August 23, 2024 12:0 6pm SCREENING October 06, 2024 9:57a m Additional Source Comments INFORMATION SOURCE (unrecogn ized section and content) DATE CREATED AUTHOR 05/30/2021 [facility] DATE CREATED AUTHOR AUTHOR'S ORGANIZ ATION 07/28/2024 [facility] DATE CREATED AUTHOR AUTHOR'S ORGANIZ ATION 10/29/2024 [facility] DATE CREATED AUTHOR AUTHOR'S ORGANIZ ATION 01/03/2025 [facility] Goals (unrecognized section and content) Goals [...] Hugo Mora MD Primary Care Provider Active Dr. 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 oYlanda Tucker MD Other Provider Active St art: [...] or prosecute any alcohol or drug abuse patient.[facility] Reason for Visit (unrecogniz ed section and [...] BE BASED ON THE PRIMARY CLINICAL RECORDS. [employer] provides no warranty or guarantee of the accuracy or completeness of information in this document.
--- NOTE | 2025-04-23 17:25 | ECHOCS_ITS ---
Reason For Study Reason For Study: Syncope Procedure This was a 2D Doppler, Color Flow transthoracic echocardiogram. The study was technically difficult. Contrast injection was performed. Exam performed portable in patient room. Left Ventricle Normal LV size. Mild concentric left ventricular hypertrophy. The left ventricular ejection fraction is 50 %. Stage 1 diastolic dysfunction. Right Ventricle Mildly dilated right ventricle. Normal systolic function. Atria The left atrium is moderately enlarged. Normal right atrium. Mitral Valve The mitral valve is structurally normal. No prolapse or stenosis seen. Tricuspid Valve Trivial tricuspid valve insufficiency. Unable to estimate RV systolic pressure due to insufficient tricuspid regurgitant envelope. Aortic Valve Trisinus/trileaflet aortic valve. Pulmonic Valve The pulmonic valve is not well visualized. Great Vessels Normal sized aortic root. Pericardium/Pleural No pericardial effusion. Medication Diluted definity 1.5ml given slow IV push to enhance endocardial definition. MMode/2D Measurements & Calculations LVIDd: 5.4 cm IVSd: 1.2 cm Ao root diam: 3.5 cm LVIDs: 3.8 cm LVPWd: 1.3 cm FS: 29.8 % LAV(MOD-bp): 50.3 ml LVAd ap4: 31.2 cm2 SV(MOD-sp4): 49.1 ml LAV(MOD-bp) Indexed: 21.0 ml/m2 LVLd ap4: 8.1 cm SI(MOD-sp4): 20.5 ml/m2 LAV(MOD-sp2): 53.0 ml EDV(MOD-sp4): 97.3 ml LAV(MOD-sp4): 44.6 ml EDV(sp4-el): 101.5 ml LVAs ap4: 20.9 cm2 LVLs ap4: 7.4 cm ESV(MOD-sp4): 48.2 ml ESV(sp4-el): 50.3 ml EF(MOD-sp4): 50.5 % EF(sp4-el): 50.4 % SV(sp4-el): 51.2 ml LA A4 area: 16.3 cm2 LA dimension(2D): 3.8 cm TAPSE: 2.0 cm Time Measurements MV dec time: 0.24 sec Doppler Measurements & Calculations MV E max flip: 76.6 cm/sec Lat Peak E' Flip: 9.4 cm/sec Med Peak E' Flip: 7.9 cm/sec MV A max flip: 84.1 cm/sec E/E' lat: 8.1 E/E' med: 9.7 MV E/A: 0.91 MV V2 max: 104.4 cm/sec MV P1/2t max flip: 99.2 cm/sec Ao V2 max: 155.0 cm/sec MV max P.4 mmHg MV P1/2t: 89.6 msec Ao max P.6 mmHg MV V2 mean: 65.2 cm/sec MV mean P.0 mmHg MV dec slope: 324.5 cm/sec2 MV V2 VTI: 28.4 cm MVA(P1/2t): 2.5 cm2 LV V1 max: 109.6 cm/sec PA V2 max: 115.6 cm/sec LV V1 max P.8 mmHg
[2025-04-23] MEDS: Magnesium Sulfate 2 GM in Dextrose 5%-Water (100mL Bag) 100 ML IV (18:33)
[2025-04-23] MEDS: APIXABAN 5 MG TABLET PO (20:36)
[2025-04-23] MEDS: Metoprolol(XL)Succ 50 MG Tablet PO (20:37)
[2025-04-23 20:54] LABS: Troponin T High Sensitivity 34 ng/L (<=14)
[2025-04-24 02:00] VITALS: BMI 53.7
[2025-04-24 02:56] VITALS: BP 128/61; PULSE 73; RESP 18; TEMP 36.1; O2SAT 95
[2025-04-24] MEDS: 0.9% Saline Lock 10 ML Syringe IV (05:58)
[2025-04-24 06:19] LABS: Hematocrit 36.4 % (37-47); Hemoglobin 11.3 g/dL (12.0-15.0); Immature Granulocytes Count 0.030 X10^3/uL (0.0-0.0); Mean Corp Hgb Conc 31.0 g/dL (32-36); Mean Corpuscular Volume 83.7 fL (81-99); Mean Platelet Vol. 9.2 fl (6.2-12.0); NRBC Flagged by Analyzer 0 % (0-5); Platelet Count 395 K/mm3 (150-450); RBC Distribution Width CV 16.7 % (11.6-14.6); RBC Distribution Width SD 51.2 fl (35.1-43.9); Red Blood Count 4.35 M/mm3 (4.2-5.4); White Blood Count 7.9 K/mm3 (4.4-11.0)
[2025-04-24 06:54] LABS: AST(SGOT) 23 U/L (<=31); Alanine Aminotransfer ALT/SGPT 21 U/L (<=34); Albumin, Serum 3.8 g/dL (3.4-4.8); Alkaline Phosphatase 93 U/L (35-104); Anion Gap 13 (5-15); BUN 23 mg/dL (4-19); BUN/Creat Ratio 37.0 RATIO (10-20); Calcium,Total 9.5 mg/dL (7.6-11.0); Carbon Dioxide 22.1 mmol/L (21.0-32.0); Chloride 101 mmol/L (98-108); Cholesterol 135 mg/dL (<=200); Estimated Creatinine Clearance 95.26 ml/min (50-250); Globulin 3.7 g/dL (2.2-4.2); Glucose 110 mg/dL (70-99); Low Density Lipoprotein Calc. 78 mg/dL; Potassium 3.4 mmol/L (3.3-5.1); Triglycerides 141 mg/dL; Very Low Density Lipoprotein 28 mg/dL (5-40); cholesterol:hdl ratio screen 4.19
[2025-04-24 07:50] VITALS: O2SAT 94
[2025-04-24 09:50] VITALS: BP 142/63; PULSE 97; RESP 16; TEMP 35.8; O2SAT 94
[2025-04-24] MEDS: APIXABAN 5 MG TABLET PO (09:57)
[2025-04-24 10:01] VITALS: PULSE 90
[2025-04-24] MEDS: Metoprolol(XL)Succ 50 MG Tablet PO (10:01)
--- NOTE | 2025-04-24 15:07 | CASEMGMT ---
HANSON Met with patient to complete HANSON form. HANSON form and its content were verbally explained and patient's questions were answered to the best of my ability.? Patient voiced understanding and signed HANSON form.? Patient provided a copy of signed HANSON form and original placed in patient's chart.? Patient had no further questions. Aline Chao, Discharge Planning Asst
--- NOTE | 2025-04-24 15:19 | DS.PCM_ITS ---
Providers Date of Admission: 04/23/25 Date of Discharge: 04/24/25 Primary Care Physician: Dr. Hugo Noriega MD Reason For Visit: NEAR SYNCOPE, PAF RVR Diagnosis Discharge Diagnosis (1) Near syncope: Status: Acute Code(s): R55 - Syncope and collapse Medications at Discharge Home Medications benazepril 10 mg tablet 10 mg PO DAILY BP 12/31/13 venlafaxine 75 mg capsule,extended release 24 hr 75 mg PO DAILY HOT FLASHES 12/31/13 atorvastatin 20 mg tablet 20 mg PO QHS high cholesterol 07/26/24 levothyroxine 75 mcg tablet (Synthroid) 75 mcg PO DAILY hypothyroid 07/28/24 apixaban 5 mg tablet (Eliquis) 5 mg PO BID 90 days #180 tabs 08/23/24 chlorthalidone 25 mg tablet 12.5 mg (1/2 x 25 mg) PO QDAY #30 tabs 08/23/24 metoprolol succinate 50 mg tablet,extended release 24 hr 50 mg PO DAILY 3 months #90 tabs 08/23/24 Hospital Course Operations None Procedures 2-D Echocardiogram Summary of Care Provided Minutes Spent on Discharge: 45 Hospital Course: Patient is a 69-year-old female with past medical history as outlined including atrial fibrillation was admitted to the ED on 04/23/2025 with complaint of near syncope at [facility]. Patient states she had had severe emotional events over the last week including the of her puppy dog of 16 years. She said she also had a close friend who had and was also the birthday of her son with autism and was not in his 40s. All these events served as stressors. 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 She says she subsequently became very warm with increased sweating and nearly passed out. She said this happened while she was telling some friends about her dog passing away and she became very stressed. She was therefore brought into the ED on account of the near syncope. She denied any chest pain or shortness of breath. On arrival her symptoms had resolved. Blood pressure was elevated at 211/112 though blood pressure subsequently came down to 142/72 once patient calmed down. Her initial heart rate was also 153 though that also subsequently trended downwards spontaneously. She was admitted to be managed for near syncope and A-fib with RVR. This was thought to be likely due to demand ischemia in the setting of the recent stresses that she had experienced. She was continued on her aspirin and statin as well as metoprolol and Eliquis. Of note patient had had cardiac cath on July 29, 2024 which showed 60% LAD stenosis and 50% stenosis of the circumflex artery and also the right coronary artery. This was treated medically. She had 2D echo done today which showed EF of 50% with no acute left ventricular wall abnormalities and showed stage I diastolic dysfunction and moderately enlarged left atrium. Her symptoms completely resolved and she had repeat added to the stress test she had endured. Patient was comfortable with going home on 04/24/2025. She was discharged home and is continued on her aspirin and Eliquis as well as metoprolol and benazepril. She is to follow-up with her primary care doctor within 1 to 2 weeks. Patient seen and examined prior to discharge. Her and son and daughter were by her bedside. Review of systems otherwise negative. Labs and vitals reviewed. Home medication reviewed and reconciled. Physical Exam Const alert, oriented x3 and no apparent distress Constitutional Narrative: Class III obesity. General Appearance: cooperative and comfortable Orientation / Consciousness: awake Exam Limitations: no limitations HEENT normocephalic, head/scalp atraumatic, hearing grossly normal bilaterally, moist oral mucous membranes and oropharynx normal Mouth: oral and palatal mucosa normal Eyes EOMs intact bilaterally and conjunctivae normal Neck supple and no JVD Resp normal respiratory effort, no use of accessory muscles and clear to auscultation bilaterally Cardio regular rate, regular rhythm, S1 normal heart sound, S2 normal heart sound and no murmurs GI normal to inspection, nondistended, normoactive bowel sounds, soft to palpation and non-tender Extremity normal to inspection, full ROM and no clubbing, cyanosis or edema Skin no rashes or lesions noted Neuro oriented x3, moves all extremities and no focal motor deficits Sensorium / Orientation: awake and alert Motor Exam: strength 5/5 throughout Psych affect normal Weight / BMI Weight Weight: 313 lb 4.43 oz Body Mass Index (BMI) 53.7 ABG / Lab / Microbiology Data 04/24/25 05:12 04/24/25 05:12 Laboratory: Laboratory Results - last 24 hr 04/23/25 15:29: Troponin T Hi Sens 4Hr 33 H 04/23/25 20:18: Troponin T High Sens 34 H D 04/24/25 05:12: WBC 7.9, RBC 4.35, Hgb 11.3 L, Hct 36.4 L, MCV 83.7, MCH 26.0 L, MCHC 31.0 L, RDW Std Deviation 51.2 H, RDW Coeff of Mykel 16.7 H, Plt Count 395, MPV 9.2, Immature Gran % (Auto) 0.400, Neut % (Auto) 69.5, Lymph % (Auto) 18.2 L , [place] % (Auto) 8.6, Eos % (Auto) 2.8, Baso % (Auto) 0.5, Absolute Neuts (auto) 5.5, Absolute Lymphs (auto) 1.44, Nucleated RBC % 0, Sodium 136, Potassium 3.4, Chloride 101, Carbon Dioxide 22.1, Anion Gap 13, BUN 23 H, Creatinine 0.62 L, Estim Creat Clear Calc 95.26, Est GFR (MDRD) Non-Af 97, BUN/Creatinine Ratio 37.0 H, Glucose 110 H, Hemoglobin A1c 6.2 H, Calcium 9.5, Total Bilirubin 0.42, AST 23, ALT 21, Alkaline Phosphatase 93, Total Protein 7.5, Albumin 3.8, Globulin 3.7, Albumin/Globulin Ratio 1.0, Triglycerides 141, Cholesterol 135, LDL Cholesterol, Calc 78, VLDL Cholesterol 28, HDL Cholesterol 32 L, Cholesterol/HDL Ratio 4.19, TSH 2.720 Radiography Diagnostic Testing: Radiology Impression Echocardiogram 04/23/25 17:25 Interpretation Summary Mild concentric left ventricular hypertrophy. The left ventricular ejection fraction is 50 %. Stage 1 diastolic dysfunction. Mildly dilated right ventricle. The left atrium is moderately enlarged. The study was technically difficult. Ordering Physician: Yolanda Tucker Performed By: Enrrique Victor RCS D/C Instructions Discharge Activity: Return to Normal Activity Weight Bearing Status: Weight bearing as tolerated Call your doctor if you observe: Fever of 101 or Higher, Shortness of breath, Swelling in the ankles, Chest pain and Increased palpitations (irregular heartbeat) DC O2, CPAP, BIPAP Needs Home O2 Discharge instructions: No DC home with Oxygen: No Meaningful Use Info Meaningful Use Meaningful Use Diagnoses (Choose all that apply): None applicable Discharge Plan Admission Admit Date/Time: 04/23/25 16:41 Primary Reason for Your Visit: near syncope Attending Provider: Daniela Dupont Primary Care Provider: Hugo Noriega Consulting Providers: Yolanda Tucker Instructions Patient Instructions: ED Near-Fainting, Uncertain Cause Discharge Orders/Prescriptions Prescriptions: Continued chlorthalidone 25 mg tablet 12.5 mg PO QDAY Qty: 30 11RF Eliquis 5 mg tablet 5 mg PO BID 90 Days Qty: 180 3RF metoprolol succinate 50 mg tablet extended release 24 hr 50 mg PO DAILY 90 Days Qty: 90 3RF Rx Instructions: Hold for heart less than 50 or systolic blood pressure less than 100 mmHg. venlafaxine 75 MG capsule,extended release 24hr 75 mg PO DAILY Patient Comments: benazepril 10 MG tablet 10 mg PO DAILY Patient Comments: atorvastatin 20 mg tablet 20 mg PO QHS levothyroxine [Synthroid] 75 mcg tablet 75 mcg PO DAILY Referrals / Follow Up: Hugo Noriega MD [Primary Care Provider, Family Practice] - Within 1 Week Disposition Disposition (needs filled in before D/C Order can be placed): Home, Self Care Charges/Coding Visit Charges Inpatient E&M: 13363 Disch Hosp >30min
--- NOTE | 2025-04-24 15:32 | DCINST_ITS ---
Discharge Instructions DC O2, CPAP, BIPAP needs Home O2 Discharge instructions: No Dressing / Incision Discharge Activity: Return to Normal Activity Weight Bearing Status: Weight bearing as tolerated Dressing / Incision Call your doctor if you observe: Fever of 101 or Higher, Shortness of breath, Swelling in the ankles, Chest pain and Increased palpitations (irregular heartbeat) Follow Up Care Test Results: Test results from this visit will be discussed in further detail at your follow- up appointment, if applicable. Discharge Plan Admission Admit Date/Time: 04/23/25 16:41 Primary Reason for Your Visit: near syncope Attending Provider: Daniela Dupont Primary Care Provider: Hugo Noriega Consulting Providers: Yolanda Tucker Instructions Patient Instructions: ED Near-Fainting, Uncertain Cause Discharge Orders/Prescriptions Prescriptions: Continued chlorthalidone 25 mg tablet 12.5 mg PO QDAY Qty: 30 11RF Eliquis 5 mg tablet 5 mg PO BID 90 Days Qty: 180 3RF metoprolol succinate 50 mg tablet extended release 24 hr 50 mg PO DAILY 90 Days Qty: 90 3RF Rx Instructions: Hold for heart less than 50 or systolic blood pressure less than 100 mmHg. venlafaxine 75 MG capsule,extended release 24hr 75 mg PO DAILY Patient Comments: benazepril 10 MG tablet 10 mg PO DAILY Patient Comments: atorvastatin 20 mg tablet 20 mg PO QHS levothyroxine [Synthroid] 75 mcg tablet 75 mcg PO DAILY Referrals / Follow Up: Hugo Noriega MD [Primary Care Provider, Family Practice] - Within 1 Week Disposition Disposition (needs filled in before D/C Order can be placed): Home, Self Care
--- NOTE | 2025-04-24 15:47 | PHA.DC.MR.R ---
Pharmacy [facility] Reconciliation Pharmacy Service has performed discharge medication reconciliation for this patient. The patient's discharge medication list was reviewed for discrepancies and discrepancies were resolved. Medications at Discharge Home Medications benazepril 10 mg tablet 10 mg PO DAILY BP 12/31/13 venlafaxine 75 mg capsule,extended release 24 hr 75 mg PO DAILY HOT FLASHES 12/31/13 atorvastatin 20 mg tablet 20 mg PO QHS high cholesterol 07/26/24 levothyroxine 75 mcg tablet (Synthroid) 75 mcg PO DAILY hypothyroid 07/28/24 apixaban 5 mg tablet (Eliquis) 5 mg PO BID 90 days #180 tabs 08/23/24 chlorthalidone 25 mg tablet 12.5 mg (1/2 x 25 mg) PO QDAY #30 tabs 08/23/24 metoprolol succinate 50 mg tablet,extended release 24 hr 50 mg PO DAILY 3 months #90 tabs 08/23/24
--- NOTE | 2025-04-24 16:17 | CASEMGMT ---
Patient has order for discharge. RN CM in to discuss needs at discharge. Patient denies needs or help at discharge. Patient had no further questions or concerns.
[2025-04-24 16:20] VITALS: BP 134/73; PULSE 94; RESP 16; TEMP 35.5; O2SAT 96
== END 2025-04-24 16:43 | disposition home or self-care (01) ==
LOC: ED 16:21 → PCU 16:48
PROVIDERS: Admitting Provider Family Medicine; Emergency Provider Emergency Medicine; PCP Family Medicine; Visit Provider Student in an Organized Health Care Education/Training Program
DX: R55 Syncope and collapse (principal); I48.0 Paroxysmal atrial fibrillation; E66.01 Morbid (severe) obesity due to excess calories; Z68.43 Body mass index [BMI] 50.0-59.9, adult; E78.00 Pure hypercholesterolemia, unspecified; Z79.01 Long term (current) use of anticoagulants; R42 Dizziness and giddiness; R79.89 Other specified abnormal findings of blood chemistry; Z79.899 Other long term (current) drug therapy; I12.9 Hypertensive chronic kidney disease with stage 1 through stage 4 chronic kidney disease, or unspecified chronic kidney disease; Z79.890 Hormone replacement therapy; I25.10 Atherosclerotic heart disease of native coronary artery without angina pectoris; I49.3 Ventricular premature depolarization; I44.0 Atrioventricular block, first degree; R94.31 Abnormal electrocardiogram [ECG] [EKG]; I45.10 Unspecified right bundle-branch block; Z87.891 Personal history of nicotine dependence; N18.2 Chronic kidney disease, stage 2 (mild); E87.6 Hypokalemia; R73.9 Hyperglycemia, unspecified; G47.33 Obstructive sleep apnea (adult) (pediatric)
CPT/HCPCS: 36415; 71045; 80048; 80053; 80061; 83036; 83735; 84443; 84484; 85025; 93005; 93306; 94002; 94668; 99221; 99252; 99285; Q9957; A4216; C8929; G0378; G0463